=== PATIENT | female | born 1940 | race Caucasian/White ===

== ENCOUNTER 2020-11-30 07:29 | Inpatient (IN) | payer MEDICARE, SELFPAY ==
[2020-11-30] VITALS (28 sets, daily range): BP systolic 139–185; BP diastolic 64–135; PULSE 57–123; RESP 14–28; TEMP 36.3–36.9; O2SAT 85–98
--- NOTE | ~2020-11-30 | XR_ITS ---
EXAMINATION: XR chest 1V portable DATE: 11/30/2020 09:40 INDICATION: Shortness of breath TECHNIQUE: frontal view of the chest was obtained. COMPARISON: None FINDINGS: Calcified nodule at the right costophrenic angle consistent with old granulomatous disease. Patchy ai rspace opacities in the bilateral mid and lower lung zones. No pleural effusion or pneumothorax. The cardiomediastinal silhouette is normal. Old healed proximal right humeral fracture deformity. IMPRESSION: 1. Mild airspace opacities in the bilateral mid and lower lung zones which could represent atelectasi s or pneumonia, including COVID pneumonia. Reviewed, dictated and finalized at location B. IMPRESSION: 1. Mild airspace opacities in the bilateral mid and lower lung zones which coul d represent atelectasis or pneumonia, including COVID pneumonia.
--- NOTE | ~2020-11-30 | XR_ITS ---
EXAMINATION: XR lumbar spine 2-3V DATE: 11/30/2020 08:38 INDICATION: Low back pain. TECHNIQUE: 3 views of lumbar spine were obtained. COMPARISON: None. FINDINGS: There is 11 degrees levoscoliosis of lumbar spine. There is a compression fracture of L5 wi th 1/5 loss of height. There is mildly decreased disc height at L3-L4 and L4-L5 and moderately decrea sed disc height at L5-S1. There are endplate osteophytes at all levels. There is multilevel severe fa cet joint osteoarthritis. There is a total right hip arthroplasty. IMPRESSION: 1. Age-indeterminate compression fracture of L5. 2. Moderate lumbar spondylosis. 3. Lumbar levoscoliosis. Reviewed, dictated and finalized at location A.
--- NOTE | ~2020-11-30 | XR_ITS ---
EXAMINATION: XR chest 1V portable EXAM DATE: 12/04/2020 07:37 INDICATION: shortness of breath . TECHNIQUE: Portable AP frontal chest x-ray was obtained. Comparison is made to prior examination from 11/30/2020. FINDINGS: Persistent peripheral distribution small lung opacities, could be COVID pneumonia or other acute infectious process. There is right basilar granuloma. No pneumothorax or pleural effusion. Card iomediastinal silhouette is normal. There is aortic arteriosclerosis. There are bony degenerative tricia nges. IMPRESSION: Persistent patchy multifocal airspace disease. Reviewed, dictated and finalized at location A.
[2020-11-30] MEDS: SODIUM CHLORIDE 0.9% IV 1,000 ML 150 ML IV CONT (08:14)
[2020-11-30 08:18] LABS: Basophils Percent Auto 0.1 % (0.2-1.2); Hematocrit 39.8 % (37.0-47.0); Hemoglobin 13.8 g/dL (12.0-15.0); Immature Granulocyte Absolute 0.13 K/mm3 (0.00-0.031); Immature Granulocyte Percent A 1.3 % (0-0.5); Lymphocytes Absolute Auto 0.38 K/mm3 (0.9-3.2); Lymphocytes Percent Auto 3.9 % (18.3-44.2); Mean Corpuscular HGB Conc 34.7 g/dl (32-36); Mean Corpuscular Volume 92.3 fl (80-100); Mean Platelet Volume 8.9 fl (7.4-10.4); Monocytes Absolute Auto 0.4 K/mm3 (0.1-0.6); Monocytes Percent Auto 4.5 % (2.6-8.5); Neutrophils Absolute Auto 8.7 K/mm3 (1.3-6.7); Neutrophils Percent Auto 90.2 % (45.5-73.1); Platelet Count Result 217 k/mm3 (150-375); Red Blood Count 4.31 M/mm3 (4.2-5.4); White Blood Count 9.7 K/mm3 (4.5-10.0)
[2020-11-30 09:22] LABS: Alanine Aminotransferase 30 U/L (4-35); Albumin Level 3.7 g/dL (3.5-5.1); Alkaline Phosphatase 57 U/L (38-126); Anion Gap 9 mmol/L (8-16); Aspartate Amino Transferase 56 U/L (14-36); Bilirubin,Total 0.9 mg/dL (0.2-1.3); Blood Urea Nitrogen 25 mg/dL (7-17); Calcium 8.4 mg/dL (8.4-10.2); Carbon Dioxide 23 mmol/L (22-30); Chloride 97 mmol/L (98-107); Estimated CRCL calculation 60 ml/min; Estimated Glomerular Filt Rate > 60; Glucose 138 mg/dL (65-110); Sodium 129 mmol/L (137-145)
[2020-11-30 09:39] LABS: CRP 14.8 mg/dL (<1.0)
--- NOTE | 2020-11-30 10:52 | PC.NURSE ---
report to sherley valdovinos
--- NOTE | 2020-11-30 11:29 | ED.GENADULT ---
HPI - General Adult General Chief complaint: Fall Stated complaint: Fall, back Pain, COVID + Time Seen by Provider: 11/30/20 07:37 Source: patient Mode of arrival: EMS Limitations: no limitations History of Present Illness HPI narrative: 80-year-old with a history of hypertension, diabetes diagnosed with Covid on 813 here with complaints of fall. Patient states that she was helping her to get him up from the floor ,lost her balance fell backwards. She denies any head injury or loss of consciousness. Patient states that felt a pop in her lower back. She denies bladder or bowel incontinence. Denies any tingling numbness. EMS also reports that her O2 saturations at home was 88% patient is not on any home oxygen. Patient has occasional dry nonproductive cough. She denies any fever or chills. Onset (ago): hour(s) (1) Location: back Severity: moderate Quality: aching Pain Consistency: constant Relieving factors: none Exacerbating factors: none Associated symptoms: denies other symptoms Related Data Home Medications Medication Instructions Recorded Confirmed fluticasone propionate 50 1 spray NASAL DAILY 08/06/19 mcg/actuation nasal spray,suspension glyburide 2.5 mg tablet 2.5 mg PO DAILY 08/06/19 metformin 500 mg tablet 500 mg PO BID 08/06/19 omeprazole 20 mg-sodium 1 cap PO DAILY 08/06/19 bicarbonate 1.1 gram capsule simvastatin 5 mg tablet 5 mg PO DAILY 08/06/19 Allergies Allergy/AdvReac Type Severity Reaction Status Date / Time azithromycin Allergy Abdominal Verified 11/30/20 08:17 Pain Sulfa (Sulfonamide Allergy break out Verified 08/06/19 08:28 Antibiotics) Review of Systems Review of Systems: All systems reviewed & are unremarkable except as noted in HPI and below Constitutional: Constitutional: Reports no additional constitutional complaints Eyes: Eyes: Reports no additional eye complaints ENT: Reports system reviewed and no additional complaints, except as documented Cardiovascular: Cardiovascular: Reports no additional cardiovascular complaints Respiratory: Respiratory: Reports as per HPI Gastrointestinal: Gastrointestinal: Reports no additional gastrointestinal complaints Musculoskeletal: Musculoskeletal: Reports as per HPI Neurologic: Reports system reviewed and no additional complaints, except as documented Psychiatric: Psychiatric: Reports no additional psychiatric complaints Exam Narrative: GENERAL: Well-appearing, well-nourished, and in no acute distress ,very pleasant. HEAD: Normocephalic, atraumatic. EYES: PERRLA and EOMI. NECK: Supple. CHEST: Clear to auscultation. No respiratory distress. HEART: Regular rate and rhythm. No murmur heard. Normal peripheral pulses. ABDOMEN: Soft, nontender, nondistended, normal active bowel sounds. EXTREMITIES: Normal range of motion. No edema. SKIN: Warm, dry, no rash. NEURO: No focal deficits. Alert and oriented x3. PSYCH: Normal mood and affect. Course Course Emergency Course: Patient comfortably resting on the bed in no discomfort her SPO2 on 2 L is 94 to 96%. I have informed her about her lab work, x-ray findings. She is agreeable for admission. Discussed with the hospitalist agreed to admit the patient. Vital Signs Vital signs: Vital Signs Temperature 36.9 C 11/30/20 07:42 Pulse Rate 87 11/30/20 07:42 Respiratory Rate 23 H 11/30/20 07:42 Blood Pressure 185/135 H 11/30/20 07:42 Pulse Oximetry 87 L 11/30/20 07:42 Temperature 36.9 C 11/30/20 07:42 Pulse Rate 87 11/30/20 07:42 Respiratory Rate 23 H 11/30/20 07:42 Blood Pressure 185/135 H 11/30/20 07:42 Pulse Oximetry 87 L 11/30/20 07:42 Medical Decision Making Vital Signs Vital Signs: Vital Signs Temperature 36.9 C 11/30/20 07:42 Pulse Rate 87 11/30/20 07:42 Respiratory Rate 23 H 11/30/20 07:42 Blood Pressure 185/135 H 11/30/20 07:42 Pulse Oximetry 87 L 11/30/20 07:42 Temperature 36.9 C 11/30
--- NOTE | 2020-11-30 11:35 | ECG_ITS ---
Measurements Intervals [place] Rate: 117 P: NV: 0 QRS: 61 QRSD: 91 T: 47 QT: 295 QTc: 413 Interpretive Statements ATRIAL FIBRILLATION WITH RAPID VENTRICULAR RESPONSE DELAYED PRECORDIAL R/S TRANSITION BASELINE ARTIFACT- I, II, III, AVR, AVL, AVF, V1-V6 ABNORMAL ECG Electronically Signed On 11-30-2020 11:55:21 CDT by Jose Manuel Son D.O.
--- NOTE | 2020-11-30 13:00 | PM.IMHP ---
H&P: HPI History of Present Illness Date/Time: 11/30/20 13:00 Chief Complaint: Back pain after fall. Narrative: This is an 80-year-old female with diabetes, hypertension, and hyperlipidemia who presented to the emergency department earlier today via EMS from home for evaluation of back pain after a fall. The patient tested positive for COVID 19 on 11/20/2020 (she was not vaccinated) and she has been feeling okay aside from intermittent fever and nonproductive cough. Her is also sick and today she found him lying on the bathroom floor so she attempted to help him up but she lost her balance and fell backwards. She reports feeling a ?pop? in her lower back with the onset of immediate pain. EMS was summoned to help both of them up. On their arrival her SpO2 was 88% on room air and she was found to be in atrial fibrillation. She denies feeling any significant shortness of breath. She has no previous history of atrial fibrillation but does report ?a strange feeling in my chest? that has started relatively recently. She denies chest pain, pleuritic pain, orthopnea, PND, lower extremity edema, nausea, vomiting, and diarrhea. No numbness and tingling in the lower extremities, bowel and bladder incontinence, or saddle anesthesia. Review of Systems Review of Systems: Twelve systems were reviewed with pertinent positives and negatives as per HPI. She denies headache. No syncope or near syncope. No lightheadedness. No significant sinus congestion, rhinorrhea, otalgia, or odynophagia. Denies anosmia and dysgeusia. Appetite has been okay. Cough has been bothering her and she was prescribed Tessalon Perles which were of no help. No history of venous thromboembolism. She believes her diabetes is fairly well controlled. Except as documented, all other systems were reviewed and are negative. [facility] Past Medical History Medical History (Updated 11/30/20 @ 19:08 by Gabbie Corado PA-C) Arthritis Gastroesophageal reflux disease Glaucoma Hypertension Shingles (04/2020) Type 2 diabetes mellitus Surgical History Surgical History (Updated 11/30/20 @ 19:02 by Gabbie Corado PA-C) History of appendectomy History of cholecystectomy History of hysterectomy History of right hip replacement Family History Family History (Updated 11/30/20 @ 19:02 by Gabbie Corado PA-C) Other Diabetes mellitus Hypertension Social History Social History (Updated 11/30/20 @ 19:03 by Gabbie Corado PA-C) Social History: Surrogate decision maker: Julian Bond, . Code status: Full code. Smoking status: Never smoker Alcohol intake: never Substance use: never Substance use type: does not use Additional living arrangements comments: The patient lives in [place] with her . Additional occupation/education comments: Retired. Meds Home Medications and Allergies Home Medications Medication Instructions Recorded Confirmed Type fluticasone propionate 50 2 spray NASAL DAILY 08/06/19 11/30/20 History mcg/actuation nasal spray,suspension glyburide 2.5 mg tablet 2.5 mg PO DAILY 08/06/19 11/30/20 History metformin 500 mg tablet 500 mg PO BID 08/06/19 11/30/20 History omeprazole 20 mg-sodium 1 cap PO HS 08/06/19 11/30/20 History bicarbonate 1.1 gram capsule simvastatin 5 mg tablet 5 mg PO DAILY 08/06/19 11/30/20 History brimonidine [Alphagan P] 1 drp RIGHT EYE Q12H 11/30/20 11/30/20 History latanoprost 1 drp EACH EYE HS 11/30/20 11/30/20 History peg 400-propylene glycol [Systane 1 drp EACH EYE Q12H 11/30/20 11/30/20 History (propylene glycol)] pioglitazone 30 mg PO HS 11/30/20 11/30/20 History timolol maleate 1 drp EACH EYE DAILY 11/30/20 11/30/20 History Allergies Allergy/AdvReac Type Severity Reaction Status Date / Time azithromycin Allergy Abdominal Verified 11/30/20 18:37 Pain Sulfa (Sulfonamide Allergy break out Verified 11/30/20 18:37 Antibiotics) Vital Signs Vital
[2020-11-30] MEDS: SODIUM CHLORIDE 0.9% IV 1,000 ML 75 ML IV CONT (13:03)
[2020-11-30 14:23] LABS: Glucose Point of Care 128 mg/dl (65-105)
--- NOTE | 2020-11-30 15:45 | PC.NURSE ---
This patient, Bren Bond, was admitted to [address] [facility] Surg Room 305-02 on 11/30/20 @ 1540. Patient/family oriented to hospital policies and general routines including ID bracelet, bed and alarms, visiting hours, pain management, procedures, bathroom and other care routines, personal items, smoking policy, room service/diet, and visiting hours. Information on how to activate the Rapid Response Team has been discussed. Patient/Family are encouraged to report perceived risks to care and to ask questions if they do not understand what they are told or what they should do.
[2020-11-30 17:08] LABS: Glucose Point of Care 207 mg/dl (65-105)
[2020-11-30] MEDS: ACETAMINOPHEN 325 MG TABLET 650 MG PO (20:33)
[2020-11-30] MEDS: LATANOPROST 0.005% OP SOLN 2.5 ML BTL 1 DROP EACH EYE (21:52)
[2020-11-30] MEDS: BRIMONIDINE TARTRATE 0.1% 5 ML OPHTH DROPS 1 DROP RIGHT EYE (21:52)
[2020-11-30] MEDS: guaiFENesin 600 MG/DEXTROMETHORPHAN 30 MG SR TAB 12 HR 1 TAB PO (21:53)
[2020-11-30] MEDS: ENOXAPARIN 100 MG/ML SYRINGE 95 MG SUB-Q (21:54)
[2020-11-30] MEDS: PIOGLITAZONE HCL 30 MG TABLET PO (21:54)
[2020-11-30 22:16] LABS: Glucose Point of Care 208 mg/dl (65-105)
[2020-12-01] VITALS (11 sets, daily range): BP systolic 151–171; BP diastolic 58–83; PULSE 54–85; RESP 14–18; TEMP 36.3–36.6; O2SAT 92–96
[2020-12-01] MEDS: ACETAMINOPHEN 325 MG TABLET 650 MG PO ×3 (03:27→21:28)
[2020-12-01 06:42] LABS: Glucose Point of Care 185 mg/dl (65-105)
[2020-12-01 06:46] LABS: Basophils Percent Auto 0.3 % (0.2-1.2); Hematocrit 38.1 % (37.0-47.0); Hemoglobin 12.9 g/dL (12.0-15.0); Immature Granulocyte Absolute 0.12 K/mm3 (0.00-0.031); Immature Granulocyte Percent A 1.6 % (0-0.5); Lymphocytes Absolute Auto 0.49 K/mm3 (0.9-3.2); Lymphocytes Percent Auto 6.7 % (18.3-44.2); Mean Corpuscular HGB Conc 33.9 g/dl (32-36); Mean Corpuscular Hemoglobin 31.5 pg (26-34); Mean Corpuscular Volume 93.2 fl (80-100); Monocytes Absolute Auto 0.4 K/mm3 (0.1-0.6); Monocytes Percent Auto 5.8 % (2.6-8.5); Neutrophils Absolute Auto 6.3 K/mm3 (1.3-6.7); Neutrophils Percent Auto 85.6 % (45.5-73.1); Platelet Count Result 243 k/mm3 (150-375); Red Blood Count 4.09 M/mm3 (4.2-5.4); White Blood Count 7.3 K/mm3 (4.5-10.0)
[2020-12-01 07:12] LABS: Alanine Aminotransferase 30 U/L (4-35); Albumin Level 3.7 g/dL (3.5-5.1); Alkaline Phosphatase 52 U/L (38-126); Anion Gap 13 mmol/L (8-16); Aspartate Amino Transferase 50 U/L (14-36); Bilirubin,Total 0.8 mg/dL (0.2-1.3); Blood Urea Nitrogen 24 mg/dL (7-17); Calcium 8.5 mg/dL (8.4-10.2); Carbon Dioxide 20 mmol/L (22-30); Chloride 98 mmol/L (98-107); Estimated CRCL calculation 60 ml/min; Estimated Glomerular Filt Rate > 60; Glucose 209 mg/dL (65-110); Sodium 131 mmol/L (137-145)
[2020-12-01] MEDS: guaiFENesin 600 MG/DEXTROMETHORPHAN 30 MG SR TAB 12 HR 1 TAB PO ×2 (07:50→21:29)
[2020-12-01] MEDS: SIMVASTATIN 5 MG TABLET PO (07:50)
[2020-12-01] MEDS: glyBURIDE 2.5 MG TABLET PO (07:50)
[2020-12-01] MEDS: FLUTICASONE PROPIONATE 0.05% NA SPR 16 GM BTL (*BKC) 2 SPRAY NASAL (07:51)
[2020-12-01] MEDS: ENOXAPARIN 100 MG/ML SYRINGE 95 MG SUB-Q ×2 (07:51→21:29)
[2020-12-01 08:10] LABS: Thyroid Stimulating Hormone Reflex 0.424 uIU/mL (0.465-4.68)
[2020-12-01 11:19] LABS: Lactate Dehydrogenase 1117 U/L (313-618)
[2020-12-01 11:51] LABS: CRP 16.6 mg/dL (<1.0)
[2020-12-01 12:21] LABS: Glucose Point of Care 146 mg/dl (65-105)
[2020-12-01 12:31] LABS: Potassium 3.9 mmol/L (3.4-5.0)
[2020-12-01 12:54] LABS: Total Triiodothyronine (T3) 0.69 NG/ML (0.97-1.69)
--- NOTE | 2020-12-01 15:06 | P.PNIM_ITS ---
Progress Note: A&P Assessment and Plan (1) COVID-19: Code(s): U07.1 - COVID-19 Status: Acute Assessment and Plan: * The patient is out of the window for remdesivir. * Decadron on hold for now * Chest x-ray shows bilateral mid and lower lung opacities which could be atelectasis or pneumonia. * Mucinex * Cynthia and IS ordered * Rescue inhaler available as needed. (2) Hypoxia: Code(s): R09.02 - Hypoxemia Status: Acute Assessment and Plan: * SpO2 was reportedly 88% on room air * Currently on 2LNC 95% * Wean oxygen to maintain a saturation greater than 94% (3) Hyponatremia: Code(s): E87.1 - Hypo-osmolality and hyponatremia Status: Acute Assessment and Plan: * Na 131 * Given 1L of NS * Sodium increased * encourage fluids * Trend labs (4) New onset atrial fibrillation: Code(s): I48.91 - Unspecified atrial fibrillation Status: Acute Assessment and Plan: * New diagnosis for the patient. * Chads Vasc 2 score is 5 the she should be started on anticoagulation. * Start Lovenox 1 milligram/kilogram b.i.d. pending insurance authorization. * Monitor on telemetry overnight. * TSH 0.424 * echocardiogram EF 60-65% grade one diastolic dysfunction (5) Compression fracture of L5 vertebra: Code(s): S32.050A - Wedge compression fracture of fifth lumbar vertebra, initial encounter for closed fracture Status: Acute Assessment and Plan: * Probably from the fall. * Analgesics available as needed. * PT/OT when feeling better. (6) Type 2 diabetes mellitus: Code(s): E11.9 - Type 2 diabetes mellitus without complications Status: Acute Assessment and Plan: * Hold pioglitazone and glyburide. * Check hemoglobin A1c. * Initiate sliding scale insulin * Accu-Cheks * hypoglycemic protocol. (7) Hypertension: Code(s): I10 - Essential (primary) hypertension Status: Acute Assessment and Plan: * Blood pressure was 166/73 * Check BNP * Start patient on 5mg Lisinopril PO * trend BP * Adjust medications as needed Time Spent With Patient Time with patient: Greater than 35 minutes Subjective Date/time seen: 12/01/20 9:00 a.m. Interval history: Patient is an 80-year-old female who presented to the ED after a fall. Patient stated that her back popped whenever she is trying to help her up off the floor. She was tested COVID positive on then 20 of November. When she got here is noted that her oxygen saturation was low patient was placed on supplemental oxygen. Patient seems a little bit anxious today. She stated that her grandson came from [place] to visit them and did realize that he had COVID in of his restoration operation nurse came down with virus. Patient had to take care of her grandson who needed her help. The only complaint she has is that she has shortness of breath when she coughs and her back hurts worse when she coughs as well currently she is sinus rhythm Silver on the monitor. She did state that she was having chills last night when she woke up for breathing treatment her hair was completely saturated with sweats. She also complained of a dry cough. When she 1st got this illness she was taking 12 are Mucinex at home which was helping her get up some stuff. I did talk in length with about the patient getting vaccinated. Patient said she does not believe in the vaccination and does not believe it is real. Review of Systems R
--- NOTE | 2020-12-01 15:06 | PM.IMPN ---
Progress Note: A&P Assessment and Plan (1) COVID-19: Code(s): U07.1 - COVID-19 Status: Acute Assessment and Plan: The patient is out of the window for remdesivir. Decadron on hold for now Chest x-ray shows bilateral mid and lower lung opacities which could be atelectasis or pneumonia. Mucinex Cynthia and IS ordered Rescue inhaler available as needed. (2) Hypoxia: Code(s): R09.02 - Hypoxemia Status: Acute Assessment and Plan: SpO2 was reportedly 88% on room air Currently on 2LNC 95% Wean oxygen to maintain a saturation greater than 94% (3) Hyponatremia: Code(s): E87.1 - Hypo-osmolality and hyponatremia Status: Acute Assessment and Plan: Na 131 Given 1L of NS Sodium increased encourage fluids Trend labs (4) New onset atrial fibrillation: Code(s): I48.91 - Unspecified atrial fibrillation Status: Acute Assessment and Plan: New diagnosis for the patient. Chads Vasc 2 score is 5 the she should be started on anticoagulation. Start Lovenox 1 milligram/kilogram b.i.d. pending insurance authorization. Monitor on telemetry overnight. TSH 0.424 echocardiogram EF 60-65% grade one diastolic dysfunction (5) Compression fracture of L5 vertebra: Code(s): S32.050A - Wedge compression fracture of fifth lumbar vertebra, initial encounter for closed fracture Status: Acute Assessment and Plan: Probably from the fall. Analgesics available as needed. PT/OT when feeling better. (6) Type 2 diabetes mellitus: Code(s): E11.9 - Type 2 diabetes mellitus without complications Status: Acute Assessment and Plan: Hold pioglitazone and glyburide. Check hemoglobin A1c. Initiate sliding scale insulin Accu-Cheks hypoglycemic protocol. (7) Hypertension: Code(s): I10 - Essential (primary) hypertension Status: Acute Assessment and Plan: Blood pressure was 166/73 Check BNP Start patient on 5mg Lisinopril PO trend BP Adjust medications as needed Time Spent With Patient Time with patient: Greater than 35 minutes Subjective Date/time seen: 12/01/20 9:00 a.m. Interval history: Patient is an 80-year-old female who presented to the ED after a fall. Patient stated that her back popped whenever she is trying to help her up off the floor. She was tested COVID positive on then 20 of November. When she got here is noted that her oxygen saturation was low patient was placed on supplemental oxygen. Patient seems a little bit anxious today. She stated that her grandson came from [place] to visit them and did realize that he had COVID in of his [employer] operation nurse came down with virus. Patient had to take care of her grandson who needed her help. The only complaint she has is that she has shortness of breath when she coughs and her back hurts worse when she coughs as well currently she is sinus rhythm Silver on the monitor. She did state that she was having chills last night when she woke up for breathing treatment her hair was completely saturated with sweats. She also complained of a dry cough. When she 1st got this illness she was taking 12 are Mucinex at home which was helping her get up some stuff. I did talk in length with about the patient getting vaccinated. Patient said she does not believe in the vaccination and does not believe it is real. Review of Systems Review of Systems: All systems reviewed & are unremarkable except as noted in HPI and below Exam Const: General: cooperative, healthy appearing, no acute distress, well developed, alert, awake, Physically active and uncomfortable Nutritional Appearance: well nourished, obese and overweight Orientation/consciousness: oriented to person, oriented to place, oriented to time and patient oriented x3 Limitations: no limitations HENMT: Head: normal to inspection Ears: hearing
[2020-12-01 15:10] LABS: Glucose Point of Care 113 mg/dl (65-105)
--- NOTE | 2020-12-01 19:14 | ECHO_ITS ---
Patient Info Name: Bren Bond Age: 80 years : 1940 Gender: Female Ht: 63 in Wt: 204 lbs BSA: 2.07 m2 HR: 77 bpm BP: 159 / 58 mmHg Heart Rhythm: Sinus Rhythm Exam Date: 12/01/2020 11:23 AM Exam Location: [facility] Patient Status: Inpatient Admit Date: 11/30/2020 Staff Ordering Physician: Gabbie Corado PA-C Fiscal Services Manager: Carlo Fournier RDCS, RT Attending Provider: Zohreh Mendoza MD Referring Physician: Mak CHAVEZ; Exam Type: CA echo doppler color flow Study Info Indications I48.1 - Persistent atrial fibrillation I10 - Essential (primary) hypertension Complete two-dimensional, color flow and Doppler transthoracic echocardiogram is performed. Strain analysis performed. Summary 1. Complete two-dimensional, color flow and Doppler transthoracic echocardiogram is performed. 2. Strain analysis performed. 3. Left ventricular chamber dimension is normal. 4. Left ventricular systolic function is normal, estimated at 60-65%. 5. There is mildly increased left ventricular wall thickness. 6. The left ventricular diastolic function is grade I diastolic dysfunction. 7. Global longitudinal strain is abnormal at -14 %. 8. Left atrial chamber dimension is moderately enlarged. 9. There is mild to moderate aortic valve regurgitation. 10. There is mild mitral valve regurgitation. 11. There is mild tricuspid valve regurgitation. Left Ventricle Left ventricular chamber dimension is normal. Left ventricular systolic function is normal, estimated at 60-65%. There is mildly increased left ventricular wall thickness. The left ventricular diastolic function is grade I diastolic dysfunction. Global longitudinal strain is abnormal at -14 %. Right Ventricle Right ventricular chamber dimension is normal. Right ventricular systolic function is normal. Left Atria Left atrial chamber dimension is moderately enlarged. Right Atria Right atrial chamber dimension is normal. Atrial Septum Intact interatrial septum visualized by color flow imaging. Aortic Valve The aortic valve is trileaflet. There is mild aortic valve sclerosis. There is no aortic valve stenosis. There is mild to moderate aortic valve regurgitation. Pulmonic Valve The pulmonic valve is normal. There is no pulmonic valve stenosis. There is trace pulmonic regurgitation. Mitral Valve The mitral valve has normal leaflets. There is no mitral valve stenosis. There is mild mitral valve regurgitation. Tricuspid Valve The tricuspid valve leaflets are normal. There is no significant tricuspid valve stenosis. There is mild tricuspid valve regurgitation. Pericardium/Pleural The pericardium appears normal. There is no pericardial effusion. Inferior Vena Cava Normal inferior vena cava with >50% collapse upon inspiration consistent with normal right atrial pressure, 5 mmHg. Aorta The aortic root size at the sinus of Valsalva is normal. There is mild aortic atherosclerosis. Left Ventricular Outflow Tract Name Value Normal LVOT 2D LVOT Diameter 2.0 cm LVOT Doppler LVOT Peak Gradient 5 mmHg
[2020-12-01] MEDS: LATANOPROST 0.005% OP SOLN 2.5 ML BTL 1 DROP EACH EYE (21:29)
[2020-12-01] MEDS: BRIMONIDINE TARTRATE 0.1% 5 ML OPHTH DROPS 1 DROP RIGHT EYE (21:29)
[2020-12-01 23:04] LABS: Glucose Point of Care 186 mg/dl (65-105)
[2020-12-02] VITALS (14 sets, daily range): BP systolic 133–210; BP diastolic 55–100; PULSE 63–94; RESP 16–21; TEMP 36.3–36.7; O2SAT 91–99
--- NOTE | 2020-12-02 00:18 | PC.NURSE ---
Notified MD about pt. blood pressure and new orders are given.
[2020-12-02] MEDS: ACETAMINOPHEN 325 MG TABLET 650 MG PO ×3 (04:13→20:39)
[2020-12-02] MEDS: hydrALAZINE HCL 20 MG/ML VIAL 10 MG IV PUSH ×2 (04:14→16:44)
[2020-12-02 06:13] LABS: Basophils Percent Auto 0.2 % (0.2-1.2); Eosinophils Percent Auto 0.1 % (0-4.4); Hematocrit 35.1 % (37.0-47.0); Hemoglobin 12.1 g/dL (12.0-15.0); Immature Granulocyte Percent A 2.3 % (0-0.5); Lymphocytes Absolute Auto 0.56 K/mm3 (0.9-3.2); Lymphocytes Percent Auto 6.5 % (18.3-44.2); Mean Corpuscular HGB Conc 34.5 g/dl (32-36); Mean Corpuscular Hemoglobin 31.3 pg (26-34); Mean Corpuscular Volume 90.9 fl (80-100); Mean Platelet Volume 8.7 fl (7.4-10.4); Monocytes Absolute Auto 0.5 K/mm3 (0.1-0.6); Monocytes Percent Auto 6.1 % (2.6-8.5); Neutrophils Absolute Auto 7.3 K/mm3 (1.3-6.7); Neutrophils Percent Auto 84.8 % (45.5-73.1); Platelet Count Result 276 k/mm3 (150-375); Red Blood Count 3.86 M/mm3 (4.2-5.4); Red Cell Distribution Width 12.7 % (11.5-14.5); White Blood Count 8.6 K/mm3 (4.5-10.0)
[2020-12-02 06:25] LABS: Alanine Aminotransferase 31 U/L (4-35); Albumin Level 3.3 g/dL (3.5-5.1); Alkaline Phosphatase 52 U/L (38-126); Anion Gap 7 mmol/L (8-16); Aspartate Amino Transferase 49 U/L (14-36); Bilirubin,Total 0.7 mg/dL (0.2-1.3); Blood Urea Nitrogen 28 mg/dL (7-17); Calcium 8.5 mg/dL (8.4-10.2); Carbon Dioxide 23 mmol/L (22-30); Chloride 102 mmol/L (98-107); Estimated CRCL calculation 60 ml/min; Estimated Glomerular Filt Rate > 60; Glucose 108 mg/dL (65-110); Magnesium 1.7 mg/dL (1.6-2.3); Potassium 3.3 mmol/L (3.4-5.0); Sodium 132 mmol/L (137-145)
[2020-12-02 06:34] LABS: NT Pro B Type Natriuretic Pept 795 pg/mL (5-100)
[2020-12-02] MEDS: MAGNESIUM SULF 2 GM/WATER 50ML 2 GM/50 ML BAG IVPB (08:15)
[2020-12-02] MEDS: lisinopriL 10 MG TABLET PO (08:18)
[2020-12-02] MEDS: BUMETANIDE INJ 1 MG/4 ML VIAL 2 MG IV PUSH (08:18)
[2020-12-02] MEDS: SIMVASTATIN 5 MG TABLET PO (08:18)
[2020-12-02] MEDS: BRIMONIDINE TARTRATE 0.1% 5 ML OPHTH DROPS 1 DROP RIGHT EYE ×2 (08:18→20:42)
[2020-12-02] MEDS: POTASSIUM CHLORIDE 20 MEQ TABLET 40 MEQ PO (08:18)
[2020-12-02] MEDS: guaiFENesin 600 MG/DEXTROMETHORPHAN 30 MG SR TAB 12 HR 1 TAB PO ×2 (08:18→20:42)
[2020-12-02] MEDS: TIMOLOL MALEATE 0.5% OP SOLN 5 ML BOTTLE 1 DROP EACH EYE (08:19)
[2020-12-02] MEDS: ENOXAPARIN 100 MG/ML SYRINGE 95 MG SUB-Q ×2 (08:22→20:42)
[2020-12-02 09:11] LABS: Glucose Point of Care 105 mg/dl (65-105)
[2020-12-02] MEDS: guaiFENesin/DEXTROMETHORPHAN 10 ML UDC 5 ML PO ×3 (11:51→20:40)
[2020-12-02 11:58] LABS: Glucose Point of Care 112 mg/dl (65-105)
[2020-12-02 12:21] LABS: INR 1.1; Prothrombin Time 13.9 Seconds (11.1-14.7)
[2020-12-02 12:23] LABS: Alanine Aminotransferase 40 U/L (4-35); Estimated CRCL calculation 53 ml/min; Estimated Glomerular Filt Rate > 60
[2020-12-02] MEDS: DEXAMETHASONE SOD PHOS INJ 4 MG/ML VIAL 6 MG IV PUSH (14:06)
--- NOTE | 2020-12-02 16:32 | P.PNIM_ITS ---
Progress Note: A&P Assessment and Plan (1) COVID-19: Code(s): U07.1 - COVID-19 Status: Acute Assessment and Plan: * The patient is out of the window for remdesivir. * Decadron 6mg IV Daily * Chest x-ray shows bilateral mid and lower lung opacities which could be atelectasis or pneumonia. * Guaifenesin/DM * Cynthia and IS ordered * Rescue inhaler available as needed. (2) Hypoxia: Code(s): R09.02 - Hypoxemia Status: Acute Assessment and Plan: * SpO2 was reportedly 88% on room air upon arrival * Currently on room air sating 99% * Wean oxygen to maintain a saturation greater than 94% (3) Hyponatremia: Code(s): E87.1 - Hypo-osmolality and hyponatremia Status: Acute Assessment and Plan: * Na 132 * Given 1L of NS in ed * encourage fluids * Trend labs (4) New onset atrial fibrillation: Code(s): I48.91 - Unspecified atrial fibrillation Status: Acute Assessment and Plan: * New diagnosis for the patient. * Chads Vasc 2 score is 5 the she should be started on anticoagulation. * Start Lovenox 1 milligram/kilogram b.i.d. pending insurance authorization. * Monitor on telemetry overnight. * TSH 0.424 * echocardiogram EF 60-65% grade one diastolic dysfunction (5) Compression fracture of L5 vertebra: Code(s): S32.050A - Wedge compression fracture of fifth lumbar vertebra, initial encounter for closed fracture Status: Acute Assessment and Plan: * Probably from the fall. * Analgesics available as needed. * PT/OT when feeling better. (6) Type 2 diabetes mellitus: Code(s): E11.9 - Type 2 diabetes mellitus without complications Status: Acute Assessment and Plan: * Hold pioglitazone and glyburide. * Check hemoglobin A1c. * Initiate sliding scale insulin * Accu-Cheks * hypoglycemic protocol. (7) Hypertension: Code(s): I10 - Essential (primary) hypertension Status: Acute Assessment and Plan: * Blood pressure was 133/59 * BNP 759, 1mg Bumex IV once * Start patient on 5mg Lisinopril PO, increased to 10mg and hydralazine PRN with parameters. * trend BP * Adjust medications as needed Subjective Date/time seen: 12/02/20 12:15 Interval history: Patient is an 80-year-old female who is here for evaluation treatment of COVID-19. Today patient states she was feeling better and she is ready to go home. Patient did state that she still has a cough which is making her more short of breath. She is also tired she did not sleep well. Patient was very concerned about her chest x-ray stating that she was under the impression that that was in her lungs. I explained to her and that they did see some opacities in her lungs which could be a virus, infection, or fluid. P atjarvis did look a little puny today so I did add some Decadron to her case. She also concerned about her sinuses trending downward set of coming up as a cough. Patient's BNP this morning was 795 patient was given 1 mg of Bumex 1 time. Patient also complained of pain in her back where she fell. She has patient was given morphine at that time. Patient is very concerned about her who is an IM. Oxygen has been weaned down patient is currently on room air and satting 99%. PT and OT is working with patient and patient is usually in the chair and being assessed. Patient denies chest pain, nausea, vomiting, diarrhea, constipation, fevers, sweats, chills. Patient did say that she has decreased appetite and is
--- NOTE | 2020-12-02 16:32 | PM.IMPN ---
Progress Note: A&P Assessment and Plan (1) COVID-19: Code(s): U07.1 - COVID-19 Status: Acute Assessment and Plan: The patient is out of the window for remdesivir. Decadron 6mg IV Daily Chest x-ray shows bilateral mid and lower lung opacities which could be atelectasis or pneumonia. Guaifenesin/DM Cynthia and IS ordered Rescue inhaler available as needed. (2) Hypoxia: Code(s): R09.02 - Hypoxemia Status: Acute Assessment and Plan: SpO2 was reportedly 88% on room air upon arrival Currently on room air sating 99% Wean oxygen to maintain a saturation greater than 94% (3) Hyponatremia: Code(s): E87.1 - Hypo-osmolality and hyponatremia Status: Acute Assessment and Plan: Na 132 Given 1L of NS in ed encourage fluids Trend labs (4) New onset atrial fibrillation: Code(s): I48.91 - Unspecified atrial fibrillation Status: Acute Assessment and Plan: New diagnosis for the patient. Chads Vasc 2 score is 5 the she should be started on anticoagulation. Start Lovenox 1 milligram/kilogram b.i.d. pending insurance authorization. Monitor on telemetry overnight. TSH 0.424 echocardiogram EF 60-65% grade one diastolic dysfunction (5) Compression fracture of L5 vertebra: Code(s): S32.050A - Wedge compression fracture of fifth lumbar vertebra, initial encounter for closed fracture Status: Acute Assessment and Plan: Probably from the fall. Analgesics available as needed. PT/OT when feeling better. (6) Type 2 diabetes mellitus: Code(s): E11.9 - Type 2 diabetes mellitus without complications Status: Acute Assessment and Plan: Hold pioglitazone and glyburide. Check hemoglobin A1c. Initiate sliding scale insulin Accu-Cheks hypoglycemic protocol. (7) Hypertension: Code(s): I10 - Essential (primary) hypertension Status: Acute Assessment and Plan: Blood pressure was 133/59 BNP 759, 1mg Bumex IV once Start patient on 5mg Lisinopril PO, increased to 10mg and hydralazine PRN with parameters. trend BP Adjust medications as needed Subjective Date/time seen: 12/02/20 12:15 Interval history: Patient is an 80-year-old female who is here for evaluation treatment of COVID-19. Today patient states she was feeling better and she is ready to go home. Patient did state that she still has a cough which is making her more short of breath. She is also tired she did not sleep well. Patient was very concerned about her chest x-ray stating that she was under the impression that that was in her lungs. I explained to her and that they did see some opacities in her lungs which could be a virus, infection, or fluid. Patient did look a little puny today so I did add some Decadron to her case. She also concerned about her sinuses trending downward set of coming up as a cough. Patient's BNP this morning was 795 patient was given 1 mg of Bumex 1 time. Patient also complained of pain in her back where she fell. She has patient was given morphine at that time. Patient is very concerned about her who is an IM. Oxygen has been weaned down patient is currently on room air and satting 99%. PT and OT is working with patient and patient is usually in the chair and being assessed. Patient denies chest pain, nausea, vomiting, diarrhea, constipation, fevers, sweats, chills. Patient did say that she has decreased appetite and is not eating as much normally used to. Review of Systems Review of Systems: All systems reviewed & are unremarkable except as noted in HPI and below Exam Const: General: cooperative, healthy appearing, no acute distress, well developed, alert, awake, Physically active, anxious, ill appearing, tired appearing and uncomfortable Nutritional Appearance: well nourished, obese and overweight Orientation/consciousness: oriented to person, orien
[2020-12-02] MEDS: FLUTICASONE PROPIONATE 0.05% NA SPR 16 GM BTL (*BKC) 2 SPRAY NASAL (16:44)
[2020-12-02 16:57] LABS: Glucose Point of Care 162 mg/dl (65-105)
[2020-12-02] MEDS: LATANOPROST 0.005% OP SOLN 2.5 ML BTL 1 DROP EACH EYE (20:43)
[2020-12-03] VITALS (10 sets, daily range): BP systolic 157–183; BP diastolic 63–78; PULSE 59–91; RESP 18–20; TEMP 36.7–37; O2SAT 90–96
[2020-12-03 03:31] LABS: Glucose Point of Care 216 mg/dl (65-105)
[2020-12-03] MEDS: ACETAMINOPHEN 325 MG TABLET 650 MG PO ×2 (03:33→08:56)
[2020-12-03] MEDS: hydrALAZINE HCL 20 MG/ML VIAL 10 MG IV PUSH ×2 (03:39→17:39)
[2020-12-03 06:28] LABS: Basophils Percent Auto 0.5 % (0.2-1.2); Hematocrit 37.7 % (37.0-47.0); Hemoglobin 13.3 g/dL (12.0-15.0); Immature Granulocyte Absolute 0.47 K/mm3 (0.00-0.031); Immature Granulocyte Percent A 6.2 % (0-0.5); Lymphocytes Absolute Auto 0.46 K/mm3 (0.9-3.2); Lymphocytes Percent Auto 6.1 % (18.3-44.2); Mean Corpuscular HGB Conc 35.3 g/dl (32-36); Mean Corpuscular Volume 90.6 fl (80-100); Monocytes Absolute Auto 0.5 K/mm3 (0.1-0.6); Neutrophils Absolute Auto 6.1 K/mm3 (1.3-6.7); Neutrophils Percent Auto 81.2 % (45.5-73.1); Platelet Count Result 349 k/mm3 (150-375); Red Blood Count 4.16 M/mm3 (4.2-5.4); Red Cell Distribution Width 12.8 % (11.5-14.5); White Blood Count 7.5 K/mm3 (4.5-10.0)
[2020-12-03 07:53] LABS: Glucose Point of Care 133 mg/dl (65-105)
[2020-12-03] MEDS: BRIMONIDINE TARTRATE 0.1% 5 ML OPHTH DROPS 1 DROP RIGHT EYE (08:42)
[2020-12-03] MEDS: FLUTICASONE PROPIONATE 0.05% NA SPR 16 GM BTL (*BKC) 2 SPRAY NASAL (08:42)
[2020-12-03] MEDS: guaiFENesin 600 MG/DEXTROMETHORPHAN 30 MG SR TAB 12 HR 1 TAB PO ×2 (08:42→21:18)
[2020-12-03] MEDS: TIMOLOL MALEATE 0.5% OP SOLN 5 ML BOTTLE 1 DROP EACH EYE (08:42)
[2020-12-03] MEDS: DEXAMETHASONE SOD PHOS INJ 4 MG/ML VIAL 6 MG IV PUSH (08:43)
[2020-12-03] MEDS: ENOXAPARIN 100 MG/ML SYRINGE 95 MG SUB-Q ×2 (08:43→21:20)
[2020-12-03] MEDS: SIMVASTATIN 5 MG TABLET PO (08:44)
[2020-12-03] MEDS: lisinopriL 10 MG TABLET PO ×2 (08:44→17:41)
[2020-12-03] MEDS: guaiFENesin/DEXTROMETHORPHAN 10 ML UDC 5 ML PO ×4 (08:44→21:25)
[2020-12-03 10:18] LABS: Alanine Aminotransferase 34 U/L (4-35); Albumin Level 3.7 g/dL (3.5-5.1); Alkaline Phosphatase 60 U/L (38-126); Anion Gap 12 mmol/L (8-16); Aspartate Amino Transferase 43 U/L (14-36); Bilirubin,Total 0.7 mg/dL (0.2-1.3); Blood Urea Nitrogen 31 mg/dL (7-17); Carbon Dioxide 20 mmol/L (22-30); Chloride 96 mmol/L (98-107); Estimated CRCL calculation 60 ml/min; Estimated Glomerular Filt Rate > 60; Glucose 150 mg/dL (65-110); Magnesium 2.1 mg/dL (1.6-2.3); Potassium 3.8 mmol/L (3.4-5.0); Sodium 128 mmol/L (137-145)
[2020-12-03 11:15] LABS: NT Pro B Type Natriuretic Pept 804 pg/mL (5-100)
[2020-12-03 12:32] LABS: Glucose Point of Care 185 mg/dl (65-105)
[2020-12-03] MEDS: traMADol HCL (*CRX) 25 MG TABLET PO (13:16)
[2020-12-03] MEDS: ACETAMINOPHEN 500 MG TABLET 1000 MG PO ×2 (13:17→21:17)
--- NOTE | 2020-12-03 13:46 | P.PNIM_ITS ---
Progress Note: A&P Assessment and Plan (1) COVID-19: Code(s): U07.1 - COVID-19 Status: Acute Assessment and Plan: * The patient is out of the window for remdesivir. * Decadron 6mg IV Daily * Chest x-ray shows bilateral mid and lower lung opacities which could be atelectasis or pneumonia. * Guaifenesin/DM ludin and PRN for the cough * Cynthia and IS ordered * Rescue inhaler available as needed. (2) Hypoxia: Code(s): R09.02 - Hypoxemia Status: Acute Assessment and Plan: * SpO2 was reportedly 88% on room air upon arrival * Currently on room air sating 99% * Wean oxygen to maintain a saturation greater than 94% (3) Hyponatremia: Code(s): E87.1 - Hypo-osmolality and hyponatremia Status: Acute Assessment and Plan: * Na 128 * will add 250ml bolus for now * encourage fluids * Trend labs (4) New onset atrial fibrillation: Code(s): I48.91 - Unspecified atrial fibrillation Status: Acute Assessment and Plan: * New diagnosis for the patient. * Chads Vasc 2 score is 5 the she should be started on anticoagulation. * Start Lovenox 1 milligram/kilogram b.i.d. pending insurance authorization. * Monitor on telemetry overnight. * TSH 0.424 * echocardiogram EF 60-65% grade one diastolic dysfunction (5) Compression fracture of L5 vertebra: Code(s): S32.050A - Wedge compression fracture of fifth lumbar vertebra, initial encounter for closed fracture Status: Acute Assessment and Plan: * Probably from the fall. * Analgesics available as needed. * PT/OT when feeling better. (6) Type 2 diabetes mellitus: Code(s): E11.9 - Type 2 diabetes mellitus without complications Status: Acute Assessment and Plan: * Hold pioglitazone and glyburide. * Check hemoglobin A1c. * Initiate sliding scale insulin * Accu-Cheks * hypoglycemic protocol. (7) Hypertension: Code(s): I10 - Essential (primary) hypertension Status: Acute Assessment and Plan: * Blood pressure was 160/71 * BNP 759, 1mg Bumex IV once * Start patient on 5mg Lisinopril PO, increased to 20mg and hydralazine PRN with parameters. * gave a one time dose of lisinopril 10mg PO once * trend BP * Adjust medications as needed Time Spent With Patient Time with patient: Greater than 35 minutes Subjective Date/time seen: 12/03/20 10:35 Interval history: Patient is an 80 year old female that is here for Fernandez [facility]. Today she states that she is getting better. She stated that her cough makes her very irritable and that it causes her to get very short of breath. She also stated that it causes her back to hurt. She currently stated that she has no pain if she is just sitting in the chair. She did state that the Mucinex was helping her a little bit, however, she was unaware that she she could get some Robitussin PRN Q4hr. She was also inquiring about her back pain and her new heart rhythm. I think that she has been going in and out of this for a while. Since it is controlled at this point it would probably be best for her to see a massage coordinator outpatient. She did state that she is getting some sleep, but her appetite is lacking. She stated that she just is not very hungry. I did change her diet and added supplements to her diet. Patient denies chest pain, shortness of breath, nausea, diarrhea, constipation, abdominal pain, fever, chills, and sweats. Review of Systems Review of Systems: All s
--- NOTE | 2020-12-03 13:46 | PM.IMPN ---
Progress Note: A&P Assessment and Plan (1) COVID-19: Code(s): U07.1 - COVID-19 Status: Acute Assessment and Plan: The patient is out of the window for remdesivir. Decadron 6mg IV Daily Chest x-ray shows bilateral mid and lower lung opacities which could be atelectasis or pneumonia. Guaifenesin/DM ludin and PRN for the cough Cynthia and IS ordered Rescue inhaler available as needed. (2) Hypoxia: Code(s): R09.02 - Hypoxemia Status: Acute Assessment and Plan: SpO2 was reportedly 88% on room air upon arrival Currently on room air sating 99% Wean oxygen to maintain a saturation greater than 94% (3) Hyponatremia: Code(s): E87.1 - Hypo-osmolality and hyponatremia Status: Acute Assessment and Plan: Na 128 will add 250ml bolus for now encourage fluids Trend labs (4) New onset atrial fibrillation: Code(s): I48.91 - Unspecified atrial fibrillation Status: Acute Assessment and Plan: New diagnosis for the patient. Chads Vasc 2 score is 5 the she should be started on anticoagulation. Start Lovenox 1 milligram/kilogram b.i.d. pending insurance authorization. Monitor on telemetry overnight. TSH 0.424 echocardiogram EF 60-65% grade one diastolic dysfunction (5) Compression fracture of L5 vertebra: Code(s): S32.050A - Wedge compression fracture of fifth lumbar vertebra, initial encounter for closed fracture Status: Acute Assessment and Plan: Probably from the fall. Analgesics available as needed. PT/OT when feeling better. (6) Type 2 diabetes mellitus: Code(s): E11.9 - Type 2 diabetes mellitus without complications Status: Acute Assessment and Plan: Hold pioglitazone and glyburide. Check hemoglobin A1c. Initiate sliding scale insulin Accu-Cheks hypoglycemic protocol. (7) Hypertension: Code(s): I10 - Essential (primary) hypertension Status: Acute Assessment and Plan: Blood pressure was 160/71 BNP 759, 1mg Bumex IV once Start patient on 5mg Lisinopril PO, increased to 20mg and hydralazine PRN with parameters. gave a one time dose of lisinopril 10mg PO once trend BP Adjust medications as needed Time Spent With Patient Time with patient: Greater than 35 minutes Subjective Date/time seen: 12/03/20 10:35 Interval history: Patient is an 80 year old female that is here for Fernandez [facility]. Today she states that she is getting better. She stated that her cough makes her very irritable and that it causes her to get very short of breath. She also stated that it causes her back to hurt. She currently stated that she has no pain if she is just sitting in the chair. She did state that the Mucinex was helping her a little bit, however, she was unaware that she she could get some Robitussin PRN Q4hr. She was also inquiring about her back pain and her new heart rhythm. I think that she has been going in and out of this for a while. Since it is controlled at this point it would probably be best for her to see a dividend deposit entry clerk outpatient. She did state that she is getting some sleep, but her appetite is lacking. She stated that she just is not very hungry. I did change her diet and added supplements to her diet. Patient denies chest pain, shortness of breath, nausea, diarrhea, constipation, abdominal pain, fever, chills, and sweats. Review of Systems Review of Systems: All systems reviewed & are unremarkable except as noted in HPI and below Exam Const: General: cooperative, healthy appearing, no acute distress, well developed, alert, awake, Physically active, anxious, ill appearing, tired appearing and uncomfortable Nutritional Appearance: well nourished, obese and overweight Orientation/consciousness: oriented to person, oriented to place, oriented to time and patient oriented x3 Limitations: no limitations HENMT: Head: normal to inspec
[2020-12-03 17:06] LABS: Glucose Point of Care 246 mg/dl (65-105)
[2020-12-03] MEDS: SODIUM CHLORIDE 0.9% IV 1,000 ML 250 ML IV CONT (17:40)
[2020-12-03] MEDS: INSULIN ASPART (*BKC) 100 UNITS/ML SUB-Q (17:40)
[2020-12-03] MEDS: GABAPENTIN 100 MG CAPSULE PO (17:43)
[2020-12-03 23:02] LABS: Glucose Point of Care 202 mg/dl (65-105)
[2020-12-04] VITALS: PULSE 72
[2020-12-04 04:00] VITALS: PULSE 74
[2020-12-04 04:06] VITALS: BP 159/82; PULSE 76; RESP 18; TEMP 36.4; O2SAT 93
[2020-12-04] MEDS: ACETAMINOPHEN 500 MG TABLET 1000 MG PO ×2 (04:16→11:02)
[2020-12-04] MEDS: guaiFENesin/DEXTROMETHORPHAN 10 ML UDC 5 ML PO ×2 (04:16→14:10)
[2020-12-04 06:45] LABS: Hematocrit 35.1 % (37.0-47.0); Hemoglobin 12.1 g/dL (12.0-15.0); Mean Corpuscular HGB Conc 34.5 g/dl (32-36); Mean Corpuscular Hemoglobin 31.7 pg (26-34); Mean Corpuscular Volume 91.9 fl (80-100); Mean Platelet Volume 8.7 fl (7.4-10.4); Platelet Count Result 286 k/mm3 (150-375); Red Blood Count 3.82 M/mm3 (4.2-5.4); Red Cell Distribution Width 12.7 % (11.5-14.5); White Blood Count 9.1 K/mm3 (4.5-10.0)
[2020-12-04 07:08] LABS: Alanine Aminotransferase 40 U/L (4-35); Albumin Level 3.3 g/dL (3.5-5.1); Alkaline Phosphatase 53 U/L (38-126); Aspartate Amino Transferase 45 U/L (14-36); Bilirubin,Total 0.6 mg/dL (0.2-1.3); Blood Urea Nitrogen 39 mg/dL (7-17); Calcium 8.6 mg/dL (8.4-10.2); Carbon Dioxide 22 mmol/L (22-30); Chloride 97 mmol/L (98-107); Estimated CRCL calculation 53 ml/min; Estimated Glomerular Filt Rate > 60; Glucose 163 mg/dL (65-110); Potassium 3.4 mmol/L (3.4-5.0)
[2020-12-04 07:21] LABS: Anion Gap 11 mmol/L (8-16); Sodium 130 mmol/L (137-145)
[2020-12-04 08:00] VITALS: BP 189/76; PULSE 66; PULSE 69; RESP 18; TEMP 36.7; O2SAT 92; O2SAT 94
[2020-12-04] MEDS: SODIUM CHLORIDE 0.9% IV 1,000 ML 100 ML IV CONT (08:03)
[2020-12-04] MEDS: hydrALAZINE HCL 20 MG/ML VIAL 10 MG IV PUSH (08:03)
[2020-12-04] MEDS: ENOXAPARIN 100 MG/ML SYRINGE 95 MG SUB-Q (08:03)
[2020-12-04] MEDS: SIMVASTATIN 5 MG TABLET PO (08:04)
[2020-12-04] MEDS: lisinopriL 20 MG TABLET PO (08:04)
[2020-12-04] MEDS: GABAPENTIN 100 MG CAPSULE PO ×2 (08:04→14:10)
[2020-12-04] MEDS: guaiFENesin 600 MG/DEXTROMETHORPHAN 30 MG SR TAB 12 HR 1 TAB PO (08:04)
[2020-12-04] MEDS: DEXAMETHASONE SOD PHOS INJ 4 MG/ML VIAL 6 MG IV PUSH (08:05)
[2020-12-04] MEDS: FLUTICASONE PROPIONATE 0.05% NA SPR 16 GM BTL (*BKC) 2 SPRAY NASAL (08:07)
[2020-12-04] MEDS: BRIMONIDINE TARTRATE 0.1% 5 ML OPHTH DROPS 1 DROP RIGHT EYE (08:08)
[2020-12-04] MEDS: TIMOLOL MALEATE 0.5% OP SOLN 5 ML BOTTLE 1 DROP EACH EYE (08:08)
[2020-12-04 08:09] LABS: Glucose Point of Care 148 mg/dl (65-105)
[2020-12-04 08:51] VITALS: BP 123/60
[2020-12-04 11:54] LABS: Glucose Point of Care 186 mg/dl (65-105)
[2020-12-04 12:00] VITALS: BP 145/74; PULSE 72; PULSE 73; RESP 20; TEMP 36.6; O2SAT 96
--- NOTE | 2020-12-04 14:52 | P.DS_ITS ---
DS: Admitting Diagnosis Admitting Diagnosis COVID-19 DS: Discharge Diagnosis Discharge Diagnosis (1) COVID-19: Code(s): U07.1 - COVID-19 Status: Acute Assessment and Plan: * The patient is out of the window for remdesivir. * Decadron 6mg IV Daily * Chest x-ray shows bilateral mid and lower lung opacities which could be atelectasis or pneumonia. * Guaifenesin/DM ludin and PRN for the cough * Cynthia and IS ordered * Rescue inhaler available as needed. SHE WILL NEED TO COMPLETED FULL 10 DAYS OF DECADRON WILL SEND PATIENT HOME WITH ALBUTEROL INHALER (2) Hypoxia: Code(s): R09.02 - Hypoxemia Status: Acute Assessment and Plan: * SpO2 was reportedly 88% on room air upon arrival * Currently on room air sating 99% * Wean oxygen to maintain a saturation greater than 94% (3) Hyponatremia: Code(s): E87.1 - Hypo-osmolality and hyponatremia Status: Acute Assessment and Plan: * Na 128 * will add 250ml bolus for now * encourage fluids * Trend labs (4) New onset atrial fibrillation: Code(s): I48.91 - Unspecified atrial fibrillation Status: Acute Assessment and Plan: * New diagnosis for the patient. * Chads Vasc 2 score is 5 the she should be started on anticoagulation. * Start Lovenox 1 milligram/kilogram b.i.d. pending insurance authorization. * Monitor on telemetry overnight. * TSH 0.424 * echocardiogram EF 60-65% grade one diastolic dysfunction (5) Compression fracture of L5 vertebra: Code(s): S32.050A - Wedge compression fracture of fifth lumbar vertebra, initial encounter for closed fracture Status: Acute Assessment and Plan: * Probably from the fall. * Analgesics available as needed. * PT/OT when feeling better. WILL SEND PATIENT HOME WITH 5 TRAMADOL 25 MG (6) Type 2 diabetes mellitus: Code(s): E11.9 - Type 2 diabetes mellitus without complications Status: Acute Assessment and Plan: * Hold pioglitazone and glyburide. * Check hemoglobin A1c. * Initiate sliding scale insulin * Accu-Cheks * hypoglycemic protocol. (7) Hypertension: Code(s): I10 - Essential (primary) hypertension Status: Acute Assessment and Plan: * Blood pressure was 160/71 * BNP 759, 1mg Bumex IV once * Start patient on 5mg Lisinopril PO, increased to 20mg and hydralazine PRN with parameters. * gave a one time dose of lisinopril 10mg PO once * trend BP * Adjust medications as needed PATIENT'S LISINOPRIL HAS BEEN UP TO 20 MG DS: Summary Hospital Course Reason for hospitalization: DATE OF SERVICE 12/04/2020 AT 2:54 P.M. Hospital Course: Patient is an 80-year-old female who is here for COVID-19. Since admission patient has been treated with supplemental oxygen and Decadron for shortness of breath. Patient has also been treated with Tylenol for back pain. Patient has gotten normal saline for sodium. It was noted that patient's blood pressure did get elevated up to 210/100 which her blood pressure medication was adjusted to accommodate the increase. Patient has also been st arted on Eliquis for AFib with rapid ventricular rate. Patient did go and AFib for a brief moment and convert spontaneously on her own. Since that time patient has had moments of tachycardia however her heart rate has been consistently in the 60 to 70s. Today patient states that she does have some hip pain when she coughs. She also stated that she got some good sleep last night about
--- NOTE | 2020-12-04 14:52 | PM.DS ---
DS: Admitting Diagnosis Admitting Diagnosis COVID-19 DS: Discharge Diagnosis Discharge Diagnosis (1) COVID-19: Code(s): U07.1 - COVID-19 Status: Acute Assessment and Plan: The patient is out of the window for remdesivir. Decadron 6mg IV Daily Chest x-ray shows bilateral mid and lower lung opacities which could be atelectasis or pneumonia. Guaifenesin/DM ludin and PRN for the cough Cynthia and IS ordered Rescue inhaler available as needed. SHE WILL NEED TO COMPLETED FULL 10 DAYS OF DECADRON WILL SEND PATIENT HOME WITH ALBUTEROL INHALER (2) Hypoxia: Code(s): R09.02 - Hypoxemia Status: Acute Assessment and Plan: SpO2 was reportedly 88% on room air upon arrival Currently on room air sating 99% Wean oxygen to maintain a saturation greater than 94% (3) Hyponatremia: Code(s): E87.1 - Hypo-osmolality and hyponatremia Status: Acute Assessment and Plan: Na 128 will add 250ml bolus for now encourage fluids Trend labs (4) New onset atrial fibrillation: Code(s): I48.91 - Unspecified atrial fibrillation Status: Acute Assessment and Plan: New diagnosis for the patient. Chads Vasc 2 score is 5 the she should be started on anticoagulation. Start Lovenox 1 milligram/kilogram b.i.d. pending insurance authorization. Monitor on telemetry overnight. TSH 0.424 echocardiogram EF 60-65% grade one diastolic dysfunction (5) Compression fracture of L5 vertebra: Code(s): S32.050A - Wedge compression fracture of fifth lumbar vertebra, initial encounter for closed fracture Status: Acute Assessment and Plan: Probably from the fall. Analgesics available as needed. PT/OT when feeling better. WILL SEND PATIENT HOME WITH 5 TRAMADOL 25 MG (6) Type 2 diabetes mellitus: Code(s): E11.9 - Type 2 diabetes mellitus without complications Status: Acute Assessment and Plan: Hold pioglitazone and glyburide. Check hemoglobin A1c. Initiate sliding scale insulin Accu-Cheks hypoglycemic protocol. (7) Hypertension: Code(s): I10 - Essential (primary) hypertension Status: Acute Assessment and Plan: Blood pressure was 160/71 BNP 759, 1mg Bumex IV once Start patient on 5mg Lisinopril PO, increased to 20mg and hydralazine PRN with parameters. gave a one time dose of lisinopril 10mg PO once trend BP Adjust medications as needed PATIENT'S LISINOPRIL HAS BEEN UP TO 20 MG DS: Summary Hospital Course Reason for hospitalization: DATE OF SERVICE 12/04/2020 AT 2:54 P.M. Hospital Course: Patient is an 80-year-old female who is here for COVID-19. Since admission patient has been treated with supplemental oxygen and Decadron for shortness of breath. Patient has also been treated with Tylenol for back pain. Patient has gotten normal saline for sodium. It was noted that patient's blood pressure did get elevated up to 210/100 which her blood pressure medication was adjusted to accommodate the increase. Patient has also been started on Eliquis for AFib with rapid ventricular rate. Patient did go and AFib for a brief moment and convert spontaneously on her own. Since that time patient has had moments of tachycardia however her heart rate has been consistently in the 60 to 70s. Today patient states that she does have some hip pain when she coughs. She also stated that she got some good sleep last night about 5 hours and her cough was not bothering her. Patient did state that she felt like she could control her cough better. Patient denies chest pain, shortness of breath, nausea, vomiting, diarrhea, constipation. Patient did state that she was eating better and she was able to eat all of her meals yesterday and today. Patient did express that she was ready to go home she has a game plan worked out with her grandson ruth who is moved into the house to help take care of them her
== END 2020-12-04 16:30 | disposition home or self-care (01) | DRG 177 ==
LOC: ANHED 11:48 → ANH3MEDSUR 12-01 12:13
PROVIDERS: Physician Assistant; Admitting Provider Internal Medicine; Emergency Provider Family Medicine; PCP Internal Medicine; Visit Provider Nurse Practitioner
DX: U07.1 COVID-19 (principal); J12.82 Pneumonia due to coronavirus disease 2019; S32.050A Wedge compression fracture of fifth lumbar vertebra, initial encounter for closed fracture; E87.1 Hypo-osmolality and hyponatremia; W01.0XXA Fall on same level from slipping, tripping and stumbling without subsequent striking against object, initial encounter; R09.02 Hypoxemia; I48.91 Unspecified atrial fibrillation; E11.9 Type 2 diabetes mellitus without complications; I10 Essential (primary) hypertension; K21.9 Gastro-esophageal reflux disease without esophagitis; Z79.84 Long term (current) use of oral hypoglycemic drugs; Z79.899 Other long term (current) drug therapy
CPT/HCPCS: 36415; 71045; 72100; 80048; 80053; 80076; 82565; 82728; 82948; 83036; 83615; 83735; 83880; 84439; 84443; 84460; 84480; 85025; 85027; 85610; 86140; 93005; 93306; 97110; 97116; 97162; 97165; 99285; A9270; J0360; J1100; J1650; J1815; J3475; J7030

== ENCOUNTER 2024-04-11 07:08 | Emergency (ER) | payer MEDICARE, SELFPAY ==
[2024-04-11] VITALS (25 sets, daily range): BP systolic 90–147; BP diastolic 45–72; PULSE 67–88; RESP 12–21; TEMP 36.3–36.7; O2SAT 97–100
--- NOTE | ~2024-04-11 | CT_ITS ---
CLINICAL INDICATION: Intermittent left lower quadrant pain. GI hemorrhage. COMPARISON: None. TECHNIQUE: Multiple contiguous axial images of the abdomen and pelvis were performed following the ad ministration of with 100 mL Omnipaque-350 intravenous contrast The dose-length product (DLP) was 986.62 mGy-cm. Automated exposure control and iterative reconstruction technique were employed. FINDINGS/OBSERVATIONS: Visualized lower thorax: Trace bibasilar atelectasis. The remainder of the lungs are clear. The heart is of normal size, without pericardial effusion. Small hiatal hernia is present. Liver: The liver enhances homogeneously and measures 17 cm in longitudinal dimension. Gallbladder and biliary system: The gallbladder is surgically absent. Pancreas: The pancreas enhances homogeneously without ductal dilatation. Spleen: The spleen enhances homogeneously and is not enlarged measuring 9 cm in longitudinal dimension. Kidneys: The bilateral kidneys enhance symmetrically without hydronephrosis or renal calculi. Adrenal glands: Unremarkable. Gastrointestinal tract: Fecal stasis distends the rectum. Colonic diverticulosis without CT evidence of acute diverticulitis. Appendix: The appendix is not definitively visualized. However, no pericecal inflammatory change is identified suggest the presence of acute appendicitis. Vasculature: Unremarkable. No aneurysmal dilatation or significant stenosis. Lymph nodes: No pathologically enlarged or morphologically suspicious lymph nodes within the retroperitoneum or at the root of the mesentery. Pelvic structures: The bladder is minimally distended, and otherwise unremarkable. The uterus is either surgically absent or atrophic. Further evaluation of the deep pelvis is limited secondary to streak metallic artifact from the patie nt's right hip replacement. Body wall and musculoskeletal: Significant degenerative disease within the lumbosacral spine with near-complete compression of the L 5 vertebral body with adjacent vacuum phenomena, likely chronic. IMPRESSION: Fecal stasis distending the rectum suggesting fecal impaction. Extensive diverticulosis without surrounding inflammatory change. Reviewed, dictated and finalized at location A. [facility] CLAIMS
--- NOTE | 2024-04-11 09:19 | ED.GIBLEED ---
HPI - GI Bleed General Chief complaint: GI Bleed <Marifer Charles PA-C - Last Filed: 04/11/24 18:40> Stated complaint: RECTAL BLEEDING <Marifer Charles PA-C - Last Filed: 04/11/24 18:40> Time Seen by Provider: 04/11/24 09:05 <Marifer Charles PA-C - Last Filed: 04/11/24 18:40> History of Present Illness HPI Narrative: 84-year-old female with history of hypertension, type 2 diabetes, AFib on Eliquis presents to the emergency department for GI bleed. Patient states this morning she had 5 bowel movements with bright red blood that filled the toilet bowl. States she had similar symptoms previously twice. States the 1st time she was told she had inflammation in her colon and was given antibiotic with improvement in the 2nd time was told she had hemorrhoids. She states she has not had a colonoscopy in several years but does show some polyps. She states she held her Eliquis this morning. She denies chest pain or shortness of breath, syncope. States she did have some dizziness earlier when getting up but is attributing this to the position of her neck while sitting. She states she has had some intermittent left lower quadrant abdominal pain but does not have any pain currently. <Marifer Charles PA-C - Last Filed: 04/11/24 18:40> Related Data Home medications: Home Medications ?Medication ?Instructions ?Recorded ?Confirmed ?Last Taken ?Type fluticasone propionate 50 2 spray intranasal DAILY 08/06/19 11/30/20 Unknown History mcg/actuation nasal spray,suspension (Flonase Allergy Relief) glyburide 2.5 mg tablet 2.5 mg PO DAILY 08/06/19 11/30/20 Unknown History metformin 500 mg tablet 500 mg PO BID 08/06/19 11/30/20 Unknown History omeprazole 20 mg-sodium 1 cap PO HS 08/06/19 11/30/20 Unknown History bicarbonate 1.1 gram capsule simvastatin 5 mg tablet 5 mg PO DAILY 08/06/19 11/30/20 Unknown History brimonidine 0.1 % eye drops 1 drp RIGHT EYE Q12H 11/30/20 04/11/24 04/11/24 06:30 History (Alphagan P) latanoprost 0.005 % eye drops 1 drp EACH EYE HS 11/30/20 04/11/24 04/10/24 History peg 400-propylene glycol 0.4 %-0.3 1 drp EACH EYE Q12H 11/30/20 11/30/20 11/29/20 History % eye drops (Systane (propylene glycol)) pioglitazone 30 mg tablet 30 mg PO HS 11/30/20 11/30/20 Unknown History timolol maleate 0.5 % eye drops 1 drp EACH EYE DAILY 11/30/20 04/11/24 04/11/24 06:30 History gabapentin 100 mg capsule 100 mg PO TID 12/03/20 12/03/20 Unknown History <Marifer Charles PA-C - Last Filed: 04/11/24 18:40> Allergies/Adverse reactions: Allergies Allergy/AdvReac Type Severity Reaction Status Date / Time azithromycin Allergy Abdominal Verified 04/11/24 07:22 Pain Sulfa (Sulfonamide Allergy break out Verified 04/11/24 07:22 Antibiotics) <Marifer Charles PA-C - Last Filed: 04/11/24 18:40> Review of Systems Review of Systems: All systems reviewed & are unremarkable except as noted in HPI and below <Marifer Charles PA-C - Last Filed: 04/11/24 18:40> [facility] Past Medical History Medical History: Medical History Shingles (04/2020) Glaucoma Arthritis Gastroesophageal reflux disease Hypertension Type 2 diabetes mellitus <Marifer Charles PA-C - Last Filed: 04/11/24 18:40> Surgical History Surgical History: Surgical History History of hysterectomy History of right hip replacement History of cholecystectomy History of appendectomy <Marifer Charles PA-C - Last Filed: 04/11/24 18:40> Family History Family History: Family History Other Diabetes mellitus Hypertension <Marifer Charles PA-C - Last Filed: 04/11/24 18:40> Social History Social History: Social History Social History: Surrogate decision maker: Julian Bond, . Code status: Full code. Smoking status: Never smoker Alcohol intake: never Substance use: never Substance use type: does not use Additional living arrangements comments: The patient lives in [place] with her . Additional occupation/education comments: Retired. Spiritual care concerns: No <Marifer Charles PA-C - Last Filed: 04/11/24 18:40> Exam Narrative: GENERAL: Well-appearing, well-nourished, and in no acute distress. HEAD: Normocephalic, atraumatic. EYES: EOMI. ENT: Nares clear, no rhinorrhea or epistaxis. Mucous membranes moist. NECK: Supple. CHEST: Clear to auscultation. No respiratory distress. HEART: Regular rate and rhythm. No murmur heard. Normal peripheral pulses. ABDOMEN: Soft, nontender, nondistended, normal active bowel sounds. No rebound or rigidity. No CVA tenderness EXTREMITIES: Normal range of motion. No edema. SKIN: Warm, dry, no rash. NEURO: No focal deficits. Alert and oriented x3 <Marifer Charles PA-C - Last Filed: 04/11/24 18:40> Course Course Emergency Course: 1025: Patient had a large current jelly bowel movement in the ER hallway and in the ER bathroom. She is more ill-appearing. Will provide a unit of blood and closely monitor. She is now agreeable for transfer to a tertiary care facility with GI consultation. Will consult care coordination for respite care for her with dementia. 1210: Patient's neighbor at bedside is willing to care for patient's so she can be transferred. <Marifer Charles PA-C - Last Filed: 04/11/24 18:40> Vital Signs Vital signs: Vital Signs Temperature 98.0 F 04/11/24 07:15 Pulse Rate 88 04/11/24 07:15 Respiratory Rate 20 04/11/24 07:15 Blood Pressure 147/58 H 04/11/24 07:15 Pulse Oximetry 100 04/11/24 07:15 Oxygen Delivery Room Air 04/11/24 07:15 Temperature 97.6 F 04/11/24 13:50 Pulse Rate 80 04/11/24 19:36 Respiratory Rate 15 04/11/24 19:36 Blood Pressure 126/55 L 04/11/24 16:01 Pulse Oximetry 99 04/11/24 19:36 Oxygen Delivery Room Air 04/11/24 07:15 <Marifer Charles PA-C - Last Filed: 04/11/24 18:40> Vital Signs Temperature 98.0 F 04/11/24 07:15 Pulse Rate 88 04/11/24 07:15 Respiratory Rate 20 04/11/24 07:15 Blood Pressure 147/58 H 04/11/24 07:15 Pulse Oximetry 100 04/11/24 07:15 Oxygen Delivery Room Air 04/11/24 07:15 Temperature 97.6 F 04/11/24 13:50 Pulse Rate 80 04/11/24 19:36 Respiratory Rate 15 04/11/24 19:36 Blood Pressure 126/55 L 04/11/24 16:01 Pulse Oximetry 99 04/11/24 19:36 Oxygen Delivery Room Air 04/11/24 07:15 <Conchita Mayorga PA-C - Last Filed: 04/12/24 01:41> MDM - GI Bleed MDM Narrative Medical decision making narrative: 84-year-old female with history of AFib on Eliquis presents to the emergency department for 5 bouts of hematochezia since this morning. Her triage vitals are stable. She is afebrile nontoxic exam. She is resting comfortably in the exam bed. Abdomen is soft and nontender. Immediately discussed with the patient that we unfortunately do not have GI in house and she will need to be transferred to tertiary facility for GI consultation. Patient states she refuses to stay in the hospital because she cares for her demented there is no one else to care for him. I discussed she would be leaving against medical advice and the risks involved including hemorrhaging, cardiac arrest and . She verbalized understanding of these risks. She agrees to have a workup in the ED. EKG shows normal sinus rhythm with a rate of 74 ppm, normal AL interval, normal QRS duration, normal QTC, no ischemic changes. Her lab work shows no leukocytosis but does reveal hemoglobin of 10.4 hematocrit of 31.6, most recent comparison was 2020 with hemoglobin of 12.1. Chemistry show a BUN of 28 and creatinine 0.8. Lactic acid is within normal limits of 1.1. Low suspicion for mesenteric ischemia or ischemic colitis. CT abdomen pelvis shows fecal stasis distending the rectum suggesting fecal impaction and extensive diverticulosis without surrounding inflammatory change. Workup discussed with the patient. Suspect diverticulosis of source of bleed. Patient requesting transfer to [facility]. BP now soft at 105/46. Pt given another L of fluids. She is still receiving blood. Unfortunately [facility] us unable to accept the patient. Spoke with hospitalist Dr. Phillip at [facility] who accepts admission. Transfer center nurse did consult GI was on board consult. Pt also accepted to [facility]. Accepting physician Dr. Castro. Patient is responding well after the unit of blood fluids. Blood pressure 117/52. Will continue to monitor pending bed assignment. Sign-out to Conchita Mayorga PA-C pending bed assignment. <Marifer Charles PA-C - Last Filed: 04/11/24 18:40> 84-year-old female with history of AFib on Eliquis presents to the emergency department for 5 bouts of hematochezia since this morning. Her triage vitals are stable. She is afebrile nontoxic exam. She is resting comfortably in the exam bed. Abdomen is soft and nontender. Immediately discussed with the patient that we unfortunately do not have GI in house and she will need to be transferred to tertiary facility for GI consultation. Patient states she refuses to stay in the hospital because she cares for her demented there is no one else to care for him. I discussed she would be leaving against medical advice and the risks involved including hemorrhaging, cardiac arrest and . She verbalized understanding of these risks. She agrees to have a workup in the ED. EKG shows normal sinus rhythm with a rate of 74 ppm, normal AL interval, normal QRS duration, normal QTC, no ischemic changes. Her lab work shows no leukocytosis but does reveal hemoglobin of 10.4 hematocrit of 31.6, most recent comparison was 2020 with hemoglobin of 12.1. Chemistry show a BUN of 28 and creatinine 0.8. Lactic acid is within normal limits of 1.1. Low suspicion for mesenteric ischemia or ischemic colitis. CT abdomen pelvis shows fecal stasis distending the rectum suggesting fecal impaction and extensive diverticulosis without surrounding inflammatory change. Workup discussed with the patient. Suspect diverticulosis of source of bleed. Patient requesting transfer to [facility]. BP now soft at 105/46. Pt given another L of fluids. She is still receiving blood. Unfortunately [facility] us unable to accept the patient. Spoke with hospitalist Dr. Phillip at [facility] who accepts admission. Transfer center nurse did consult GI was on board consult. Pt also accepted to [facility]. Accepting physician Dr. Castro. Patient is responding well after the unit of blood fluids. Blood pressure 117/52. Will continue to monitor pending bed assignment. Sign-out to Conchita Mayorga PA-C pending bed assignment. Patient signed out to ia at shift change, patient received a bed shortly after and was transferred to [facility] <Conchita Mayorga PA-C - Last Filed: 04/12/24 01:41> Lab Data Result diagrams: 04/11/24 19:34 04/11/24 09:29 <Marifer Charles PA-C - Last Filed: 04/11/24 18:40> Labs: Lab Results 04/11/24 04/11/24 04/11/24 Range/Units 09:29 10:39 15:12 WBC 9.4 (4.5-10.0) K/mm3 RBC 3.16 L (4.2-5.4) M/mm3 Hgb 10.4 L 10.9 L (12.0-15.0) g/dL Hct 31.6 L 32.8 L (37.0-47.0) % MCV 100.0 (80-100) fl MCH 32.9 (26-34) pg MCHC 32.9 (32-36) g/dl RDW 13.2 (11.5-14.5) % Plt Count 181 (150-375) k/mm3 MPV 9.1 (7.4-10.4) fl Immature Gran % (Auto) 0.4 (0-0.5) % Neut % (Auto) 84.1 H (45.5-73.1) % Lymph % (Auto) 7.7 L (18.3-44.2) % [place] % (Auto) 6.3 (2.6-8.5) % Eos % (Auto) 1.2 (0-4.4) % Baso % (Auto) 0.3 (0.2-1.2) % Lymph # (Auto) 0.72 L (0.9-3.2) K/mm3 [place] # (Auto) 0.6 (0.1-0.6) K/mm3 Eos # (Auto) 0.1 (0-0.3) K/mm3 Baso # (Auto) 0.0 (0.0-0.1) K/mm3 Abs Immat Gran (auto) 0.04 H (0.00-0.031) K/mm3 Absolute Neuts (auto) 7.9 H (1.3-6.7) K/mm3 Absolute Nucleated RBC 0.000 (0.0-0.012) K/mm3 Nucleated RBC % 0.0 (0.0-0.2) % PT 16.7 H (11.1-14.7) Seconds INR 1.3 APTT 31.3 (22.3-36.8) Seconds Sodium 135 L (137-145) mmol/L Potassium 4.2 (3.4-5.0) mmol/L Chloride 106 (98-107) mmol/L Carbon Dioxide 27 (22-30) mmol/L Anion Gap 2 L (4-12) mmol/L BUN 28 H D (7-17) mg/dL Creatinine 0.80 (0.7-1.0) mg/dL Estim Creat Clear Calc Not Reportable Estimated GFR > 60 (59 - ) Glucose 132 H (65-110) mg/dL Lactic Acid 1.1 (0.7-2.0) mmol/L Calcium 9.3 (8.4-10.2) mg/dL Total Bilirubin 0.8 (0.2-1.3) mg/dL AST 24 (14-36) U/L ALT 13 (6-35) U/L Alkaline Phosphatase 53 (38-126) U/L Troponin I < 0.012 (0.000-0.034) ng/mL Total Protein 6.0 L (6.3-8.2) g/dL Albumin 3.5 (3.5-5.1) g/dL Lipase 81 (23-300) U/L Blood Type A Positive Antibody Screen Negative Crossmatch See Detail 04/11/24 Range/Units 19:34 WBC (4.5-10.0) K/mm3 RBC (4.2-5.4) M/mm3 Hgb 9.9 L (12.0-15.0) g/dL Hct 29.4 L (37.0-47.0) % MCV (80-100) fl MCH (26-34) pg MCHC (32-36) g/dl RDW (11.5-14.5) % Plt Count (150-375) k/mm3 MPV (7.4-10.4) fl Immature Gran % (Auto) (0-0.5) % Neut % (Auto) (45.5-73.1) % Lymph % (Auto) (18.3-44.2) % [place] % (Auto) (2.6-8.5) % Eos % (Auto) (0-4.4) % Baso % (Auto) (0.2-1.2) % Lymph # (Auto) (0.9-3.2) K/mm3 [place] # (Auto) (0.1-0.6) K/mm3 Eos # (Auto) (0-0.3) K/mm3 Baso # (Auto) (0.0-0.1) K/mm3 Abs Immat Gran (auto) (0.00-0.031) K/mm3 Absolute Neuts (auto) (1.3-6.7) K/mm3 Absolute Nucleated RBC (0.0-0.012) K/mm3 Nucleated RBC % (0.0-0.2) % PT (11.1-14.7) Seconds INR APTT (22.3-36.8) Seconds Sodium (137-145) mmol/L Potassium (3.4-5.0) mmol/L Chloride (98-107) mmol/L Carbon Dioxide (22-30) mmol/L Anion Gap (4-12) mmol/L BUN (7-17) mg/dL Creatinine (0.7-1.0) mg/dL Estim Creat Clear Calc Estimated GFR (59 - ) Glucose (65-110) mg/dL Lactic Acid (0.7-2.0) mmol/L Calcium (8.4-10.2) mg/dL Total Bilirubin (0.2-1.3) mg/dL AST (14-36) U/L ALT (6-35) U/L Alkaline Phosphatase (38-126) U/L Troponin I (0.000-0.034) ng/mL Total Protein (6.3-8.2) g/dL Albumin (3.5-5.1) g/dL Lipase (23-300) U/L Blood Type Antibody Screen Crossmatch <Marifer Charles PA-C - Last Filed: 04/11/24 18:40> Lab Results 04/11/24 04/11/24 04/11/24 Range/Units 09:29 10:39 15:12 WBC 9.4 (4.5-10.0) K/mm3 RBC 3.16 L (4.2-5.4) M/mm3 Hgb 10.4 L 10.9 L (12.0-15.0) g/dL Hct 31.6 L 32.8 L (37.0-47.0) % MCV 100.0 (80-100) fl MCH 32.9 (26-34) pg MCHC 32.9 (32-36) g/dl RDW 13.2 (11.5-14.5) % Plt Count 181 (150-375) k/mm3 MPV 9.1 (7.4-10.4) fl Immature Gran % (Auto) 0.4 (0-0.5) % Neut % (Auto) 84.1 H (45.5-73.1) % Lymph % (Auto) 7.7 L (18.3-44.2) % [place] % (Auto) 6.3 (2.6-8.5) % Eos % (Auto) 1.2 (0-4.4) % Baso % (Auto) 0.3 (0.2-1.2) % Lymph # (Auto) 0.72 L (0.9-3.2) K/mm3 [place] # (Auto) 0.6 (0.1-0.6) K/mm3 Eos # (Auto) 0.1 (0-0.3) K/mm3 Baso # (Auto) 0.0 (0.0-0.1) K/mm3 Abs Immat Gran (auto) 0.04 H (0.00-0.031) K/mm3 Absolute Neuts (auto) 7.9 H (1.3-6.7) K/mm3 Absolute Nucleated RBC 0.000 (0.0-0.012) K/mm3 Nucleated RBC % 0.0 (0.0-0.2) % PT 16.7 H (11.1-14.7) Seconds INR 1.3 APTT 31.3 (22.3-36.8) Seconds Sodium 135 L (137-145) mmol/L Potassium 4.2 (3.4-5.0) mmol/L Chloride 106 (98-107) mmol/L Carbon Dioxide 27 (22-30) mmol/L Anion Gap 2 L (4-12) mmol/L BUN 28 H D (7-17) mg/dL Creatinine 0.80 (0.7-1.0) mg/dL Estim Creat Clear Calc Not Reportable Estimated GFR > 60 (59 - ) Glucose 132 H (65-110) mg/dL Lactic Acid 1.1 (0.7-2.0) mmol/L Calcium 9.3 (8.4-10.2) mg/dL Total Bilirubin 0.8 (0.2-1.3) mg/dL AST 24 (14-36) U/L ALT 13 (6-35) U/L Alkaline Phosphatase 53 (38-126) U/L Troponin I < 0.012 (0.000-0.034) ng/mL Total Protein 6.0 L (6.3-8.2) g/dL Albumin 3.5 (3.5-5.1) g/dL Lipase 81 (23-300) U/L Blood Type A Positive Antibody Screen Negative Crossmatch See Detail 04/11/24 Range/Units 19:34 WBC (4.5-10.0) K/mm3 RBC (4.2-5.4) M/mm3 Hgb 9.9 L (12.0-15.0) g/dL Hct 29.4 L (37.0-47.0) % MCV (80-100) fl MCH (26-34) pg MCHC (32-36) g/dl RDW (11.5-14.5) % Plt Count (150-375) k/mm3 MPV (7.4-10.4) fl Immature Gran % (Auto) (0-0.5) % Neut % (Auto) (45.5-73.1) % Lymph % (Auto) (18.3-44.2) % [place] % (Auto) (2.6-8.5) % Eos % (Auto) (0-4.4) % Baso % (Auto) (0.2-1.2) % Lymph # (Auto) (0.9-3.2) K/mm3 [place] # (Auto) (0.1-0.6) K/mm3 Eos # (Auto) (0-0.3) K/mm3 Baso # (Auto) (0.0-0.1) K/mm3 Abs Immat Gran (auto) (0.00-0.031) K/mm3 Absolute Neuts (auto) (1.3-6.7) K/mm3 Absolute Nucleated RBC (0.0-0.012) K/mm3 Nucleated RBC % (0.0-0.2) % PT (11.1-14.7) Seconds INR APTT (22.3-36.8) Seconds Sodium (137-145) mmol/L Potassium (3.4-5.0) mmol/L Chloride (98-107) mmol/L Carbon Dioxide (22-30) mmol/L Anion Gap (4-12) mmol/L BUN (7-17) mg/dL Creatinine (0.7-1.0) mg/dL Estim Creat Clear Calc Estimated GFR (59 - ) Glucose (65-110) mg/dL Lactic Acid (0.7-2.0) mmol/L Calcium (8.4-10.2) mg/dL Total Bilirubin (0.2-1.3) mg/dL AST (14-36) U/L ALT (6-35) U/L Alkaline Phosphatase (38-126) U/L Troponin I (0.000-0.034) ng/mL Total Protein (6.3-8.2) g/dL Albumin (3.5-5.1) g/dL Lipase (23-300) U/L Blood Type Antibody Screen Crossmatch <NOEMY Palacios Last Filed: 04/12/24 01:41> Critical Care Time Critical Care Time Critical Care Time: No <NOEMY Palacios Last Filed: 04/12/24 01:41> Discharge Plan Discharge Clinical Impression: Acute lower GI bleeding, Diverticulosis <NOEMY Degroot Filed: 04/11/24 18:40> Patient Disposition: Acute Care Hospital <NOEMY Degroot Filed: 04/11/24 18:40> Condition: Stable <NOEMY Degroot Filed: 04/11/24 18:40> Patient Language: Faroese <NOEMY Degroot Filed: 04/11/24 18:40> Prescriptions: No Action metformin 500 mg tablet 500 mg PO BID glyburide 2.5 mg tablet 2.5 mg PO DAILY simvastatin 5 mg tablet 5 mg PO DAILY omeprazole-sodium bicarbonate 20-1.1 mg-gram capsule 1 cap PO HS fluticasone propionate [Flonase Allergy Relief] 50 mcg/actuation spray,suspension 2 spray NASAL DAILY Rx Instructions: administer into each nostril latanoprost 0.005 % drops 1 drp EACH EYE HS timolol maleate 0.5 % drops 1 drp EACH EYE DAILY pioglitazone 30 mg tablet 30 mg PO HS Systane (propylene glycol) 0.4-0.3 % Drops 1 drp EACH EYE Q12H brimonidine [Alphagan P] 0.1 % drops 1 drp RIGHT EYE Q12H Patient Comments: both eyes gabapentin 100 mg capsule 100 mg PO TID albuterol sulfate [Proventil HFA] 90 mcg/actuation Hfa Aerosol Inhaler 2 puff inhalation QIDRT PRN (Reason: Shortness Of Breath) Qty: 8.5 0RF lisinopril 20 mg Tablet 20 mg PO QAM Qty: 30 0RF Eliquis 5 mg tablet 5 mg PO BID Qty: 60 0RF tramadol [Ultram] 50 mg tablet 25 mg PO Q6-8H Qty: 5 0RF <NOEMY Degroot Last Filed: 04/11/24 18:40> Follow-up/Referrals: Naren,Robin Downs MD [Primary Care Provider] - <Marifer Charles PA-C - Last Filed: 04/11/24 18:40>
[2024-04-11 09:38] LABS: Basophils Percent Auto 0.3 % (0.2-1.2); Eosinophils Absolute Auto 0.1 K/mm3 (0-0.3); Eosinophils Percent Auto 1.2 % (0-4.4); Hematocrit 31.6 % (37.0-47.0); Hemoglobin 10.4 g/dL (12.0-15.0); Immature Granulocyte Absolute 0.04 K/mm3 (0.00-0.031); Immature Granulocyte Percent A 0.4 % (0-0.5); Lymphocytes Absolute Auto 0.72 K/mm3 (0.9-3.2); Lymphocytes Percent Auto 7.7 % (18.3-44.2); Mean Corpuscular HGB Conc 32.9 g/dl (32-36); Mean Corpuscular Hemoglobin 32.9 pg (26-34); Mean Platelet Volume 9.1 fl (7.4-10.4); Monocytes Absolute Auto 0.6 K/mm3 (0.1-0.6); Monocytes Percent Auto 6.3 % (2.6-8.5); Neutrophils Absolute Auto 7.9 K/mm3 (1.3-6.7); Neutrophils Percent Auto 84.1 % (45.5-73.1); Platelet Count Result 181 k/mm3 (150-375); Red Blood Count 3.16 M/mm3 (4.2-5.4); Red Cell Distribution Width 13.2 % (11.5-14.5); White Blood Count 9.4 K/mm3 (4.5-10.0)
[2024-04-11 09:50] LABS: INR 1.3; Prothrombin Time 16.7 Seconds (11.1-14.7)
[2024-04-11 09:51] LABS: Partial Thromboplastin Time 31.3 Seconds (22.3-36.8)
[2024-04-11] MEDS: SODIUM CHLORIDE 0.9% IV 1,000 ML 999 ML IV CONT ×2 (09:52→13:42)
[2024-04-11 10:12] LABS: Alanine Aminotransferase 13 U/L (6-35); Albumin Level 3.5 g/dL (3.5-5.1); Alkaline Phosphatase 53 U/L (38-126); Anion Gap 2 mmol/L (4-12); Aspartate Amino Transferase 24 U/L (14-36); Bilirubin,Total 0.8 mg/dL (0.2-1.3); Blood Urea Nitrogen 28 mg/dL (7-17); Calcium 9.3 mg/dL (8.4-10.2); Carbon Dioxide 27 mmol/L (22-30); Chloride 106 mmol/L (98-107); Estimated Glomerular Filt Rate > 60; Glucose 132 mg/dL (65-110); Lipase 81 U/L (23-300); Potassium 4.2 mmol/L (3.4-5.0); Sodium 135 mmol/L (137-145)
[2024-04-11 10:15] LABS: Lactic Acid Reflex 1.1 mmol/L (0.7-2.0)
--- NOTE | 2024-04-11 10:22 | ECG_ITS ---
Test Date: 2024-04-11 10:37:00 Measurements Intervals [place] Rate: 74 P: -56 CO: 158 QRS: 2 QRSD: 87 T: 30 QT: 378 QTc: 421 Interpretive Statements SINUS RHYTHM No previous ECG available for comparison Electronically Signed On 04-15-2024 14:22:31 PASTE UP COPY CAMERA OPERATOR by Luther Ward M.D.
--- NOTE | 2024-04-11 10:33 | PC.NURSE ---
Pt having multiple large BM with blood clots and large amount of blood
[2024-04-11 11:09] LABS: Troponin I < 0.012 ng/mL (0.000-0.034)
[2024-04-11] MEDS: SODIUM CHLORIDE 0.9% IV 250 ML 30 ML IV CONT (11:27)
[2024-04-11] MEDS: TUBING, BLOOD SET 1 EACH XX (11:58)
--- NOTE | 2024-04-11 14:12 | PC.NURSE ---
[facility] calls @[phone] for pt report. all questions answered. call back # is [phone]
[2024-04-11 15:17] LABS: Hematocrit 32.8 % (37.0-47.0); Hemoglobin 10.9 g/dL (12.0-15.0)
--- NOTE | 2024-04-11 15:25 | PC.NURSE ---
called [facility] transfer center back @[phone] per request on repeat Hemiglobin level. accepting physician Dr. Nelson according to transfer center at [phone]. no room assignment at this time
--- NOTE | 2024-04-11 17:46 | PC.NURSE ---
[facility] transfer center called at [phone] for pt update. no bed assignment at this time.
--- NOTE | 2024-04-11 19:29 | PC.NURSE ---
attempted to call report at [phone] and staff states RN is still getting report. left call back number
[2024-04-11 19:41] LABS: Hematocrit 29.4 % (37.0-47.0); Hemoglobin 9.9 g/dL (12.0-15.0)
--- NOTE | 2024-04-11 19:50 | PC.NURSE ---
gave report to GERONIMO Callahan at [facility] at 1945, all questions answered.
--- OUTSIDE RECORDS SUMMARY | 2024-04-18 01:30 | XMS_ITS | Continuity of Care Document ---
Author Organization [place] - [facility], [facility] [place] Address [address] [place] [address] Assessment Encounter Date Assessment Date Assessment LastModified by Organization Details LastModified Time 03/14/2024 03/14/2024 blood work has been ordered we will continue current therapy all questions has been answered with regards to her diagnosis in the assessment and plan refuses any immunizations at this time we will follow up 3-4 months [email or web address] Not available 03/16/2024 18:37:12 Plan of Treatment Reminders Order Date Submit Date Provider Last Modified By Organization Details Last Modified Time Details Appointments ANY 15 2024 10:15A Dav Palafox MD Not available Not available Not available Lab HbA1c (hemoglob in A1c), blood 2023 [facility], [address] [place] [address], [address], [place], [address], 03/20/2024 10:13:29 CBC w/ auto diff 2023 [facility], [address] [place] [address], [address], [place], [address], 03/20/2024 10:13:30 vitamin D, 25-hydrox y, total, serum 2023 [facility], [address] [place] [address], [address], [place], [address], 03/20/2024 10:13:33 PTH (parathyr oid hormone), intact, serum or plasma 2023 024 [facility], [address], [address], [place], [address], 03/20/2024 10:13:32 lipid panel, serum 2023 [facility], [address], [address], [place], [address], 03/20/2024 10:13:26 CMP, serum or plasma 2023 [facility], [address], [address], [place], [address], 03/20/2024 10:13:28 Referral None recorded. Procedures None recorded. Surgeries None recorded. Imaging None recorded. Medication Orders metformin 500 mg tablet 2023 [facility], [address] [place] [address], [id number], 03/14/2024 13:11:37 pioglitaz one 30 mg tablet 2023 [facility], [address] [place] [address], [id number], 03/14/2024 13:11:37 simvastat in 20 mg tablet 2023 [facility], [address] [place] [address], [id number], 03/14/2024 13:11:37 Flonase Allergy Relief 50 mcg/actua tion nasal spray,kris pension 2023 [facility], [address] [place] [address], [id number], 03/14/2024 13:11:37 Patient TargetsNo targets recorded. Patient InstructionsNo instructions recorded. Reason for Referral None Reported. Problems Name Problem SNOMED Code Status Onset Date Resolution Date Notes Provider Name and Address Organization Details Recorded Time Type 2 diabetes mellitus 44051973 Active 2023 Danya Dorman MA null, [place] - [facility] 4 12:11:54 Compression fracture of lumbar spine 068277373 Active 2023 Justino Palafox MD Attn: Dollyrodney ivan,[address], [place], [address], [place] - [facility] 4 22:33:25 Osteoporosis 38236511 Active 2023 Justino Palafox MD Attn: Dollyrodney g,[address], [place], [address], [place] - [facility] 4 22:33:28 Hyperlipidemia 27001006 Active 2023 Justino Palafox MD Attn: Dollyrodney ivan,[address], [place], [address], [facility] - [facility] 4 22:33:29 Gastroesophage al reflux disease without esophagitis 474767973 Active 2023 Justino Palafox MD Attn: Dollyrodney g,[address] [facility], [place], [address], [place] - [facility] 4 22:33:32 Essential hypertension 95038276 Active 2023 Danya Dorman MA null, [place] - [facility] 12:02:39 Problem Notes None recorded. Procedures Surgical History Date Name Laterality Status Provider Name and Address Organization Details Recorded Time Eye Surgery completed HEATHER Mckeon - [facility] 07/27/2023 11:35:41 Cholecystectomy completed Emily Hubbard MA [place] - [facility] 07/27/2023 11:35:47 hysterectomy completed HEATHER Mckeon - [facility] 07/27/2023 11:35:52 Tonsillectomy completed Emily Hubbard MA [facility] 07/27/2023 11:36:07 Imaging Results None recorded. Procedure Notes None recorded. Medical Equipment None Reported. Allergies Allergen ID Allergen Name Allergen Category Reaction Reaction Severity Criticality Documentation Date Start Date Code Code System Note Provider Name and Address Organization Details Recorded Time 356413 Substance with sulfonami de structure and antibacte rial mechanism of action (substanc e) medicatio n Not available Not available Not available 07/27/2023 75246 8003 SNOMED Emily Hubbard MA null, [place] - [facility] 4 11:37:57 Medications Name Sig Start Date Stop Date Status Note LastModified by Organization Details LastModified Time amoxicillin 500 mg capsule TAKE 4 CAPSULES BY MOUTH 1 HOUR BEFORE DENTAL APPOINTME NT 07/26 completed Not Available Not Available Not Available latanoprost 0.005 % eye drops active Not Available Not Available Not Available metformin 500 mg tablet Take 1 tablet twice a day by oral route. active Not Available Not Available No t Available benzonatate 200 mg capsule TAKE 1 CAPSULE BY MOUTH THREE TIMES A DAY NEEDED 07/26 completed Not Available Not Available Not Available lisinopril 20 mg tablet Take 1 tablet every day by oral route. active Not Available Not Available No t Available prednisone 20 mg tablet TAKE 2 TABLETS BY MOUTH EVERY DAY FOR 5 DAYS 07/26 completed Not Available Not Available Not Available amoxicillin 500 mg tablet TAKE 1 TABLET BY MOUTH THREE TIMES A DAY FOR 7 DAYS 07/26 completed Not Available Not Available Not Available famotidine 20 mg tablet Take 1 tablet every day by oral route. 02/21 completed Not Available Not Available Not Available OneTouch Ultra Test strips USE TO MONITOR BLOOD SUGAR LEVELS DAILY active Not Available Not Available No t Available benzonatate 100 mg capsule TAKE 1 CAPSULE BY MOUTH EVERY 8 HOURS NEEDED 07/26 completed Not Available Not Available Not Available simvastatin 20 mg tablet Take 1 tablet every day by oral route. active Not Available Not Available No t Available omeprazole 20 mg capsule,del ayed release active Not Available Not Available Not Available gabapentin 100 mg capsule active Not Available Not Available Not Available albuterol sulfate HFA 90 mcg/actuati on aerosol inhaler INHALE 2 PUFFS BY MOUTH EVERY 4 HOURS NEEDED 11/15 completed Not Available Not Available Not Available timolol maleate 0.5 % eye drops active Not Available Not Available Not Available pioglitazon e 30 mg tablet Take 1 tablet every day by oral route. active Not Available Not Available No t Available fluticasone propionate 50 mcg/actuati on nasal spray,suspe nsion [place] 1 spray every day by intranasa l route. active Not Available Not Available No t Available doxycycline hyclate 100 mg tablet TAKE 1 TABLET BY MOUTH TWICE A DAY FOR 10 DAYS 07/26 completed Not Available Not Available Not Available brimonidine 0.15 % eye drops active Not Available Not Available Not Available Alphagan P 0.1 % eye drops 11/15 completed Not Available Not Available Not Available ferrous sulfate 324 mg (65 mg iron) tablet,aishwarya yed release Take 1 tablet every day by oral route. active Not Available Not Available No t Available omeprazole 20 mg tablet,aishwarya yed release Take 1 tablet every day by oral route. 2023 active Not Available Not Available Not Avai lable Prolia 60 mg/mL subcutaneou s syringe inject 60mg every 6mths 2023 active Not Available Not Available Not Avai lable Eliquis 5 mg tablet Take 1 tablet twice a day by oral route. active Not Available Not Available No t Available Vitals Date Recorded Body height Body mass index (BMI) Body weight Heart rate Oxygen saturation Oxygen saturation in Arterial blood by Pulse oximetry Systolic blood pressure Diastolic blood pressure Provider Name and Address Organization Details Last Updated DateTime 4 154.94 cm 37.8 kg/m2 41490.1 1 g 71 /min 98 % 98 % 124 mm[Hg] 70 mm[Hg] Caryl Wade MA [facility] 11:16:27 Social History Question Answer Notes LastModified by Organizat ion Details LastModified Time Tobacco Smoking Status Never Smoker Emily Hubbard MA null, [facility] 07/27/2023 11:35:11 Do You Have An Advance Directive? Yes Information not available 11/16/2023 What Is Your Level Of Alcohol Consumption? None Information not available 07/27/2023 Are You Blind Or Do You Have Difficulty Seeing? Yes Information not available 07/27/2023 What Is Your Level Of Caffeine Consumption? Occasional Information not available 11/16/2023 Are You Currently Employed? No Information not available 11/16/2023 Are You Deaf Or Do You Have Serious Difficulty Hearing? No Information not available 07/27/2023 What Type Of Diet Are You Following? REGULAR Information not available 11/16/2023 What Was The Date Of Your Most Recent Tobacco Screening? 03/14/2024 [email or web address] Information not available 03/14/2024 What Is Your Relationship Status? Information not available 07/27/2023 Do You Use Your Seat Belt Or Car Seat Routinely? Yes Information not available 07/27/2023 Do You Have Smoke And Carbon Monoxide Detectors In Your Home? Yes Information not available 11/16/2023 Do You Feel Stressed (tense, Restless, Nervous, Or Anxious, Or Unable To Sleep At Night)? [id number] Information not available 07/27/2023 Do You Use Any Illicit Or Recreational Drugs? No Information not available 11/16/2023 Has Tobacco Cessation Counseling Been Provided? No Information not available 11/16/2023 Do You Or Have You Ever Used Any Other Forms Of Tobacco Or Nicotine? No Information not available 11/16/2023 Sex: Female Functional Status Question Answer Note LastModified by Organization D etails LastModified Time Are you able to care for yourself? Yes Information n ot available 07/27/2023 Mental Status None recorded. Family History Nothing Reported. Medical History Condition Response High Blood Pressure Y Muscle, Joint, or Bone Problems Y Acid Reflux (GERD) Y High Cholesterol Y Diabetes Y Osteoporosis Y Gynecological HistoryNo gynecological history recorded. Obstetrics History GPAL:G 0 P 0 0 0 0 Past Encounters Encounter ID Performer Location Encounter Start Date Encounter Closed Date Diagnosis/Indication Diagnosis SNOMED-CT Code Diagnosis ICD10 Code Diagnosis Note [id number] Justino Palafox MD [facility] [place] [address] [place] [address] 03/14/2024 10:37:08 03/14/2024 12:01:11 Body mass index 30+ - obesity 963263846 Z68.37 Hyperlipidemia 65302594 E78.5 Type 2 melyssa betes mellitus 62060972 E11.9 Chronic rhinitis 9263074 6 J31.0 Essential hypertension 09637479 I10 Osteopenia 251768242 M85 .80 Health Concerns Section Related Observation LastModified by Organization Detai ls LastModified Time None Recorded Concern Status LastModified by Organization Details LastModified Time None Recorded Payers Encounter Date Sequence Insurance Name Policy Number Policy Hughes Covered Member ID Hughes Member ID Guarantor Name 03/14/2024 1 [facility] (MEDICARE REPLACEMENT/A DVANTAGE - PPO) [id number] Bren Bond [id number] Bren Bond Notes Date Note Type Note Provider Name and Address Organization Details Recorded Time 03/14/2024 text/html 83-year-old with a history of GERD type 2 diabetes hypertension hyperlipidemia osteoporosis with vertebral compression fracture been maintained on Prolia injections comes in for routine care overall is been doing fine GERD no nausea or vomiting diabetes has not been polyphagia polydipsia or hypoglycemia does take her sugars regularly hypertension no headache or dizziness hyperlipidemia she does take her simvastatin tries to watch diet osteoporosis as stated Prolia compression fracture doing fine she has been maintained on some gabapentin postfracture and that is done okay. still struggles at times time taking care of her who has got pretty severe dementia Justino Palafox MD Attn: [employer] [facility], [place], [address], [facility] 03/16/2024 18:37:43 OBGyn Episode No OBEpisode recorded.
--- OUTSIDE RECORDS SUMMARY | 2024-04-18 01:30 | XMS_ITS | Data Portability ---
Author Organization [facility] [employer], Main Office Address [address] [place] [address] Care Team Providers Care Stage Technician Name Role Phone GRISELDA PALAFOX Primary Care Provider GRISELDA PALAFOX Referring Provider Assessment Encounter Date Assessment Date Assessment LastModified by Organization Details LastModified Time 05/02/2023 05/02/2023 Will continue current therapy DEXA reviewed will have her see Endocrinology given the history of the compression fracture and her T-score Last A1c 6.3 I do not need Endocrinology to evaluate that follow-up with me 4 months [id number] Not available 05/05/2023 22:32:50 08/14/2023 08/14/2023 This note is dictated and transcribed by [employer]. Psychologist Industrial Organizational variances may occur. Despite proofreading, typographical errors may occur. Occasional wrong-word or '[id number]' substitutions may have occurred due to the inherent limitations of voice recording. Read the chart carefully and recognize, using context, where substitutions have occurred. Not available 08/14/2023 14:29:40 11/16/2023 11/16/2023 This note is dictated and transcribed by [employer]. Psychologist Industrial Organizational variances may occur. Despite proofreading, typographical errors may occur. Occasional wrong-word or '[id number]-[id number]' substitutions may have occurred due to the inherent limitations of voice recording. Read the chart carefully and recognize, using context, where substitutions have occurred. Not available 11/16/2023 15:04:40 03/25/2024 03/25/2024 This note is dictated and transcribed by [employer]. Psychologist Industrial Organizational variances may occur. Despite proofreading, typographical errors may occur. Occasional wrong-word or '[id number]' substitutions may have occurred due to the inherent limitations of voice recording. Read the chart carefully and recognize, using context, where substitutions have occurred. Not available 03/25/2024 11:53:56 Plan of Treatment Reminders Order Date Submit Date Provider Last Modified By Organization Details Last Modified Time Details Appointments Establish ed Patient 15 2024 11:00A M Carlo Wells DPM Not available Not available Not available Lab None recorded. Referral None recorded. Procedures None recorded. Surgeries None recorded. Imaging None recorded. Medication Orders None recorded. Patient TargetsNo targets recorded. Patient Instructions Encounter Date Encounter Id Patient Instructions Last Modified By Organization Details Last Modified Time 05/15/2023 [id number] diabetic foot care education Not available 05/15/2023 14:03:40 08/14/2023 [id number] diabetes foot health: care instructions Not available 08/14/2023 14:30:28 Reason for Referral None Reported. Results Created Date Observation Date Name Description Value Unit Range Abnormal Flag Note LastModifiedBy Organization Detail LastModifiedTime 07/31/19 24 07/31/2023 CBC/C OMPLE TE BLD COUNT W/DIF F white blood cells 5.1 x10'3 /uL 4.2-10 .8 Not Available [facility] (Lab) [address] [place], [address], 07/31/2023 13:42:00 07/31/19 24 07/31/2023 CBC/C OMPLE TE BLD COUNT W/DIF F red blood cells 3.53 x10'6 /uL 3.80-5 .20 low Not Available [facility] (Lab) [address] [place], [address], 07/31/2023 13:42:00 07/31/19 24 07/31/2023 CBC/C OMPLE TE BLD COUNT W/DIF F hemoglobin 10.3 g/dL 12.0-1 5.6 low Not Available [facility] (Lab) [address] [place], [address], 07/31/2023 13:42:00 07/31/19 24 07/31/2023 CBC/C OMPLE TE BLD COUNT W/DIF F hematocrit 32.6 % 35.7-4 5.7 low Not Available [facility] (Lab) [address] [place], [address], 07/31/2023 13:42:00 07/31/19 24 07/31/2023 CBC/C OMPLE TE BLD COUNT W/DIF F mean red cell volume 92.4 fL 82.0-9 9.0 Not Available [facility] (Lab) [address] [place], [address], 07/31/2023 13:42:00 07/31/19 24 07/31/2023 CBC/C OMPLE TE BLD COUNT W/DIF F mean red cell hemoglobin 29.2 pg 27.0-3 3.0 Not Available [facility] (Lab) [address] [place], [address], 07/31/2023 13:42:00 07/31/19 24 07/31/2023 CBC/C OMPLE TE BLD COUNT W/DIF F mean RBC HGB concentratio n 31.6 g/dL 31.0-3 6.0 Not Available [facility] (Lab) [address] [place], [address], 07/31/2023 13:42:00 07/31/19 24 07/31/2023 CBC/C OMPLE TE BLD COUNT W/DIF F red cell distribution width 16.7 % 11.8-1 5.5 high Not Available [facility] (Lab) [address] [place], [address], 07/31/2023 13:42:00 07/31/19 24 07/31/2023 CBC/C OMPLE TE BLD COUNT W/DIF F platelets 209 x10'3 /uL 150-40 0 Not Available [facility] (Lab) [address] [place], [address], 07/31/2023 13:42:00 07/31/19 24 07/31/2023 CBC/C OMPLE TE BLD COUNT W/DIF F mean platelet volume 9.8 fL 9.0-12 .4 Not Available [facility] (Lab) [address] [place], [address], 07/31/2023 13:42:00 07/31/19 24 07/31/2023 CBC/C OMPLE TE BLD COUNT W/DIF F neutrophils 67.6 % 39.0-7 2.0 Not Available [facility] (Lab) [address] [place], [address], 07/31/2023 13:42:00 07/31/19 24 07/31/2023 CBC/C OMPLE TE BLD COUNT W/DIF F lymphocytes 19.1 % 16.0-4 7.0 Not Available [facility] (Lab) [address] [place], [address], 07/31/2023 13:42:00 07/31/19 24 07/31/2023 CBC/C OMPLE TE BLD COUNT W/DIF F monocytes 8.6 % 5.0-12 .0 Not Available [facility] (Lab) [address] [place], [address], 07/31/2023 13:42:00 07/31/19 24 07/31/2023 CBC/C OMPLE TE BLD COUNT W/DIF F eosinophils 3.5 % 1.0-7. 0 Not Available [facility] (Lab) [address] [place], [address], 07/31/2023 13:42:00 07/31/19 24 07/31/2023 CBC/C OMPLE TE BLD COUNT W/DIF F basophils 0.8 % 0.0-2. 0 Not Available [facility] (Lab) [address] [place], [address], 07/31/2023 13:42:00 07/31/19 24 07/31/2023 CBC/C OMPLE TE BLD COUNT W/DIF F immature granulocytes 0.4 % 0.00-0 .50 Not Available [facility] (Lab) [address] [place], [address], 07/31/2023 13:42:00 07/31/19 24 07/31/2023 CBC/C OMPLE TE BLD COUNT W/DIF F neutrophils, absolute count 3.48 x10'3 /uL 1.5-8. 0 Not Available [facility] (Lab) [address] [place], [address], 07/31/2023 13:42:00 07/31/19 24 07/31/2023 CBC/C OMPLE TE BLD COUNT W/DIF F lymphocytes, absolute count 0.98 x10'3 /uL 1.07-3 .43 low Not Available [facility] (Lab) [address] [place], [address], 07/31/2023 13:42:00 07/31/19 24 07/31/2023 CBC/C OMPLE TE BLD COUNT W/DIF F monocytes, absolute count 0.44 x10'3 /uL 0.29-0 .99 Not Available [facility] (Lab) [address] [place], [address], 07/31/2023 13:42:00 07/31/19 24 07/31/2023 CBC/C OMPLE TE BLD COUNT W/DIF F eosinophils, absolute count 0.18 x10'3 /uL 0.02-0 .53 Not Available [facility] (Lab) [address] [place], [address], 07/31/2023 13:42:00 07/31/19 24 07/31/2023 CBC/C OMPLE TE BLD COUNT W/DIF F basophils, absolute count 0.04 x10'3 /uL 0.01-0 .08 Not Available [facility] (Lab) [address] [place], [address], 07/31/2023 13:42:00 07/31/19 24 07/31/2023 CBC/C OMPLE TE BLD COUNT W/DIF F immature granulocytes ,absolute 0.02 x10'3 /uL 0.00-0 .05 Not Available [facility] (Lab) [address] [place], [address], 07/31/2023 13:42:00 07/31/19 24 07/31/2023 CBC/C OMPLE TE BLD COUNT W/DIF F nucleated red blood cells 0.0 % -0 Not Available [facility] (Lab) [address] [place], [address], 07/31/2023 13:42:00 07/31/19 24 07/31/2023 CBC/C OMPLE TE BLD COUNT W/DIF F NRBC# 0.00 x10'3 /uL Not Available [facility] (Lab) [address] [place], [address], 07/31/2023 13:42:00 07/31/19 24 07/31/2023 HEMOG LOBIN A1C HA1C 5.6 % 4.0-6. 0 Diabe kiesha Scree misa Crite checo: <5.7% Consi stent with absen ce of diabe kiesha 5.7-6 .4% Consi stent with incre ased risk for diabe kiesha (pred iabet es) >OR=6 .5% Consi stent with diabe kiesha REFER ENCE: Diabe kiesha Care 2016, 39(Stafford ppl.1 ):s13 -s22 Not Available [facility] (Lab) [address] [place], [address], 07/31/2023 14:35:40 07/31/19 24 07/31/2023 LIPID PANEL cholesterol 132 mg/dL 140-19 9 low NIH JAROD NSUS RECOM MENDA TION FOR PENNY STERO L: ADULT CHILD LOW RISK: <200 <170 BORDE RLINE : <200- 239 ----- HIGH RISK: >240 >200 Not Available [facility] (Lab) [address] [place], [address], 07/31/2023 19:00:18 07/31/19 24 07/31/2023 LIPID PANEL triglyceride s 165 mg/dL 0-150 high NIH JAROD NSUS REPOR T RECOM MENDA TION FOR TRIGL YCERI KVNG: ADULT CHILD LOW RISK: <150 ----- BODER LINE: 150-1 99 ----- HIGH RISK: >200 ----- Not Available [facility] (Lab) [address] [place], [address], 07/31/2023 19:00:18 07/31/1907/31/2023 LIPID PANEL HDL cholesterol 45 mg/dL 40- Not Available [facility] (Lab) [address] [place], [address], 07/31/2023 19:00:18 07/31/1907/31/2023 LIPID PANEL LDL cholesterol, calculated 54 mg/dL 0-130 NIH JAROD NSUS REPOR T RECOM MENDA TIONS FOR LDL: ADULT CHILD LOW RISK <130 <110 (OPTI MAL LDL) <100 ----- BORDE RLINE : 130-1 59 ----- HIGH RISK: >160 >130 A TRIGL YCERI DE RESUL T >400 INVAL IDATE S THE CALCU LATIO N FOR LDL FRACT IONAT ION - THE LDL RESUL T WILL NOT BE REPOR JOSEE. Not Available [facility] (Lab) [address] [place], [address], 07/31/2023 19:00:18 07/31/1907/31/2023 COMPR EHENS ALLISON METAB OLIC PANEL sodium 138 mmol/ L 137-14 5 Not Available [facility] (Lab) [address] [place], [address], 07/31/2023 19:00:28 07/31/192024 COMPR EHENS ALLISON METAB OLIC PANEL potassium 4.3 mmol/ L 3.5-5. 1 Not Available [facility] (Lab) [address] [place], [address], 07/31/2023 19:00:28 07/31/19 24 07/31/2023 COMPR EHENS ALLISON METAB OLIC PANEL chloride 104 mmol/ L 98-107 Not Available [facility] (Lab) [address] [place], [address], 07/31/2023 19:00:28 07/31/19 24 07/31/2023 COMPR EHENS ALLISON METAB OLIC PANEL carbon dioxide 29 mmol/ L 22-30 Not Available [facility] (Lab) [address] [place], [address], 07/31/2023 19:00:28 07/31/19 24 07/31/2023 COMPR EHENS ALLISON METAB OLIC PANEL anion gap 9.3 mmol/ L 14-22 low Not Available [facility] (Lab) [address] [place], [address], 07/31/2023 19:00:28 07/31/19 24 07/31/2023 COMPR EHENS ALLISON METAB OLIC PANEL glucose 96 mg/dL 70-99 Not Available [facility] (Lab) [address] [place], [address], 07/31/2023 19:00:28 07/31/19 24 07/31/2023 COMPR EHENS ALLISON METAB OLIC PANEL BUN 33 mg/dL 8-19 high Not Available [facility] (Lab) [address] [place], [address], 07/31/2023 19:00:28 07/31/19 24 07/31/2023 COMPR EHENS ALLISON METAB OLIC PANEL creatinine 0.91 mg/dL 0.66-1 .25 Not Available [facility] (Lab) [address] [facility] [place], [address], 07/31/2023 19:00:28 07/31/19 24 07/31/2023 COMPR EHENS ALLISON METAB OLIC PANEL GFR 59 Refer ence Range : [place] ge GFR Healt hy Adult : >60 mL/mi n/1.7 3 m2 Chron ic Kidne y Disea se: 15-60 mL/mi n/1.7 3 m2 Kidne y Failu re: <15/m L/min /1.73 m2 www.n iddk. nih.g ov The MDRD study equat ion has not been valid ated in child fabiola <18 years of age; pregn ant women ; the elder ly >85 years of age; or in some racia l or ethni c subgr oups, such as Hispa nics. Outsi de the valid ated catrina eters , estim ated GFR is less accur ate, requi ring clini malik judgm ent on a case- by-ca se basis . Clini malik inter preta tion for other races and ages must be made by the clini trevor. The MDRD study equat ion has not been valid ated for the evalu ation of serum creat inine relat ed to nutri shyam l statu s or medic ation usage . For perso ns <18 years of age, a pedia tric GFR calcu lator is avail able on the [facility] websi te: https :[email or web address] desouza.delano callahan.o rg/pr ofess ional s/kdo qi/gf r_cal culat or Not Available [facility] (Lab) [address] [place], [address], 07/31/2023 19:00:28 07/31/19 24 07/31/2023 COMPR EHENS ALLISON METAB OLIC PANEL alkaline phosphatase 43 U/L 38-126 Not Available [facility] (Lab) [address] [place], [address], 07/31/2023 19:00:28 07/31/19 24 07/31/2023 COMPR EHENS ALLISON METAB OLIC PANEL alanine aminotransfe rase 14 U/L 0-35 Not Available [facility] (Lab) [address] [place], [address], 07/31/2023 19:00:28 07/31/19 24 07/31/2023 COMPR EHENS ALLISON METAB OLIC PANEL aspartate aminotransfe rase 24 U/L 15-37 Not Available [facility] (Lab) [address] [place], [address], 07/31/2023 19:00:28 07/31/19 24 07/31/2023 COMPR EHENS ALLISON METAB OLIC PANEL bilirubin, total 0.40 mg/dL 0.20-1 .30 Not Available [facility] (Lab) [address] [place], [address], 07/31/2023 19:00:28 07/31/19 24 07/31/2023 COMPR EHENS ALLISON METAB OLIC PANEL calcium 9.4 mg/dL 8.4-10 .2 Not Available [facility] (Lab) [address] [place], [address], 07/31/2023 19:00:28 07/31/19 24 07/31/2023 COMPR EHENS ALLISON METAB OLIC PANEL total protein 5.9 g/dL 6.3-8. 2 low Not Available [facility] (Lab) [address] [place], [address], 07/31/2023 19:00:28 07/31/19 24 07/31/2023 COMPR EHENS ALLISON METAB OLIC PANEL albumin 4.0 g/dL 3.0-4. 4 Not Available [facility] (Lab) [address] [place], [address], 07/31/2023 19:00:28 07/31/19 24 07/31/2023 COMPR EHENS ALLISON METAB OLIC PANEL globulin 1.9 g/dL 2.6-4. 2 low Not Available [facility] (Lab) [address] [place], [address], 07/31/2023 19:00:28 07/31/19 24 07/31/2023 COMPR EHENS ALLISON METAB OLIC PANEL A/G ratio 2.1 ratio 1.0-2. 0 high Not Available [facility] (Lab) [address] [place], [address], 07/31/2023 19:00:28 11/29/19 24 11/29/2023 CBC/C OMPLE TE BLD COUNT W/DIF F white blood cells 4.2 x10'3 /uL 4.2-10 .8 Not Available [facility] (Lab) [address] [place], [address], 11/29/2023 14:01:20 11/29/19 24 11/29/2023 CBC/C OMPLE TE BLD COUNT W/DIF F red blood cells 3.69 x10'6 /uL 3.80-5 .20 low Not Available [facility] (Lab) [address] [place], [address], 11/29/2023 14:01:20 11/29/19 24 11/29/2023 CBC/C OMPLE TE BLD COUNT W/DIF F hemoglobin 12.3 g/dL 12.0-1 5.6 Not Available [facility] (Lab) [address] [place], [address], 11/29/2023 14:01:20 11/29/19 24 11/29/2023 CBC/C OMPLE TE BLD COUNT W/DIF F hematocrit 37.1 % 35.7-4 5.7 Not Available [facility] (Lab) [address] [place], [address], 11/29/2023 14:01:20 11/29/19 24 11/29/2023 CBC/C OMPLE TE BLD COUNT W/DIF F mean red cell volume 100.5 fL 82.0-9 9.0 high Not Available [facility] (Lab) [address] [place], [address], 11/29/2023 14:01:20 11/29/19 24 11/29/2023 CBC/C OMPLE TE BLD COUNT W/DIF F mean red cell hemoglobin 33.3 pg 27.0-3 3.0 high Not Available [facility] (Lab) [address] [facility] [place], [address], 11/29/2023 14:01:20 11/29/19 24 11/29/2023 CBC/C OMPLE TE BLD COUNT W/DIF F mean RBC HGB concentratio n 33.2 g/dL 31.0-3 6.0 Not Available [facility] (Lab) [address] [place], [address], 11/29/2023 14:01:20 11/29/19 24 11/29/2023 CBC/C OMPLE TE BLD COUNT W/DIF F red cell distribution width 14.4 % 11.8-1 5.5 Not Available [facility] (Lab) [address] [place], [address], 11/29/2023 14:01:20 11/29/19 24 11/29/2023 CBC/C OMPLE TE BLD COUNT W/DIF F platelets 183 x10'3 /uL 150-40 0 Not Available [facility] (Lab) [address] [place], [address], 11/29/2023 14:01:20 11/29/19 24 11/29/2023 CBC/C OMPLE TE BLD COUNT W/DIF F mean platelet volume 9.7 fL 9.0-12 .4 Not Available [facility] (Lab) [address] [place], [address], 11/29/2023 14:01:20 11/29/19 24 11/29/2023 CBC/C OMPLE TE BLD COUNT W/DIF F neutrophils 65.0 % 39.0-7 2.0 Not Available [facility] (Lab) [address] [place], [address], 11/29/2023 14:01:20 11/29/19 24 11/29/2023 CBC/C OMPLE TE BLD COUNT W/DIF F lymphocytes 21.1 % 16.0-4 7.0 Not Available [facility] (Lab) [address] [place], [address], 11/29/2023 14:01:11/29/1911/29/2023 CBC/C OMPLE TE BLD COUNT W/DIF F monocytes 9.2 % 5.0-12 .0 Not Available [facility] (Lab) [address] [place], [address], 11/29/2023 14:01:20 11/29/19 24 11/29/2023 CBC/C OMPLE TE BLD COUNT W/DIF F eosinophils 3.8 % 1.0-7. 0 Not Available [facility] (Lab) [address] [place], [address], 11/29/2023 14:01:11/29/19 24 11/29/2023 CBC/C OMPLE TE BLD COUNT W/DIF F basophils 0.7 % 0.0-2. 0 Not Available [facility] (Lab) [address] [place], [address], 11/29/2023 14:01:11/29/1911/29/2023 CBC/C OMPLE TE BLD COUNT W/DIF F immature granulocytes 0.2 % 0.00-0 .50 Not Available [facility] (Lab) [address] [place], [address], 11/29/2023 14:01:20 11/29/19 24 11/29/2023 CBC/C OMPLE TE BLD COUNT W/DIF F neutrophils, absolute count 2.74 x10'3 /uL 1.5-8. 0 Not Available [facility] (Lab) [address] [place], [address], 11/29/2023 14:01:20 11/29/19 24 11/29/2023 CBC/C OMPLE TE BLD COUNT W/DIF F lymphocytes, absolute count 0.89 x10'3 /uL 1.07-3 .43 low Not Available [facility] (Lab) [address] [place], [address], 11/29/2023 14:01:20 11/29/19 24 11/29/2023 CBC/C OMPLE TE BLD COUNT W/DIF F monocytes, absolute count 0.39 x10'3 /uL 0.29-0 .99 Not Available [facility] (Lab) [address] [place], [address], 11/29/2023 14:01:20 11/29/19 24 11/29/2023 CBC/C OMPLE TE BLD COUNT W/DIF F eosinophils, absolute count 0.16 x10'3 /uL 0.02-0 .53 Not Available [facility] (Lab) [address] [place], [address], 11/29/2023 14:01:20 11/29/19 24 11/29/2023 CBC/C OMPLE TE BLD COUNT W/DIF F basophils, absolute count 0.03 x10'3 /uL 0.01-0 .08 Not Available [facility] (Lab) [address] [place], [address], 11/29/2023 14:01:20 11/29/19 24 11/29/2023 CBC/C OMPLE TE BLD COUNT W/DIF F immature granulocytes ,absolute 0.01 x10'3 /uL 0.00-0 .05 Not Available [facility] (Lab) [address] [place], [address], 11/29/2023 14:01:20 11/29/19 24 11/29/2023 CBC/C OMPLE TE BLD COUNT W/DIF F nucleated red blood cells 0.0 % -0 Not Available [facility] (Lab) [address] [place], [address], 11/29/2023 14:01:20 11/29/19 24 11/29/2023 CBC/C OMPLE TE BLD COUNT W/DIF F NRBC# 0.00 x10'3 /uL Not Available [facility] (Lab) [address] [place], [address], 11/29/2023 14:01:20 11/29/19 24 11/29/2023 HEMOG LOBIN A1C HA1C 5.6 % 4.0-6. 0 Diabe kiesha Scree misa Crite checo: <5.7% Consi stent with absen ce of diabe kiesha 5.7-6 .4% Consi stent with incre ased risk for diabe kiesha (pred iabet es) >OR=6 .5% Consi stent with diabe kiesha REFER ENCE: Diabe kiesha Care 2016, 39(Stafford ppl.1 ):s13 -s22 Not Available [facility] (Lab) [address] [place], [address], 11/29/2023 14:36:55 11/29/19 24 11/29/2023 LIPID PANEL cholesterol 145 mg/dL 140-19 9 NIH JAROD NSUS RECOM MENDA TION FOR PENNY STERO L: ADULT CHILD LOW RISK: <200 <170 BORDE RLINE : <200- 239 ----- HIGH RISK: >240 >200 Not Available [facility] (Lab) [address] [place], [address], 11/29/2023 17:10:35 11/29/19 24 11/29/2023 LIPID PANEL triglyceride s 181 mg/dL 0-150 high NIH JAROD NSUS REPOR T RECOM MENDA TION FOR TRIGL YCERI KVNG: ADULT CHILD LOW RISK: <150 ----- BODER LINE: 150-1 99 ----- HIGH RISK: >200 ----- Not Available [facility] (Lab) [address] [place], [address], 11/29/2023 17:10:35 11/29/19 24 11/29/2023 LIPID PANEL HDL cholesterol 46 mg/dL 40- Not Available [facility] (Lab) [address] [place], [address], 11/29/2023 17:10:35 11/29/19 24 11/29/2023 LIPID PANEL LDL cholesterol, calculated 63 mg/dL 0-130 NIH JAROD NSUS REPOR T RECOM MENDA TIONS FOR LDL: ADULT CHILD LOW RISK <130 <110 (OPTI MAL LDL) <100 ----- BORDE RLINE : 130-1 59 ----- HIGH RISK: >160 >130 A TRIGL YCERI DE RESUL T >400 INVAL IDATE S THE CALCU LATIO N FOR LDL FRACT IONAT ION - THE LDL RESUL T WILL NOT BE REPOR JOSEE. Not Available [facility] (Lab) [address] [place], [address], 11/29/2023 17:10:35 11/29/19 24 11/29/2023 COMPR EHENS ALLISON METAB OLIC PANEL sodium 139 mmol/ L 137-14 5 Not Available [facility] (Lab) [address] [place], [address], 11/29/2023 17:10:39 11/29/19 24 11/29/2023 COMPR EHENS ALLISON METAB OLIC PANEL potassium 4.7 mmol/ L 3.5-5. 1 Not Available [facility] (Lab) [address] [place], [address], 11/29/2023 17:10:39 11/29/19 24 11/29/2023 COMPR EHENS ALLISON METAB OLIC PANEL chloride 106 mmol/ L 98-107 Not Available [facility] (Lab) [address] [place], [address], 11/29/2023 17:10:39 11/29/19 24 11/29/2023 COMPR EHENS ALLISON METAB OLIC PANEL carbon dioxide 32 mmol/ L 22-30 high Not Available [facility] (Lab) [address] [place], [address], 11/29/2023 17:10:39 11/29/19 24 11/29/2023 COMPR EHENS ALLISON METAB OLIC PANEL anion gap 5.7 mmol/ L 14-22 low Not Available [facility] (Lab) [address] [place], [address], 11/29/2023 17:10:39 11/29/19 24 11/29/2023 COMPR EHENS ALLISON METAB OLIC PANEL glucose 92 mg/dL 70-99 Not Available [facility] (Lab) [address] [place], [address], 11/29/2023 17:10:39 11/29/19 24 11/29/2023 COMPR EHENS ALLISON METAB OLIC PANEL BUN 27 mg/dL 8-19 high Not Available [facility] (Lab) [address] [place], [address], 11/29/2023 17:10:39 11/29/19 24 11/29/2023 COMPR EHENS ALLISON METAB OLIC PANEL creatinine 0.88 mg/dL 0.66-1 .25 Not Available [facility] (Lab) [address] [place], [address], 11/29/2023 17:10:39 11/29/19 24 11/29/2023 COMPR EHENS ALLISON METAB OLIC PANEL GFR >60 Refer ence Range : [place] GFR Healt hy Adult : >60 mL/mi n/1.7 3 m2 Chron ic Kidne y Disea se: 15-60 mL/mi n/1.7 3 m2 Kidne y Failu re: <15/m L/min /1.73 m2 www.n iddk. nih.g ov The MDRD study equat ion has not been valid ated in child fabiola <18 years of age; pregn ant women ; the elder ly >85 years of age; or in some racia l or ethni c subgr oups, such as Hispa nics. Outsi de the valid ated catrina eters , estim ated GFR is less accur ate, requi ring clini malik judgm ent on a case- by-ca se basis . Clini malik inter preta tion for other races and ages must be made by the clini trevor. The MDRD study equat ion has not been valid ated for the evalu ation of serum creat inine relat ed to nutri shyam l statu s or medic ation usage . For perso ns <18 years of age, a pedia tric GFR calcu lator is avail able on the [facility] websi te: https ://chadd callahan.real rg/pr ofess ional s/kdo qi/gf r_cal culat or Not Available [facility] (Lab) [address] [place], [address], 11/29/2023 17:10:39 11/29/19 24 11/29/2023 COMPR EHENS ALLISON METAB OLIC PANEL alkaline phosphatase 44 U/L 38-126 Not Available [facility] (Lab) [address] [place], [address], 11/29/2023 17:10:39 11/29/19 24 11/29/2023 COMPR EHENS ALLISON METAB OLIC PANEL alanine aminotransfe rase 17 U/L 0-35 Not Available [facility] (Lab) [address] [place], [address], 11/29/2023 17:10:39 11/29/19 24 11/29/2023 COMPR EHENS ALLISON METAB OLIC PANEL aspartate aminotransfe rase 26 U/L 15-37 Not Available [facility] (Lab) [address] [place], [address], 11/29/2023 17:10:39 11/29/19 24 11/29/2023 COMPR EHENS ALLISON METAB OLIC PANEL bilirubin, total 0.50 mg/dL 0.20-1 .30 Not Available [facility] (Lab) [address] [place], [address], 11/29/2023 17:10:39 11/29/19 24 11/29/2023 COMPR EHENS ALLISON METAB OLIC PANEL calcium 9.8 mg/dL 8.4-10 .2 Not Available [facility] (Lab) [address] [place], [address], 11/29/2023 17:10:39 11/29/19 24 11/29/2023 COMPR EHENS ALLISON METAB OLIC PANEL total protein 6.1 g/dL 6.3-8. 2 low Not Available [facility] (Lab) [address] [place], [address], 11/29/2023 17:10:39 11/29/19 24 11/29/2023 COMPR EHENS ALLISON METAB OLIC PANEL albumin 3.8 g/dL 3.0-4. 4 Not Available [facility] (Lab) [address] [place], [address], 11/29/2023 17:10:39 11/29/19 24 11/29/2023 COMPR EHENS ALLISON METAB OLIC PANEL globulin 2.3 g/dL 2.6-4. 2 low Not Available [facility] (Lab) [address] [place], [address], 11/29/2023 17:10:39 11/29/19 24 11/29/2023 COMPR EHENS ALLISON METAB OLIC PANEL A/G ratio 1.7 ratio 1.0-2. 0 Not Available [facility] (Lab) [address] [place], [address], 11/29/2023 17:10:39 04/06/20 23 DEXA, axial skele ton [facility] [address] [place] [address] Patien t Name: BREN BOND ion #: [id number] Sex: F : 1939 4 Dictat ed By: Renny De La O Attend ing Physic maritza: JUANITO PALAFOX Orderi Physic maritza: JUANITO PALAFOX Exam Date: 2022 09:29 AM Exam Name: XR DEXA AXIAL/ HIP/PE LVIS/S PINE Admitt ing Diagno sis(es ): INDICA TION: Postme candie al DEXA SCAN: BONE DENSIT Y REPORT : AP SPINE (L1-L4 ) : T Score: 0.4 LEFT FEMORA L NECK : T Score: -2.3 LEFT HIP TOTAL : T Score: -2 10 YEAR FRACTU RE RISK* Not report ed % IMPRES ZAIDA: Osteop enia left femur ------ ------ ------ ------ ------ ------ ------ ------ ----- *FRAX versio n 3.08. Fractu re probab ility calcul ated for an untrea josee patien t. Fractu re probab ility may be lower if the patien t has receiv ed treatm ent. T-scor e: compar lizbet by haydee atkins ion (SD) to a young adult popula tion, amanda d for sex and ethnic ity (used for postme candie al women and men >50 years) and classi fied by WHO criter ia. ?-1.0: normal <-1.0 to >-2.5: osteop enia ?-2.5: osteop orosis ?-2.5 plus fragil ity fractu re: severe osteop orosis Page 1 [facility] [address] [place] [address] Patien t Name: BREN BOND ion #: [id number] Sex: F : 1939 4 Dictat ed By: Renny De La O Attend ing Physic maritza: EDD JOHANSEN Orderi ng Physic maritza: JUANITO PALAFOX Exam Date: 2022 09:29 AM Exam Name: XR DEXA AXIAL/ HIP/PE LVIS/S PINE Admitt ing Diagno sis(es ): Z-scor e: compar ed by SD to an age, sex, and ethnic ity popula tion (used for premen opausa l women, men <50 years, and childr en instea d of T-scor e WHO criter ia 4) <-2.0: below expect ed range/ low bone densit y for age, and a cause should be sought Electr onical ly Signed by: Renny De La O at 2022 10:59: 33 AM Page 2 [email or web address] [facility] (Imaging) [address] [place], [address], 04/18/2023 12:26:25 Result Notes None recorded. 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 4 04:30:01 Gastroeso phageal reflux disease 197810560 Active Not Available [facility] 4 04:30:01 Dry skin dermatiti s 540372842 Active 2019 Not Available [facility] 4 04:30:01 Low back pain 580887314 Active 2021 Not Available [facility] 4 04:30:01 Numbness of hand 392732667 Active 2021 Not Available [facility] 4 04:30:01 Type 2 diabetes mellitus without complicat ion 954256282 Active Not Available [facility] 4 04:30:01 Elevated blood-pre ssure reading without diagnosis of hypertens ion 582592090 Completed Not Available [facility] 3 03:24:42 Compressi on fracture of lumbar spine 804175095 Active 2021 Not Available [facility] 4 04:30:01 Compressi on fracture 007867389 Active 2020 L5 Not Available [facility] 4 04:30:01 Well controlle d type 2 diabetes mellitus 794417101 Active 2021 Not Available [facility] 4 04:30:01 Atrial fibrillat ion 08335287 Active 2021 Not Available [facility] 4 04:30:01 Cough 32146058 Active 2021 Not Available [facility] 4 04:30:01 Hyperlipi demia 18438321 Active Not Available [facility] 4 04:30:01 Essential hypertens ion 72163659 Active Not Available [facility] 4 04:30:01 Osteoporo sis 42877524 Active 2021 Not Available [facility] 4 04:30:01 Abscess of vulva 17625313 Active Not Available [facility] 4 04:30:01 Rhinitis 72341760 Active 2019 Not Available [facility] 4 04:30:01 Diabetes mellitus 38003147 Active 2016 Not Available [facility] 4 04:30:01 Dystrophi a unguium 38249243 Active 2022 Not Available [facility] 4 04:30:01 Problem Notes None recorded. Procedures Surgical History Date Name Laterality Status Provider Name and Address Organization Details Recorded Time 03/25/20 24 Nail Debridement completed SIMONE Guzman, [address], [place], [address], [employer] 03/25/2024 11:53:34 11/16/19 24 Nail Debridement completed SIMONE Guzman, [address], [place], [address], [employer] [facility] [employer] 11/16/2023 15:06:19 11/16/19 24 Callus Debridement 2-4 completed SIMONE Guzman, [address], [place], [address], [employer] [facility] [employer] 11/16/2023 15:06:11 08/14/19 24 Nail Debridement completed SIMONE Guzman, [address], [place], [address], [employer] [facility] [email or web address] 08/14/2023 14:29:36 05/15/19 24 Nail Debridement completed Carlo Wells DPM [address], [place], [address], [employer] [facility] [employer] [facility] 05/15/2023 14:03:10 02/21/20 23 Nail Debridement completed Carlo Wells DPM [address], [address], [place], [address], [employer] [facility] [employer] [facility] 02/20/2023 12:02:00 02/21/20 23 Callus Debridement, One completed Carlo Wells DPM [address], [address], [place], [address], [employer] [facility] [employer] [facility] 02/20/2023 12:01:51 11/22/19 23 Nail Debridement completed Carlo Wells DPM [address], [address], [place], [address], [employer] [facility] [employer] [facility] 11/21/2022 10:40:17 11/22/19 23 Callus Debridement 2-4 completed Carlo Wells DPM [address], [address], [place], [address], [employer] [facility] [employer] [facility] 11/21/2022 10:40:10 08/23/19 23 Nail Debridement completed Carlo Wells DPM [address], [address], [place], [address], [employer] [facility] [employer] [facility] 08/22/2022 11:11:43 08/23/19 23 Callus Debridement, One completed Carlo Wells DPM [address], [address], [place], [address], [employer] [facility] [employer] [facility] 08/22/2022 11:11:48 11/19/19 17 Date of Last Colonoscopy completed Not Available [facility] 06/08/2022 03:17:41 11/19/19 17 Colonoscopy completed Not Available [facility] 06/08/2022 03:17:45 03/25/20 15 Colonoscopy completed Not Available [facility] 06/08/2022 03:17:45 03/10/20 10 Colonoscopy completed Not Available [facility] 06/08/2022 03:17:45 total replacement of hip completed Not Available [facility] 06/08/2022 03:17:45 Cholecystectomy completed Not Available [facility] 06/08/2022 03:17:45 Hysterectomy completed Not Available [facility] 06/08/2022 03:17:45 tonsilectomy/adeno ids completed Not Available [facility] 06/08/2022 03:17:45 Eye Surgery completed Not Available [facility] 06/08/2022 03:17:45 Imaging Results Imaging Date Name Status LastModified by Organiz ation Details LastModified Time 04/06/2023 DEXA, axial skeleton completed [email or web address] [facility] (Imaging) [address] [place], [address], 04/18/2023 12:26:25 Procedure Notes None recorded. Medical Equipment None Reported. Allergies Allergen ID Allergen Name Allergen Category Reaction Reaction Severity Criticality Documentation Date Start Date Code Code System Note Provider Name and Address Organization Details Recorded Time 6370 Substance with sulfonami de structure and antibacte rial mechanism of action (substanc e) medicatio n Not available Not available Not available 06/08/2022 55204 8003 SNOMED Not Available [facility] 03:36:18 6371 erythromy tee medicatio n Not available Not available Not available 06/08/2022 4053 RxNorm Other react ions and sever ities : 'Adve rse react ion to subst ance' . Not Available [facility] 03:36:18 Medications Name Sig Start Date Stop Date Status Note LastModified by Organization Details LastModified Time amoxicill in 500 mg capsule TAKE 4 CAPSULES BY MOUTH 1 HOUR BEFORE DENTAL APPOINTM ENT 08/13 completed Not Available Not Available Not Available latanopro st 0.005 % eye drops INSTILL 1 DROP INTO BOTH EYES AT BEDTIME active Not Available Not Available No t Available metformin 500 mg tablet TAKE 1 TABLET TWICE A DAY active Not Available Not Available No t Available cefuroxim e axetil 250 mg tablet TAKE 1 TABLET(S ) EVERY 12 HOURS BY ORAL ROUTE. active Not Available Not Available No t Available ammonium lactate 12 % lotion APPLY TO FOOT CALLUSES TWICE A DAY NEEDED 08/13 completed Not Available Not Available Not Available azithromy tee 250 mg tablet Take 2 TABLEts the first day then 1/day 05/27 completed Not Available Not Available Not Available fluconazo le 150 mg tablet Take 1 tablet every day by oral route as directed . 02/23 completed Not Available Not Available Not Available benzonata te 200 mg capsule TAKE 1 CAPSULE BY MOUTH THREE TIMES A DAY NEEDED 05/02 completed Not Available Not Available Not Available glyburide 2.5 mg tablet Take 1 tablet twice a day by oral route for 90 days. 11/25 completed Not Available Not Available Not Available valacyclo vir 1 gram tablet active Not Available Not Available Not Available hydrocodo ne 5 mg-acetam inophen 325 mg tablet TAKE 1 TABLET BY MOUTH EVERY 6 HOURS NEEDED FOR PAIN active Not Available Not Available No t Available lisinopri l 20 mg tablet TAKE 1 TABLET DAILY active Not Available Not Available No t Available bupivacai ne HCl 0.5 % (5 mg/mL) injection solution Take 3.5 mg by injectio n route. 04/07 completed Not Available Not Available Not Available prednison e 20 mg tablet TAKE 2 TABLETS BY MOUTH EVERY DAY FOR 5 DAYS 10/18 completed Not Available Not Available Not Available dexametha sone 6 mg tablet Take 1 tablet every day by oral route for 10 days. active Not Available Not Available No t Available clindamyc in HCl 150 mg capsule 03/09 completed Not Available Not Available Not Available metronida zole 500 mg tablet 02/23 completed Not Available Not Available Not Available acetamino phen 300 mg-codein e 30 mg tablet Take 1 tablet 3 times a day by oral route as needed. active Not Available Not Available No t Available ciproflox acin 500 mg tablet 02/23 completed Not Available Not Available Not Available tramadol 50 mg tablet 03/09 completed Not Available Not Available Not Available triamcino lone acetonide 0.1 % topical cream Apply small amount to dry skin areas on bottom of feet daily active Not Available Not Available No t Available amoxicill in 500 mg tablet TAKE 1 TABLET BY MOUTH THREE TIMES A DAY FOR 7 DAYS 05/02 completed Not Available Not Available Not Available Azopt 1 % eye drops,kris pension APPLY 1 DROP INTO RIGHT EYE EVERY 8 HOURS 10/22 completed Not Available Not Available Not Available ceftriaxo ne 1 gram solution for injection Take 1 g by injectio n route for 1 day. 06/04 completed Not Available Not Available Not Available ofloxacin 0.3 % ear drops active Not Available Not Available Not Available famotidin e 20 mg tablet active Not Available Not Available Not Available desonide 0.05 % topical ointment active Not Available Not Available Not Available Xylocaine 10 mg/mL (1 %) injection solution 20 mL by injectio n route. 02/06 completed Not Available Not Available Not Available OneTouch Ultra Test strips USE TO MONITOR BLOOD SUGAR LEVELS DAILY active Not Available Not Available No t Available Kenalog 10 mg/mL suspensio n for injection In office injectio n administ ered by the provider 04/07 completed [facility]: [phone] 4-20 Not Available Not Available Not Available benzonata te 100 mg capsule TAKE 1 CAPSULE BY MOUTH EVERY 8 HOURS NEEDED 10/18 completed Not Available Not Available Not Available gemfibroz il 600 mg tablet Take 1 tablet every day by oral route for 90 days. 09/16 completed Not Available Not Available Not Available cephalexi n 500 mg capsule TAKE ONE CAPSULE 3 TIMES A DAY UNTIL FINISHED 02/23 completed Not Available Not Available Not Available timolol 0.5 % eye drops INSTILL 1 DROP INTO AFFECTED EYE(S) BY OPHTHALM IC ROUTE 2 TIMES PER DAY 2021 active Not Available Not Available Not Avai lable simvastat in 20 mg tablet Take 1 tablet every day by oral route for 90 days. active Not Available Not Available No t Available lidocaine 5 % topical patch Apply by topical route for 30 days. active Not Available Not Available No t Available brimonidi ne 0.2 % eye drops active Not Available Not Available No t Available omeprazol e 20 mg capsule,d elayed release TAKE 1 CAPSULE DAILY active Not Available Not Available No t Available magnesium citrate oral solution USE DIRECTED 02/23 completed Not Available Not Available Not Available monteluka st 10 mg tablet TAKE 1 TABLET BY MOUTH EVERY DAY 01/16 completed Not Available Not Available Not Available lisinopri l 5 mg tablet TAKE 1 TABLET DAILY active Not Available Not Available No t Available Lancing 10 mg-325 mg tablet Take 1 tablet every 4 hours by oral route. 06/04 completed Not Available Not Available Not Available gabapenti n 100 mg capsule TAKE 2 CAPSULES THREE TIMES A DAY active Not Available Not Available No t Available cefuroxim e axetil 500 mg tablet Take 1 tablet every 12 hours by oral route. active Not Available Not Available No t Available polyethyl turner glycol 3350 17 gram/dose oral powder 02/23 completed Not Available Not Available Not Available levofloxa tee 500 mg tablet TAKE 1 TABLET BY MOUTH EVERY DAY 05/02 completed Not Available Not Available Not Available gentamici n 40 mg/mL injection solution Take 2 mL by injectio n route. 06/04 completed Not Available Not Available Not Available methylpre dnisolone 4 mg tablets in a dose pack use as instruct ed on packeage 03/09 completed Not Available Not Available Not Available albuterol sulfate HFA 90 mcg/actua tion aerosol inhaler INHALE 2 PUFFS BY MOUTH EVERY 4 HOURS NEEDED 08/13 completed Not Available Not Available Not Available timolol maleate 0.5 % eye drops active Not Available Not Available Not Available pioglitaz one 30 mg tablet TAKE 1 TABLET DAILY active Not Available Not Available No t Available timolol maleate 0.5 % eye gel forming solution active Not Available Not Available Not Available ketoconaz ole 2 % topical cream APPLY TO AFFECTED AREAS TO THE EARS DAILY X2 WEEKS THEN 2 3 TIMES A WEEK. active Not Available Not Available No t Available PreviDent 5000 Plus 1.1 % cream 02/23 completed Not Available Not Available Not Available cefdinir 300 mg capsule Take 1 capsule every 12 hours by oral route for 7 days. active Not Available Not Available No t Available fluticaso ne propionat e 50 mcg/actua tion nasal spray,kris pension USE 2 SPRAYS NASALLY DAILY active Not Available Not Available No t Available doxycycli ne hyclate 100 mg tablet TAKE 1 TABLET BY MOUTH TWICE A DAY FOR 10 DAYS 10/18 completed Not Available Not Available Not Available brimonidi ne 0.15 % eye drops active Not Available Not Available No t Available amoxicill in 875 mg-potass ium clavulana te 125 mg tablet TAKE 1 TABLET BY MOUTH TWICE A DAY FOR 10 DAYS 08/10 completed Not Available Not Available Not Available amoxicill in 500 mg-potass ium clavulana te 125 mg tablet active Not Available Not Available Not Available tobramyci n 0.3 %-dexamet hasone 0.1 % eye drops,kris pension 10/22 completed Not Available Not Available Not Available Botox 100 unit injection Take 1 unit by injectio n route. 06/26 completed Not Available Not Available Not Available Adult Low Dose Aspirin 81 mg tablet,de layed release Take 1 tablet every day by oral route. 06/12 completed Not Available Not Available Not Available Ciprodex 0.3 %-0.1 % ear drops,kris pension INSTILL 4 DROPS INTO THE LEFT EAR TWICE DAILY DIRECTED active Not Available Not Available No t Available nitrofura ntoin monohydra te/macroc rystals 100 mg capsule TAKE 1 CAPSULE BY MOUTH TWICE A DAY FOR 7 DAYS 10/22 completed Not Available Not Available Not Available Systane (PF) 0.4 %-0.3 % eye drops in a dropperet te 2021 active Not Available Not Available Not Avai lable Zylet 0.3 %-0.5 % eye drops,kris pension INSTILL 1 DROP INTO RIGHT EYE THREE TIMES DAILY 03/17 completed Not Available Not Available Not Available magnesium 2021 active 400 mg Not Available Not Available Not Avai lable Vitamin C 2021 active 1000 mg Not Available Not Available Not Avai lable vitamin B complex 2021 active Not Available Not Available Not Avai lable zinc 08/13 completed Not Available Not Available Not Available gelatin 02/10 completed 1300 mg Not Available Not Available Not Available Vitamin D3 2021 active Not Available Not Available Not Avai lable Centrum 2021 active silver Not Available Not Available Not Avai lable multivita min QD 06/12 completed Not Available Not Available Not Available Mucinex 02/10 completed Not Available Not Available Not Available Alphagan P 0.1 % eye drops INSTILL 1 DROP INTO AFFECTED EYE(S) BY OPHTHALM IC ROUTE EVERY 8 HOURS active Not Available Not Available No t Available lidocaine (PF) 10 mg/mL (1 %) injection solution In office injectio n administ ered by the provider 10/07 completed [facility]: 0409-427 6-17 Not Available Not Available Not Available peg 3350-elec trolytes 236 gram-22.7 4 gram-6.74 gram-5.86 gram solution 09/16 completed Not Available Not Available Not Available PreviDent 5000 Dry Mouth 1.1 % dental paste 02/23 completed Not Available Not Available Not Available Body, Hair, Skin and Nails 2021 active 5000 mcg biotin, collagen support Not Available Not Available Not Available Gavilyte- C 240 gram-22.7 2 gram-6.72 gram-5.84 gram oral solution 02/23 completed Not Available Not Available Not Available Prolia 60 mg/mL subcutane ous syringe PFS INJECT 1 ML UNDER THE SKIN EVERY 6 MONTHS active Not Available Not Available No t Available Mell Allergy 2021 active Not Available Not Available Not Avai lable A and D (lanolin- petrolatu m) 2021 active softgel 3000 mcg Not Available Not Available Not Available Myrbetriq 25 mg tablet,ex tended release Take 1 tablet every day by oral route. 01/29 completed Not Available Not Available Not Available Eliquis 5 mg tablet TAKE 1 TABLET TWICE A DAY active Not Available Not Available No t Available BinaxNOW COVID-19 Ag Self Test kit Use as Directed on the Package 11/25 completed Not Available Not Available Not Available Vitals Date Recorded Body height Body mass index (BMI) Body weight Body temperature Heart rate Systolic blood pressure Diastolic blood pressure Provider Name and Address Organization Details Last Updated DateTime 4 154.94 cm 37.8 kg/m2 48408.4 7 g 97.2 [degF] 68 /min 118 mm[Hg] 62 mm[Hg] DAVID Alvarez [place] [employer] [facility] [employer] [facility] 4 09:58:31 Date Recorded Body height Body mass index (BMI) Body weight Heart rate Respiratory rate Body temperature Oxygen saturation Oxygen saturation in Arterial blood by Pulse oximetry Systolic blood pressure Diastolic blood pressure Provider Name and Address Organization Details Last Updated DateTime 4 154.94 cm 37.8 kg/m2 10222.4 7 g 70 /min 16 /min 97.2 [degF] 98 % 98 % 118 mm[Hg] 62 mm[Hg] Brea Klein [employer] [facility] [employer] 4 12:12:12 Date Recorded Body height Body mass index (BMI) Body weight Heart rate Respiratory rate Oxygen saturation Oxygen saturation in Arterial blood by Pulse oximetry Systolic blood pressure Diastolic blood pressure Provider Name and Address Organization Details Last Updated DateTime 4 154.94 cm 37.8 kg/m2 34659.4 7 g 67 /min 14 /min 98 % 98 % 128 mm[Hg] 67 mm[Hg] Mellisa Torres [facility] [employer] [facility] 4 12:12:33 Date Recorded Body height Body mass index (BMI) Body weight Heart rate Body temperature Respiratory rate Systolic blood pressure Diastolic blood pressure Provider Name and Address Organization Details Last Updated DateTime 4 154.94 cm 37.8 kg/m2 00040.4 7 g 72 /min 98.6 [degF] 14 /min 126 mm[Hg] 70 mm[Hg] Vicki Monk MA [facility] [employer] [facility] 4 12:38:09 Date Recorded Body height Body mass index (BMI) Body weight Heart rate Respiratory rate Oxygen saturation Oxygen saturation in Arterial blood by Pulse oximetry Systolic blood pressure Diastolic blood pressure Provider Name and Address Organization Details Last Updated DateTime 4 154.94 cm 37.8 kg/m2 13404.4 7 g 72 /min 14 /min 98 % 98 % 146 mm[Hg] 71 mm[Hg] Mellisa Torres [facility] [employer] [facility] 4 11:05:45 Social History Question Answer Notes LastModified by Organization Details LastModified Time Tobacco Smoking Status Never Smoker Not Available [facility] 06/08/2022 03:01:32 Do You Have An Advance Directive? No [id number] Information not available 06/08/2022 What Is Your Level Of Alcohol Consumption? None [id number] Information not available 06/08/2022 Are You Blind Or Do You Have Difficulty Seeing? Yes [id number] Information not available 06/08/2022 What Is Your Level Of Caffeine Consumption? Moderate [id number] Information not available 06/08/2022 How Much Tobacco Do You Chew? None [id number] Information not available 06/08/2022 In The 14 Days Before Symptom Onset, Have You Had Close Contact With A Laboratory-clement ARZOLA-19 While That Case Was Ill? No [id number] Information not available 06/08/2022 In The 14 Days Before Symptom Onset, Have You Had Close Contact With A Person Who Is Under Investigation For COVID-19 While That Person Was Ill? No [id number] Information not available 06/08/2022 Are You Deaf Or Do You Have Serious Difficulty Hearing? No [id number] Information not available 06/08/2022 What Type Of Diet Are You Following? REGULAR [id number].030 [id number] Information not available 06/08/2022 Which Illicit Or Recreational Drugs Have You Used? None [id number] Information not available 06/08/2022 Do You Or Have You Ever Used E-cigarettes Or Vape? Never Used Electronic Cigarettes [id number] Information not available 06/08/2022 What Is The Highest Grade Or Level Of School You Have Completed Or The Highest Degree You Have Received? [id number] MIGRATION.030 [id number] Information not available 06/08/2022 What Is Your Occupation? Retired MIGRATION.030 [id number] Information not available 06/08/2022 Have There Been Any Changes To Your Family Or Social Situation? No MIGRATION.030 139114 Information not available 06/08/2022 What Is The Fluoride Status Of Your Home? Unknown MIGRATION.030 108308 Information not available 06/08/2022 Are There Any Guns Present In Your Home? No MIGRATION.0301 123217 Information not available 06/08/2022 Do You Use Insect Repellent Routinely? No MIGRATION.0301 [id number] Information not available 06/08/2022 Where Do You Live? [facility] MIGRATION.030 698142 Information not available 06/08/2022 Do You Have A Medical Power Of Rug Frame Mounter? No MIGRATION.0301 313758 Information not available 06/08/2022 What Was The Date Of Your Most Recent Tobacco Screening? 05/02/2023 [email or web address] Information not available 05/02/2023 Do You Have Any Pets? No MIGRATION.0301 130189 Information not available 06/08/2022 What Is Your Relationship Status? MIGRATION.0301 396443 Information not available 06/08/2022 Do You Use Your Seat Belt Or Car Seat Routinely? Yes MIGRATION.0301 295300 Information not available 06/08/2022 Do You Have Smoke And Carbon Monoxide Detectors In Your Home? Yes MIGRATION.0301 667190 Information not available 06/08/2022 Are You Passively Exposed To Smoke? No MIGRATION.0301 665361 Information not available 06/08/2022 Do You Or Have You Ever Used Smokeless Tobacco? Never Used Smokeless Tobacco MIGRATION.0301 337723 Information not available 06/08/2022 Are There Any Smokers In Your House? No MIGRATION.0301 111072 Information not available 06/08/2022 How Much Tobacco Do You Smoke? No MIGRATION.0301 674348 Information not available 06/08/2022 What Types Of Sporting Activities Do You Participate In? None MIGRATION.0301 844095 Information not available 06/08/2022 Do You Feel Stressed (tense, Restless, Nervous, Or Anxious, Or Unable To Sleep At Night)? [id number] MIGRATION.0301 742929 Information not available 06/08/2022 Do You Use Any Illicit Or Recreational Drugs? No MIGRATION.0301 295801 Information not available 06/08/2022 Do You Use Sunscreen Routinely? No MIGRATION.0301 863575 Information not available 06/08/2022 Has Tobacco Cessation Counseling Been Provided? No Not Needed-ne leela Smoked MIGRATION.0301 611497 Information not available 06/08/2022 How Many Years Have You Smoked Tobacco? 0 MIGRATION.0301 700835 Information not available 06/08/2022 Have You Recently Traveled Abroad? No MIGRATION.0301 036607 Information not available 06/08/2022 Do You Have Any Dietary Restrictions? No MIGRATION.0301 485657 Information not available 06/08/2022 Do You Or Have You Ever Used Any Other Forms Of Tobacco Or Nicotine? No MIGRATION.0301 757477 Information not available 06/08/2022 Sex: Female Functional Status Question Answer Note LastModified by Organizat ion Details LastModified Time Do you have difficulty walking or climbing stairs? Yes MIGRATION.611873 9560 Information not available 06/08/2022 Do you have transportation difficulties? No MIGRATION.016577 4992 Information not available 06/08/2022 Are you able to walk? YESASSIST uses cane MIGRATION.828103 4586 Information not available 06/08/2022 Do you have difficulty doing errands alone? No MIGRATION.063276 1951 Information not available 06/08/2022 Are you able to care for yourself? Yes MIGRATION.411796 4802 Information not available 06/08/2022 Do you have difficulty dressing or bathing? No MIGRATION.789362 4898 Information not available 06/08/2022 What is your exercise level? None MIGRATION.927603 3262 Information not available 06/08/2022 Mental Status Question Answer Note LastModified by Organizat ion Details LastModified Time Do you have difficulty concentrating, remembering or making decisions? No MIGRATION.[id number] 6 Information not available 06/08/2022 Family History Relationship Description Onset Age of this Age Resolved Age Notes LastModified by Organization Details LastModified Time Mother Pulmonary embolism MIGRATION.171 [id number] Not available 06/08/2022 03:17:46 Father Diabetes mellitus MIGRATION.696 [id number] Not available 06/08/2022 03:17:46 Unspecified Relation Heart disease MIGRATION.531 [id number] Not available 06/08/2022 03:17:46 Medical History Condition Response NERVE DISEASE N BLINDNESS N RHEUMATIC FEVER N KIDNEY STONES N BLADDER PROBLEMS N MRSA N OTHER # 1 N POLIO N LUNG DISEASE/DISORDER N RADIATION / CHEMOTHERAPY N COPD N Other # 2 N BLOOD DISEASES N EAR OR HEARING PROBLEMS N MUMPS N BOWEL PROBLEMS N DEPRESSION (INCLUDING POST ) N STROKE/TIA N ULCERS N BENIGN PROSTATIC HYPERPLASIA N MEASLES N MYOCARDIAL INFARCTION N OBESITY N GERD/NAUSEA Y ANEURYSM N URINARY/BLADDER/KIDNEY PROBLEMS N CORONARY ARTERY DISEASE (CAD) N ADDICTION CONCERNS N ENDOMETRIOSIS N Impotence N USE OF BLOOD THINNERS Y SKIN PROBLEMS N GASTROINTESTINAL DISORDER N PERIPHERAL VASCULAR DISEASE N MUSCLE,JOINT OR BONE PROBLEMS N GASTROINTESTINAL BLEEDING N BLOOD CLOTS N ASTHMA N CATARACTS N ERECTILE DYSFUNCTION N VARICOSITIES N GI PROBLEMS N Low Testosterone N INFERTILITY N AIDS/HIV N CHEMOTHERAPY / RADIATION N LIVER DISEASE N MALE HYPOGONADISM N HYPERTENSION Y Deficiency N TOURETTE'S N ANXIETY DISORDER N BLOOD TRANSFUSION N ANEMIA/BLOOD DISORDER N CHRONIC EAR INFECTIONS N BRONCHITIS N TUBERCULOSIS N GLAUCOMA N FOOT PROBLEM N DIVERTICULITIS Y SLEEP APNEA N CHICKENPOX N INFECTIOUS DISEASE N HEART ARRHYTHMIA N PROSTATE N INSOMNIA N HIGH CHOLESTEROL / HYPERLIPIDEMIA Y HYPERTHYROIDISM N EYE PROBLEMS N EDEMA N CHRONIC PAIN SYNDROME N HYPOTHYROIDISM N CAROTID BLOCKAGE N CONSTIPATION N BACK / NECK PROBLEMS N HAVE YOU BEEN HOSPITALIZED OR SEEN IN [facility] IN THE PAST YEAR ? Y ATHEROSCLEROSIS N BREAST PROBLEMS N DIALYSIS N ECZEMA N OSTEOPOROSIS N ARTHRITIS Y APPENDICITIS N DIABETES, TYPE Y BAD TEETH N ENT N HEARTBURN / REFLUX N AUTISM SPECTRUM DISORDER (ASD) N HEPATITIS / LIVER DISEASE N GOUT N SLEEP DISORDER N ALZHEIMER'S DISEASE N Brain Problems N HERPES Y DEMENTIA N HEADACHES/MIGRAINES N SEIZURES/EPILEPSY N VASCULAR DISEASE N PACEMAKER N Blood Disorder N DIZZINESS N HEART DISEASE/HEART PROBLEMS N KIDNEY DISEASE N MULTIPLE SCLEROSIS N CARDIAC ARRHYTHMIA N CANCER: SPECIFY N ATRIAL FIBRILLATION N Gall Stones N PULMONARY EMBOLISM N AUTOIMMUNE DISEASE N Gynecological History Statement/Question Response Date of Last Mammogram 09/13/2019 Date of Last Colonoscopy 11/18/2016 Obstetrics History GPAL:G 0 P 0 0 0 0 Immunizations Vaccine Type Date Status Note Provider Nam e and Address Organization Details Recorded Time Influenza, split virus, trivalent, PF 03/21/2013 completed Not Available [facility] 2023 04:30:03 Influenza, high-dose, quadrivalent, PF 01/10/2019 completed Not [facility] 4 04:30:03 Influenza, high-dose, trivalent, PF 01/10/2018 completed Not Available [facility] 2023 04:30:03 Influenza, high-dose, trivalent, PF 02/24/2017 completed Not Available [facility] 2023 04:30:03 Influenza, high-dose, trivalent, PF 01/24/2016 completed Not Available [facility] 2023 04:30:03 Influenza, split virus, trivalent, PF 02/19/2014 completed Not Available [facility] 2023 04:30:03 Influenza, high-dose, quadrivalent, PF 02/10/2022 completed Not Available [facility] 4 04:30:03 Past Encounters Encounter ID Performer Location Encounter Start Date Encounter Closed Date Diagnosis/Indication Diagnosis SNOMED-CT Code Diagnosis ICD10 Code Diagnosis Note [id number] [facility] [address] [place] [address] 07/16/2020 00:00:00 07/20/2020 08:49:57 [id number] [facility] [address] [place] [address] 09/30/2020 00:00:00 10/02/2020 17:13:50 [id number] [facility] [place] [address] [place] [address] 10/22/2020 00:00:00 10/22/2020 22:38:57 [id number] [facility] [place] [address] [facility] [address] [place] [address] 12/15/2020 00:00:00 12/15/2020 21:34:41 [id number] [facility] [place] [address] [place] [address] [place] [address] 01/07/2021 00:00:00 01/29/2021 22:18:10 [id number] [facility] [place] [address] [place] [address] [place] [address] 01/28/2021 00:00:00 02/08/2021 21:45:54 [id number] [facility] [address] [place] [address] 02/22/2021 00:00:00 02/22/2021 15:37:48 [id number] [facility] [address] [place] [address] [place] [address] 03/09/2021 00:00:00 03/10/2021 23:47:17 [id number] [facility] [place] [address] [place] [address] 03/17/2021 00:00:00 03/26/2021 14:01:46 [id number] [facility] [place] [address] [place] [address] 03/26/2021 00:00:00 03/26/2021 14:00:16 [id number] [facility] [address] [place] [address] 04/07/2021 00:00:00 04/07/2021 10:57:26 [id number] [facility] [place] [address] [facility] [address] , [place] [address] 04/27/2021 00:00:00 05/01/2021 15:53:23 [id number] [facility] [address] [place] [address] 05/06/2021 00:00:00 05/06/2021 13:26:01 [id number] [facility] [address] [place] [address] 05/19/2021 00:00:00 05/19/2021 14:56:10 [id number] [facility] [address] [facility] [address] , [place] [address] 05/27/2021 00:00:00 06/05/2021 14:13:59 [id number] [facility] [place] [address] [place] [address] 06/11/2021 00:00:00 06/11/2021 17:01:10 [id number] [facility] [address] [place] [address] 07/12/2021 00:00:00 07/13/2021 11:26:48 [id number] [facility] [place] [address] [place] [address] 08/13/2021 00:00:00 08/13/2021 12:06:32 [id number] [facility] [address] , [place] [address] 08/26/2021 00:00:00 09/18/2021 17:54:48 [id number] [facility] [address] [place] [address] 09/27/2021 00:00:00 09/28/2021 10:00:21 [id number] [facility] [address] [place] [address] 11/16/2021 00:00:00 11/16/2021 14:08:05 [id number] [facility] [place] [address] [facility] [address] , [place] [address] 11/25/2021 00:00:00 12/19/2021 22:28:33 [id number] [facility] [address] [place] [address] 12/06/2021 00:00:00 12/06/2021 16:25:58 [id number] [facility] [place] [address] [place], [place] [address] 02/10/2022 00:00:00 02/12/2022 14:39:50 [id number] [facility] [address] [place] [address] 02/21/2022 00:00:00 02/22/2022 10:47:52 [id number] [facility] [address] [place] [address] 04/20/2022 00:00:00 04/20/2022 11:27:35 [id number] [facility] [address] [place] [address] 05/23/2022 00:00:00 05/23/2022 10:57:45 [id number] Dian Negrete MD [facility] [address] [place] [address] 06/13/2022 10:36:17 06/13/2022 11:45:18 Well controlled type 2 diabetes mellitus 959645290 E11.9 a1c 6% from 2021- not completed this last time- fasting glucose 110 mg/dL- she is no longer on glyburide and has no further hypoglycem ia. Continue on metformin and actos for insulin sensisitiz ation. Postmenopa usal osteoporosis 096348091 M81.0 Continue on prolia as patient tolerating well- last injection from early May- repeat in November- her calcium/PT H and vitamin D in range. Repeat bone density in Mar 2023 for monitoring . Spent up to 25 minutes preparing to see the patient (eg, review of tests), obtaining and/or reviewing separately obtained history, performing a medically appropriat e examinatio n and evaluation , counseling and educating the patient, ordering medication s, tests, along with documentin g clinical informatio n in the electronic health record, independen tly interpreti ng results and communicat ing results to the patient. RTC in 6 months. Patient was provided a handwritte n lab order which contains our fax number. If she chooses to go outside of the [facility] system to obtain labwork she was advised to provide our fax number and my informatio n to the lab she will be obtaining labwork from in order to have her labs properly forwarded over for me to review so there is no loss of follow up due to use of outside network. She was also advised to contact our clinic informing us that she has completed her labwork so we are aware we will need to reach out to the appropriat e laboratory to request her results be forwarded to us so I might have the ability to review and make further medical decision making in her case. She voiced understand ing. [id number] Griselda Palafox MD [facility] [place] [address] [facility] [place] [address] 06/23/2022 10:38:02 06/23/2022 11:47:00 Renewal of prescription [id number] Z76.0 Type 2 melyssa betes mellitus without complication [id number] E11.9 Essential hypertension 94605506 I10 Atrial fibrillation 4943 6004 I48.91 Compressio n fracture of lumbar spine 129382058 M48.56XD Diabetes mellitus 988467 09 E11.40 L60.3 L60.0 Z74.1 [id number] Carlo Wells DPM [facility] [place] [address] [place] [address] 08/22/2022 10:45:40 08/22/2022 11:19:03 Type 2 diabetes mellitus without complication 192004993 E11.9 Patient educated on neuropathy , diabetes, diabetic diet, and daily foot exams. Patient is to check feet daily for new wounds, blisters, redness to prevent infection and ulceration s to the feet. Patient will return to clinic in 3 months for diabetic foot workup. Foot callus 372202649 L8 4 Sub 1st met head left footdebrid ed without incidentRe commend diabetic inserts Dystrophia unguium 18771 009 L60.3 Nails 1 through 10 were debrided with sharp mechanical debridemen t without incident. Nails were debrided and greater than 50% length and thickness where needed. Unable to cut own toenails 846438379 Z74.1 [id number] Griselda Palafox MD [facility] [address] [facility] , [place] [address] 10/18/2022 15:09:51 10/18/2022 15:58:25 Type 2 diabetes mellitus without complication 696840844 E11.9 Diabetes mellitus 724105 09 E11.40 L60.3 L60.0 Z74.1 Essential hypertension 16841842 I10 Gastroesop hageal reflux disease 285235021 K21.9 [id number] Dian Negrete MD [facility] [place] [address] [place] [address] 11/15/2022 10:32:08 11/15/2022 18:50:48 Postmenopausal osteoporosis 188606826 M81.0 Patient tolerated prolia injection without pain or site reaction. Patient brought in prolia injection for her injection today. [id number] Carlo Wells DPM [facility] [place] [address] [place] [address] 11/21/2022 10:10:07 11/21/2022 10:44:12 Well controlled type 2 diabetes mellitus 050379604 E11.9 Patient educated on neuropathy , diabetes, diabetic diet, and daily foot exams. Patient is to check feet daily for new wounds, blisters, redness to prevent infection and ulceration s to the feet. Patient will return to clinic in 3 months for diabetic foot workup. Foot callus 579520113 L8 4 Sub 1st met head left footdebrid ed without incidentRe commend diabetic inserts Dystrophia unguium 60223 009 L60.3 Nails 1 through 10 were debrided with sharp mechanical debridemen t without incident. Nails were debrided and greater than 50% length and thickness where needed. Porokeratosis 422418852 Q82.8 x2 left footdebrid ed without incidentus e pumice stone dailyrecom mend diabetic insertsfol low-up as needed [id number] Dian Negrete MD [facility]o [place] [address] [place] [address] 12/01/2022 15:44:52 12/01/2022 17:17:38 Well controlled type 2 diabetes mellitus 771990219 E11.9 a1c 6.3% stable- continue on actos and metformin as patient tolerating well and renal function in ideal range. She is no longer on glyburide and has no further hypoglycem ia. Recommende d she incorporat e natural insulin patent attorney s such as pears, apples, cinnamon, luara and sweet potatoes to help mobilize her endogenous insulin. Recommende d up to 150 minutes of walking /movement and small weights in chair for mobility weekly. Postmenopa usal osteoporosis 982076126 M81.0 Tolerated last prolia injection from 11/15 and serum calcium in ideal range- due for bone density scan this winter. Due for repeat prolia injection in May 2023. PCP can provide this if needed. Spent up to 25 minutes preparing to see the patient (eg, review of tests), obtaining and/or reviewing separately obtained history, performing a medically appropriat e examinatio n and evaluation , counseling and educating the patient, ordering medication s, tests, along with documentin g clinical informatio n in the electronic health record, independen tly interpreti ng results and communicat ing results to the patient. Patient can be followed by PCP - she/he is aware of my resignatio n and last day of January 20. If needed his/her PCP can refer patient to another endocrinol ogist in the area. All questions /concerns answered and refills necessary at visit today. [id number] Carlo Wells DPM [facility] [place] [address] [place] [address] 02/20/2023 11:19:12 02/20/2023 12:09:25 Well controlled type 2 diabetes mellitus 290321168 E11.9 Patient educated on neuropathy , diabetes, diabetic diet, and daily foot exams. Patient is to check feet daily for new wounds, blisters, redness to prevent infection and ulceration s to the feet. Patient will return to clinic in 3 months for diabetic foot workup.A1c 6.3 11/09/2022 Foot callus 375355441 L8 4 Sub 1st met head left footdebrid ed without incidentco ntinue offloading to prevent woundRecom mend diabetic inserts Dystrophia unguium 07951 009 L60.3 Nails 1 through 10 were debrided with sharp mechanical debridemen t without incident. Nails were debrided and greater than 50% length and thickness where needed. [id number] Griselda Palafox MD [facility] Internal Med [place] [address] [facility] [place] [address] 03/07/2023 15:08:50 03/07/2023 16:33:28 Type 2 diabetes mellitus without complication 304340385 E11.9 Essential hypertension 48626202 I10 Osteoporosis 41591640 M8 1.0 Atrial fibrillation 4943 6004 I48.91 Compressio n fracture of lumbar spine 857900530 M48.56XD [id number] Griselda Palafox MD [facility] Internal Med [place] [address] [place] [address] 05/02/2023 09:42:52 05/02/2023 12:16:03 Type 2 diabetes mellitus without complication 753825182 E11.9 Compression fracture 443 196373 T14.8XXD Diabetes mellitus 402571 09 E11.40 L60.3 L60.0 Z74.1 Essential hypertension 75020403 I10 [id number] Carlo Wells DPM [facility] [place] [address] [place] [address] 05/15/2023 12:02:29 05/23/2023 13:07:49 Dystrophia unguium 38441738 L60.3 Nails debrided Diabetes mellitus 652894 09 E11.40 L60.3 L60.0 Z74.1 check feet daily for wounds infectionC ontinue daily supportive shoe gear to prevent woundsAnd control diabetes per PCP recommenda tions [id number] Carlo Wells DPM [facility] [place] [address] [place] [address] 08/14/2023 11:57:03 08/14/2023 14:46:20 Type 2 diabetes mellitus without complication 113477109 E11.9 continue diabetic control per PCP recommenda tions Dystrophia unguium 73152 009 L60.3 Nails debrided Unable to cut own toenails 530603145 Z74.1 [id number] Carlo Wells DPM [facility] [place] [address] [place] [address] 11/16/2023 12:12:43 11/16/2023 16:27:34 Dystrophia unguium 91716302 L60.3 Nails debrided Foot callus 081972774 L8 4 Sub 1st met head left footdebrid ed without incidentco ntinue offloading to prevent woundRecom mend diabetic inserts Unable to cut own toenails 642855731 Z74.1 Porokeratosis 264519152 Q82.8 x2 left footdebrid ed without incidentus e pumice stone dailyrecom mend diabetic insertsfol low-up as needed Diabetes mellitus 376147 09 E11.40 L60.3 L60.0 Z74.1 check feet daily for wounds infectionC ontinue daily supportive shoe gear to prevent woundsAnd control diabetes per PCP recommenda tions [id number] Carlo Wells DPM [facility] [place] [address] [place] [address] 03/25/2024 10:54:09 2024 08:20:13 Type 2 diabetes mellitus without complication 866080689 E11.9 continue diabetic control per PCP recommenda tions Dystrophia unguium 57398 009 L60.3 Nails 1 through 10 were debrided with sharp mechanical debridemen t without incident. Nails were debrided and greater than 50% length and thickness where needed. Health Concerns Section Related Observation LastModified by Organization Detai ls LastModified Time None Recorded Concern Status LastModified by Organization Details LastModified Time None Recorded Advance Directives Directive N: Payers Encounter Date Sequence Insurance Name Policy Number Policy Hughes Covered Member ID Hughes Member ID Guarantor Name 05/02/2023 1 [employer] [facility] MEDICARE ADVANTAGE (MEDICARE REPLACEMENT PPO) [id number] Bren Bond [id number] rBen Bond 05/15/2023 1 [employer] [facility] MEDICARE ADVANTAGE (MEDICARE REPLACEMENT PPO) [id number] Bren Bond [id number] Bren Bond 08/14/2023 1 [employer] [facility] MEDICARE ADVANTAGE (MEDICARE REPLACEMENT PPO) [id number] Bren Bond [id number] Bren Bond 11/16/2023 1 [employer] [facility] MEDICARE ADVANTAGE (MEDICARE REPLACEMENT PPO) [id number] Bren Mayers [id number] Bren Bond 03/25/2024 1 [employer] [facility] MEDICARE ADVANTAGE (MEDICARE REPLACEMENT PPO) [id number] Bren Bond [id number] Bren Bond Notes Date Note Type Note Provider Name and Address Organization Details Recorded Time 4 text/html Back feeling betterGERD stableRhinitis doing fineAFib asymptomaticDiabetes no polyphagia no polydipsiaOsteoporosis Griselda Palafox MD [address], [place], [address], [place] 05/05/2023 22:33:07 4 text/html . Patient is an 83-year-old female diabetic who returns the office for diabetic foot care. Patient states overall she is doing well denies any open wounds or infection. Patient states that she would like her nails cut she is unable to cut them. Patient denies any other complaints. Carlo Wells DPM [address], [place], [address], [place] 05/15/2023 14:04:07 4 text/html . Patient is an 83-year-old female who returns to the office for diabetic foot care. Patient states overall she is doing well denies any open wounds or infection. Patient states she is unable to cut her nails would like to have them cut. Patient denies any intermittent claudication walking or rest pain. A1c on 07/31/2023 5.6. Carlo Wells DPM [address], [place], [address], [employer] 08/14/2023 14:30:51 4 text/html . Patient is an 83-year-old female who returns for follow-up on routine foot care. Patient states her diabetes is doing well she denies any new complaints with her feet. Patient continues have a chronic callus which it is becoming prominent but denies any open wounds or infection she denies any pain to the area. Patient states that as long as it is cut down and does not give her any problems. Patient states her nails are also long and would like to have them cut. Patient denies any other complaints. Carlo Wells DPM [address], [place], [address], [employer] 11/16/2023 15:07:06 4 text/html . Patient is a 83-year-old female diabetic who returns for diabetic foot care she states overall she is doing well she walks with use of a cane. Patient presents with her who has dementia. Patient states that she cares for him daily. Patient states overall she is doing well she denies any wounds or pain with walking. Patient states that she is unable to bend over to cut her toenails which are long and painful. Patient denies any other complaints. Carlo Wells DPM [address], [place], [address], [employer] 03/25/2024 11:54:13 OBGyn Episode No OBEpisode recorded.
--- OUTSIDE RECORDS SUMMARY | 2024-04-18 01:30 | XMS_ITS | Continuity of Care Document ---
Author Organization [facility], [facility] Podiatry Bro Varghese Address [address] [place] [address] Care Team Providers Care Camp Attendant Name Role Phone GRISELDA PUGA Primary Care Provider [phone] GRISELDA PUGA Referring Provider Assessment Encounter Date Assessment Date Assessment LastModified by Organization Details LastModified Time 03/25/2024 03/25/2024 This note is dictated and transcribed by [employer]. Risk Adjustment Specialist variances may occur. Despite proofreading, typographical errors may occur. Occasional wrong-word or '[id number]' substitutions may have occurred due to the [...] None recorded. Patient TargetsNo targets recorded. Patient InstructionsNo instructions recorded. Reason for Referral None Reported. 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 Active 2021 Not Available [facility] 4 04:30:00 Closed fracture of fifth lumbar vertebra [id number] 527376 Completed 202002/08/2021 Not Available [facility] 3 03:24:42 Chronic back pain 285446554 Active 2021 Not Available [facility] 4 04:30:01 Hyperchol esterolem ia 27569306 Active 2016 Not Available [facility] 4 04:30:01 Acute sinusitis 60485013 Active 2021 Not Available [facility] 4 04:30:01 Heartburn 72350172 Active 2016 Not Available [facility] 4 04:30:01 Dry skin 68991850 Active 2018 Not Available [facility] 4 04:30:01 Foot callus 252798334 Active 2018 Not Available [facility] 4 04:30:01 Gastroeso phageal reflux disease 395274001 Active Not Available [facility] 4 04:30:01 Dry skin dermatiti s 867920151 Active 2019 Not Available [facility] 4 04:30:01 Low back pain 202283048 Active 2021 Not Available [facility] 4 04:30:01 Numbness of hand 599576046 Active 2021 Not Available [facility] 4 04:30:01 Type 2 diabetes mellitus without complicat ion 111377608 Active Not Available [facility] 4 04:30:01 Elevated blood-pre ssure reading without diagnosis of hypertens ion 884325943 Completed Not Available [facility] 3 03:24:42 Compressi on fracture of lumbar spine 690704070 Active 2021 Not Available [facility] 4 04:30:01 Compressi on fracture 928941182 Active 2020 L5 Not Available [facility] 4 04:30:01 Well controlle d type 2 diabetes mellitus 366458748 Active 2021 Not Available [facility] 4 04:30:01 Atrial fibrillat ion 44892786 Active 2021 Not Available [facility] 4 04:30:01 Cough 00544445 Active 2021 Not Available [facility] 4 04:30:01 Hyperlipi demia 60771223 Active Not Available [facility] 4 04:30:01 Essential hypertens ion 15403249 Active Not Available [facility] 4 04:30:01 Osteoporo sis 39618168 Active 2021 Not Available [facility] 4 04:30:01 Abscess of vulva 06555953 Active Not Available [facility] 4 04:30:01 Rhinitis 56626011 Active 2019 Not Available [facility] 4 04:30:01 Diabetes mellitus 70108257 Active 2016 Not Available [facility] 4 04:30:01 Dystrophi a unguium 07715340 Active 2022 Not Available [facility] 4 04:30:01 Problem Notes None recorded. Procedures Surgical History Date Name Laterality Status Provider Name and Address Organization Details Recorded Time 03/25/20 24 Nail Debridement completed Carlo Wells DPM [address], [place], [address], [employer] 03/25/2024 11:53:34 11/16/19 24 Nail Debridement completed Carlo Wells DPM [address], [place], [address], [employer] 11/16/2023 15:06:19 11/16/19 24 Callus Debridement 2-4 completed Carlo Wells DPM [address], [place], [address], [employer] 11/16/2023 15:06:11 08/14/19 24 Nail Debridement completed Carlo Wells DPM [address], [place], [address], [employer] [facility] [employer] 08/14/2023 14:29:36 05/15/19 24 Nail Debridement completed Carlo Wells DPM [address], [place], [address], [facility] [employer] [facility] [employer] 05/15/2023 14:03:10 02/21/20 23 Nail Debridement completed Carlo Wells DPM [address], [place], [address], [facility] [employer] [facility] [employer] 02/20/2023 12:02:00 02/21/20 23 Callus Debridement, One completed Carlo Wells DPM [address], [place], [address], [facility] [employer] [facility] [employer] [facility] 02/20/2023 12:01:51 11/22/19 23 Nail Debridement completed Carlo Wells DPM [address], [place], [address], [employer] [facility] [employer] 11/21/2022 10:40:17 11/22/19 23 Callus Debridement 2-4 completed Carlo Wells DPM [address], [place], [address], [facility] [employer] [facility] [employer] 11/21/2022 10:40:10 08/23/19 23 Nail Debridement completed Carlo Wells DPM [address], [place], [address], [employer] [facility] [employer] 08/22/2022 11:11:43 08/23/19 23 Callus Debridement, One completed Carlo Wells DPM [address], [place], [address], [employer] [facility] [employer] 08/22/2022 11:11:48 11/19/19 17 Date of Last Colonoscopy completed Not Available [facility] 06/08/2022 03:17:41 11/19/19 17 Colonoscopy completed Not Available [facility] 06/08/2022 03:17:45 03/25/20 15 Colonoscopy completed Not Available [facility] 06/08/2022 03:17:45 03/10/20 10 Colonoscopy completed Not Available [facility] 06/08/2022 03:17:45 total replacement of hip completed Not Available [facility] 06/08/2022 03:17:45 Cholecystectomy completed Not Available [facility] 06/08/2022 03:17:45 Hysterectomy completed Not Available [facility] 06/08/2022 03:17:45 tonsilectomy/adeno ids completed Not Available [facility] 06/08/2022 03:17:45 Eye Surgery completed Not Available [facility] 06/08/2022 03:17:45 Imaging Results None recorded. Procedure Notes None recorded. Medical Equipment None Reported. Allergies Allergen ID Allergen Name Allergen Category Reaction Reaction Severity Criticality Documentation Date Start Date Code Code System Note Provider Name and Address Organization Details Recorded Time 6370 Substance with sulfonami de structure and antibacte rial mechanism of action (substanc e) medicatio n Not available Not available Not available 06/08/2022 07301 8003 SNOMED Not Available [facility] 03:36:18 6371 erythromy tee medicatio n Not available Not available Not available 06/08/2022 4053 RxNorm Other react ions and sever ities : 'Adve rse react ion to subst ance' . Not Available [facility] 03:36:18 Medications Name Sig Start Date Stop [...] administ ered by the provider 04/07 completed [facility]: 0003-049 4-20 Not Available Not [...] Not Available Not Available No t Available F[place] 10 mg-325 mg tablet Take 1 tablet [...] %-dexamet hasone 0.1 % eye drops,[facility] [employer] 07/15 /2021 completed Not Available Not Available Not Available [...] administ ered by the provider 10/07 completed [facility]: 0409-427 6-17 Not Available Not Available Not [...] Updated DateTime 4 154.94 cm 37.8 kg/m2 14525.4 7 g 72 /min 14 /min 98 % 98 % 146 mm[Hg] 71 mm[Hg] [facility] 4 11:05:45 Social History Question Answer Notes LastModified by Organization Details LastModified Time Tobacco Smoking Status Never Smoker Not Available [facility] 06/08/2022 03:01:32 Do You Have An Advance Directive? No MIGRATION.030 [id number] Information not available 06/08/2022 What Is Your Level Of Alcohol Consumption? None MIGRATION.030 108345 Information not available 06/08/2022 Are You Blind Or Do You Have Difficulty Seeing? Yes MIGRATION.030 911226 Information not available 06/08/2022 What Is Your Level Of Caffeine Consumption? Moderate MIGRATION.0301 [id number] Information not available 06/08/2022 How Much Tobacco Do You Chew? None MIGRATION.0301 478331 Information not available 06/08/2022 In The 14 Days Before Symptom Onset, Have You Had Close Contact With A Laboratory-confi rmed COVID-19 While That Case Was Ill? No MIGRATION.030 871007 Information not available 06/08/2022 In The 14 Days Before Symptom Onset, Have You Had Close Contact With A Person Who Is Under Investigation For COVID-19 While That Person Was Ill? No MIGRATION.0301 732159 Information not available 06/08/2022 Are You Deaf Or Do You Have Serious Difficulty Hearing? No MIGRATION.030 682550 Information not available 06/08/2022 What Type Of Diet Are You Following? REGULAR MIGRATION.030 032058 Information not available 06/08/2022 Which Illicit Or Recreational Drugs Have You Used? None MIGRATION.030 637427 Information not available 06/08/2022 Do You Or Have You Ever Used E-cigarettes Or Vape? Never Used Electronic Cigarettes MIGRATION.030 626905 Information not available 06/08/2022 What Is The Highest Grade Or Level Of School You Have Completed Or The Highest Degree You Have Received? EF91045-5 MIGRATION.030 065940 Information not available 06/08/2022 What Is Your Occupation? Retired MIGRATION.030 294354 Information not available 06/08/2022 Have There Been Any Changes To Your Family Or Social Situation? No MIGRATION.0301 810639 Information not available 06/08/2022 What Is The Fluoride Status Of Your Home? Unknown MIGRATION.0301 497769 Information not available 06/08/2022 Are There Any Guns Present In Your Home? No MIGRATION.0301 205034 Information not available 06/08/2022 Do You Use Insect Repellent Routinely? No MIGRATION.0301 820662 Information not available 06/08/2022 Where Do You Live? [facility] MIGRATION.0301 090638 Information not available 06/08/2022 Do You Have A Medical Power Of Conductor Freight? No MIGRATION.0301 595168 Information not available 06/08/2022 What Was The Date Of Your Most Recent Tobacco Screening? 05/02/2023 [email or web address] Information not available 05/02/2023 Do You Have Any Pets? No MIGRATION.0301 954943 Information not available 06/08/2022 What Is Your Relationship Status? MIGRATION.0301 345703 Information not available 06/08/2022 Do You Use Your Seat Belt Or Car Seat Routinely? Yes MIGRATION.0301 101023 Information not available 06/08/2022 Do You Have Smoke And Carbon Monoxide Detectors In Your Home? Yes MIGRATION.0301 667953 Information not available 06/08/2022 Are You Passively Exposed To Smoke? No MIGRATION.0301 090808 Information not available 06/08/2022 Do You Or Have You Ever Used Smokeless Tobacco? Never Used Smokeless Tobacco MIGRATION.0301 003284 Information not available 06/08/2022 Are There Any Smokers In Your House? No MIGRATION.0301 947337 Information not available 06/08/2022 How Much Tobacco Do You Smoke? No MIGRATION.0301 277912 Information not available 06/08/2022 What Types Of Sporting Activities Do You Participate In? None MIGRATION.0301 362138 Information not available 06/08/2022 Do You Feel Stressed (tense, Restless, Nervous, Or Anxious, Or Unable To Sleep At Night)? [id number] MIGRATION.0301 423574 Information not available 06/08/2022 Do You Use Any Illicit Or Recreational Drugs? No MIGRATION.0301 003251 Information not available 06/08/2022 Do You Use Sunscreen Routinely? No MIGRATION.0301 858184 Information not available 06/08/2022 Has Tobacco Cessation Counseling Been Provided? No Not Needed-ne leela Smoked MIGRATION.0301 658129 Information not available 06/08/2022 How Many Years Have You Smoked Tobacco? 0 MIGRATION.0301 991465 Information not available 06/08/2022 Have You Recently Traveled Abroad? No MIGRATION.0301 184072 Information not available 06/08/2022 Do You Have Any Dietary Restrictions? No MIGRATION.0301 805424 Information not available 06/08/2022 Do You Or Have You Ever Used Any Other Forms Of Tobacco Or Nicotine? No MIGRATION.0301 715711 Information not available 06/08/2022 Sex: Female Functional Status Question Answer Note LastModified by Organizat ion Details LastModified Time Do you have difficulty walking or climbing stairs? Yes MIGRATION.028698 4965 Information not available 06/08/2022 Do you have transportation difficulties? No MIGRATION.679650 1505 Information not available 06/08/2022 Are you able to walk? YESASSIST uses cane MIGRATION.155564 1956 Information not available 06/08/2022 Do you have difficulty doing errands alone? No MIGRATION.633895 1021 Information not available 06/08/2022 Are you able to care for yourself? Yes MIGRATION.240715 2659 Information not available 06/08/2022 Do you have difficulty dressing or bathing? No MIGRATION.928699 4299 Information not available 06/08/2022 What is your exercise level? None MIGRATION.146766 4701 Information not available 06/08/2022 Mental Status Question Answer Note LastModified by Organizat ion Details LastModified Time Do you have difficulty concentrating, remembering or making decisions? No MIGRATION.604836273 6 Information not available 06/08/2022 Family History Relationship Description Onset Age of this Age Resolved Age Notes LastModified by Organization Details LastModified Time Mother Pulmonary embolism MIGRATION.694 [id number] Not available 06/08/2022 03:17:46 Father Diabetes mellitus MIGRATION.321 [id number] Not available 06/08/2022 03:17:46 Unspecified Relation Heart disease MIGRATION.420 [id number] Not available 06/08/2022 03:17:46 Medical History Condition Response NERVE DISEASE N BLINDNESS N RHEUMATIC FEVER N KIDNEY STONES N BLADDER PROBLEMS N MRSA N OTHER # 1 N POLIO N LUNG DISEASE/DISORDER N COPD N RADIATION / CHEMOTHERAPY N Other # 2 N BLOOD DISEASES N EAR OR HEARING PROBLEMS N MUMPS N DEPRESSION (INCLUDING POST ) N BOWEL PROBLEMS N STROKE/TIA N ULCERS N BENIGN PROSTATIC HYPERPLASIA N MEASLES N MYOCARDIAL INFARCTION N OBESITY N GERD/NAUSEA Y ANEURYSM N URINARY/BLADDER/KIDNEY PROBLEMS N CORONARY ARTERY DISEASE (CAD) N ADDICTION CONCERNS N Impotence N ENDOMETRIOSIS N USE OF BLOOD THINNERS Y SKIN [...] APNEA N CHICKENPOX N INFECTIOUS DISEASE N PROSTATE N HEART ARRHYTHMIA N INSOMNIA N HIGH CHOLESTEROL / HYPERLIPIDEMIA Y EYE PROBLEMS N HYPERTHYROIDISM N EDEMA N CHRONIC PAIN SYNDROME N HYPOTHYROIDISM N CAROTID BLOCKAGE N CONSTIPATION N BACK / NECK PROBLEMS N HAVE YOU BEEN HOSPITALIZED OR SEEN IN [facility] IN THE PAST YEAR ? Y ATHEROSCLEROSIS N BREAST PROBLEMS N DIALYSIS N ECZEMA N OSTEOPOROSIS N ARTHRITIS Y APPENDICITIS N DIABETES, TYPE Y BAD TEETH N ENT N HEARTBURN / REFLUX N AUTISM SPECTRUM DISORDER (ASD) N HEPATITIS / LIVER DISEASE N GOUT N SLEEP DISORDER N ALZHEIMER'S DISEASE N Brain Problems N DEMENTIA N HERPES Y SEIZURES/EPILEPSY N HEADACHES/MIGRAINES N VASCULAR DISEASE N PACEMAKER N Blood Disorder N DIZZINESS N HEART DISEASE/HEART PROBLEMS N KIDNEY DISEASE N MULTIPLE SCLEROSIS N CANCER: SPECIFY N CARDIAC ARRHYTHMIA N ATRIAL FIBRILLATION N Gall Stones N PULMONARY EMBOLISM N AUTOIMMUNE DISEASE N Gynecological History Statement/Question Response Date of Last Mammogram 09/13/2019 Date of Last Colonoscopy 11/18/2016 Obstetrics History GPAL:G 0 P 0 0 0 0 Immunizations Vaccine Type Date Status Note Provider Nam e and Address Organization Details Recorded Time Influenza, split virus, trivalent, PF 03/21/2013 completed Not Available [facility] 2023 04:30:03 Influenza, high-dose, quadrivalent, PF 01/10/2019 completed Not Available [facility] 4 04:30:03 Influenza, high-dose, trivalent, PF 01/10/2018 completed Not Available [facility] 2023 04:30:03 Influenza, high-dose, trivalent, PF 02/24/2017 completed Not Available [facility] 2023 04:30:03 Influenza, high-dose, trivalent, PF 01/24/2016 completed Not Available [facility] 2023 04:30:03 Influenza, split virus, trivalent, PF 02/19/2014 completed Not Available [facility] 2023 04:30:03 Influenza, high-dose, quadrivalent, PF 02/10/2022 completed Not Available [facility] 4 04:30:03 Past Encounters Encounter ID Performer Location Encounter Start Date Encounter Closed Date Diagnosis/Indication Diagnosis SNOMED-CT Code Diagnosis ICD10 Code Diagnosis Note [id number] Carlo Wells DPM [facility] Bro Varghese [address] [place] [address] 03/25/2024 10:54:09 2024 08:20:13 Type 2 diabetes mellitus without complication 423874346 E11.9 continue diabetic control per PCP recommenda tions Dystrophia unguium 93510 009 L60.3 Nails 1 through 10 were [...] Member ID Hughes Member ID Guarantor Name 03/25/2024 1 [employer] - MED[employer]ARE [employer] - [facility] MEDICARE ADVANTAGE (MEDICARE REPLACEMENT PPO) [id number] Bren Bond [id number] Bren Bond Notes Date Note Type Note Provider Name and Address Organization Details Recorded Time 03/25/2024 text/html . Patient is a 83-year-old female [...] any other complaints. Carlo Wells DPM [address], [place], [address], [place] [facility] 03/25/2024 11:54:13 OBGyn Episode No OBEpisode recorded.
--- OUTSIDE RECORDS SUMMARY | 2024-04-18 01:30 | XMS_ITS | Data Portability ---
[facility] Organization [facility] [address] [facility] [place] [address] Assessment Encounter Date Assessment Date Assessment LastModified by Organization Details LastModified Time 07/27/2023 07/27/2023 Overall doing fine diabetes we will continue with metformin pioglitazone dyslipidemia simvastatin hypertension lisinopril GERD omeprazole osteoporosis Prolia hyperlipidemia simvastatin obtain old records follow-up with me in 4 months [email or web address] Not available 07/27/2023 22:35:53 11/16/2023 11/16/2023 her multiple medical problems have been discussed blood work has been ordered there was an issue of getting her Prolia covered by insurance we are working through that see me back in 3-4 months blood work has been ordered. We will deescalate PPI to H2 mary anne [email or web address] Not available 11/16/2023 23:04:27 03/14/2024 03/14/2024 blood work has been ordered we will continue current therapy all questions has been answered with regards to her diagnosis in the assessment and plan refuses any immunizations at this time we will follow up 3-4 months [email or web address] Not available 03/16/2024 18:37:12 Plan of Treatment Reminders Order Date Submit Date Provider Last Modified By Organization Details Last Modified Time Details Appointments ANY 15 2024 10:15A M Justino Palafox MD Not available Not available Not available Lab HbA1c (hemoglob in A1c), blood 2023 024 [facility], [address] [place] [address], [address], [place], [address], 08/01/2023 14:49:02 lipid panel, serum 2023 024 mebyma [facility], [address], [address], [place], [address], 10/25/2023 09:36:10 CBC w/ auto diff 2023 024 [email or web address] [facility], [address], [address], [place], [address], 10/25/2023 09:36:10 CMP, serum or plasma 2023 024 [facility], [address], [address], [place], [address], 10/25/2023 09:36:10 HbA1c (hemoglob in A1c), blood 2023 024 [facility], [address], [address], [place], [address], 12/05/2023 12:50:46 lipid panel, serum 2023 024 [facility], [address], [address], [place], [address], 12/05/2023 12:51:00 CMP, serum or plasma 2023 024 [facility], [address], [address], [place], [address], 12/05/2023 12:50:29 CBC w/ auto diff 2023 024 [email or web address], [address], [address], [place], [address], 12/05/2023 12:50:53 HbA1c (hemoglob in A1c), blood 2023 024 [facility], [address], [address], [place], [address], 03/20/2024 10:13:29 CBC w/ auto diff 2023 024 [facility], [address], [address], [place], [address], 03/20/2024 10:13:30 vitamin D, 25-hydrox y, total, serum 2023 024 [facility], [address] [place] [address] [address], [address], [place], [address], 03/20/2024 10:13:33 PTH (parathyr oid hormone), intact, serum or plasma 2023 024 [facility], [address] [place] [address], [address], [place], [address], 03/20/2024 10:13:32 lipid panel, serum 2023 024 [facility], [address] [place] [address], [address], [place], [address], 03/20/2024 10:13:26 CMP, serum or plasma 2023 024 [facility], [address] [place] [address], [address], [place], [address], 03/20/2024 10:13:28 Referral None recorded. Procedures None recorded. Surgeries None recorded. Imaging None recorded. Medication Orders Prolia 60 mg/mL subcutane ous syringe 2023 024 [email or web address] [facility], [facility], [place], [address], 06/06/2023 16:02:29 OneTouch Ultra Test strips 2023 024 [id number], [address] [address], [place], [place], [id number], 07/27/2023 12:59:10 pioglitaz one 30 mg tablet 2023 024 [email or web address] [facility], [address] [place] [address], [address], 07/27/2023 12:59:10 Eliquis 5 mg tablet 2023 024 [facility], [address] [place] [address], [address], 11/16/2023 17:55:15 Pepcid 20 mg tablet 2023 024 B[facility], [address] [place] [address], [address], 02/22/2024 15:16:57 lisinopri l 20 mg tablet 2023 024 [email or web address] [facility], [address] [place] [address], [address], 11/16/2023 17:55:15 Flonase Allergy Relief 50 mcg/actua tion nasal spray,kris pension 2023 024 [email or web address], [address] [place] [address], [address], 11/16/2023 17:55:15 Prolia 60 mg/mL subcutane ous syringe 2023 024 [email or web address] [facility], [address] [place] [address], [address], 01/09/2024 12:34:09 metformin 500 mg tablet 2023 024 [facility], [address] [place] [address], [address], 03/14/2024 13:11:37 pioglitaz one 30 mg tablet 2023 024 [email or web address] [facility], [address] [place] [address], [address], 03/14/2024 13:11:37 simvastat in 20 mg tablet 2023 024 [facility], [address] [place] [address], [address], 03/14/2024 13:11:37 Flonase Allergy Relief 50 mcg/actua tion nasal spray,kris pension 2023 024 [email or web address] [facility], [address] [place] [address], [address], 03/14/2024 13:11:37 Patient TargetsNo targets recorded. Patient InstructionsNo instructions recorded. Reason for Referral None Reported. Results Created Date Observation Date Name Description Value Unit Range Abnormal Flag Note LastModifiedBy Organization Detail LastModifiedTime 03/19/20 24 03/20/2024 LIPID PANEL cholesterol, total 184 mg/dL 100-19 9 Not Available [facility] ([facility]) [address] [place], [address], 03/20/2024 10:13:26 03/19/20 24 03/20/2024 LIPID PANEL triglyceride s 237 mg/dL 0-149 above high normal Not Available [facility] ([facility]) [address] [place], [address], 03/20/2024 10:13:26 03/19/20 24 03/20/2024 LIPID PANEL HDL cholesterol 47 mg/dL >39 Not Available [facility]) [address] [place], [address], 03/20/2024 10:13:26 03/19/20 24 03/20/2024 LIPID PANEL VLDL cholesterol malik 40 mg/dL 5-40 Not Available [facility] ([facility]) [address] [place], [address], 03/20/2024 10:13:26 03/19/20 24 03/20/2024 LIPID PANEL LDL chol calc ([facility]) 97 mg/dL 0-99 Not Available [facility] ([facility]) [address] [facility], [place], [address], 03/20/2024 10:13:26 03/19/20 24 03/20/2024 COMP. METAB OLIC PANEL (14) glucose 95 mg/dL 70-99 Not Available [facility] ([facility]) [address] [facility], [place], [address], 03/20/2024 10:13:28 03/19/20 24 03/20/2024 COMP. METAB OLIC PANEL (14) BUN 25 mg/dL 8-27 Not Available [facility] ([facility]) [address] [place], [address], 03/20/2024 10:13:28 03/19/20 24 03/20/2024 COMP. METAB OLIC PANEL (14) creatinine 0.76 mg/dL 0.57-1 .00 Not Available [facility] ([facility]) [address] [facility], [place], [address], 03/20/2024 10:13:28 03/19/20 24 03/20/2024 COMP. METAB OLIC PANEL (14) eGFR 78 mL/mi n/1.7 3 >59 Not Available [facility] ([facility]) [address] [facility], [place], [address], 03/20/2024 10:13:28 03/19/20 24 03/20/2024 COMP. METAB OLIC PANEL (14) BUN/creatini ne ratio 33 12-28 above high normal Not Available [facility] ([facility]) [address] [place], [address], 03/20/2024 10:13:28 03/19/20 24 03/20/2024 COMP. METAB OLIC PANEL (14) sodium 141 mmol/ L 134-14 4 Not Available [facility] ([facility]) [address] [place], [address], 03/20/2024 10:13:28 03/19/20 24 03/20/2024 COMP. METAB OLIC PANEL (14) potassium 4.9 mmol/ L 3.5-5. 2 Not Available [facility] ([facility]) [address] [place], [address], 03/20/2024 10:13:28 03/19/20 24 03/20/2024 COMP. METAB OLIC PANEL (14) chloride 104 mmol/ L 96-106 Not Available [facility] ([facility]) [address] [facility], [place], [address], 03/20/2024 10:13:28 03/19/20 24 03/20/2024 COMP. METAB OLIC PANEL (14) carbon dioxide, total 25 mmol/ L 20-29 Not Available [facility] ([facility]) [address] [place], [address], 03/20/2024 10:13:28 03/19/20 24 03/20/2024 COMP. METAB OLIC PANEL (14) calcium 10.0 mg/dL 8.7-10 .3 Not Available [facility] ([facility]) [address] [place], [address], 03/20/2024 10:13:28 03/19/20 24 03/20/2024 COMP. METAB OLIC PANEL (14) protein, total 6.3 g/dL 6.0-8. 5 Not Available [facility] ([facility]) [address] [place], [address], 03/20/2024 10:13:28 03/19/20 24 03/20/2024 COMP. METAB OLIC PANEL (14) albumin 4.3 g/dL 3.7-4. 7 Not Available [facility] ([facility]) [address] [place], [address], 03/20/2024 10:13:28 03/19/20 24 03/20/2024 COMP. METAB OLIC PANEL (14) globulin, total 2.0 g/dL 1.5-4. 5 Not Available [facility] ([facility]) [address] [place], [address], 03/20/2024 10:13:28 03/19/20 24 03/20/2024 COMP. METAB OLIC PANEL (14) bilirubin, total 0.4 mg/dL 0.0-1. 2 Not Available [facility] ([facility]) [address] [place], [address], 03/20/2024 10:13:28 03/19/20 24 03/20/2024 COMP. METAB OLIC PANEL (14) alkaline phosphatase 59 IU/L 44-121 Not Available [facility] ([facility]) [address] [place], [address], 03/20/2024 10:13:28 03/19/20 24 03/20/2024 COMP. METAB OLIC PANEL (14) AST (SGOT) 18 IU/L 0-40 Not Available [facility] ([facility]) [address] [place], [address], 03/20/2024 10:13:28 03/19/20 24 03/20/2024 COMP. METAB OLIC PANEL (14) ALT (SGPT) 13 IU/L 0-32 Not Available [facility] ([facility]) [address] [place], [address], 03/20/2024 10:13:28 03/19/20 24 03/20/2024 HEMOG LOBIN A1C hemoglobin A1C 6.1 % 4.8-5. 6 above high normal Predi abete s: 5.7 - 6.4 Diabe kiesha: >6.4 Glyce brandt contr ol for adult s with diabe kiesha: <7.0 Not Available [facility] ([facility]) [address] [facility], [place], [address], 03/20/2024 10:13:29 03/19/20 24 03/20/2024 CBC WITH DIFFE RENTI AL/PL ATELE T WBC 6.0 x10e3 /uL 3.4-10 .8 Not Available [facility] ([facility]) [address] [facility], [place], [address], 03/20/2024 10:13:30 03/19/20 24 03/20/2024 CBC WITH DIFFE RENTI AL/PL ATELE T RBC 3.69 x10e6 /uL 3.77-5 .28 below low normal Not Available [facility] ([facility]) [address] [facility], [place], [address], 03/20/2024 10:13:30 03/19/20 24 03/20/2024 CBC WITH DIFFE RENTI AL/PL ATELE T hemoglobin 12.0 g/dL 11.1-1 5.9 Not Available [facility] ([facility]) [address] [place], [address], 03/20/2024 10:13:30 03/19/20 24 03/20/2024 CBC WITH DIFFE RENTI AL/PL ATELE T hematocrit 36.8 % 34.0-4 6.6 Not Available [facility] ([facility]) [address] [place], [address], 03/20/2024 10:13:30 03/19/20 24 03/20/2024 CBC WITH DIFFE RENTI AL/PL ATELE T MCV 100 fL 79-97 above high normal Not Available [facility] ([facility]) [address] [place] [address], [address], 03/20/2024 10:13:30 03/19/20 24 03/20/2024 CBC WITH DIFFE RENTI AL/PL ATELE T MCH 32.5 pg 26.6-3 3.0 Not Available [facility] ([facility]) [address] [facility], [place], [address], 03/20/2024 10:13:30 03/19/20 24 03/20/2024 CBC WITH DIFFE RENTI AL/PL ATELE T MCHC 32.6 g/dL 31.5-3 5.7 Not Available [facility] ([facility]) [address] [facility], [place], [address], 03/20/2024 10:13:30 03/19/20 24 03/20/2024 CBC WITH DIFFE RENTI AL/PL ATELE T RDW 12.4 % 11.7-1 5.4 Not Available [facility] ([facility]) [address] [facility], [place], [address], 03/20/2024 10:13:30 03/19/20 24 03/20/2024 CBC WITH DIFFE RENTI AL/PL ATELE T platelets 251 x10e3 /uL 150-45 0 Not Available [facility] ([facility]) [address] [facility], [place], [address], 03/20/2024 10:13:30 03/19/20 24 03/20/2024 CBC WITH DIFFE RENTI AL/PL ATELE T neutrophils 68 % notest ab. Not Available [facility] ([facility]) [address] [place], [address], 03/20/2024 10:13:30 03/19/20 24 03/20/2024 CBC WITH DIFFE RENTI AL/PL ATELE T lymphs 18 % notest ab. Not Available [facility] ([facility]) [address] [place], [address], 03/20/2024 10:13:30 03/19/20 24 03/20/2024 CBC WITH DIFFE RENTI AL/PL ATELE T monocytes 9 % notest ab. Not Available [facility] ([facility]) [address] [facility], [place], [address], 03/20/2024 10:13:30 03/19/20 24 03/20/2024 CBC WITH DIFFE RENTI AL/PL ATELE T eos 4 % notest ab. Not Available [facility] ([facility]) [address] [facility], [place], [address], 03/20/2024 10:13:30 03/19/20 24 03/20/2024 CBC WITH DIFFE RENTI AL/PL ATELE T basos 1 % notest ab. Not Available [facility] ([facility]) [address] [facility], [place], [address], 03/20/2024 10:13:30 03/19/20 24 03/20/2024 CBC WITH DIFFE RENTI AL/PL ATELE T neutrophils (absolute) 4.1 x10e3 /uL 1.4-7. 0 Not Available [facility] ([facility]) [address] [facility], [place], [address], 03/20/2024 10:13:30 03/19/20 24 03/20/2024 CBC WITH DIFFE RENTI AL/PL ATELE T lymphs (absolute) 1.1 x10e3 /uL 0.7-3. 1 Not Available [facility] ([facility]) [address] [facility], [place], [address], 03/20/2024 10:13:30 03/19/20 24 03/20/2024 CBC WITH DIFFE RENTI AL/PL ATELE T monocytes(ab solute) 0.5 x10e3 /uL 0.1-0. 9 Not Available [facility] ([facility]) [address] [facility], [place], [address], 03/20/2024 10:13:30 03/19/20 24 03/20/2024 CBC WITH DIFFE RENTI AL/PL ATELE T eos (absolute) 0.2 x10e3 /uL 0.0-0. 4 Not Available [facility] ([facility]) [address] [place], [address], 03/20/2024 10:13:30 03/19/20 24 03/20/2024 CBC WITH DIFFE RENTI AL/PL ATELE T baso (absolute) 0.0 x10e3 /uL 0.0-0. 2 Not Available [facility] ([facility]) [address] [place], [address], 03/20/2024 10:13:30 03/19/20 24 03/20/2024 CBC WITH DIFFE RENTI AL/PL ATELE T immature granulocytes 0 % notest ab. Not Available [facility] ([facility]) [address] [place], [address], 03/20/2024 10:13:30 03/19/20 24 03/20/2024 CBC WITH DIFFE RENTI AL/PL ATELE T immature grans (abs) 0.0 x10e3 /uL 0.0-0. 1 Not Available [facility] ([facility]) [address] [place], [address], 03/20/2024 10:13:30 03/19/20 24 03/20/2024 PTH, INTAC T PTH, intact 24 pg/mL 15-65 Not Available [facility] ([facility]) [address] [place], [address], 03/20/2024 10:13:31 03/19/20 24 03/20/2024 VITAM IN D, 25-HY DROXY vitamin D, 25-hydroxy 57.7 NG/mL 30.0-1 00.0 Vitam in D defic iency has been defin ed by the Insti micah of Medic ine and an Endoc rine Socie ty pract ice guide line as a level of serum 25-OH vitam in D less than 20 ng/mL (1,2) . The Endoc rine Socie ty went on to furth er defin e vitam in D insuf ficie ncy as a level betwe en 21 and 29 ng/mL (2). 1. IOM (Inst itute of Medic ine). 2010. Dieta ry refer ence intak es for calci um and D. Keerthi johnson [place]: The [facility] . 2. Maria Ines martinez [place], [place]e [place], Bisch off-F errar i [place], et al. Evalu ation , treat ment, and preve ntion of vitam in D defic iency : an Endoc rine Socie ty clini malik pract ice guide line. JCEM. 2010; 96(7) :1911 -30. Not Available [facility] ([facility]) [address] [facility], [place], [address], 03/20/2024 10:13:33 Result Notes None recorded. Problems Name Problem SNOMED Code Status Onset Date Resolution Date Notes Provider Name and Address Organization Details Recorded Time Type 2 diabetes mellitus 24037627 Active 2023 Danya Dorman MA [facility], [place] - [facility] 4 12:11:54 Compression fracture of lumbar spine 205757385 Active 2023 Justino Palafox MD Attn: Lorena ivan,[address] [place], [address], [place] - [facility] 4 22:33:25 Osteoporosis 28897031 Active 2023 Justino Palafox MD Attn: Lorena ivan,[address] [place], [address], [place] [facility] 4 22:33:28 Hyperlipidemia 23248127 Active 2023 Justino Palafox MD Attn: Lorena ivan,[address] [place], [address], [place] [facility] 4 22:33:29 Gastroesophage al reflux disease without esophagitis 540005502 Active 2023 Justino Palafox MD Attn: Lorena ivan,[address] [place], [address], [facility] 4 22:33:32 Essential hypertension 23901566 Active 2023 Danya Dorman MA [place], [facility] 12:02:39 Problem Notes None recorded. Procedures Surgical History Date Name Laterality Status Provider Name and Address Organization Details Recorded Time Eye Surgery completed Emily HaydeeHEATHER samson [facility] 07/27/2023 11:35:41 Cholecystectomy completed Emily Hubbard MA [facility] 07/27/2023 11:35:47 hysterectomy completed Emily Hubbard MA [facility] 07/27/2023 11:35:52 Tonsillectomy completed Emily Hubbard MA [facility] 07/27/2023 11:36:07 Imaging Results None recorded. Procedure Notes None recorded. Medical Equipment None Reported. Allergies Allergen ID Allergen Name Allergen Category Reaction Reaction Severity Criticality Documentation Date Start Date Code Code System Note Provider Name and Address Organization Details Recorded Time 258632 Substance with sulfonami de structure and antibacte rial mechanism of action (substanc e) medicatio n Not available Not available Not available 07/27/2023 06289 8003 SNOMED Emily HaydeeHEATHER samson [place], [facility] 11:37:57 Medications Name Sig Start Date Stop [...] propionate 50 mcg/actuati on nasal spray,suspe nsion [place] 1 spray every day by intranasa l [...] No t Available Vitals Date Recorded Body weight Heart rate Body temperature Oxygen saturation Oxygen saturation in Arterial blood by Pulse oximetry Systolic blood pressure Diastolic blood pressure Provider Name and Address Organization Details Last Updated DateTime 4 98604.9 9 g 69 /min 98 [degF] 99 % 99 % 128 mm[Hg] 84 mm[Hg] Emily Hubbard MA [facility] 4 11:40:23 Date Recorded Body height Body mass index (BMI) Body weight Heart rate Oxygen saturation Oxygen saturation in Arterial blood by Pulse oximetry Systolic blood pressure Diastolic blood pressure Provider Name and Address Organization Details Last Updated DateTime 4 154.94 cm 36.9 kg/m2 48047.9 4 g 65 /min 99 % 99 % 130 mm[Hg] 72 mm[Hg] Donald Olmos MA [facility] 4 15:14:34 Date Recorded Body height Body mass index (BMI) Body weight Heart rate Oxygen saturation Oxygen saturation in Arterial blood by Pulse oximetry Systolic blood pressure Diastolic blood pressure Provider Name and Address Organization Details Last Updated DateTime 4 154.94 cm 37.8 kg/m2 60351.1 1 g 71 /min 98 % 98 % 124 mm[Hg] 70 mm[Hg] Caryl Wade MA [facility] 4 11:16:27 Social History Question Answer Notes LastModified by Organizat ion Details LastModified Time Tobacco Smoking Status Never Smoker Emily Hubbard MA [facility] 07/27/2023 11:35:11 Do You Have An Advance [...] Anxious, Or Unable To Sleep At Night)? [id number] Information not available 07/27/2023 Do You Use [...] History Nothing Reported. Medical History Condition Response Diabetes Y Muscle, Joint, or Bone Problems Y Acid Reflux (GERD) Y High Blood Pressure Y Osteoporosis Y High Cholesterol Y Gynecological HistoryNo gynecological history recorded. Obstetrics History GPAL:G 0 P 0 0 0 0 Past Encounters Encounter ID Performer Location Encounter Start Date Encounter Closed Date Diagnosis/Indication Diagnosis SNOMED-CT Code Diagnosis ICD10 Code Diagnosis Note [id number] Danya Dorman MA [facility] (Adult Med) [address] [place] [address] 06/06/2023 15:37:22 06/06/2023 15:58:30 Osteoporosis 80531984 M81.0 [id number] Justino Palafox MD [facility] [employer] [address] [address] 07/27/2023 10:59:03 07/27/2023 12:16:19 Type 2 diabetes mellitus 35823531 E11.9 Essential hypertension 14512643 I10 Renewal of prescription 872021654 Z76.0 Gastroesop hageal reflux disease without esophagitis 133899700 K21.9 Hyperlipidemia 82287218 E78.5 Osteoporosis 39254750 M8 1.0 Compressio n fracture of lumbar spine 536577714 M48.56XD [id number] Justino Palafox MD [facility] [employer] [facility] [place] [address] [address] 11/16/2023 14:42:36 11/16/2023 16:16:48 Hyperlipidemia 89633886 E78.5 Type 2 melyssa betes mellitus 75758665 E11.9 Renewal of prescription 280507287 Z76.0 Gastroesop hageal reflux disease without esophagitis 531602841 K21.9 Essential hypertension 31354682 I10 Chronic rhinitis 1615723 6 J31.0 [id number] Caryl Wade MA [facility] (Adult Med) [address] [place] [address] 01/09/2024 11:22:43 01/09/2024 12:31:12 Osteoporosis 44656064 M81.0 [id number] Justino Palafox MD [facility] [place] [address] [place] [address] 03/14/2024 10:37:08 03/14/2024 12:01:11 Body mass index 30+ - obesity 351747423 Z68.37 Hyperlipidemia 48141197 E78.5 Type 2 melyssa betes mellitus 25322740 E11.9 Chronic rhinitis 2757211 6 J31.0 Essential hypertension 93008338 I10 Osteopenia 677972530 M85 .80 Health Concerns Section Related Observation LastModified by Organization Detai ls LastModified Time None Recorded Concern Status LastModified by Organization Details LastModified Time None Recorded Advance Directives Directive Y: Payers Encounter Date Sequence Insurance Name Policy Number Policy Hughes Covered Member ID Hughes Member ID Guarantor Name 06/06/2023 1 [facility] (MEDICARE REPLACEMENT/A DVANTAGE - PPO) [id number] Bren Bond [id number] Bren Bond 07/27/2023 1 [facility] (MEDICARE REPLACEMENT/A DVANTAGE - PPO) [id number] Bren Bond [id number] Bren Bond 11/16/2023 1 [facility] (MEDICARE REPLACEMENT/A DVANTAGE - PPO) [id number] Bren Bond [id number] Bren Bond 01/09/2024 1 [facility] (MEDICARE REPLACEMENT/A DVANTAGE - PPO) [id number] Bren Bond [id number] Bren Bond 03/14/2024 1 [facility] (MEDICARE REPLACEMENT/A DVANTAGE - PPO) [id number] Bren Bond [id number] Bren Bond Notes Date Note Type Note Provider Name and Address Organization Details Recorded Time 07/27/2023 text/html 83-year-old with a history of GERD [...] gabapentin postfracture and that is done okay. Justino Palafox MD Attn: Accounting, [address] [facility], [place], [address], [facility] 07/27/2023 22:36:43 11/16/2023 text/html 83-year-old with a history of GERD [...] gabapentin postfracture and that is done okay. Justino Palafox MD Attn: Accounting, [address] [facility], [place], [address], [facility] 11/16/2023 23:04:52 03/14/2024 text/html 83-year-old with a history of [...] pretty severe dementia Justino Palafox MD Attn: Accounting, [address] [facility], [place], [address], [place] [facility] 03/16/2024 18:37:43 OBGyn Episode No OBEpisode recorded.
--- OUTSIDE RECORDS SUMMARY | 2024-04-18 01:31 | XMS_ITS | Encounter Summary ---
Author Organization [facility] Care Team Providers Care Computer Technologist Name Role Phone Unavailable Primary Care Provider Unavailabl e Encounter Details Date Type Department Care Team (Late st Contact Info) Description 09/10/2009 - 09/10/2009 11:59 PM CDT [facility]; Closed fracture of surgical neck of humerus Social History Tobacco Use Types Packs/Day Years Used Date Smoking Tobacco: Never Assessed Comments Unknown Sex and Gender Information Value Date Recorded Sex Assigned at Not on file 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
--- OUTSIDE RECORDS SUMMARY | 2024-04-18 01:31 | XMS_ITS | Encounter Summary ---
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
--- OUTSIDE RECORDS SUMMARY | 2024-04-18 01:31 | XMS_ITS | Encounter Summary ---
Author Organization [facility] Healthcare Address [address] [place] [address] Care Team Providers Care Horse Stud Manager Name Role Phone Justino Palafox MD Primary Care Provider [phone] Reason for Visit * Reason Comments Osteoporosis Encounter Details Date Type Department Care Team (Late st Contact Info) Description 03/04/2024 9:30 AM DIGITAL RESEARCH ANALYST Office Visit [facility] Diabetes and Endocrinology [address] [place] [phone] [place] [id number] [id number] Age-related osteoporosis without current pathological fracture (Primary Dx) Social History Tobacco Use Types Packs/Day Years Used Date Smoking Tobacco: Never Smokeless Tobacco: Never Tobacco Cessation:Counseling Given: Not Answered Comments Unknown Sex and Gender Information Value Date Recorded Sex Assigned at Not on file Legal Sex Female 2:59 AM DIGITAL RESEARCH ANALYST Gender Identity Not on file Sexual Orientation Not on file documented as of this encounter Last Filed Vital Signs Vital Sign Reading Time Taken Comments Blood Pressure 124/84 03/04/2024 9:20 AM DIGITAL RESEARCH ANALYST Pulse 71 03/04/2024 9:20 AM DIGITAL RESEARCH ANALYST Temperature - - Respiratory Rate 17 03/04/2024 9:20 AM DIGITAL RESEARCH ANALYST Oxygen Saturation - - Inhaled Oxygen Concentration - - Weight 89.8 kg (198 lb) 03/04/2024 9:20 AM DIGITAL RESEARCH ANALYST Height 154.9 cm (5' 1 ) 03/04/2024 9:20 AM DIGITAL RESEARCH ANALYST Body Mass Index 37.41 03/04/2024 9:20 AM DIGITAL RESEARCH ANALYST documented in this encounter Patient Instructions * Patient Instructions* Riley Salvador MD - 03/04/2024 9:30 AM DIGITAL RESEARCH ANALYST Prolia injection due in July 2024 Do labs 2 days after Prolia Fall precautions Follow up in Jan 2025 in office TAL RESEARCH ANALYST documented in this encounter Progress Notes * Riley Salvador MD - 03/04/2024 9:30 AM CST Images from the original note were not included. [facility] [place] [facility] Consult Note Subjective/Objective Patient ID: Bren Bond is a 83 y.o. female Chief Complaint Osteoporosis HPI Pt. Seen today in consultation for Osteoporosis , requested by PCP Dr. Javy MENDOZA Fall in 2020, resulting in L5 compression fracture Pt diagnosed with Osteoporosis 2020 Pt was started on Prolia since 2020 Last Prolia injection 01/2023 multiple near falls Pt on multiple over the counter supplements that include calcium and Vitamin D Pt has h/o type 2 DM, managed by PCP , on oral metformin and Pioglitazone for 60+ years, no kids Taking care of a Demented at home Physical Exam Constitutional: Appearance: Normal appearance. HENT: Head: Normocephalic and atraumatic. Eyes: Conjunctiva/sclera: Conjunctivae normal. Cardiovascular: Rate and Rhythm: Normal rate and regular rhythm. Heart sounds: Normal heart sounds. Pulmonary: Effort: Pulmonary effort is normal. Breath sounds: Normal breath sounds. Musculoskeletal: General: No tenderness. Cervical back: Neck supple. Right lower leg: No edema. Left lower leg: No edema. Comments: Kyphosis + Skin: General: Skin is warm and dry. Neurological: Mental Status: She is alert. Mental status is at baseline. Deep Tendon Reflexes: Reflexes are normal and symmetric. Psychiatric: Behavior: Behavior normal. Labs/Imaging: Assessment/Plan Diagnoses and all orders for this visit: Age-related osteoporosis without current pathological fracture (Primary) Assessment & Plan: Chronic , slow improving H/o L5 compression fracture Pt on Prolia since 2020 Noted improvement in BMD in left hip L1-L4 - is falsely looking good on DEXA ( cannot use this for define Rx benefit ) Last injection 01/2024, due again in July 2024 Advised to do labs 2 days after her next Prolia injection Denies any tingling or numbness Continue current vitamin-D and calcium supplements Falls precautions Advised to work on strength training exercise to improve gait and balance Due for another BMD 03/2025 Orders: - Comprehensive metabolic panel; Future Riley Hughes MD TAL RESEARCH ANALYST documented in this encounter Miscellaneous Notes * Assessment & Plan Note - Riley Salvador MD - 03/04/2024 12:56 PM CSTAssociated Problem(s): Age-related osteoporosis without current pathological fracture Chronic , slow improving H/o L5 compression fracture Pt on Prolia since 2020 Noted improvement in BMD in left hip L1-L4 - is falsely looking good on DEXA ( cannot use this for define Rx benefit ) Last injection 01/2024, due again in July 2024 Advised to do labs 2 days after her next Prolia injection Denies any tingling or numbness Continue current vitamin-D and calcium supplements Falls precautions Advised to work on strength training exercise to improve gait and balance Due for another BMD 03/2025 TAL RESEARCH ANALYST TAL RESEARCH ANALYST TAL RESEARCH ANALYST documented in this encounter Plan of Treatment Scheduled Orders Name Type Priority Associated Diagnoses Orde r Schedule Comprehensive metabolic panel Lab Routine Age-related osteoporosis without current pathological fracture Expected: 07/29/2024, Expires: 03/04/2025 documented as of this encounter Visit Diagnoses Diagnosis Age-related osteoporosis without current pathological fracture- Primary documented in this encounter Historical Medications * This list may reflect changes made after this encounter. acetaminophen (TYLENOL) 500 mg tablet Take 1 tablet (500 mg total) by mouth every 6 (six) hours as needed for pain multivitamin-iro n-folic acid 18-400 mg-mcg tabletIndication s:Vitamin Deficiency Prevention 1 tablet vitamin D3-vitamin K2 25 mcg (1,000 unit)-90 mcg tablet,disintegr ating Take by mouth zinc gluconate 50 mg tablet Take 1 tablet (50 mg total) by mouth daily cyanocobalamin (Vitamin B-12) 1,000 mcg sublingual tablet Take 1 tablet (1,000 mcg total) by mouth daily fexofenadine (AIDA) 60 mg tablet Take 1 tablet (60 mg total) by mouth daily ferrous sulfate ER 324 mg (65 mg iron) EC tabletIndication s:Iron Deficiency Anemia Take 65 mg by mouth gabapentin (NEURONTIN) 100 mg capsule Take by mouth 3 (three) times a day omeprazole (PriLOSEC) 20 mg capsule 02/22/2024 Prolia 60 mg/mL syringe 01/01/2024 pioglitazone (ACTOS) 30 mg tablet 12/19/2023 lisinopriL (PRINIVIL,ZESTRI L) 20 mg tablet 02/22/2024 simvastatin (ZOCOR) 20 mg tablet 12/13/2023 metFORMIN (GLUCOPHAGE) 500 mg tablet 01/16/2024 multivitamin with minerals tablet Take 1 tablet by mouth daily 04/11/2024 magnesium gluconate 200 mg tabletIndication s:hypomagnesemia 1 tablet (200 mg total) 04/11/2024 lidocaine (LIDODERM) 5 % Place 1 patch on the skin daily Remove & discard patch within 12 hours or as directed by . 04/11/2024 Eliquis 5 mg tablet 02/12/2024 04/13/2024 added in this encounter Care Teams Horse Stud Manager Relationship Specialty Start Date End Date Justino Palafox MD [address] [place] [id number] PCP - General Internal Medicine 03/04/24 documented as of this encounter
--- OUTSIDE RECORDS SUMMARY | 2024-04-18 01:31 | XMS_ITS | Encounter Summary ---
Author Organization [facility] Healthcare Address [address] [place] [address] Care Team Providers Care Installer Inspector Final Name Role Phone Robin Sneed MD Primary Care Provider [phone] Encounter Details Date Type Department Care Team (Late st Contact Info) Description 09/13/2022 - 09/13/2022 9:03 AM CDT Emergency [facility] Emergency Department [address] [place] [phone] Discharge Disposition: Incorrect Patient Social History Tobacco Use Types Packs/Day Years Used Date Smoking Tobacco: Never Assessed Comments Unknown Sex and Gender Information Value Date Recorded Sex Assigned at Not on file Legal Sex Female 2:59 AM HOME DEMONSTRATION AGENT Gender Identity Not on file Sexual Orientation Not on file documented as of this encounter Discharge Disposition Disposition Code Departure Means Destination Incorrect Patient documented in this encounter Plan of Treatment Not on file documented as of this encounter Visit Diagnoses Not on filedocumented in this encounter Care Teams Installer Inspector Final Relationship Specialty Start Date End Date Robin Sneed MD [address] [facility] [address] [place] [address] PCP - General Internal Medicine 11/30/20 03/03/24 documented as of this encounter
--- OUTSIDE RECORDS SUMMARY | 2024-04-18 01:31 | XMS_ITS | Clinical Summary ---
Author Organization [facility] [address] Address [address] [place] [address] Care Team Providers Care Warehouse Person Name Role Phone Justino Palafox MD Primary Care Provider [phone] Dmitriy Fung MD Unavailable [phone] Allergies Active Allergy Reactions Criticality Noted Date Comments Azithromycin Stomach upset Low 04/11/2024 Sulfa (Sulfonamide Antibiotics) Rash Medium 08/08 Rash Medications metFORMIN (GLUCOPHAGE) 500 mg tablet 01/16/20 24 Active simvastatin (ZOCOR) 20 mg tablet 12/13/19 24 Active lisinopriL (PRINIVIL,ZESTR IL) 20 mg tablet 02/22/20 24 Active pioglitazone (ACTOS) 30 mg tablet 12/19/19 24 Active Prolia 60 mg/mL syringe 01/01/20 24 Active omeprazole (PriLOSEC) 20 mg capsule 02/22/20 24 Active gabapentin (NEURONTIN) 100 mg capsule Take by mouth 3 (three) times a day Active ferrous sulfate ER 324 mg (65 mg iron) EC tabletIndicatio ns:Iron Deficiency Anemia Take 65 mg by mouth Active fexofenadine (AIDA) 60 mg tablet Take 1 tablet (60 mg total) by mouth daily Active cyanocobalamin (Vitamin B-12) 1,000 mcg sublingual tablet Take 1 tablet (1,000 mcg total) by mouth daily Active zinc gluconate 50 mg tablet Take 1 tablet (50 mg total) by mouth daily Active vitamin D3-vitamin K2 25 mcg (1,000 unit)-90 mcg tablet,disinteg rating Take by mouth Active multivitamin-ir on-folic acid 18-400 mg-mcg tabletIndicatio ns:Vitamin Deficiency Prevention 1 tablet Active acetaminophen (TYLENOL) 500 mg tablet Take 1 tablet (500 mg total) by mouth every 6 (six) hours as needed for pain Active brimonidine (ALPHAGAN P) 0.1 % drops Administer 1 drop into the right eye every 12 (twelve) hours Active latanoprost (XALATAN) 0.005 % ophthalmic solution Administer 1 drop into both eyes nightly Active timolol (TIMOPTIC OCUDOSE) 0.5 % dropperette Administer 1 drop into both eyes daily Active Eliquis 5 mg tablet Take 1 tablet (5 mg total) by mouth 2 (two) times a day 04/15/19 25 Active polyethylene glycol (MIRALAX) 17 gram/dose bulk powder Take 17 g by mouth daily 04/13/19 25 Active Eliquis 5 mg tablet 02/12/20 24 025 Discontinued lidocaine (LIDODERM) 5 % Place 1 patch on the skin daily Remove & discard patch within 12 hours or as directed by MD. 025 Discontinued magnesium gluconate 200 mg tabletIndicatio ns:hypomagnesem ia 1 tablet (200 mg total) 025 Discontinued multivitamin with minerals tablet Take 1 tablet by mouth daily 025 Discontinued Active Problems Problem Noted Date Diagnosed Date Acute hemorrhoid 04/13/2024 GI bleed 04/12/2024 Paroxysmal atrial fibrillation (CMS/HCC) 025 Acute blood loss anemia 04/12/2024 Age-related osteoporosis wit hout current pathological fracture 03/04/2024 Assessment & Plan (03/04/2024 12:59 PM LAW FIRM ADMINISTRATOR): Chronic , slow improving H/o L5 compression [...] and balance Due for another BMD 03/2025 Type 2 diabetes mellitus wit h hyperglycemia, without long-term current use of insulin 03/04/2024 Encounters Date Type Department Care Team Description 04/13/2024 7:33 AM LAW FIRM ADMINISTRATOR Anesthesia Event [facility] [address] [place] [phone] Renny Lutz MD Tummins, Clay B., EUSEBIA 04/13/2024 7:30 AM LAW FIRM ADMINISTRATOR - 04/13/2024 8:00 AM LAW FIRM ADMINISTRATOR Surgery [facility] [address] [place] [phone] Wilbur Chin MD COLON BIOPSY 04/11/2024 9:14 PM LAW FIRM ADMINISTRATOR - 04/13/2024 11:26 AM LAW FIRM ADMINISTRATOR Hospital Encounter [address] [phone] Mauri Phillip MD Reuter, Matthew Daniel, MD Avagyan, Juletta, MD Gastrointestinal hemorrhage associated with anorectal source (Primary Dx); Paroxysmal atrial fibrillation (CMS/HCC) (HCC) [I48.0]; Type 2 diabetes mellitus with hyperglycemia, without long-term current use of insulin (HCC) [E11.65]; Acute hemorrhoid [K64.9] Discharge Disposition: Discharge to home or self care 04/11/2024 Orders Only [facility] [address] [facility] [place] [phone] Robin Sneed MD 04/11/2024 Orders Only [facility] [address] [place] [phone] Mauri Phillip MD 03/05/2024 Telephone [facility]ocr[facility] [address] [place] [phone] Riley Salvador MD 03/04/2024 9:30 AM LAW FIRM ADMINISTRATOR Office Visit [facility] [address] [place] [phone] Riley Salvador MD Age-related osteoporosis without current pathological fracture (Primary Dx) from Last 3 Months Surgical History Surgery Date Site/Laterality Comments HYSTERECTOMY GALLBLADDER SURGERY HIP SURGERY Right Medical History Medical History Date Comments Diabetes (HCC) Hypertension High cholesterol Urinary incontinence Family History Medical History Relation Name Comments Heart attack Brother Arthritis Father Relation Name Status Comments Brother Father Social History Tobacco Use Types Packs/Day Years Used Date Smoking Tobacco: Never Smokeless Tobacco: Never Tobacco Cessation:Counseling Given: Not Answered [facility] Utilities Answer Date Recorded In the past 12 months has th e [employer], gas, oil, or water [employer] threatened to shut off services in your home? No 04/12/2024 Social Connection and Isolat ion Panel [NHANES] Answer Date Recorded In a typical week, how many times do you talk on the phone with family, friends, or neighbors? More than three times a week 04/12/2024 How often do you get togethe r with friends or relatives? Twice a week 04/12/2024 How often do you attend chur ch or alevism services? More than 4 times per year 04/12/2024 Do you belong to any clubs o r organizations such as islam groups, unions, fraternal or athletic groups, or school groups? No 04/12/2024 How often do you attend meet ings of the clubs or organizations you belong to? Never 04/12/2024 Are you , , di vorced, , never , or living with a partner? 04/12/2024 Overall Financial Resource Strain (CARDIA) Answe r Date Recorded How hard is it for you to pa y for the very basics like food, housing, medical care, and heating? Somewhat hard 04/12/2024 Hunger Vital Sign Answer Date Recorded Within the past 12 months, y ou worried that your food would run out before you got the money to buy more. Never true 04/12/19 25 Within the past 12 months, t he food you bought just didn't last and you didn't have money to get more. Never true 04/12/2024 PRAPARE - Transportation Answer Date Re corded In the past 12 months, has l ack of transportation kept you from medical appointments or from getting medications? No 06/2024 In the past 12 months, has l ack of transportation kept you from meetings, work, or from getting things needed for daily living? No 04/12/2024 Housing Stability Vital Sign Answer García e Recorded In the last 12 months, was t here a time when you were not able to pay the mortgage or rent on time? No 04/12/2024 In the past 12 months, how m any times have you moved where you were living? 0 04/12/2024 At any time in the past 12 m [facility], were you homeless or living in a correction (including now)? No 04/12/2024 Personal Safety Answer Date Recorded Have you ever been in or are you currently in a harmful physical or emotional relationship or is someone making you feel afraid or unsafe? Denies 04/11/2024 Comments Unknown Sex and Gender Information Value Date Recorded Sex Assigned at Not on file Legal Sex Female 2:59 AM LAW FIRM ADMINISTRATOR Gender Identity Not on file Sexual Orientation Not on file Obstetrics History Last Filed Vital Signs Vital Sign Reading Time Taken Comments Blood Pressure 139/61 04/13/2024 10:06 AM LAW FIRM ADMINISTRATOR Pulse 79 04/13/2024 10:06 AM LAW FIRM ADMINISTRATOR Temperature 36.4 ??C (97.6 ??F) 04/13/2024 10:[address] Respiratory Rate 18 04/13/2024 10:06 AM LAW FIRM ADMINISTRATOR Oxygen Saturation 99% 04/13/2024 10:06 AM LAW FIRM ADMINISTRATOR Inhaled Oxygen Concentration - - Weight 89.6 kg (197 lb 8.5 oz) 04/11/2024 9:19 P M LAW FIRM ADMINISTRATOR Height 154.9 cm (5' 1 ) 03/04/2024 9:20 AM LAW FIRM ADMINISTRATOR Body Mass Index 37.32 03/04/2024 9:20 AM LAW FIRM ADMINISTRATOR Plan of Treatment Health Maintenance Due Date Last Done Comments Albumin Creatinine Ratio, Urine 1940 Depression Screening 1940 Hemoglobin A1C 1940 Dilated Eye Exam 1940 Foot Exam 1940 Lipid Panel 1940 Pneumococcal vaccine 65+ (1 of 2 - PCV) 1946 DTaP/Tdap/Td Vaccine (1 - Tdap) 1951 Hepatitis B Screening 1958 Zoster Vaccine (1 of 2) 1990 Well Visit 65+ 2005 Influenza Vaccine (#1) 2023 2, 01/10/2019, 01/10/2018, Additional history exists Osteoporosis Screening-Bone Density Scan 04/06/2025 04/06/2023 eGFR 04/12/2025 04/12/2024 Fall Risk Assessment 04/13/2025 04/13/2024 Procedures Procedure Name Priority Date/Time Associated Diagnosis Comments POCT GLUCOSE DEVICE Routine 04/13/2024 9 :09 AM LAW FIRM ADMINISTRATOR SURGICAL PATHOLOGY Routine 04/13/2024 7: 53 AM LAW FIRM ADMINISTRATOR Gastrointestinal hemorrhage associated with anorectal source COLON BIOPSY 04/13/2024 7:33 AM LAW FIRM ADMINISTRATOR Gastrointestinal hemorrhage associated with anorectal source COLONOSCOPY 04/13/2024 7:08 AM LAW FIRM ADMINISTRATOR POCT GLUCOSE DEVICE Routine 04/13/2024 4 :44 AM LAW FIRM ADMINISTRATOR DIFFERENTIAL AUTO Routine 04/13/2024 1:3 3 AM LAW FIRM ADMINISTRATOR CBC WITH AUTO DIFFERENTIAL Routine 04/13/2024 1:33 AM LAW FIRM ADMINISTRATOR POCT GLUCOSE DEVICE Routine 04/13/2024 1 2:07 AM LAW FIRM ADMINISTRATOR POCT GLUCOSE DEVICE Routine 04/12/2024 7 :58 PM LAW FIRM ADMINISTRATOR EGFR STAT 04/12/2024 4:56 PM LAW FIRM ADMINISTRATOR BASIC METABOLIC PANEL STAT 04/12/2024 4:56 PM LAW FIRM ADMINISTRATOR POCT GLUCOSE DEVICE Routine 04/12/2024 1 1:30 AM LAW FIRM ADMINISTRATOR POCT GLUCOSE DEVICE Routine 04/12/2024 7 :22 AM LAW FIRM ADMINISTRATOR CBC WITHOUT DIFFERENTIAL STAT 04/12/2024 6:50 AM LAW FIRM ADMINISTRATOR HEMOGLOBIN AND HEMATOCRIT Timed 04/12/2024 5:19 AM LAW FIRM ADMINISTRATOR POCT GLUCOSE DEVICE Routine 04/12/2024 3 :55 AM LAW FIRM ADMINISTRATOR DIFFERENTIAL AUTO Routine 04/12/2024 1:0 2 AM LAW FIRM ADMINISTRATOR PROTIME-INR Routine 04/12/2024 1:02 AM LAW FIRM ADMINISTRATOR CBC WITH AUTO DIFFERENTIAL Routine 04/12/2024 1:02 AM LAW FIRM ADMINISTRATOR POCT GLUCOSE DEVICE Routine 04/12/2024 1 2:11 AM LAW FIRM ADMINISTRATOR SCAN - LABS 04/11/2024 10:12 PM LAW FIRM ADMINISTRATOR SCAN - LABS 04/11/2024 5:14 PM LAW FIRM ADMINISTRATOR SCAN - LABS 04/11/2024 5:07 PM LAW FIRM ADMINISTRATOR SCAN - LABS 04/11/2024 4:31 PM LAW FIRM ADMINISTRATOR SCAN - LABS 04/11/2024 4:31 PM LAW FIRM ADMINISTRATOR SCAN - RADIOLOGY/IMAGING 04/11/2024 12:43 PM LAW FIRM ADMINISTRATOR SCAN - LABS 04/11/2024 12:11 PM LAW FIRM ADMINISTRATOR from Last 3 Months Results * POCT glucose (04/13/2024 9:09 AM LAW FIRM ADMINISTRATOR) [facility] Signature Glucose, POC 113 70 - 199 mg/dL Comment: For Glucose values <35 mg/dl when Hematocrit is >60 mg/dl,the test may not accurately detect significant hypoglycemia,and testing in the Laboratory should be considered if clinically indicated. Blood 04/13/2024 9:09 AM LAW FIRM ADMINISTRATOR 04/13/2024 9:09 AM LAW FIRM ADMINISTRATOR us Frederic Yates MD LAB POCT ORDERABLES - D LUIS Final Result [facility] [address] [place] [address] * Surgical pathology (04/13/2024 7:53 AM LAW FIRM ADMINISTRATOR) Tissue (Colon, Biopsy) 04/13/2024 7:52 AM LAW FIRM ADMINISTRATOR Narrative PATHOLOGY [facility] - 04/16/2024 10:03 AM LAW FIRM ADMINISTRATOR [address], [place] ??[address] Tele: ?? Flakita Keller MD - Broaching Machine Repairer Note to Patients: This report may contain a detailed description of human tissue sent by a health care provider to the laboratory for pathologic evaluation. The content of this report is essential for diagnosis and may provide important critical findings. This information may be unfamiliar to patients to review without a medical professional present. It is advised that the patient review this report in the presence of a health care provider who can answer questions and explain the details. SURGICAL PATHOLOGY REPORT Patient Name: ??BREN BOND Address: ??[address], [place], [place] [address] Gender: ??F : ??1940 (Age: 84) Service: ??Surgery Location: ??[place] [address], ?? Hospital #: ??[id number] Patient Type: ??[facility] [place] [place] [facility] Accession #: ? [id number] Taken: ? 04/13/2024 Received ? 04/13/2024 Reported: ? 04/16/2024 Physician(s): ? Wilbur Chin M.D. Justino Palafox M.D. DIAGNOSIS: Colon, sigmoid, biopsy: ? - [facility]opath[facility]/16/2024 10:03 Examining Pathologist: Jaison Moore M.D. Report Reviewed and Electronically Signed By ??Jaison Moore M.D. SPECIMEN TYPE: A: SIGMOID COLON BX CLINICAL IMPRESSION AND HISTORY: Hematochezia. ??Colonoscopy shows multiple small and large mouth diverticula in the sigmoid colon with ginette-diverticular erythema. GROSS DESCRIPTION: Received in formalin in a single container with the patient's name, BREN BOND ??labeled sigmoid biopsy and contains two tissue fragments measuring 0.4 x 0.1 x 0.1 cm in aggregate. Due to the color and size of the specimen, eosin is used. The specimen is filtered and submitted entirely in cassette A1. ?? JAP,CUH MICROSCOPIC DESCRIPTION: Microscopic examination of the sigmoid colon shows normal colonic mucosa with no significant inflammation. ??There is no surface epithelial damage, intraepithelial lymphocytosis, or thickening of the subepithelial collagen layer. ??There is no dysplasia or malignancy. Clerical Data Follows A; [id number] REPORT IMAGES AND/OR SCANNED DOCUMENTS ONLY VIEWABLE IN PDF FORMAT The immunohistochemical test(s) cited in this report, if any, was developed and its performance characteristics determined by [facility] Pathology Department. ??It has not been cleared or approved by the U.S. Food and Drug Administration. ??The FDA has determined that such clearance or approval is not necessary. ??This test is used for clinical purposes. ??It should not be regarded as investigational or for research. ??[facility] is certified under the Clinical Laboratory Improvement Amendments of 1988 (CLIA) as qualified to perform high complexity testing. ??Immunostains were performed on formalin-fixed paraffin embedded tissue using a polymer diaminobenzidine chromogen detection system. Antibodies used may include clone SP1 (rabbit monoclonal, estrogen receptor), clone 1E2 (rabbit monoclonal progesterone receptor), Ki-67 (rabbit monoclonal, 30-9), CD117 (rabbit polyclonal, c-kit), and anti-Her-2/singh (4B5) (rabbit monoclonal primary antibody). ??In the event that immunohistochemistry or special stains have been performed, attending physician has confirmed appropriateness of controls. ??Frozen section, operating room consultation, gross examination and dissection, and case sign out may have been performed in part or completely in the following laboratories: [facility], [address] [place] [address], [address] [place] [id number]. 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 Referring MD: Justino Palafox M.D. Medicines: Monitored Anesthesia Care Complications: No immediate complications. Estimated Blood Loss: Estimated blood loss: none. Procedure: Pre-Anesthesia Assessment: - Immediately prior to administration ofmedications, the patient was re-assessed for adequacy to receive sedatives. - The risks and benefits of the procedure and the sedation options and risks were discussed with the patient. All questions were answered and informed consent was obtained. The benefits, risks and alternatives of theprocedure and sedation were discussed and informed consentwas obtained. All questions were answered. Please referto the signed informed consent document in the medical record. The scope was passed under direct vision.The Colonoscope was introduced through the anus and advanced to the the terminal ileum. The colonoscopy was performed without difficulty. The patient tolerated the procedure well. The quality of thebowel preparation was evaluated using the BBPS (BostonBowel Preparation Scale) with scores of: Right Colon = 3, Transverse Colon = 3 and Left Colon = 3 (entiremucosa seen well with no residual staining, smallfragments of stool or opaque liquid). The total BBPS score equals 9. The bowel preparation used was GoLYTELYvia split dose instruction. Findings: The perianal and digital rectal examinations were normal. Internal hemorrhoids were found during retroflexion. The hemorrhoids were Grade II (internal hemorrhoids that prolapse but reduce spontaneously). Multiple small and large-mouthed diverticula were found in thesigmoid colon. Ginette-diverticular erythema was seen. Biopsies were taken witha cold forceps for histology. The exam was otherwise without abnormality on direct and retroflexion views. The terminal ileum appeared normal. Impression: - Internal hemorrhoids, likely cause of bleeding. - Moderate diverticulosis in the sigmoid colon. Ginette-diverticular erythema was seen. Biopsied. - The examination was otherwise normal on directand retroflexion views. Recommendation: - Call my nurses in the GI office at [phone] ([phone]) for your final pathology results in7 days. - [facility] - Keep stool soft with fiber and Miralax. - Ok to re-start anticoagulation. - Consider outpatient colorectal surgeryconsultation given recurrent significant bleeding fromhemorrhoids. - Repeat colonoscopy is not recommended. Attending Participation: I personally performed the entire procedure. Electronically signed by Wilbur Chin MD Wilbur Chin M.D. 04/13/2024 8:00:09 AM This document was signed electronically. Number of Addenda: 0 Note Initiated On: 04/13/2024 7:08 AM Scope Withdrawal Time: 0 hours 5 minutes 34 seconds Scope In: 7:39:24 AM Scope Out: 7:53:01 AM us Wilbur Chin MD ENDOSCOPY PROCEDUR ES Edited Result - Final * POCT glucose (04/13/2024 4:44 AM LAW FIRM ADMINISTRATOR) [facility] Glucose, POC 115 70 - 199 mg/dL Comment: For Glucose values <35 mg/dl when Hematocrit is >60 mg/dl,the test may not accurately detect significant hypoglycemia,and testing in the Laboratory should be considered if clinically indicated. Blood 04/13/2024 4:44 AM LAW FIRM ADMINISTRATOR 04/13/2024 4:44 AM LAW FIRM ADMINISTRATOR us Frederic Yates MD LAB POCT ORDERABLES - D LUIS Final Result [facility] [address] [place] [address] * Differential, auto (04/13/2024 1:33 AM LAW FIRM ADMINISTRATOR) [facility] Neutrophil abs 3.7 1.5 - 6.5 K/cumm Imm gran abs 0.0 0.0 - 0.1 K/cumm [facility] Lymphocyte abs 1.0 0.8 - 3.3 K/cumm [facility] Monocyte abs 0.6 0.2 - 0.8 K/cumm [facility] Eosinophil abs 0.2 0.0 - 0.5 K/cumm [facility] Basophil abs 0.0 0.0 - 0.1 K/cumm [facility] Neutrophil pct 67.0 % [facility] Comment: Interpretive Data Percent cell count reference ranges are not reported, since discordance with absolute values may lead to misinterpretation of CBC data. Current Interpretive Data was last revised on 2017. Imm gran pct 0.7 % [facility] Comment: Interpretive Data Percent cell count reference ranges are not reported, since discordance with absolute values may lead to misinterpretation of CBC data. Current Interpretive Data was last revised on 2017. Lymphocyte pct 18.3 % [facility] Comment: Interpretive Data Percent cell count reference ranges are not reported, since discordance with absolute values may lead to misinterpretation of CBC data. Current Interpretive Data was last revised on 2017. Monocyte pct 10.6 % [facility] Comment: Interpretive Data Percent cell count reference ranges are not reported, since discordance with absolute values may lead to misinterpretation of CBC data. Current Interpretive Data was last revised on 2017. Eosinophil pct 2.9 % [facility] Comment: Interpretive Data Percent cell count reference ranges are not reported, since discordance with absolute values may lead to misinterpretation of CBC data. Current Interpretive Data was last revised on 2017. Basophil pct 0.5 % [facility] Comment: Interpretive Data Percent cell count reference ranges are not reported, since discordance with absolute values may lead to misinterpretation of CBC data. Current Interpretive Data was last revised on 2017. Blood 04/13/2024 1:33 AM LAW FIRM ADMINISTRATOR 04/13/2024 1:40 AM LAW FIRM ADMINISTRATOR us Юлия Luna MD LAB BLOOD ORDERABLES Final Re sult [facility] [address] [place] [address] * (ABNORMAL) CBC with auto differential (04/13/2024 1:33 AM LAW FIRM ADMINISTRATOR) WBC 5.6 3.8 - 9.9 K/cumm Hgb 9.2(L) 11.9 - 15.5 g/dL [facility] Hct 27.9(L) 35.6 - 45.5 % [facility] Plt 158 150 - 400 K/cumm [facility] MPV 8.6(L) 9.1 - 12.3 fL [facility] RBC 2.86(L) 3.90 - 5.20 M/cumm [facility] MCV 97.6(H) 81.3 - 96.4 fL [facility] MCH 32.2 27.1 - 33.3 pg [facility] MCHC 33.0 32.3 - 35.7 g/dL [facility] RDW CV 14.5 11.1 - 14.9 % [facility] RDW SD 51.8(H) 35.7 - 48.1 fL [facility] NRBC abs 0.00 0.00 - 0.01 K/cumm [facility] Blood 04/13/2024 1:33 AM LAW FIRM ADMINISTRATOR 04/13/2024 1:40 AM LAW FIRM ADMINISTRATOR Wilbur Chin MD LAB BLOOD ORDERABL ES Final Result Performing Organization Address [facility] Co de Phone Number [facility] [address] [place] [address] * POCT glucose (04/13/2024 12:07 AM LAW FIRM ADMINISTRATOR) Glucose, POC 119 70 - 199 mg/dL Comment: For Glucose values <35 mg/dl when Hematocrit is >60 mg/dl,the test may not accurately detect significant hypoglycemia,and testing in the Laboratory should be considered if clinically indicated. Blood 04/13/2024 12:0 7 AM LAW FIRM ADMINISTRATOR 04/13/2024 12:07 AM LAW FIRM ADMINISTRATOR Result [facility] Frederic Yates MD LAB POCT ORDERABLES - D EVICE Final Result Performing Organization Address [facility] de Phone Number [facility] [address] [place] [address] * POCT glucose (04/12/2024 7:58 PM LAW FIRM ADMINISTRATOR) Glucose, POC 85 70 - 199 mg/dL Comment: For Glucose values <35 mg/dl when Hematocrit is >60 mg/dl,the test may not accurately detect significant hypoglycemia,and testing in the Laboratory should be considered if clinically indicated. Blood 04/12/2024 7:58 PM LAW FIRM ADMINISTRATOR 04/12/2024 7:58 PM LAW FIRM ADMINISTRATOR Result [facility] Frederic Yates MD LAB POCT ORDERABLES - D EVICE Final Result Performing Organization Address [facility] Co de Phone Number [facility] [address] [place] [address] * eGFR (04/12/2024 4:56 PM LAW FIRM ADMINISTRATOR) eGFR 85 >=60 mL/min/1. 73 m2 Comment: Interpretive Data Reference Interval Normal ?>/= 90 mL/min/1.73m2 Mildly decreased* ? 60 - 89 mL/min/1.73m2 Mildly to moderately decreased ?45 - 59 mL/min/1.73m2 Moderately to severely decreased ??30 - 44 mL/min/1.73m2 Severely decreased ?15 - 29 mL/min/1.73m2 Kidney Failure ?< 15 ??mL/min/1.73m2 *Relative to young adult level Estimated glomerular filtration rate is determined by the 2020 CKD-EPI equation recommended by the National Kidney Foundation (A Unifying Approach to GFR Estimation: Recommendations of the NKF-ASK Task Force on Reassessing the Inclusion of Race in Diagnosing Kidney Disease, JASN 2020). The CKD-EPI equation should not be used for patients with unstable renal function and has not been validated in children and those over 70. Current interpretive data was last reviewed 2021. Blood 04/12/2024 4:56 PM LAW FIRM ADMINISTRATOR 04/12/2024 4:56 PM LAW FIRM ADMINISTRATOR us Юлия Luna MD LAB BLOOD ORDERABLES Final Re sult [facility] [address] [place] [address] * (ABNORMAL) Basic metabolic panel (04/12/2024 4:56 PM LAW FIRM ADMINISTRATOR) [facility] Sodium 141 135 - 145 mmol/L Potassium, pl 3.7 3.3 - 4.9 mmol/L [facility] Chloride 110 97 - 110 mmol/L [facility] CO2 21(L) 22 - 32 mmol/L [facility] Anion gap 10 2 - 15 mmol/L [facility] BUN 17 6 - 25 mg/dL [facility] Creatinine 0.70 0.60 - 1.10 mg/dL [facility] Glucose 85 70 - 199 mg/dL [facility] Comment: Interpretive Data Fasting glucose >/= 126 mg/dl is diagnostic for diabetes. ?? Fasting is defined as no caloric intake for at least 8 hours. Fasting glucose between 100 mg/dl to 125 mg/dl is diagnostic of prediabetes. In a patient with classic symptoms of hyperglycemia or hyperglycemic crisis, a random glucose >/= 200 mg/dl is diagnostic for diabetes. In the absence of unequivocal hyperglycemia, results should be confirmed by repeat testing. The classification and Diagnosis of Diabetes Diabetes Care 202; 46: S19-S40. Current interpretive data was last revised 2022. Calcium 7.9(L) 8.5 - 10.3 mg/dL [facility] Blood 04/12/2024 4:56 PM LAW FIRM ADMINISTRATOR 04/12/2024 4:56 PM LAW FIRM ADMINISTRATOR us Юлия Luna MD LAB BLOOD ORDERABLES Final Re sult Performing Organization Address City/[facility]/ZIP Co de Phone Number [facility] [address] [email or web address] [address] * POCT glucose (04/12/2024 11:30 AM LAW FIRM ADMINISTRATOR) [facility] Signature Glucose, POC 110 70 - 199 mg/dL Comment: For Glucose values <35 mg/dl when Hematocrit is >60 mg/dl,the test may not accurately detect significant hypoglycemia,and testing in the Laboratory should be considered if clinically indicated. Blood 04/12/2024 11:3 0 AM LAW FIRM ADMINISTRATOR 04/12/2024 11:30 AM LAW FIRM ADMINISTRATOR Frederic Yates MD LAB POCT ORDERABLES - Tere SMITH Final Result Performing Organization Address [facility]/ZIP Co de Phone Number [facility] [address] [place] [address] * POCT glucose (04/12/2024 7:22 AM LAW FIRM ADMINISTRATOR) [facility] Glucose, POC 125 70 - 199 mg/dL Comment: For Glucose values <35 mg/dl when Hematocrit is >60 mg/dl,the test may not accurately detect significant hypoglycemia,and testing in the Laboratory should be considered if clinically indicated. Blood 04/12/2024 7:22 AM LAW FIRM ADMINISTRATOR 04/12/2024 7:22 AM LAW FIRM ADMINISTRATOR us Frederic Yates MD LAB POCT ORDERABLES - D EVICE Final Result Performing Organization Address [facility]/ZIP Co de Phone Number [facility] [address] [place] [address] * (ABNORMAL) CBC without differential (04/12/2024 6:50 AM LAW FIRM ADMINISTRATOR) [facility] WBC 5.3 3.8 - 9.9 K/cumm Hgb 8.8(L) 11.9 - 15.5 g/dL [facility] Hct 27.1(L) 35.6 - 45.5 % [facility] Plt 144(L) 150 - 400 K/cumm [facility] MPV 9.5 9.1 - 12.3 fL [facility] RBC 2.72(L) 3.90 - 5.20 M/cumm [facility] MCV 99.6(H) 81.3 - 96.4 fL [facility] MCH 32.4 27.1 - 33.3 pg [facility] MCHC 32.5 32.3 - 35.7 g/dL [facility] RDW CV 14.7 11.1 - 14.9 % [facility] RDW SD 53.0(H) 35.7 - 48.1 fL [facility] NRBC abs 0.00 0.00 - 0.01 K/cumm [facility] Blood 04/12/2024 6:50 AM LAW FIRM ADMINISTRATOR 04/12/2024 6:07 PM LAW FIRM ADMINISTRATOR us Юлия Luna MD LAB BLOOD ORDERABLES Final Re sult Performing Organization Address City/[facility]/ZIP Co de Phone Number [facility] [address] [place] [address] * (ABNORMAL) Hemoglobin and hematocrit (04/12/2024 5:19 AM LAW FIRM ADMINISTRATOR) [facility] Hgb 9.2(L) 11.9 - 15.5 g/dL Hct 27.9(L) 35.6 - 45.5 % [facility] Blood 04/12/2024 5:19 AM LAW FIRM ADMINISTRATOR 04/12/2024 5:48 AM LAW FIRM ADMINISTRATOR Юлия Luna MD LAB BLOOD ORDERABLES Final Re sult Performing Organization Address City/[facility]/ZIP Co de Phone Number [facility] [address] Department [place] [address] * POCT glucose (04/12/2024 3:55 AM LAW FIRM ADMINISTRATOR) [facility] Glucose, POC 113 70 - 199 mg/dL Comment: For Glucose values <35 mg/dl when Hematocrit is >60 mg/dl,the test may not accurately detect significant hypoglycemia,and testing in the Laboratory should be considered if clinically indicated. Blood 04/12/2024 3:55 AM LAW FIRM ADMINISTRATOR 04/12/2024 3:55 AM LAW FIRM ADMINISTRATOR Mauri Phillip MD LAB POCT ORDERABLES - DEVICE F inal Result Performing Organization Address City/[facility]/ZIP Co de Phone Number [facility] [address] Department [place] [address] * Differential, auto (04/12/2024 1:02 AM LAW FIRM ADMINISTRATOR) [facility] Neutrophil abs 4.4 1.5 - 6.5 K/cumm Imm gran abs 0.0 0.0 - 0.1 K/cumm [facility] Lymphocyte abs 1.0 0.8 - 3.3 K/cumm [facility] Monocyte abs 0.7 0.2 - 0.8 K/cumm [facility] Eosinophil abs 0.1 0.0 - 0.5 K/cumm [facility] Basophil abs 0.0 0.0 - 0.1 K/cumm [facility] Neutrophil pct 71.7 % [facility] Comment: Interpretive Data Percent cell count reference ranges are not reported, since discordance with absolute values may lead to misinterpretation of CBC data. Current Interpretive Data was last revised on 2017. Imm gran pct 0.3 % [facility] Comment: Interpretive Data Percent cell count reference ranges are not reported, since discordance with absolute values may lead to misinterpretation of CBC data. Current Interpretive Data was last revised on 2017. Lymphocyte pct 15.8 % [facility] Comment: Interpretive Data Percent cell count reference ranges are not reported, since discordance with absolute values may lead to misinterpretation of CBC data. Current Interpretive Data was last revised on 2017. Monocyte pct 10.6 % [facility] Comment: Interpretive Data Percent cell count reference ranges are not reported, since discordance with absolute values may lead to misinterpretation of CBC data. Current Interpretive Data was last revised on 2017. Eosinophil pct 1.3 % [facility] Comment: Interpretive Data Percent cell count reference ranges are not reported, since discordance with absolute values may lead to misinterpretation of CBC data. Current Interpretive Data was last revised on 2017. Basophil pct 0.3 % [facility] Comment: Interpretive Data Percent cell count reference ranges are not reported, since discordance with absolute values may lead to misinterpretation of CBC data. Current Interpretive Data was last revised on 2017. Blood 04/12/2024 1:02 AM LAW FIRM ADMINISTRATOR 04/12/2024 1:31 AM LAW FIRM ADMINISTRATOR us Юлия Luna MD LAB BLOOD ORDERABLES Final Re sult [facility] [address] [place] [address] * (ABNORMAL) CBC with auto differential (04/12/2024 1:02 AM LAW FIRM ADMINISTRATOR) WBC 6.2 3.8 - 9.9 K/cumm Hgb 9.2(L) 11.9 - 15.5 g/dL [facility] Hct 28.0(L) 35.6 - 45.5 % [facility] Plt 159 150 - 400 K/cumm [facility] MPV 9.1 9.1 - 12.3 fL [facility] RBC 2.87(L) 3.90 - 5.20 M/cumm [facility] MCV 97.6(H) 81.3 - 96.4 fL [facility] MCH 32.1 27.1 - 33.3 pg [facility] MCHC 32.9 32.3 - 35.7 g/dL [facility] RDW CV 14.6 11.1 - 14.9 % [facility] RDW SD 53.1(H) 35.7 - 48.1 fL [facility] NRBC abs 0.00 0.00 - 0.01 K/cumm [facility] Blood 04/12/2024 1:02 AM LAW FIRM ADMINISTRATOR 04/12/2024 1:31 AM LAW FIRM ADMINISTRATOR us Wilbur Chin MD LAB BLOOD ORDERABL ES Final Result [facility] [address] [place] [address] * (ABNORMAL) Protime-INR (04/12/2024 1:02 AM LAW FIRM ADMINISTRATOR) PT 14.7(H) 9.7 - 13.0 sec INR 1.35(H) 0.90 - 1.20 [facility] Comment: Interpretive data Oral anticoagulant therapeutic ranges: Venous thromboembolism prophylaxis or treatment: 2.0-3.0 CARDIOLOGY Standard range: 2.0-3.0 High-intensity range: 2.5-3.5 Refer to indication-specific guidelines for appropriate target ranges for prosthetic heart valve replacement. Current interpretive data was last revised on 2019. Blood 04/12/2024 1:02 AM LAW FIRM ADMINISTRATOR 04/12/2024 1:30 AM LAW FIRM ADMINISTRATOR us Юлия Luna MD LAB BLOOD ORDERABLES Final Re sult Performing Organization Address City/[facility]/ZIP Co de Phone Number [facility] [address] [facility] [place] [address] * POCT glucose (04/12/2024 12:11 AM LAW FIRM ADMINISTRATOR) Glucose, POC 95 70 - 199 mg/dL Comment: For Glucose values <35 mg/dl when Hematocrit is >60 mg/dl,the test may not accurately detect significant hypoglycemia,and testing in the Laboratory should be considered if clinically indicated. Blood 04/12/2024 12:1 1 AM LAW FIRM ADMINISTRATOR 04/12/2024 12:11 AM LAW FIRM ADMINISTRATOR Result [facility] Mauri Phillip MD LAB POCT ORDERABLES - DEVICE F inal Result Performing Organization Address [facility]/ZIP Co de Phone Number [facility] [address] [place] [address] * SCAN - LABS (04/11/2024 10:12 PM LAW FIRM ADMINISTRATOR) us Robin Sneed MD Final Result * SCAN - LABS (04/11/2024 5:14 PM LAW FIRM ADMINISTRATOR) us Robin Sneed MD Final Result * SCAN - LABS (04/11/2024 5:07 PM LAW FIRM ADMINISTRATOR) us Robin Sneed MD Final Result * SCAN - LABS (04/11/2024 4:31 PM LAW FIRM ADMINISTRATOR) us Robin Sneed MD Final Result * SCAN - LABS (04/11/2024 4:31 PM LAW FIRM ADMINISTRATOR) us Robin Sneed MD Final Result * SCAN - RADIOLOGY/IMAGING (04/11/2024 12:43 PM LAW FIRM ADMINISTRATOR) Anatomical Region Laterality Modality Other Robin Sneed MD Final Result * SCAN - LABS (04/11/2024 12:11 PM LAW FIRM ADMINISTRATOR) us Robin Sneed MD Final Result from Last 3 Months Insurance [employer] Advance Directives For more information, please contact: [phone] * Full Code (Latest Code Status on File) Date Activated Date Inactivated Comments 04/11/2024 9:30 PM 04/13/2024 3:31 PM Care Teams Warehouse Person Relationship Specialty Start Date End Date Justino Palafox MD [address] [place] [address] PCP - General Internal Medicine 03/04/24 Dmitriy Fung MD [address] [address] Consulting Physician Colon and Rectal Surgery 04/13/24
--- OUTSIDE RECORDS SUMMARY | 2024-04-18 01:31 | XMS_ITS | Encounter Summary ---
Author Organization [facility] Facility Care Team Providers Care Marking Devices Assembler Name Role Phone Unavailable Primary Care Provider Unavailabl e Encounter Details Date Type Department Care Team (Late st Contact Info) Description 08/13/2009 - 08/13/2009 11:59 PM CDT [facility] Other orthopedic aftercare; Closed fracture of surgical neck of humerus Social History Tobacco Use Types Packs/Day Years Used Date Smoking Tobacco: Never Assessed Comments Unknown Sex and Gender Information Value Date Recorded Sex Assigned at Not on file Legal Sex Female 2:59 AM DIRECTOR OF ACQUISITION MARKETING Gender Identity Not on file Sexual Orientation Not on file documented as of this encounter Plan of Treatment Not on file documented as of this encounter Visit Diagnoses Diagnosis Other orthopedic aftercare Closed fracture of surgical neck of humerus documented in this encounter
--- OUTSIDE RECORDS SUMMARY | 2024-04-18 01:31 | XMS_ITS | Encounter Summary ---
Author Organization [facility] Address [address] [place] [address] Care Team Providers Care Paraprofessional Education Assistant Name Role Phone Robin Sneed MD Primary Care Provider Encounter Details Date Type Department Care Team (Late st Contact Info) Description 12/04/2020 Orders Only [facility] [address] [facility] [address] [place] [id number] Scanning, Provider Social History Tobacco Use Types Packs/Day Years Used Date Smoking Tobacco: Never Assessed Comments Unknown Sex and Gender Information Value Date Recorded Sex Assigned at Not on file Legal Sex Female 2:59 AM DEDENTER Gender Identity Not on file Sexual Orientation Not on file documented as of this encounter Plan of Treatment Not on file documented as of this encounter Procedures Procedure Name Priority Date/Time Associated Diagnosis Comments SCAN - RADIOLOGY/IMAGING 12/04/2020 7:52 AM CDT documented in this encounter Results * SCAN - RADIOLOGY/IMAGING (12/04/2020 7:52 AM CDT) Anatomical Region Laterality Modality Other us Provider Scanning Final Result documented in this encounter Visit Diagnoses Not on filedocumented in this encounter Care Teams Paraprofessional Education Assistant Relationship Specialty Start Date End Date Robin Sneed MD [address] [facility] [address] [place] [address] PCP - General Internal Medicine 11/30/20 03/03/24 documented as of this encounter
--- OUTSIDE RECORDS SUMMARY | 2024-04-18 01:31 | XMS_ITS | Encounter Summary ---
Author Organization [facility] Address [address] [place] [address] Care Team Providers Care Labor Delivery Specialist Name Role Phone Justino Palafox MD Primary Care Provider [phone] Encounter Details Date Type Department Care Team (Late st Contact Info) Description 03/05/2024 Telephone [facility] [address] [place] [phone] [place] [address] [facility] [address] [place] [address] Social History Tobacco Use Types Packs/Day Years Used Date Smoking Tobacco: Never Smokeless Tobacco: Never Comments Unknown Sex and Gender Information Value Date Recorded Sex Assigned at Not on file Legal Sex Female 2:59 AM GENERAL COUNSELOR Gender Identity Not on file Sexual Orientation Not on file documented as of this encounter Miscellaneous Notes * Telephone Encounter - Cyndie Man MA - 03/05/2024 1:40 PM CST Rx . Spoke with Rays[facility] rx verbal given. RAL COUNSELOR * Telephone Encounter - Riley Salvador MD - 03/05/2024 8:06 AM GENERAL COUNSELOR Pt is new to me I saw her yesterday Pt usually gets her Prolia shipped from her pharmacy Pt stays she gets her prolia from [facility] Ph: I could not able to find this in epic Pls call pt pharmacy and check if pt has active script for Prolia Pt is due for prolia July 2024 and Jan 2025 ( check for a active script for these 2 doses ) Thank you RAL COUNSELOR documented in this encounter Plan of Treatment Not on file documented as of this encounter Visit Diagnoses Not on filedocumented in this encounter Care Teams Labor Delivery Specialist Relationship Specialty Start Date End Date Justino Palafox MD [address] [place] [address] PCP - General Internal Medicine 03/04/24 documented as of this encounter
--- OUTSIDE RECORDS SUMMARY | 2024-04-18 01:31 | XMS_ITS | Referral Summary ---
Author Organization [facility] [address] Address [address] [place] [address] Care Team Providers Care Mannequin Sander And Finisher Name Role Phone Justino Palafox MD Primary Care Provider [phone] Dmitriy Fung MD Unavailable [phone] Encounters Date Type Department Care Team Description 04/13/2024 7:33 AM DESKTOP MANAGER Anesthesia Event [facility] [address] [place] [phone] Renny Lutz MD Tummins, Clay B., SASH ASSEMBLER 04/13/2024 7:30 AM DESKTOP MANAGER - 04/13/2024 8:00 AM DESKTOP MANAGER Surgery [facility] [address] [place] [phone] Wilbur Chin MD COLON BIOPSY 04/11/2024 9:14 PM DESKTOP MANAGER - 04/13/2024 11:26 AM DESKTOP MANAGER Hospital Encounter [address] [phone] Mauri Phillip MD Reuter, Matthew Daniel, MD Avagyan, Juletta, MD Gastrointestinal hemorrhage associated with anorectal source (Primary Dx); Paroxysmal atrial fibrillation (CMS/HCC) (HCC) [I48.0]; Type 2 diabetes mellitus with hyperglycemia, without long-term current use of insulin (HCC) [E11.65]; Acute hemorrhoid [K64.9] Discharge Disposition: Discharge to home or self care 04/11/2024 [facility] [address] [place] [facility] [address] [facility] [place] [address] Robin Sneed MD 04/11/2024 Orders Only [facility] [address] [place] [address] Mauri Phillip MD 03/05/2024 Telephone [facility] Diabetes [facility] Endocrinology [address] [place] [phone] Riley Salvador MD 03/04/2024 9:30 AM DESKTOP MANAGER Office Visit [facility] Diabetes [facility] Endocrinology [address] [place] [phone] Riley Salvador MD Age-related osteoporosis without current pathological fracture (Primary Dx) from Last 3 Months Allergies Active Allergy Reactions Criticality Noted Date [...] 03/04/2024 Assessment & Plan (03/04/2024 12:59 PM DESKTOP MANAGER): Chronic , slow improving H/o L5 compression [...] without long-term current use of insulin 03/04/2024 Social History Tobacco Use Types Packs/Day Years Used Date Smoking Tobacco: Never Smokeless Tobacco: Never Tobacco Cessation:Counseling Given: Not Answered [facility] Utilities Answer Date Recorded In the past 12 months has th e electric, gas, oil, or water company threatened to shut off services in your [...] often do you attend chur ch or sabianism services? More than 4 times per year 04/12/2024 Do you belong to any clubs o r organizations such as adventist groups, unions, fraternal or athletic groups, or [...] money to buy more. Never true 04/12/19 Within the past 12 months, t he [...] any time in the past 12 m [facility], were you homeless or living in a penitentiary (including now)? No 04/12/2024 Personal Safety Answer Date Recorded Have you ever been in or are you currently in a harmful physical or emotional relationship or is someone making you feel afraid or unsafe? Denies 04/11/2024 Comments Unknown Sex and Gender Information Value Date Recorded Sex Assigned at Not on file Legal Sex Female 2:59 AM DESKTOP MANAGER Gender Identity Not on file Sexual Orientation Not on file Last Filed Vital Signs Vital Sign Reading Time Taken Comments Blood Pressure 139/61 04/13/2024 10:06 AM DESKTOP MANAGER Pulse 79 04/13/2024 10:06 AM DESKTOP MANAGER Temperature 36.4 ??C (97.6 ??F) 04/13/2024 10:[address] Respiratory Rate 18 04/13/2024 10:06 AM DESKTOP MANAGER Oxygen Saturation 99% 04/13/2024 10:06 AM DESKTOP MANAGER Inhaled Oxygen Concentration - - Weight 89.6 kg (197 lb 8.5 oz) 04/11/2024 9:19 P M DESKTOP MANAGER Height 154.9 cm (5' 1 ) 03/04/2024 9:20 AM DESKTOP MANAGER Body Mass Index 37.32 03/04/2024 9:20 AM DESKTOP MANAGER Plan of Treatment Not on file Procedures Procedure Name Priority Date/Time Associated Diagnosis Comments POCT GLUCOSE DEVICE Routine 04/13/2024 9 :09 AM DESKTOP MANAGER SURGICAL PATHOLOGY Routine 04/13/2024 7: 53 AM DESKTOP MANAGER Gastrointestinal hemorrhage associated with anorectal source COLON BIOPSY 04/13/2024 7:33 AM DESKTOP MANAGER Gastrointestinal hemorrhage associated with anorectal source COLONOSCOPY 04/13/2024 7:08 AM DESKTOP MANAGER POCT GLUCOSE DEVICE Routine 04/13/2024 4 :44 AM DESKTOP MANAGER DIFFERENTIAL AUTO Routine 04/13/2024 1:3 3 AM DESKTOP MANAGER CBC WITH AUTO DIFFERENTIAL Routine 04/13/2024 1:33 AM DESKTOP MANAGER POCT GLUCOSE DEVICE Routine 04/13/2024 1 2:07 AM DESKTOP MANAGER POCT GLUCOSE DEVICE Routine 04/12/2024 7 :58 PM DESKTOP MANAGER EGFR STAT 04/12/2024 4:56 PM DESKTOP MANAGER BASIC METABOLIC PANEL STAT 04/12/2024 4:56 PM DESKTOP MANAGER POCT GLUCOSE DEVICE Routine 04/12/2024 1 1:30 AM DESKTOP MANAGER POCT GLUCOSE DEVICE Routine 04/12/2024 7 :22 AM DESKTOP MANAGER CBC WITHOUT DIFFERENTIAL STAT 04/12/2024 6:50 AM DESKTOP MANAGER HEMOGLOBIN AND HEMATOCRIT Timed 04/12/2024 5:19 AM DESKTOP MANAGER POCT GLUCOSE DEVICE Routine 04/12/2024 3 :55 AM DESKTOP MANAGER DIFFERENTIAL AUTO Routine 04/12/2024 1:0 2 AM DESKTOP MANAGER PROTIME-INR Routine 04/12/2024 1:02 AM DESKTOP MANAGER CBC WITH AUTO DIFFERENTIAL Routine 04/12/2024 1:02 AM DESKTOP MANAGER POCT GLUCOSE DEVICE Routine 04/12/2024 1 2:11 AM DESKTOP MANAGER SCAN - LABS 04/11/2024 10:12 PM DESKTOP MANAGER SCAN - LABS 04/11/2024 5:14 PM DESKTOP MANAGER SCAN - LABS 04/11/2024 5:07 PM DESKTOP MANAGER SCAN - LABS 04/11/2024 4:31 PM DESKTOP MANAGER SCAN - LABS 04/11/2024 4:31 PM DESKTOP MANAGER SCAN - RADIOLOGY/IMAGING 04/11/2024 12:43 PM DESKTOP MANAGER SCAN - LABS 04/11/2024 12:11 PM DESKTOP MANAGER from Last 3 Months Results * POCT glucose (04/13/2024 9:09 AM DESKTOP MANAGER) Glucose, POC 113 70 - 199 mg/dL Comment: For Glucose values <35 mg/dl when Hematocrit is >60 mg/dl,the test may not accurately detect significant hypoglycemia,and testing in the Laboratory should be considered if clinically indicated. Blood 04/13/2024 9:09 AM DESKTOP MANAGER 04/13/2024 9:09 AM DESKTOP MANAGER us Frederic Yates MD LAB POCT ORDERABLES - D EVICE Final Result LORY [facility] [address] Department of Laboratories [place], [place] [id number] * Surgical pathology (04/13/2024 7:53 AM DESKTOP MANAGER) Tissue (Colon, Biopsy) 04/13/2024 7:52 AM DESKTOP MANAGER Narrative PATHOLOGY [facility] - 04/16/2024 10:03 AM DESKTOP MANAGER [address] ??[address] Tele: ?? Flakita Keller MD - Road Gang Supervisor Note to Patients: This report may contain [...] ??BREN BOND Address: ??[address], [place], [place] [address] Gender: ??F : ??1940 (Age: 84) Service: ??Surgery Location: ??[id number], ?? Hospital #: ??[id number] Patient Type: ??[facility] Accession #: ? [id number] Taken: ? 04/13/2024 Received ? 04/13/2024 Reported: ? 04/16/2024 Physician(s): ? Wilbur Chin M.D. Justino Palafox M.D. DIAGNOSIS: Colon, sigmoid, biopsy: ? - No histopathologic abnormality 04/16/2024 10:03 Examining Pathologist: Jaison Moore M.D. Report [...] dysplasia or malignancy. Clerical Data Follows A; [id number] REPORT IMAGES AND/OR SCANNED DOCUMENTS ONLY VIEWABLE IN PDF FORMAT The immunohistochemical test(s) cited in this report, if any, was developed and its performance characteristics determined by [facility] Pathology Department. ??It has not been cleared or approved by the U.S. Food and Drug Administration. ??The FDA has determined that such clearance or approval is not necessary. ??This test is used for clinical purposes. ??It should not be regarded as investigational or for research. ??[facility] Laboratory is certified under the Clinical Laboratory [...] part or completely in the following laboratories: [facility], [address] [facility], [place], [place] [address] [place] [address], [address], [place] [address]. us Wilbur Cihn MD LAB PATHOLOGY ORDE DAVID Final Result PATHOLOGY [facility] Laboratory Receiving [address] [place] [address] * Colonoscopy (04/13/2024 7:08 AM DESKTOP MANAGER) Anatomical Region Laterality Modality Other Narrative Procedure Note Wilbur Chin MD - 04/13/2024 7:08 AM CST ENDOSCOPY LAB Patient Name: Bren Bond Procedure Date: 04/13/2024 7:08 AM Admit Type: Inpatient Room: [facility] Date of : 1940 Instrument Name: [id number] Gender: Female Note Status: Elevated Guard Override Procedure: Colonoscopy Indications: Hematochezia Providers: Wilbur [...] my nurses in the GI office at [phone] ([phone]) for your final pathology results in7 days. [...] In: 7:39:24 AM Scope Out: 7:53:01 AM Wilbur Chin MD ENDOSCOPY PROCEDUR ES Edited Result - Final * POCT glucose (04/13/2024 4:44 AM DESKTOP MANAGER) Glucose, POC 115 70 - 199 mg/dL Comment: For Glucose values <35 mg/dl when Hematocrit is >60 mg/dl,the test may not accurately detect significant hypoglycemia,and testing in the Laboratory should be considered if clinically indicated. Blood 04/13/2024 4:44 AM DESKTOP MANAGER 04/13/2024 4:44 AM DESKTOP MANAGER Frederic Yates MD LAB POCT ORDERABLES - D EVICE Final Result L[facility] [address] [place] [address] * Differential, auto (04/13/2024 1:33 AM DESKTOP MANAGER) Neutrophil abs 3.7 1.5 - 6.5 K/cumm Imm gran abs 0.0 0.0 - 0.1 K/cumm [facility] Lymphocyte abs 1.0 0.8 - 3.3 K/cumm [facility] Monocyte abs 0.6 0.2 - 0.8 K/cumm [facility] Eosinophil abs 0.2 0.0 - 0.5 K/cumm [facility] Basophil abs 0.0 0.0 - 0.1 K/cumm [facility] Neutrophil pct 67.0 % [facility] Comment: Interpretive Data Percent cell count reference ranges are not reported, since discordance with absolute values may lead to misinterpretation of CBC data. Current Interpretive Data was last revised on 2017. Imm gran pct 0.7 % [facility] Comment: Interpretive Data Percent cell count reference ranges are not reported, since discordance with absolute values may lead to misinterpretation of CBC data. Current Interpretive Data was last revised on 2017. Lymphocyte pct 18.3 % [facility] Comment: Interpretive Data Percent cell count reference ranges are not reported, since discordance with absolute values may lead to misinterpretation of CBC data. Current Interpretive Data was last revised on 2017. Monocyte pct 10.6 % [facility] Comment: Interpretive Data Percent cell count reference ranges are not reported, since discordance with absolute values may lead to misinterpretation of CBC data. Current Interpretive Data was last revised on 2017. Eosinophil pct 2.9 % [facility] Comment: Interpretive Data Percent cell count reference ranges are not reported, since discordance with absolute values may lead to misinterpretation of CBC data. Current Interpretive Data was last revised on 2017. Basophil pct 0.5 % [facility] Comment: Interpretive Data Percent cell count reference ranges are not reported, since discordance with absolute values may lead to misinterpretation of CBC data. Current Interpretive Data was last revised on 2017. Blood 04/13/2024 1:33 AM DESKTOP MANAGER 04/13/2024 1:40 AM DESKTOP MANAGER us Юлия Luna MD LAB BLOOD ORDERABLES Final Re sult [facility] [address] Department [place] [address] * (ABNORMAL) CBC with auto differential (04/13/2024 1:33 AM DESKTOP MANAGER) [facility] WBC 5.6 3.8 - 9.9 K/cumm Hgb 9.2(L) 11.9 - 15.5 g/dL [facility] Hct 27.9(L) 35.6 - 45.5 % [facility] Plt 158 150 - 400 K/cumm [facility] MPV 8.6(L) 9.1 - 12.3 fL [facility] RBC 2.86(L) 3.90 - 5.20 M/cumm [facility] MCV 97.6(H) 81.3 - 96.4 fL [facility] MCH 32.2 27.1 - 33.3 pg [facility] MCHC 33.0 32.3 - 35.7 g/dL [facility] RDW CV 14.5 11.1 - 14.9 % [facility] RDW SD 51.8(H) 35.7 - 48.1 fL [facility] NRBC abs 0.00 0.00 - 0.01 K/cumm [facility] Blood 04/13/2024 1:33 AM DESKTOP MANAGER 04/13/2024 1:40 AM DESKTOP MANAGER us Wilbur Chin MD LAB BLOOD ORDERABL ES Final Result [facility] [address] Department [place] [address] * POCT glucose (04/13/2024 12:07 AM DESKTOP MANAGER) [facility] Glucose, POC 119 70 - 199 mg/dL Comment: For Glucose values <35 mg/dl when Hematocrit is >60 mg/dl,the test may not accurately detect significant hypoglycemia,and testing in the Laboratory should be considered if clinically indicated. Blood 04/13/2024 12:0 7 AM DESKTOP MANAGER 04/13/2024 12:07 AM DESKTOP MANAGER us Frederic Yates MD LAB POCT ORDERABLES - D EVICE Final Result Performing Organization Address City/[facility] de Phone Number L[facility] [address] Department [place] [address] * POCT glucose (04/12/2024 7:58 PM DESKTOP MANAGER) [facility] Glucose, POC 85 70 - 199 mg/dL Comment: For Glucose values <35 mg/dl when Hematocrit is >60 mg/dl,the test may not accurately detect significant hypoglycemia,and testing in the Laboratory should be considered if clinically indicated. Blood 04/12/2024 7:58 PM DESKTOP MANAGER 04/12/2024 7:58 PM DESKTOP MANAGER Frederic Yates MD LAB POCT ORDERABLES - D EVICE Final Result Performing Organization Address [facility] de Phone Number [facility] [address] Department [place] [address] * eGFR (04/12/2024 4:56 PM DESKTOP MANAGER) [facility] eGFR 85 >=60 mL/min/1. 73 m2 Comment: [...] last reviewed 2021. Blood 04/12/2024 4:56 PM DESKTOP MANAGER 04/12/2024 4:56 PM DESKTOP MANAGER Юлия Luna MD LAB BLOOD ORDERABLES Final Re sult [facility] [address] Department [place] [address] * (ABNORMAL) Basic metabolic panel (04/12/2024 4:56 PM DESKTOP MANAGER) Sodium 141 135 - 145 mmol/L Potassium, pl 3.7 3.3 - 4.9 mmol/L [facility] Chloride 110 97 - 110 mmol/L [facility] CO2 21(L) 22 - 32 mmol/L [facility] Anion gap 10 2 - 15 mmol/L [facility] BUN 17 6 - 25 mg/dL [facility] Creatinine 0.70 0.60 - 1.10 mg/dL [facility] Glucose 85 70 - 199 mg/dL [facility] Comment: Interpretive Data Fasting glucose >/= 126 [...] classification and Diagnosis of Diabetes Diabetes Care 2021; 46: S19-S40. Current interpretive data was last revised 2022. Calcium 7.9(L) 8.5 - 10.3 mg/dL [facility] Blood 04/12/2024 4:56 PM DESKTOP MANAGER 04/12/2024 4:56 PM DESKTOP MANAGER Юлия Luna MD LAB BLOOD ORDERABLES Final Re sult Performing Organization Address [facility] Co de Phone Number [facility] [address] Department [place] [address] * POCT glucose (04/12/2024 11:30 AM DESKTOP MANAGER) Glucose, POC 110 70 - 199 mg/dL Comment: For Glucose values <35 mg/dl when Hematocrit is >60 mg/dl,the test may not accurately detect significant hypoglycemia,and testing in the Laboratory should be considered if clinically indicated. Blood 04/12/2024 11:3 0 AM DESKTOP MANAGER 04/12/2024 11:30 AM DESKTOP MANAGER Frederic Yates MD LAB POCT ORDERABLES - D EVICE Final Result Performing Organization Address [facility] de Phone Number [facility] [address] Department [place] [address] * POCT glucose (04/12/2024 7:22 AM DESKTOP MANAGER) Glucose, POC 125 70 - 199 mg/dL Comment: For Glucose values <35 mg/dl when Hematocrit is >60 mg/dl,the test may not accurately detect significant hypoglycemia,and testing in the Laboratory should be considered if clinically indicated. Blood 04/12/2024 7:22 AM DESKTOP MANAGER 04/12/2024 7:22 AM DESKTOP MANAGER Frederic Yates MD LAB POCT ORDERABLES - D EVICE Final Result Performing Organization Address [facility] Co de Phone Number [facility] [address] Department [place] [address] * (ABNORMAL) CBC without differential (04/12/2024 6:50 AM DESKTOP MANAGER) Pathologist [facility] WBC 5.3 3.8 - 9.9 K/cumm Hgb 8.8(L) 11.9 - 15.5 g/dL [facility] Hct 27.1(L) 35.6 - 45.5 % [facility] Plt 144(L) 150 - 400 K/cumm [facility] MPV 9.5 9.1 - 12.3 fL [facility] RBC 2.72(L) 3.90 - 5.20 M/cumm [facility] MCV 99.6(H) 81.3 - 96.4 fL [facility] MCH 32.4 27.1 - 33.3 pg [facility] MCHC 32.5 32.3 - 35.7 g/dL [facility] RDW CV 14.7 11.1 - 14.9 % [facility] RDW SD 53.0(H) 35.7 - 48.1 fL [facility] NRBC abs 0.00 0.00 - 0.01 K/cumm [facility] Blood 04/12/2024 6:50 AM DESKTOP MANAGER 04/12/2024 6:07 PM DESKTOP MANAGER Юлия Luna MD LAB BLOOD ORDERABLES Final Re sult Performing Organization Address [facility]/ZIP Co de Phone Number [facility] [address] [employer] [place], [place] [id number] * (ABNORMAL) Hemoglobin and hematocrit (04/12/2024 5:19 AM DESKTOP MANAGER) [facility] Hgb 9.2(L) 11.9 - 15.5 g/dL Hct 27.9(L) 35.6 - 45.5 % [facility] Blood 04/12/2024 5:19 AM DESKTOP MANAGER 04/12/2024 5:48 AM DESKTOP MANAGER Юлия Luna MD LAB BLOOD ORDERABLES Final Re sult Performing Organization Address City/[facility]/ZIP Co de Phone Number [facility] [address] [place] [address] * POCT glucose (04/12/2024 3:55 AM DESKTOP MANAGER) [facility] Glucose, POC 113 70 - 199 mg/dL Comment: For Glucose values <35 mg/dl when Hematocrit is >60 mg/dl,the test may not accurately detect significant hypoglycemia,and testing in the Laboratory should be considered if clinically indicated. Blood 04/12/2024 3:55 AM DESKTOP MANAGER 04/12/2024 3:55 AM DESKTOP MANAGER us Mauri Phillip MD LAB POCT ORDERABLES - DEVICE F inal Result [facility] [address] Department [place] [address] * Differential, auto (04/12/2024 1:02 AM DESKTOP MANAGER) Neutrophil abs 4.4 1.5 - 6.5 K/cumm Imm gran abs 0.0 0.0 - 0.1 K/cumm [facility] Lymphocyte abs 1.0 0.8 - 3.3 K/cumm [facility] Monocyte abs 0.7 0.2 - 0.8 K/cumm [facility] Eosinophil abs 0.1 0.0 - 0.5 K/cumm [facility] Basophil abs 0.0 0.0 - 0.1 K/cumm [facility] Neutrophil pct 71.7 % [facility] Comment: Interpretive Data Percent cell count reference ranges are not reported, since discordance with absolute values may lead to misinterpretation of CBC data. Current Interpretive Data was last revised on 2017. Imm gran pct 0.3 % [facility] Comment: Interpretive Data Percent cell count reference ranges are not reported, since discordance with absolute values may lead to misinterpretation of CBC data. Current Interpretive Data was last revised on 2017. Lymphocyte pct 15.8 % [facility] Comment: Interpretive Data Percent cell count reference ranges are not reported, since discordance with absolute values may lead to misinterpretation of CBC data. Current Interpretive Data was last revised on 2017. Monocyte pct 10.6 % [facility] Comment: Interpretive Data Percent cell count reference ranges are not reported, since discordance with absolute values may lead to misinterpretation of CBC data. Current Interpretive Data was last revised on 2017. Eosinophil pct 1.3 % [facility] Comment: Interpretive Data Percent cell count reference ranges are not reported, since discordance with absolute values may lead to misinterpretation of CBC data. Current Interpretive Data was last revised on 2017. Basophil pct 0.3 % [facility] Comment: Interpretive Data Percent cell count reference ranges are not reported, since discordance with absolute values may lead to misinterpretation of CBC data. Current Interpretive Data was last revised on 2017. Blood 04/12/2024 1:02 AM DESKTOP MANAGER 04/12/2024 1:31 AM DESKTOP MANAGER us Юлия Luna MD LAB BLOOD ORDERABLES Final Re sult [facility] [address] Department [place] [address] * (ABNORMAL) CBC with auto differential (04/12/2024 1:02 AM DESKTOP MANAGER) WBC 6.2 3.8 - 9.9 K/cumm Hgb 9.2(L) 11.9 - 15.5 g/dL [facility] Hct 28.0(L) 35.6 - 45.5 % [facility] Plt 159 150 - 400 K/cumm [facility] MPV 9.1 9.1 - 12.3 fL [facility] RBC 2.87(L) 3.90 - 5.20 M/cumm [facility] MCV 97.6(H) 81.3 - 96.4 fL [facility] MCH 32.1 27.1 - 33.3 pg [facility] MCHC 32.9 32.3 - 35.7 g/dL [facility] RDW CV 14.6 11.1 - 14.9 % [facility] RDW SD 53.1(H) 35.7 - 48.1 fL [facility] NRBC abs 0.00 0.00 - 0.01 K/cumm [facility] Blood 04/12/2024 1:02 AM DESKTOP MANAGER 04/12/2024 1:31 AM DESKTOP MANAGER us Wilbur Chin MD LAB BLOOD ORDERABL ES Final Result Performing Organization Address City/[facility]/ZIP Co de Phone Number [facility] [address] [place] [address] * (ABNORMAL) Protime-INR (04/12/2024 1:02 AM DESKTOP MANAGER) PT 14.7(H) 9.7 - 13.0 sec INR 1.35(H) 0.90 - 1.20 [facility] Comment: Interpretive data Oral anticoagulant therapeutic ranges: Venous thromboembolism prophylaxis or treatment: 2.0-3.0 CARDIOLOGY Standard range: 2.0-3.0 High-intensity range: 2.5-3.5 Refer to indication-specific guidelines for appropriate target ranges for prosthetic heart valve replacement. Current interpretive data was last revised on 2019. Blood 04/12/2024 1:02 AM DESKTOP MANAGER 04/12/2024 1:30 AM DESKTOP MANAGER Юлия Luna MD LAB BLOOD ORDERABLES Final Re sult Performing Organization Address [facility]/ZIP Co de Phone Number [facility] [address] [place] [address] * POCT glucose (04/12/2024 12:11 AM DESKTOP MANAGER) Glucose, POC 95 70 - 199 mg/dL Comment: For Glucose values <35 mg/dl when Hematocrit is >60 mg/dl,the test may not accurately detect significant hypoglycemia,and testing in the Laboratory should be considered if clinically indicated. Blood 04/12/2024 12:1 1 AM DESKTOP MANAGER 04/12/2024 12:11 AM DESKTOP MANAGER Mauri Phillip MD LAB POCT ORDERABLES - DEVICE F inal Result Performing Organization Address City/[facility]/ZIP Co de Phone Number [facility] [address] Department [address] [employer] [place], [place] [id number] * SCAN - LABS (04/11/2024 10:12 PM DESKTOP MANAGER) Result Nicki Sneed MD Final Result * SCAN - LABS (04/11/2024 5:14 PM DESKTOP MANAGER) Result Nicki Sneed MD Final Result * SCAN - LABS (04/11/2024 5:07 PM DESKTOP MANAGER) Result Nicki Sneed MD Final Result * SCAN - LABS (04/11/2024 4:31 PM DESKTOP MANAGER) Result Nicki Sneed MD Final Result * SCAN - LABS (04/11/2024 4:31 PM DESKTOP MANAGER) Result Nicki Sneed MD Final Result * SCAN - RADIOLOGY/IMAGING (04/11/2024 12:43 PM DESKTOP MANAGER) Anatomical Region Laterality Modality Other Result Nicki Sneed MD Final Result * SCAN - LABS (04/11/2024 12:11 PM DESKTOP MANAGER) Result Nicki Sneed MD Final Result from Last 3 Months Insurance MEDICARE SOLUTIONS MEDICARE SOLUTIONS Advance Directives For more information, please contact: [phone] * Full Code (Latest Code Status on File) Date Activated Date Inactivated Comments 04/11/2024 9:30 PM 04/13/2024 3:31 PM Care Teams Mannequin Sander And Finisher Relationship Specialty Start Date End Date Justino Palafox MD [address] [place] [address] PCP - General Internal Medicine 03/04/24 Dmitriy Fung MD [address] [address] Consulting Physician Colon and Rectal Surgery 04/13/24
--- OUTSIDE RECORDS SUMMARY | 2024-04-18 01:31 | XMS_ITS | Encounter Summary ---
Author Organization [facility] Address [address] [place] [address] Care Team Providers Care Nanofabrication Specialist Name Role Phone Robin Sneed MD Primary Care Provider [phone] Encounter Details Date Type Department Care Team (Late st Contact Info) Description 11/30/2020 Orders Only [facility] [address] [facility] [address] [facility] [place] [id number] Robin Sneed MD [address] [facility] [address] [place], [place] [id number] Social History Tobacco Use Types Packs/Day Years Used Date Smoking Tobacco: Never Assessed Comments Unknown Sex and Gender Information Value Date Recorded Sex Assigned at Not on file Legal Sex Female 2:59 AM PLANISHING PRESS OPERATOR Gender Identity Not on file Sexual Orientation Not on file documented as of this encounter Plan of Treatment Not on file documented as of this encounter Procedures Procedure Name Priority Date/Time Associated Diagnosis Comments SCAN - RADIOLOGY/IMAGING 11/30/2020 10:23 AM CDT SCAN - RADIOLOGY/IMAGING 11/30/2020 8:52 AM CDT documented in this encounter Results * SCAN - RADIOLOGY/IMAGING (11/30/2020 10:23 AM CDT) Anatomical Region Laterality Modality Other us Provider Scanning Final Result * SCAN - RADIOLOGY/IMAGING (11/30/2020 8:52 AM CDT) Anatomical Region Laterality Modality Other us Robin Sneed MD Final Result documented in this encounter Visit Diagnoses Not on filedocumented in this encounter Care Teams Nanofabrication Specialist Relationship Specialty Start Date End Date Robin Sneed MD [address] [address] PCP - General Internal Medicine 11/30/20 03/03/24 documented as of this encounter
--- OUTSIDE RECORDS SUMMARY | 2024-04-18 01:31 | XMS_ITS | Encounter Summary ---
Author Organization [facility] Address [address] [facility] [address] [place] [address] Care Team Providers Care Maple Syrup Maker Name Role Phone Robin Sneed MD Primary Care Provider [phone] Encounter Details Date Type Department Care Team (Late st Contact Info) Description 12/01/2020 Orders Only [facility] Cardiology [address] [place] [address] Frederic Hall MD [address] [facility] [address] [place], [place] [id number] Social History Tobacco Use Types Packs/Day Years Used Date Smoking Tobacco: Never Assessed Comments Unknown Sex and Gender Information Value Date Recorded Sex Assigned at Not on file Legal Sex 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 Gender Identity Not on file Sexual Orientation Not on file documented as of this encounter Plan of Treatment Not on file documented as of this encounter Procedures Procedure Name Priority Date/Time Associated Diagnosis Comments CARDIOLOGY DOCUMENT SCAN Routine 12/01/2020 documented in this encounter Results * SCAN - CARDIOLOGY (12/01/2020) Anatomical Region Laterality Modality Other us Frederic Hall MD [facility] CARDIAC [facility] MIGUEL VINCENT Final Result documented in this encounter Visit Diagnoses Not on filedocumented in this encounter Care Teams Maple Syrup Maker Relationship Specialty Start Date End Date Robin Sneed MD [address] [facility] [address] [place], [place] [id number] PCP - General Internal Medicine 11/30/20 03/03/24 documented as of this encounter
== END 2024-04-11 20:14 | disposition short-term general hospital (02) ==
PROVIDERS: Physician Assistant; Emergency Provider Physician Assistant; PCP Internal Medicine
DX: K92.2 Gastrointestinal hemorrhage, unspecified (principal); K57.90 Diverticulosis of intestine, part unspecified, without perforation or abscess without bleeding; I48.91 Unspecified atrial fibrillation; I10 Essential (primary) hypertension; E11.39 Type 2 diabetes mellitus with other diabetic ophthalmic complication; H42 Glaucoma in diseases classified elsewhere; K21.9 Gastro-esophageal reflux disease without esophagitis; M19.90 Unspecified osteoarthritis, unspecified site; Z96.641 Presence of right artificial hip joint; Z90.49 Acquired absence of other specified parts of digestive tract; Z90.710 Acquired absence of both cervix and uterus; Z79.01 Long term (current) use of anticoagulants; Z79.84 Long term (current) use of oral hypoglycemic drugs; Z79.899 Other long term (current) drug therapy
CPT/HCPCS: 36415; 36430; 74177; 80053; 83605; 83690; 84484; 85014; 85018; 85025; 85610; 85730; 86850; 86900; 86901; 86923; 93005; 96360; 96361; 99285; J7030; J7050; P9016; Q9967

== ENCOUNTER 2024-04-23 11:55 | Emergency (ER) | payer OTHER, MEDICARE, SELFPAY ==
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
[2024-04-23 12:00] VITALS: BP 155/64; PULSE 77; RESP 20; TEMP 36.3; O2SAT 99
[2024-04-23 14:06] VITALS: BP 196/93; PULSE 77; RESP 14; O2SAT 100
--- NOTE | 2024-04-23 14:21 | ECG_ITS ---
Test Date: 2024-04-23 15:45:58 Measurements Intervals [place] Rate: 65 P: 38 WA: 186 QRS: 5 QRSD: 94 T: 26 QT: 398 QTc: 415 Interpretive Statements SINUS RHYTHM Compared to ECG 04/11/2024 10:37:00 NO SIGNIFICANT CHANGES Electronically Signed On 04-24-2024 14:14:52 SOFTWARE SUPPORT SPECIALIST by Selena Tinsley M.D.
[2024-04-23 14:22] LABS: Basophils Percent Auto 0.3 % (0.2-1.2); Eosinophils Absolute Auto 0.2 K/mm3 (0-0.3); Hematocrit 31.1 % (37.0-47.0); Immature Granulocyte Absolute 0.03 K/mm3 (0.00-0.031); Immature Granulocyte Percent A 0.4 % (0-0.5); Lymphocytes Absolute Auto 0.72 K/mm3 (0.9-3.2); Lymphocytes Percent Auto 9.5 % (18.3-44.2); Mean Corpuscular HGB Conc 32.2 g/dl (32-36); Mean Corpuscular Hemoglobin 31.8 pg (26-34); Mean Platelet Volume 8.5 fl (7.4-10.4); Monocytes Absolute Auto 0.5 K/mm3 (0.1-0.6); Monocytes Percent Auto 7.2 % (2.6-8.5); Neutrophils Absolute Auto 6.1 K/mm3 (1.3-6.7); Neutrophils Percent Auto 80.6 % (45.5-73.1); Platelet Count Result 223 k/mm3 (150-375); Red Blood Count 3.14 M/mm3 (4.2-5.4); Red Cell Distribution Width 14.3 % (11.5-14.5); White Blood Count 7.6 K/mm3 (4.5-10.0)
[2024-04-23 14:32] LABS: Alanine Aminotransferase 16 U/L (6-35); Alkaline Phosphatase 77 U/L (38-126); Anion Gap 6 mmol/L (4-12); Aspartate Amino Transferase 26 U/L (14-36); Bilirubin,Total 0.6 mg/dL (0.2-1.3); Blood Urea Nitrogen 25 mg/dL (7-17); Calcium 9.3 mg/dL (8.4-10.2); Carbon Dioxide 27 mmol/L (22-30); Chloride 102 mmol/L (98-107); Estimated CRCL calculation 50 ml/min; Estimated Glomerular Filt Rate > 60; Glucose 110 mg/dL (65-110); Potassium 4.2 mmol/L (3.4-5.0); Sodium 135 mmol/L (137-145)
[2024-04-23 14:36] LABS: INR 1.4; Prothrombin Time 17.2 Seconds (11.1-14.7)
[2024-04-23 14:37] LABS: Partial Thromboplastin Time 32.7 Seconds (22.3-36.8)
[2024-04-23 14:45] VITALS: BP 180/75; PULSE 63; RESP 16; O2SAT 100
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
[2024-04-23 15:16] LABS: Troponin I < 0.012 ng/mL (0.000-0.034)
[2024-04-23 15:42] VITALS: BP 161/60; PULSE 67; RESP 16; O2SAT 100
[2024-04-23] MEDS: TETANUS,DIPHTHERIA,AC PERTUSSIS ADULT (0.5 ML) BOOSTRIX IM (18:12)
[2024-04-23 18:30] VITALS: BP 155/98; PULSE 75; RESP 16; O2SAT 96
== END 2024-04-23 18:48 | disposition home or self-care (01) ==
PROVIDERS: Emergency Provider Physician Assistant; PCP Internal Medicine
DX: S60.221A Contusion of right hand, initial encounter (principal); S61.411A Laceration without foreign body of right hand, initial encounter; M19.90 Unspecified osteoarthritis, unspecified site; K21.9 Gastro-esophageal reflux disease without esophagitis; I10 Essential (primary) hypertension; E11.9 Type 2 diabetes mellitus without complications; Z79.84 Long term (current) use of oral hypoglycemic drugs; V43.52XA Car driver injured in collision with other type car in traffic accident, initial encounter; Z23 Encounter for immunization; Z79.01 Long term (current) use of anticoagulants
CPT/HCPCS: 36415; 70450; 71260; 72125; 72129; 72132; 73110; 73130; 74177; 80053; 84484; 85025; 85610; 85730; 90471; 90715; 93005; 99284; Q9967

== ENCOUNTER 2024-07-25 13:05 | Outpatient (CLI) | payer MEDICARE, SELFPAY ==
--- NOTE | ~2024-07-25 | MR_ITS ---
MRI of the lumbar spine Clinical History: Compression fracture Technique: Axial T2-weighted images, and sagittal T1-weighted, T2-weighted, and T2 fat-sat images wer e acquired. Findings: There is acute moderate compression fracture of L4, loss of height, T1 hypointense fracture line, and extensive marrow edema. There is chronic moderate to severe L5 compression fracture with m arked loss of height but no significant marrow edema. No other fracture or sublocation seen. At L1-L2, there is no disc bulge or herniation. There is moderate facet arthropathy. No central canal stenosis or neural foraminal narrowing. At L2-L3, there is mild disc bulge and severe facet arthropathy. No antonio central canal stenosis or n eural foraminal narrowing. At L3-L4, there is severe facet arthropathy. There is disc bulge with superimposed central extrusion extending superiorly behind the L3 vertebral body. There is moderate to severe spinal canal stenosis/ thecal sac compression. Neural foramina are preserved overall. At L4-L5, there is mild diffuse disc bulge with severe facet arthropathy. There is moderate central c anal stenosis/thecal sac compression. There is mild left neural foraminal narrowing. Right neural for amen preserved. At L5-S1, there is no disc bulge or herniation. There is advanced facet arthropathy. No spinal canal stenosis or neural foraminal narrowing. Paravertebral soft tissues are unremarkable. Impression: Acute, moderate L4 compression fracture. Moderate to severe chronic L5 compression fracture. Severe degenerative spondylosis at L3-L4, as detailed above, with central disc extrusion extending comer periorly behind the L3 vertebral body. Moderate to severe L4-L5 degenerative spondylitic change. Reviewed, dictated and finalized at location . Impression: Acute, moderate L4 compression fracture. Moderate to severe chronic L5 compression fracture. Severe degenerative spondylosis at L3-L4, as detailed above, with central disc extrusion extending superiorly behind the L3 vertebral body. Moderate to severe L4-L5 degenerative spondylitic change.
--- OUTSIDE RECORDS SUMMARY | 2024-07-25 13:27 | XMS_ITS | Referral Summary ---
Author Organization [facility] [place] [address] [facility] [address] [place] [address] Care Team Providers Care Special Service Officer Name Role Phone Justino Palafox MD Primary Care Provider [phone] Dmitriy Fung MD Unavailable [phone] Encounters Date Type Department Care Team Description 07/11/2024 11:00 AM CDT Clinical Support [facility] Medical [facility] Diabetes and Endocrinology [address] [place] [address] Age-related osteoporosis without current pathological fracture (Primary Dx) 06/24/2024 Telephone [facility] [place] [facility] [id number] [place] [id number] Riley Salvador MD Med Management (Prolia) from Last 3 Months Allergies Active Allergy Reactions Criticality Noted Date Comments Azithromycin Stomach upset Low 04/11/2024 Sulfa (Sulfonamide Antibiotics) Rash Medium 08/08 Rash Medications metFORMIN (GLUCOPHAGE) 500 mg tablet 4 Active simvastatin (ZOCOR) 20 mg tablet 4 Active lisinopriL (PRINIVIL,ZESTRIL ) 20 mg tablet 4 Active pioglitazone (ACTOS) 30 mg tablet 4 Active omeprazole (PriLOSEC) 20 mg capsule 4 Active gabapentin (NEURONTIN) 100 mg capsule Take by mouth 3 (three) times a day Active ferrous sulfate ER 324 mg (65 mg iron) EC tabletIndications :Iron Deficiency Anemia Take 65 mg by mouth Active fexofenadine (AIDA) 60 mg tablet Take 1 tablet (60 mg total) by mouth daily Active cyanocobalamin (Vitamin B-12) 1,000 mcg sublingual tablet Take 1 tablet (1,000 mcg total) by mouth daily Active zinc gluconate 50 mg tablet Take 1 tablet (50 mg total) by mouth daily Active vitamin D3-vitamin K2 25 mcg (1,000 unit)-90 mcg tablet,disintegra ting Take by mouth Active multivitamin-iron -folic acid 18-400 mg-mcg tabletIndications :Vitamin Deficiency Prevention 1 tablet Active acetaminophen (TYLENOL) [...] by mouth 2 (two) times a day 5 Active polyethylene glycol (MIRALAX) 17 gram/dose bulk powder Take 17 g by mouth daily 5 Active Prolia 60 mg/mL syringeIndication s:Age-related osteoporosis without current pathological fracture Inject 1 ml under skin once every 6 months 1 mL 1 5 Active Hospital, Clinic, or Other Facility Administered Medication Ordered Dose Route Frequency Start Date End Date Status denosumab (PROLIA) subcutaneous syringe 60 mgIndications:Age-related osteoporosis without current pathological fracture 60 mg subQ Once 07/11/2024 07/11/2024 Ended Active Problems Problem Noted Date Diagnosed Date Acute hemorrhoid 04/13/2024 GI bleed 04/12/2024 Paroxysmal atrial fibrillation 04/12/2024 Acute blood loss anemia 04/12/2024 Age-related osteoporosis wit hout current pathological fracture 03/04/2024 Assessment & Plan (03/04/2024 12:59 PM LITIGATION MANAGER): Chronic , slow improving H/o L5 [...] Tobacco: Never Tobacco Cessation:Counseling Given: Not Answered [facility] Utilities Answer Date Recorded In the past 12 months has [employer], gas, oil, or water [employer] threatened to shut off services in your [...] often do you attend chur ch or yazidi services? More than 4 times per year 04/12/2024 Do you belong to any clubs o r organizations such as spiritism groups, unions, fraternal or athletic groups, or [...] any time in the past [address] [facility], were you homeless or living in a fpc (including now)? No 04/12/2024 Personal Safety Answer Date Recorded Have you ever been in or are you currently in a harmful physical or emotional relationship or is someone making you feel afraid or unsafe? Denies 04/11/2024 Comments Unknown Sex and Gender Information Value Date Recorded Sex Assigned at Not on file Legal Sex Female 2:59 AM LITIGATION MANAGER Gender Identity Not on file Sexual Orientation Not on file Last Filed Vital Signs Vital Sign Reading Time Taken Comments Blood Pressure 139/61 04/13/2024 10:06 AM LITIGATION MANAGER Pulse 79 04/13/2024 10:06 AM LITIGATION MANAGER Temperature 36.4 C (97.6 F) 04/13/2024 10:06 AM LITIGATION MANAGER Respiratory Rate 18 04/13/2024 10:06 AM LITIGATION MANAGER Oxygen Saturation 99% 04/13/2024 10:06 AM LITIGATION MANAGER Inhaled Oxygen Concentration - - Weight 89.6 kg (197 lb 8.5 oz) 04/11/2024 9:19 P M LITIGATION MANAGER Height 154.9 cm (5' 1 ) 03/04/2024 9:20 AM LITIGATION MANAGER Body Mass Index 37.32 03/04/2024 9:20 AM LITIGATION MANAGER Plan of Treatment Not on file Procedures Procedure Name Priority Date/Time Associated Diagnosis Comments EGFR STAT 04/12/2024 4:56 PM LITIGATION MANAGER from Last 3 Months or Most Recently Relevant to Health Maintenance Results * eGFR (04/12/2024 4:56 PM LITIGATION MANAGER) eGFR 85 >=60 mL/min/1. 73 m2 Comment: Interpretive Data Reference Interval Normal >/= 90 mL/min/1.73m2 Mildly decreased* 60 - 89 mL/min/1.73m2 Mildly to moderately decreased 45 - 59 mL/min/1.73m2 Moderately to severely decreased 30 - 44 mL/min/1.73m2 Severely decreased 15 - 29 mL/min/1.73m2 Kidney Failure < 15 mL/min/1.73m2 *Relative to young adult level Estimated glomerular [...] last reviewed 2021. Blood 04/12/2024 4:56 PM LITIGATION MANAGER 04/12/2024 4:56 PM LITIGATION MANAGER us Юлия Luna MD LAB BLOOD ORDERABLES Final Re sult [facility] [address] Department [place] [address] from Last 3 Months or Most Recently Relevant to Health Maintenance Insurance [facility] MEDICARE ADVANTAGE [facility] MEDICARE Address: [facility] [address] [place] [address] [facility] MEDICARE ADVANTAGE [facility] MEDICARE Address: [address] [address] [place] [address] [facility] MEDICARE ADVANTAGE [facility] MEDICARE Address: [facility] [address] [place] [address] Advance Directives For more information, please contact: [phone] * Full Code (Latest Code Status on File) Date Activated Date Inactivated Comments 04/11/2024 9:30 PM 04/13/2024 3:31 PM Care Teams Special Service Officer Relationship Specialty Start Date End Date Justino Palafox MD [address] [place] [id number] PCP - General Internal Medicine 03/04/24 Dmitriy Fung MD [address] [place] [id number] Consulting Physician Colon and Rectal Surgery 04/13/24
--- OUTSIDE RECORDS SUMMARY | 2024-07-25 13:27 | XMS_ITS | Clinical Summary ---
Author Organization [facility] [address] [place] [address] Care Team Providers Care Orchid Transplanter Name Role Phone Justino Palafox MD Primary Care Provider [phone] Dmitriy Fung MD Unavailable [phone] Allergies Active Allergy Reactions Criticality Noted Date [...] powder Take 17 g by mouth daily Active Prolia 60 mg/mL syringeIndication s:Age-related osteoporosis without current pathological fracture Inject 1 ml under skin once every 6 months 1 mL 1 Active Hospital, Clinic, or Other Facility Administered [...] 03/04/2024 Assessment & Plan (03/04/2024 12:59 PM RUBBER TIRE AND TUBES SUPERVISOR): Chronic , slow improving H/o L5 compression [...] Description 07/11/2024 11:00 AM CDT Clinical Support [facility] Medical [facility] Diabetes and Endocrinology [address] [place] [address] [place] [address] Age-related osteoporosis without current pathological fracture (Primary Dx) 06/24/2024 Telephone [facility] of [facility] [address] [facility] [address] [address] Riley Salvador MD Med Management (Prolia) from Last 3 Months Surgical History Surgery [...] Tobacco: Never Tobacco Cessation:Counseling Given: Not Answered [facility] Utilities Answer Date Recorded In [...] often do you attend chur ch or moravian services? More than 4 times per year 04/12/2024 Do you belong to any clubs o r organizations such as jain groups, unions, fraternal or athletic groups, or [...] any time in the past 12 m [facility], were you homeless or living in a assisted (including now)? No 04/12/2024 Personal Safety Answer Date Recorded Have you ever been in or are you currently in a harmful physical or emotional relationship or is someone making you feel afraid or unsafe? Denies 04/11/2024 Comments Unknown Sex and Gender Information Value Date Recorded Sex Assigned at Not on file Legal Sex Female 2:59 AM RUBBER TIRE AND TUBES SUPERVISOR Gender Identity Not on file Sexual Orientation Not on file Obstetrics History Last Filed Vital Signs Vital Sign Reading Time Taken Comments Blood Pressure 139/61 04/13/2024 10:06 AM RUBBER TIRE AND TUBES SUPERVISOR Pulse 79 04/13/2024 10:06 AM RUBBER TIRE AND TUBES SUPERVISOR Temperature 36.4 C (97.6 F) 04/13/2024 10:06 AM RUBBER TIRE AND TUBES SUPERVISOR Respiratory Rate 18 04/13/2024 10:06 AM RUBBER TIRE AND TUBES SUPERVISOR Oxygen Saturation 99% 04/13/2024 10:06 AM RUBBER TIRE AND TUBES SUPERVISOR Inhaled Oxygen Concentration - - Weight 89.6 kg (197 lb 8.5 oz) 04/11/2024 9:19 P M RUBBER TIRE AND TUBES SUPERVISOR Height 154.9 cm (5' 1 ) 03/04/2024 9:20 AM RUBBER TIRE AND TUBES SUPERVISOR Body Mass Index 37.32 03/04/2024 9:20 AM RUBBER TIRE AND TUBES SUPERVISOR Plan of Treatment Health Maintenance Due Date Last Done Comments Albumin Creatinine Ratio, Urine 1940 Depression Screening 1940 Hemoglobin A1C 1940 Dilated Eye Exam 1940 Foot Exam 1940 Lipid Panel 1940 DTaP/Tdap/Td Vaccine (1 - Tdap) 1951 Hepatitis B Screening 1958 Pneumococcal vaccine 65+ (1 of 2 - PCV) 1959 Zoster Vaccine (1 of 2) 1990 Well Visit 65+ 2005 Influenza Vaccine (Season Ended) 2024 02/10/2022, 01/10/2019, 01/10/2018, Additional history exists Osteoporosis Screening-Bone Density Scan 04/06/2025 04/06/2023 eGFR 04/12/2025 04/12/2024 Fall Risk Assessment 04/13/2025 04/13/2024 Procedures Procedure Name Priority Date/Time Associated Diagnosis Comments EGFR STAT 04/12/2024 4:56 PM RUBBER TIRE AND TUBES SUPERVISOR from Last 3 Months or Most Recently Relevant to Health Maintenance Results * eGFR (04/12/2024 4:56 PM RUBBER TIRE AND TUBES SUPERVISOR) eGFR 85 >=60 mL/min/1. 73 m2 Comment: [...] last reviewed 2021. Blood 04/12/2024 4:56 PM RUBBER TIRE AND TUBES SUPERVISOR 04/12/2024 4:56 PM RUBBER TIRE AND TUBES SUPERVISOR us Юлия Luna MD LAB BLOOD ORDERABLES Final Re sult [facility] [address] Department [place] [address] from Last 3 Months or Most Recently Relevant to Health Maintenance Insurance [facility] MEDICARE ADVANTAGE [facility] MEDICARE ADVANTAGE [facility] MEDICARE ADVANTAGE Advance Directives For more information, please contact: [phone] * Full Code (Latest Code Status on File) Date Activated Date Inactivated Comments 04/11/2024 9:30 PM 04/13/2024 3:31 PM Care Teams Orchid Transplanter Relationship Specialty Start Date End Date Justino Palafox MD [address] [place] [address] PCP - General Internal Medicine 03/04/24 Dmitriy Fung MD [address] [place] [id number] Consulting Physician Colon and Rectal Surgery 04/13/24
--- OUTSIDE RECORDS SUMMARY | 2024-07-25 13:28 | XMS_ITS | Data Portability ---
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 We will deescalate PPI to H2 mary anne [email or web address] Not available 11/16/2023 23:04:27 03/14/2024 03/14/2024 blood work has been ordered we will continue current therapy all questions has been answered with regards to her diagnosis in the assessment and plan refuses any immunizations at this time we will follow up 3-4 months [email or web address] Not available 03/16/2024 18:37:12 07/04/2024 07/04/2024 I will add Flexeril to be used sparingly she can not continue with home health care physician at this time blood work will be ordered as she was eating up to 16 Tylenol a day for a week or 2 I told her she needs to stop that immediately see me in 1 month imaging just showed chronic L5 compression fracture [email or web address] Not available 07/06/2024 18:41:36 07/18/2024 07/18/2024 MRI of the lumba r spine further recommendations after I get the results [email or web address] Not available 07/20/2024 21:18:07 Plan of Treatment Reminders Order Date Submit Date Provider Last Modified By Organization Details Last Modified Time Details Appointments ANY 15 2024 11:00A Dav Palafox MD Not available Not available Not available Lab HbA1c (hemoglob in A1c), blood 2023 024 [facility], [address], [address], [place], [address], 03/20/2024 10:13:29 CBC w/ auto diff 2023 024 [facility], [address], [address], [place], [address], 03/20/2024 10:13:30 vitamin D, 25-hydrox y, total, serum 2023 024 [facility], [address], [address], [place], [address], 03/20/2024 10:13:33 PTH (parathyr oid hormone), intact, serum or plasma 2023 024 [facility], [address], [address], [place], [address], 03/20/2024 10:13:32 lipid panel, serum 2023 024 [facility], [address], [address], [place], [address], 03/20/2024 10:13:26 CMP, serum or plasma 2023 024 [facility], [address], [address], [place], [address], 03/20/2024 10:13:28 HbA1c (hemoglob in A1c), blood 2023 024 [facility], [address], [address], [place], [address], 12/05/2023 12:50:46 lipid panel, serum 2023 024 [facility], [address] [place] [address], [address], [place], [address], 12/05/2023 12:51:00 CMP, serum or plasma 2023 024 [facility], [address] [place] [address], [address], [place], [address], 12/05/2023 12:50:29 CBC w/ auto diff 2023 024 [facility], [address] [place] [address], [address], [place], [address], 12/05/2023 12:50:53 Referral None recorded. Procedures None recorded. Surgeries None recorded. Imaging MRI, lumbar spine, w/o contrast [address] (Imaging), [address] [facility] [address], [place], [address], 07/18/2024 13:40:06 Medication Orders cyclobenz aprine 10 mg tablet [address] [id number], [address], [place], [id number], 07/04/2024 21:21:09 metformin 500 mg tablet 2023 024 [email or web address], [facility], [place], [address], 03/14/2024 13:11:37 pioglitaz one 30 mg tablet 2023 024 [email or web address], [facility] [place], [address], 03/14/2024 13:11:37 simvastat in 20 mg tablet 2023 024 [email or web address] [facility], [address] [place] [address], [address], 03/14/2024 13:11:37 Flonase Allergy Relief 50 mcg/actua tion nasal spray,kris pension 2023 024 [email or web address] [facility], [address] [place] [address], [address], 03/14/2024 13:11:37 Prolia 60 mg/mL subcutane ous syringe 2023 024 [email or web address] [facility], [address] [place] [address], [address], 01/09/2024 12:34:09 Eliquis 5 mg tablet 2023 024 [email or web address] [facility], [address] [place] [address], [address], 11/16/2023 17:55:15 Pepcid 20 mg tablet 2023 024 [facility], [address] [place] [address], [address], 02/22/2024 15:16:57 lisinopri l 20 mg tablet 2023 024 [email or web address] [facility], [address] [place] [address], [address], 11/16/2023 17:55:15 Flonase Allergy Relief 50 mcg/actua tion nasal spray,kris pension 2023 024 [email or web address] [facility], [address] [place] [address], [address], 11/16/2023 17:55:15 Patient TargetsNo targets recorded. Patient Instructions Encounter Date Encounter Id Patient Instructions Last Modified By Organization Details Last Modified Time 07/18/2024 [id number] A healthy lifestyle: care instructions Not available 07/18/2024 13:40:06 Reason for Referral None Reported. Results Created Date Observation Date Name Description Value Unit Range Abnormal Flag Note LastModifiedBy Organization Detail LastModifiedTime 11/29/19 24 11/29/2023 Compr ehens hardik metab olic 2000 panel - Serum or Plasm a sodium sodiu m Not Available Not Available 06/27/2024 10:20:48 11/29/19 24 11/29/2023 Compr ehens hardik metab olic 2000 panel - Serum or Plasm a potassium potas sium Not Available Not Available 06/27/2024 10:20:48 11/29/19 24 11/29/2023 Compr ehens hardik metab olic 2000 panel - Serum or Plasm a chloride chlor verónica Not Available Not Available 06/27/2024 10:20:48 11/29/19 24 11/29/2023 Compr ehens hardik metab olic 2000 panel - Serum or Plasm a carbon dioxide high carbo n dioxi de Not Available Not Available 06/27/2024 10:20:48 11/29/19 24 11/29/2023 Compr ehens hardik metab olic 2000 panel - Serum or Plasm a anion gap low anion gap Not Available Not Available 06/27/2024 10:20:48 11/29/19 24 11/29/2023 Compr ehens hardik metab olic 2000 panel - Serum or Plasm a glucose gluco se Not Available Not Available 06/27/2024 10:20:48 11/29/19 24 11/29/2023 Compr ehens hardik metab olic 2000 panel - Serum or Plasm a BUN high BUN Not Available Not Availa ble 06/27/2024 10:20:48 11/29/19 24 11/29/2023 Compr ehens hardik metab olic 2000 panel - Serum or Plasm a creatinine creat inine Not Available Not Available 06/27/2024 10:20:48 11/29/19 24 11/29/2023 Compr ehens hardik metab olic 2000 panel - Serum or Plasm a GFR >60 GFR Not Available Not Availa ble 06/27/2024 10:20:48 11/29/19 24 11/29/2023 Compr ehens hardik metab olic 2000 panel - Serum or Plasm a alkaline phosphatase alkal ine phosp hatas e Not Available Not Available 06/27/2024 10:20:48 11/29/19 24 11/29/2023 Compr ehens hardik metab olic 2000 panel - Serum or Plasm a alanine aminotransfe rase rad ne amino trans feras e Not Available Not Available 06/27/2024 10:20:48 11/29/19 24 11/29/2023 Compr ehens hardik metab olic 2000 panel - Serum or Plasm a aspartate aminotransfe rase aspar hope amino trans feras e Not Available Not Available 06/27/2024 10:20:48 11/29/19 24 11/29/2023 Compr ehens hardik metab olic 2000 panel - Serum or Plasm a bilirubin, total bilir ubin, total Not Available Not Available 06/27/2024 10:20:48 11/29/19 24 11/29/2023 Compr ehens hardik metab olic 2000 panel - Serum or Plasm a calcium calci um Not Available Not Available 06/27/2024 10:20:48 11/29/19 24 11/29/2023 Compr ehens hardik metab olic 2000 panel - Serum or Plasm a total protein low total prote in Not Available Not Available 06/27/2024 10:20:48 11/29/19 24 11/29/2023 Compr ens hardik metab olic 2000 panel - Serum or Plasm a albumin album in Not Available Not Available 06/27/2024 10:20:48 11/29/19 24 11/29/2023 Compr ens hardik metab olic 2000 panel - Serum or Plasm a globulin low globu radha Not Available Not Available 06/27/2024 10:20:48 11/29/19 24 11/29/2023 Compr ehens hardik metab olic 2000 panel - Serum or Plasm a A/G ratio A/G ratio Not Available Not Available 06/27/2024 10:20:48 11/29/19 24 11/29/2023 Lipid 1996 panel - Serum or Plasm a cholesterol maria l stero l Not Available Not Available 06/27/2024 10:20:48 11/29/19 24 11/29/2023 Lipid 1996 panel - Serum or Plasm a triglyceride s high trigl yceri sirisha Not Available Not Available 06/27/2024 10:20:48 11/29/19 24 11/29/2023 Lipid 1995 panel - Serum or Plasm a HDL cholesterol HDL maria l stero l Not Available Not Available 06/27/2024 10:20:48 11/29/19 24 11/29/2023 Lipid 1995 panel - Serum or Plasm a LDL cholesterol, calculated LDL maria l stero l, calcu lated Not Available Not Available 06/27/2024 10:20:48 11/29/19 24 11/29/2023 Hemog lobin A1c/H emogl obin. total in Blood by HPLC hemoglobin A1C/hemoglob in.total in blood HA1C Not Available Not Available 06/09 10:20:48 11/29/19 24 11/29/2023 CBC W Auto Diffe renti al panel - Blood white blood cells white blood cells Not Available Not Available 06/27/2024 10:20:48 11/29/19 24 11/29/2023 CBC W Auto Diffe renti al panel - Blood red blood cells low red blood cells Not Available Not Available 06/27/2024 10:20:48 11/29/19 24 11/29/2023 CBC W Auto Diffe renti al panel - Blood hemoglobin hemog lobin Not Available Not Available 06/27/2024 10:20:48 11/29/19 24 11/29/2023 CBC W Auto Diffe renti al panel - Blood hematocrit hemat ocrit Not Available Not Available 06/27/2024 10:20:48 11/29/19 24 11/29/2023 CBC W Auto Diffe renti al panel - Blood mean red cell volume high mean red cell volum e Not Available Not Available 06/27/2024 10:20:48 11/29/19 24 11/29/2023 CBC W Auto Diffe renti al panel - Blood mean red cell hemoglobin high mean red cell hemog lobin Not Available Not Available 06/27/2024 10:20:48 11/29/19 24 11/29/2023 CBC W Auto Diffe renti al panel - Blood mean RBC HGB concentratio n mean RBC HGB miguel ntrat ion Not Available Not Available 06/27/2024 10:20:48 11/29/19 24 11/29/2023 CBC W Auto Diffe renti al panel - Blood red cell distribution width red cell distr ibuti on width Not Available Not Available 06/27/2024 10:20:48 11/29/19 24 11/29/2023 CBC W Auto Diffe renti al panel - Blood platelets plate lets Not Available Not Available 06/27/2024 10:20:48 11/29/19 24 11/29/2023 CBC W Auto Diffe renti al panel - Blood mean platelet volume mean plate let volum e Not Available Not Available 06/27/2024 10:20:48 11/29/19 24 11/29/2023 CBC W Auto Diffe renti al panel - Blood neutrophils neutr ophil s Not Available Not Available 06/27/2024 10:20:48 11/29/19 24 11/29/2023 CBC W Auto Diffe renti al panel - Blood lymphocytes lymph ocyte s Not Available Not Available 06/27/2024 10:20:48 11/29/19 24 11/29/2023 CBC W Auto Diffe renti al panel - Blood monocytes monoc ytes Not Available Not Available 06/27/2024 10:20:48 11/29/19 24 11/29/2023 CBC W Auto Diffe renti al panel - Blood eosinophils eosin ophil s Not Available Not Available 06/27/2024 10:20:48 11/29/19 24 11/29/2023 CBC W Auto Diffe renti al panel - Blood basophils basop hils Not Available Not Available 06/27/2024 10:20:48 11/29/19 24 11/29/2023 CBC W Auto Diffe renti al panel - Blood immature granulocytes immat ure granu locyt es Not Available Not Available 06/27/2024 10:20:48 11/29/19 24 11/29/2023 CBC W Auto Diffe renti al panel - Blood neutrophils, absolute count neutr ophil s, absol [place] count Not Available Not Available 06/27/2024 10:20:48 11/29/19 24 11/29/2023 CBC W Auto Diffe renti al panel - Blood lymphocytes, absolute count low lymph ocyte s, absol [place] count Not Available Not Available 06/27/2024 10:20:48 11/29/19 24 11/29/2023 CBC W Auto Diffe renti al panel - Blood monocytes, absolute count monoc ytes, absol [place] count Not Available Not Available 06/27/2024 10:20:48 11/29/19 24 11/29/2023 CBC W Auto Diffe renti al panel - Blood eosinophils, absolute count eosin ophil s, absol [place] count Not Available Not Available 06/27/2024 10:20:48 11/29/19 24 11/29/2023 CBC W Auto Diffe renti al panel - Blood basophils, absolute count basop hils, absol [place] count Not Available Not Available 06/27/2024 10:20:48 11/29/19 24 11/29/2023 CBC W Auto Diffe renti al panel - Blood immature granulocytes ,absolute immat ure granu locyt es,ab solut e Not Available Not Available 06/27/2024 10:20:48 11/29/19 24 11/29/2023 CBC W Auto Diffe renti al panel - Blood nucleated red blood cells nucle ated red blood cells Not Available Not Available 06/27/2024 10:20:48 11/29/19 24 11/29/2023 CBC W Auto Diffe renti al panel - Blood NRBC# NRBC# Not Available Not Availa ble 06/27/2024 10:20:48 03/19/20 24 03/20/2024 LIPID PANEL cholesterol, total 184 mg/dL 100-19 9 Not Available [facility] ([facility]) [address] [facility], [place], [address], 03/20/2024 10:13:26 03/19/20 24 03/20/2024 LIPID PANEL triglyceride s 237 mg/dL 0-149 above high normal Not Available [facility] ([facility]) [address] [facility], [place], [address], 03/20/2024 10:13:26 03/19/20 24 03/20/2024 LIPID PANEL HDL cholesterol 47 mg/dL >39 Not Available [facility] ([facility]) [address] [facility], [place], [address], 03/20/2024 10:13:26 03/19/20 24 03/20/2024 LIPID PANEL VLDL cholesterol malik 40 mg/dL 5-40 Not Available [facility] ([facility]) [address] [facility], [place], [address], 03/20/2024 10:13:26 03/19/20 24 03/20/2024 LIPID PANEL LDL chol calc ([facility]) 97 mg/dL 0-99 Not Available [facility] ([facility]) [address] [facility], [place], [address], 03/20/2024 10:13:26 03/19/20 24 03/20/2024 COMP. METAB OLIC PANEL (14) glucose 95 mg/dL 70-99 Not Available [facility] ([facility]) [address] [facility], [place], [address], 03/20/2024 10:13:28 03/19/20 24 03/20/2024 COMP. METAB OLIC PANEL (14) BUN 25 mg/dL 8-27 Not Available [facility] ([facility]) [address] [place], [address], 03/20/2024 10:13:28 03/19/20 24 03/20/2024 COMP. METAB OLIC PANEL (14) creatinine 0.76 mg/dL 0.57-1 .00 Not Available [facility] ([facility]) [address] [facility], [place], [address], 03/20/2024 10:13:28 03/19/20 24 03/20/2024 COMP. METAB OLIC PANEL (14) eGFR 78 mL/mi n/1.7 3 >59 Not Available [facility] ([facility]) [address] [place], [address], 03/20/2024 10:13:28 03/19/20 24 03/20/2024 COMP. METAB OLIC PANEL (14) BUN/creatini ne ratio 33 12-28 above high normal Not Available [facility] ([facility]) [address], [place], [address], 03/20/2024 10:13:28 03/19/20 24 03/20/2024 COMP. METAB OLIC PANEL (14) sodium 141 mmol/ L 134-14 4 Not Available [facility] ([facility]) [address] [place], [address], 03/20/2024 10:13:28 03/19/20 24 03/20/2024 COMP. METAB OLIC PANEL (14) potassium 4.9 mmol/ L 3.5-5. 2 Not Available [facility] ([facility]) [address] [place], [address], 03/20/2024 10:13:28 03/19/20 24 03/20/2024 COMP. METAB OLIC PANEL (14) chloride 104 mmol/ L 96-106 Not Available [facility] ([facility]) [address], [place], [address], 03/20/2024 10:13:28 03/19/20 24 03/20/2024 COMP. METAB OLIC PANEL (14) carbon dioxide, total 25 mmol/ L 20-29 Not Available [facility] ([facility]) [address] [place], [address], 03/20/2024 10:13:28 03/19/20 24 03/20/2024 COMP. METAB OLIC PANEL (14) calcium 10.0 mg/dL 8.7-10 .3 Not Available [facility] ([facility]) [address] [place], [address], 03/20/2024 10:13:28 03/19/20 24 03/20/2024 COMP. METAB OLIC PANEL (14) protein, total 6.3 g/dL 6.0-8. 5 Not Available [facility] ([facility]) [address] [place], [address], 03/20/2024 10:13:28 03/19/20 24 03/20/2024 COMP. METAB OLIC PANEL (14) albumin 4.3 g/dL 3.7-4. 7 Not Available [facility] ([facility]) [address] [facility], [place], [address], 03/20/2024 10:13:28 03/19/20 24 03/20/2024 COMP. METAB OLIC PANEL (14) globulin, total 2.0 g/dL 1.5-4. 5 Not Available [facility] ([facility]) [address] [facility], [place], [address], 03/20/2024 10:13:28 03/19/20 24 03/20/2024 COMP. METAB OLIC PANEL (14) bilirubin, total 0.4 mg/dL 0.0-1. 2 Not Available [facility] ([facility]) [address] [facility], [place], [address], 03/20/2024 10:13:28 03/19/20 24 03/20/2024 COMP. METAB OLIC PANEL (14) alkaline phosphatase 59 IU/L 44-121 Not Available [facility] ([facility]) [address] [facility], [place], [address], 03/20/2024 10:13:28 03/19/20 24 03/20/2024 COMP. METAB OLIC PANEL (14) AST (SGOT) 18 IU/L 0-40 Not Available [facility] ([facility]) [address] [facility], [place], [address], 03/20/2024 10:13:28 03/19/20 24 03/20/2024 COMP. METAB OLIC PANEL (14) ALT (SGPT) 13 IU/L 0-32 Not Available [facility] ([facility]) [address] [facility], [place], [address], 03/20/2024 10:13:28 03/19/20 24 03/20/2024 HEMOG LOBIN A1C hemoglobin A1C 6.1 % 4.8-5. 6 above high normal Predi abete s: 5.7 - 6.4 Diabe kiesha: >6.4 Glyce brandt contr ol for adult s with diabe kiesha: <7.0 Not Available [facility] ([facility]) [address] [facility], [place], [address], 03/20/2024 10:13:29 03/19/20 24 03/20/2024 CBC WITH DIFFE RENTI AL/PL ATELE T WBC 6.0 x10e3 /uL 3.4-10 .8 Not Available [facility] ([facility]) [address] [facility], [place], [address], 03/20/2024 10:13:30 03/19/20 24 03/20/2024 CBC WITH DIFFE RENTI AL/PL ATELE T RBC 3.69 x10e6 /uL 3.77-5 .28 below low normal Not Available [facility] ([facility]) [address] [facility], [place], [address], 03/20/2024 10:13:30 03/19/20 24 03/20/2024 CBC WITH DIFFE RENTI AL/PL ATELE T hemoglobin 12.0 g/dL 11.1-1 5.9 Not Available [facility] ([facility]) [address] [place], [address], 03/20/2024 10:13:30 03/19/20 24 03/20/2024 CBC WITH DIFFE RENTI AL/PL ATELE T hematocrit 36.8 % 34.0-4 6.6 Not Available [facility] ([facility]) [address] [place], [address], 03/20/2024 10:13:30 03/19/20 24 03/20/2024 CBC WITH DIFFE RENTI AL/PL ATELE T MCV 100 fL 79-97 above high normal Not Available [facility] ([facility]) [address] [facility], [place], [address], 03/20/2024 10:13:30 03/19/20 24 03/20/2024 CBC WITH DIFFE RENTI AL/PL ATELE T MCH 32.5 pg 26.6-3 3.0 Not Available [facility] ([facility]) [address] [facility], [place], [address], 03/20/2024 10:13:30 03/19/20 24 03/20/2024 CBC WITH DIFFE RENTI AL/PL ATELE T MCHC 32.6 g/dL 31.5-3 5.7 Not Available [facility] ([facility]) [address] [facility], [place], [address], 03/20/2024 10:13:30 03/19/20 24 03/20/2024 CBC WITH DIFFE RENTI AL/PL ATELE T RDW 12.4 % 11.7-1 5.4 Not Available [facility] ([facility]) [address] [facility], [place], [address], 03/20/2024 10:13:30 03/19/20 24 03/20/2024 CBC WITH DIFFE RENTI AL/PL ATELE T platelets 251 x10e3 /uL 150-45 0 Not Available [facility] ([facility]) [address] [place], [address], 03/20/2024 10:13:30 03/19/20 24 03/20/2024 CBC WITH DIFFE RENTI AL/PL ATELE T neutrophils 68 % notest ab. Not Available [facility] ([facility]) [address] [place], [address], 03/20/2024 10:13:30 03/19/20 24 03/20/2024 CBC WITH DIFFE RENTI AL/PL ATELE T lymphs 18 % notest ab. Not Available [facility] ([facility]) [address] [place], [address], 03/20/2024 10:13:30 03/19/20 24 03/20/2024 CBC WITH DIFFE RENTI AL/PL ATELE T monocytes 9 % notest ab. Not Available [facility] ([facility]) [address] [facility], [place], [address], 03/20/2024 10:13:30 03/19/20 24 03/20/2024 CBC WITH DIFFE RENTI AL/PL ATELE T eos 4 % notest ab. Not Available [facility] ([facility]) [address] [place], [address], 03/20/2024 10:13:30 03/19/20 24 03/20/2024 CBC WITH DIFFE RENTI AL/PL ATELE T basos 1 % notest ab. Not Available [facility] ([facility]) [address] [place], [address], 03/20/2024 10:13:30 03/19/20 24 03/20/2024 CBC WITH DIFFE RENTI AL/PL ATELE T neutrophils (absolute) 4.1 x10e3 /uL 1.4-7. 0 Not Available [facility] ([facility]) [address] [place], [address], 03/20/2024 10:13:30 03/19/20 24 03/20/2024 CBC WITH DIFFE RENTI AL/PL ATELE T lymphs (absolute) 1.1 x10e3 /uL 0.7-3. 1 Not Available [facility] ([facility]) [address] [place], [address], 03/20/2024 10:13:30 03/19/20 24 03/20/2024 CBC WITH DIFFE RENTI AL/PL ATELE T monocytes(ab solute) 0.5 x10e3 /uL 0.1-0. 9 Not Available [facility] ([facility]) [address] [place] [place], [address], 03/20/2024 10:13:30 03/19/20 24 03/20/2024 CBC WITH DIFFE RENTI AL/PL ATELE T eos (absolute) 0.2 x10e3 /uL 0.0-0. 4 Not Available [facility] ([facility]) [address] [facility], [place], [address], 03/20/2024 10:13:30 03/19/20 24 03/20/2024 CBC WITH DIFFE RENTI AL/PL ATELE T baso (absolute) 0.0 x10e3 /uL 0.0-0. 2 Not Available [facility] ([facility]) [address] [facility], [place], [address], 03/20/2024 10:13:30 03/19/20 24 03/20/2024 CBC WITH DIFFE RENTI AL/PL ATELE T immature granulocytes 0 % notest ab. Not Available [facility] ([facility]) [address] [facility], [place], [address], 03/20/2024 10:13:30 03/19/20 24 03/20/2024 CBC WITH DIFFE RENTI AL/PL ATELE T immature grans (abs) 0.0 x10e3 /uL 0.0-0. 1 Not Available [facility] ([facility]) [address] [place], [address], 03/20/2024 10:13:30 03/19/20 24 03/20/2024 PTH, INTAC T PTH, intact 24 pg/mL 15-65 Not Available [facility] ([facility]) [address] [place], [address], 03/20/2024 10:13:31 03/19/20 24 03/20/2024 VITAM IN D, 25-HY DROXY vitamin D, 25-hydroxy 57.7 NG/mL 30.0-1 00.0 Vitam in D defic iency has been defin ed by the Insti tute of Medic ine and an Endoc rine Socie ty pract ice guide line as a level of serum 25-OH vitam in D less than 20 ng/mL (1,2) . The Endoc rine Socie ty went on to furth er defin e vitam in D insuf ficie ncy as a level betwe en 21 and 29 ng/mL (2). 1. IOM (Inst itute of Medic ine). 2009. Dieta ry refer ence intsami es for calci um and D. Keerthi johnson [place]: The [facility] . 2. Maria Ines martinez [place], Gerry bishop [place], [place] off-F errar i [place], et al. Evalu ation , treat ment, and preve ntion of vitam in D defic iency : an Endoc rine Socie ty clini malik pract ice guide line. JCEM. 2010; 96(7) :1911 -30. Not Available [facility] ([facility]) [address] [place], [address], 03/20/2024 10:13:33 07/18/19 25 07/18/2024 COMP. METAB OLIC PANEL (14) glucose 108 mg/dL 70-99 above high normal Not Available [facility] ([facility]) [address] [place], [address], 07/18/2024 09:47:39 07/18/19 25 07/18/2024 COMP. METAB OLIC PANEL (14) BUN 21 mg/dL 8-27 Not Available [facility] ([facility]) [address] [place], [address], 07/18/2024 09:47:39 07/18/19 25 07/18/2024 COMP. METAB OLIC PANEL (14) creatinine 0.70 mg/dL 0.57-1 .00 Not Available [facility] ([facility]) [address] [place], [address], 07/18/2024 09:47:39 07/18/19 25 07/18/2024 COMP. METAB OLIC PANEL (14) eGFR 85 mL/mi n/1.7 3 >59 Not Available [facility] ([facility]) [address] [place], [address], 07/18/2024 09:47:39 07/18/19 25 07/18/2024 COMP. METAB OLIC PANEL (14) BUN/creatini ne ratio 30 12-28 above high normal Not Available [facility] ([facility]) [address] [facility], [place], [address], 07/18/2024 09:47:39 07/18/19 25 07/18/2024 COMP. METAB OLIC PANEL (14) sodium 141 mmol/ L 134-14 4 Not Available [facility] ([facility]) [address] [facility], [place], [address], 07/18/2024 09:47:39 07/18/19 25 07/18/2024 COMP. METAB OLIC PANEL (14) potassium 4.2 mmol/ L 3.5-5. 2 Not Available [facility] ([facility]) [address] [facility], [place], [address], 07/18/2024 09:47:39 07/18/19 25 07/18/2024 COMP. METAB OLIC PANEL (14) chloride 103 mmol/ L 96-106 Not Available [facility] ([facility]) [address] [place], [address], 07/18/2024 09:47:39 07/18/19 25 07/18/2024 COMP. METAB OLIC PANEL (14) carbon dioxide, total 22 mmol/ L 20-29 Not Available [facility] ([facility]) [address] [place], [address], 07/18/2024 09:47:39 07/18/19 25 07/18/2024 COMP. METAB OLIC PANEL (14) calcium 9.5 mg/dL 8.7-10 .3 Not Available [facility] ([facility]) [address] [facility], [place], [address], 07/18/2024 09:47:39 07/18/19 25 07/18/2024 COMP. METAB OLIC PANEL (14) protein, total 6.4 g/dL 6.0-8. 5 Not Available [facility] ([facility]) [address] [facility] [place], [address], 07/18/2024 09:47:39 07/18/19 25 07/18/2024 COMP. METAB OLIC PANEL (14) albumin 4.1 g/dL 3.7-4. 7 Not Available [facility] ([facility]) [address] [facility], [place], [address], 07/18/2024 09:47:39 07/18/19 25 07/18/2024 COMP. METAB OLIC PANEL (14) globulin, total 2.3 g/dL 1.5-4. 5 Not Available [facility] ([facility]) [address] [facility] [place], [address], 07/18/2024 09:47:39 07/18/19 25 07/18/2024 COMP. METAB OLIC PANEL (14) bilirubin, total 0.3 mg/dL 0.0-1. 2 Not Available [facility] ([facility]) [address] [facility] [place], [address], 07/18/2024 09:47:39 07/18/19 25 07/18/2024 COMP. METAB OLIC PANEL (14) alkaline phosphatase 70 IU/L 44-121 Not Available [facility] ([facility]) [address] [facility] [place], [address], 07/18/2024 09:47:39 07/18/19 25 07/18/2024 COMP. METAB OLIC PANEL (14) AST (SGOT) 14 IU/L 0-40 Not Available [facility] ([facility]) [address] [facility], [place], [address], 07/18/2024 09:47:39 07/18/1907/18/2024 COMP. METAB OLIC PANEL (14) ALT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
--- OUTSIDE RECORDS SUMMARY | 2024-07-25 13:28 | XMS_ITS | Data Portability ---
Author Organization [facility] Niko Niko [facility], Main Office Address [address] [place] [address] Care Team Providers Care Racker Octave Board Name Role Phone GRISELDA PALAFOX Primary Care Provider [phone] GRISELDA PALAFOX Referring Provider Assessment Encounter Date Assessment Date Assessment LastModified by Organization Details LastModified Time 08/14/2023 08/14/2023 This note is dictated and transcribed by [employer]. [employer] variances may occur. Despite proofreading, typographical errors may occur. Occasional wrong-word or 'wkfmz-m-wcxs' substitutions may have occurred due to the inherent limitations of voice recording. Read the chart carefully and recognize, using context, where substitutions have occurred. Not available 08/14/2023 14:29:40 11/16/2023 11/16/2023 This note is dictated and transcribed by [employer]. [employer] Farmer variances may occur. Despite proofreading, typographical errors may occur. Occasional wrong-word or 'loynx-d-fgoj' substitutions may have occurred due to the inherent limitations of voice recording. Read the chart carefully and recognize, using context, where substitutions have occurred. Not available 11/16/2023 15:04:40 03/25/2024 03/25/2024 This note is dictated and transcribed by [employer]. Energy C[employer] Farmer variances may occur. Despite proofreading, typographical errors may occur. Occasional wrong-word or 'fpznu-j-ebwo' substitutions may have occurred due to the inherent limitations of voice recording. Read the chart carefully and recognize, using context, where substitutions have occurred. Not available 03/25/2024 11:53:56 06/20/2024 06/20/2024 This note is dictated and transcribed by [employer]. [employer] C[employer] Farmer variances may occur. Despite proofreading, typographical errors may occur. Occasional wrong-word or 'bevub-k-qrby' substitutions may have occurred due to the inherent limitations of voice recording. Read the chart carefully and recognize, using context, where substitutions have occurred. Not available 06/20/2024 12:06:37 Plan of Treatment Reminders Order Date Submit Date Provider Last Modified By Organization Details Last Modified Time Details Appointments None record ed. Lab None record ed. Referral None record ed. Procedures None record ed. Surgeries None record ed. Imaging None record ed. Medication Orders None record ed. Patient TargetsNo targets recorded. Patient Instructions Encounter Date Encounter Id Patient Instructions Last Modified By Organization Details Last Modified Time 08/14/2023 [id number] diabetes foot health: care instructions Not available 08/14/2023 14:30:28 Reason for Referral None Reported. Results Created Date Observation Date Name Description Value Unit Range Abnormal Flag Note LastModifiedBy Organization Detail LastModifiedTime 07/31/19 24 07/31/2023 CBC/C OMPLE TE BLD COUNT W/DIF F white blood cells 5.1 x10'3 /uL 4.2-10 .8 Not Available [facility] (Lab) [address] [place], [address], 07/31/2023 13:42:00 07/31/19 24 07/31/2023 CBC/C OMPLE TE BLD COUNT W/DIF F red blood cells 3.53 x10'6 /uL 3.80-5 .20 low Not Available [facility] (Lab) [address] [place], [address], 07/31/2023 13:42:00 07/31/19 24 07/31/2023 CBC/C OMPLE TE BLD COUNT W/DIF F hemoglobin 10.3 g/dL 12.0-1 5.6 low Not Available [facility] (Lab) [address] [place], [address], 07/31/2023 13:42:00 07/31/19 24 07/31/2023 CBC/C OMPLE TE BLD COUNT W/DIF F hematocrit 32.6 % 35.7-4 5.7 low Not Available [facility] (Lab) [address] [place], [address], 07/31/2023 13:42:00 07/31/19 24 07/31/2023 CBC/C OMPLE TE BLD COUNT W/DIF F mean red cell volume 92.4 fL 82.0-9 9.0 Not Available [facility] (Lab) [address] [place], [address], 07/31/2023 13:42:00 07/31/19 24 07/31/2023 CBC/C OMPLE TE BLD COUNT W/DIF F mean red cell hemoglobin 29.2 pg 27.0-3 3.0 Not Available [facility] (Lab) [address] [place], [address], 07/31/2023 13:42:00 07/31/19 24 07/31/2023 CBC/C OMPLE TE BLD COUNT W/DIF F mean RBC HGB concentratio n 31.6 g/dL 31.0-3 6.0 Not Available [facility] (Lab) [address] [place], [address], 07/31/2023 13:42:00 07/31/19 24 07/31/2023 CBC/C OMPLE TE BLD COUNT W/DIF F red cell distribution width 16.7 % 11.8-1 5.5 high Not Available [facility] (Lab) [address] [place], [address], 07/31/2023 13:42:00 07/31/19 24 07/31/2023 CBC/C OMPLE TE BLD COUNT W/DIF F platelets 209 x10'3 /uL 150-40 0 Not Available [facility] (Lab) [address] [place], [address], 07/31/2023 13:42:00 07/31/19 24 07/31/2023 CBC/C OMPLE TE BLD COUNT W/DIF F mean platelet volume 9.8 fL 9.0-12 .4 Not Available [facility] (Lab) [address] [place], [address], 07/31/2023 13:42:00 07/31/19 24 07/31/2023 CBC/C OMPLE TE BLD COUNT W/DIF F neutrophils 67.6 % 39.0-7 2.0 Not Available [facility] (Lab) [address] [place], [address], 07/31/2023 13:42:00 07/31/19 24 07/31/2023 CBC/C OMPLE TE BLD COUNT W/DIF F lymphocytes 19.1 % 16.0-4 7.0 Not Available [facility] (Lab) [address] [place], [address], 07/31/2023 13:42:00 07/31/19 24 07/31/2023 CBC/C OMPLE TE BLD COUNT W/DIF F monocytes 8.6 % 5.0-12 .0 Not Available [facility] (Lab) [address] [place], [address], 07/31/2023 13:42:00 07/31/19 24 07/31/2023 CBC/C OMPLE TE BLD COUNT W/DIF F eosinophils 3.5 % 1.0-7. 0 Not Available [facility] (Lab) [address] [place], [address], 07/31/2023 13:42:00 07/31/19 24 07/31/2023 CBC/C OMPLE TE BLD COUNT W/DIF F basophils 0.8 % 0.0-2. 0 Not Available [facility] (Lab) [address] [place], [address], 07/31/2023 13:42:00 07/31/19 24 07/31/2023 CBC/C OMPLE TE BLD COUNT W/DIF F immature granulocytes 0.4 % 0.00-0 .50 Not Available [facility] (Lab) [address] [place], [address], 07/31/2023 13:42:00 07/31/19 24 07/31/2023 CBC/C OMPLE TE BLD COUNT W/DIF F neutrophils, absolute count 3.48 x10'3 /uL 1.5-8. 0 Not Available [facility] (Lab) [address] [place], [address], 07/31/2023 13:42:00 07/31/19 24 07/31/2023 CBC/C OMPLE TE BLD COUNT W/DIF F lymphocytes, absolute count 0.98 x10'3 /uL 1.07-3 .43 low Not Available [facility] (Lab) [address] [place], [address], 07/31/2023 13:42:00 07/31/19 24 07/31/2023 CBC/C OMPLE TE BLD COUNT W/DIF F monocytes, absolute count 0.44 x10'3 /uL 0.29-0 .99 Not Available [facility] (Lab) [address] [place], [address], 07/31/2023 13:42:00 07/31/19 24 07/31/2023 CBC/C OMPLE TE BLD COUNT W/DIF F eosinophils, absolute count 0.18 x10'3 /uL 0.02-0 .53 Not Available [facility] (Lab) [address] [place], [address], 07/31/2023 13:42:00 07/31/19 24 07/31/2023 CBC/C OMPLE TE BLD COUNT W/DIF F basophils, absolute count 0.04 x10'3 /uL 0.01-0 .08 Not Available [facility] (Lab) [address] [place], [address], 07/31/2023 13:42:00 07/31/19 24 07/31/2023 CBC/C OMPLE TE BLD COUNT W/DIF F immature granulocytes ,absolute 0.02 x10'3 /uL 0.00-0 .05 Not Available [facility] (Lab) [address] [place], [address], 07/31/2023 13:42:00 07/31/19 24 07/31/2023 CBC/C OMPLE TE BLD COUNT W/DIF F nucleated red blood cells 0.0 % -0 Not Available [facility] (Lab) [address] [place], [address], 07/31/2023 13:42:00 07/31/19 24 07/31/2023 CBC/C OMPLE TE BLD COUNT W/DIF F NRBC# 0.00 x10'3 /uL Not Available [facility] (Lab) [address] [place], [address], 07/31/2023 13:42:00 07/31/19 24 07/31/2023 HEMOG LOBIN A1C HA1C 5.6 % 4.0-6. 0 Diabe kiesha Scree misa Crite checo: <5.7% Consi stent with absen ce of diabe kiesha 5.7-6 .4% Consi stent with incre ased risk for diabe kiesha (pred iabet es) >OR=6 .5% Consi stent with diabe kiesha REFER ENCE: Diabe kiesha Care 2015, 39(Stafford ppl.1 ):s13 -s22 Not Available [facility] (Lab) [address] [place], [address], 07/31/2023 14:35:40 07/31/19 24 07/31/2023 LIPID PANEL cholesterol 132 mg/dL 140-19 9 low NIH JAROD NSUS RECOM MENDA TION FOR PENNY STERO L: ADULT CHILD LOW RISK: <200 <170 BORDE RLINE : <200- 239 ----- HIGH RISK: >240 >200 Not Available [facility] (Lab) [address] [place], [address], 07/31/2023 19:00:18 07/31/19 24 07/31/2023 LIPID PANEL triglyceride s 165 mg/dL 0-150 high NIH JAROD NSUS REPOR T RECOM MENDA TION FOR TRIGL YCERI KVNG: ADULT CHILD LOW RISK: <150 ----- BODER LINE: 150-1 99 ----- HIGH RISK: >200 ----- Not Available [facility] (Lab) [address] [place], [address], 07/31/2023 19:00:18 07/31/19 24 07/31/2023 LIPID PANEL HDL cholesterol 45 mg/dL 40- Not Available [facility] (Lab) [address] [place], [address], 07/31/2023 19:00:18 07/31/19 24 07/31/2023 LIPID PANEL LDL cholesterol, calculated 54 mg/dL [...] WILL NOT BE REPOR JOSEE. Not Available [facility] (Lab) [address] [place], [address], 07/31/2023 19:00:18 07/31/19 24 07/31/2023 COMPR EHENS ALLISON METAB OLIC PANEL sodium 138 mmol/ L 137-14 5 Not Available [facility] (Lab) [address] [place], [address], 07/31/2023 19:00:28 07/31/19 24 07/31/2023 COMPR EHENS ALLISON METAB OLIC PANEL potassium 4.3 mmol/ L 3.5-5. 1 Not Available [facility] (Lab) [address] [place], [address], 07/31/2023 19:00:28 07/31/19 24 07/31/2023 COMPR EHENS ALLISON METAB OLIC PANEL chloride 104 mmol/ L 98-107 Not Available [facility] (Lab) [address] [place], [address], 07/31/2023 19:00:28 07/31/19 24 07/31/2023 COMPR EHENS ALLISON METAB OLIC PANEL carbon dioxide 29 mmol/ L 22-30 Not Available [facility] (Lab) [address] [place], [address], 07/31/2023 19:00:28 07/31/19 24 07/31/2023 COMPR EHENS ALLISON METAB OLIC PANEL anion gap 9.3 mmol/ L 14-22 low Not Available [facility] (Lab) [address] [place], [address], 07/31/2023 19:00:28 07/31/19 24 07/31/2023 COMPR EHENS ALLISON METAB OLIC PANEL glucose 96 mg/dL 70-99 Not Available [facility] (Lab) [address] [place], [address], 07/31/2023 19:00:28 07/31/19 24 07/31/2023 COMPR EHENS ALLISON METAB OLIC PANEL BUN 33 mg/dL 8-19 high Not Available [facility] (Lab) [address] [place], [address], 07/31/2023 19:00:28 07/31/19 24 07/31/2023 COMPR EHENS ALLISON METAB OLIC PANEL creatinine 0.91 mg/dL 0.66-1 .25 Not Available [facility] (Lab) [address] [place], [address], 07/31/2023 19:00:28 07/31/19 24 07/31/2023 COMPR EHENS ALLISON METAB OLIC PANEL GFR 59 Refer ence Range : [place] ge GFR Healt hy Adult : >60 mL/mi n/1.7 3 m2 Chron ic Kidne y Disea se: 15-60 mL/mi n/1.7 3 m2 Kidne y Failu re: <15/m L/min /1.73 m2 www.n iddk. [facility].g ov The MDRD study equat ion has [...] calcu lator is avail able on the [facility] websi te: https ://chadd desouza.delano callahan.o feng/pr rigobertoess ional s/kdo qi/gf r_cal culat or Not Available [facility] (Lab) [address] [place], [address], 07/31/2023 19:00:28 07/31/19 24 07/31/2023 COMPR EHENS ALLISON METAB OLIC PANEL alkaline phosphatase 43 U/L 38-126 Not Available [facility] (Lab) [address] [place], [address], 07/31/2023 19:00:28 07/31/19 24 07/31/2023 COMPR EHENS ALLISON METAB OLIC PANEL alanine aminotransfe rase 14 U/L 0-35 Not Available [facility] (Lab) [address] [place], [address], 07/31/2023 19:00:28 07/31/19 24 07/31/2023 COMPR EHENS ALLISON METAB OLIC PANEL aspartate aminotransfe rase 24 U/L 15-37 Not Available [facility] (Lab) [address] [place], [address], 07/31/2023 19:00:28 07/31/19 24 07/31/2023 COMPR EHENS ALLISON METAB OLIC PANEL bilirubin, total 0.40 mg/dL 0.20-1 .30 Not Available [facility] (Lab) [address] [place], [address], 07/31/2023 19:00:28 07/31/19 24 07/31/2023 COMPR EHENS ALLISON METAB OLIC PANEL calcium 9.4 mg/dL 8.4-10 .2 Not Available [facility] (Lab) [address] [place], [address], 07/31/2023 19:00:28 07/31/19 24 07/31/2023 COMPR EHENS ALLISON METAB OLIC PANEL total protein 5.9 g/dL 6.3-8. 2 low Not Available [facility] (Lab) [address] [place], [address], 07/31/2023 19:00:28 07/31/19 24 07/31/2023 COMPR EHENS ALLISON METAB OLIC PANEL albumin 4.0 g/dL 3.0-4. 4 Not Available [facility] (Lab) [address] [place], [address], 07/31/2023 19:00:28 07/31/19 24 07/31/2023 COMPR EHENS ALLISON METAB OLIC PANEL globulin 1.9 g/dL 2.6-4. 2 low Not Available [facility] (Lab) [address] [place], [address], 07/31/2023 19:00:28 07/31/19 24 07/31/2023 COMPR EHENS ALLISON METAB OLIC PANEL A/G ratio 2.1 ratio 1.0-2. 0 high Not Available [facility] (Lab) [address] [place], [address], 07/31/2023 19:00:28 11/29/19 24 11/29/2023 CBC/C OMPLE TE BLD COUNT W/DIF F white blood cells 4.2 x10'3 /uL 4.2-10 .8 Not Available [facility] (Lab) [address] [place], [address], 11/29/2023 14:01:20 11/29/19 24 11/29/2023 CBC/C OMPLE TE BLD COUNT W/DIF F red blood cells 3.69 x10'6 /uL 3.80-5 .20 low Not Available [facility] (Lab) [address] [place], [address], 11/29/2023 14:01:20 11/29/19 24 11/29/2023 CBC/C OMPLE TE BLD COUNT W/DIF F hemoglobin 12.3 g/dL 12.0-1 5.6 Not Available [facility] (Lab) [address] [place], [address], 11/29/2023 14:01:20 11/29/19 24 11/29/2023 CBC/C OMPLE TE BLD COUNT W/DIF F hematocrit 37.1 % 35.7-4 5.7 Not Available [facility] (Lab) [address] [place], [address], 11/29/2023 14:01:20 11/29/19 24 11/29/2023 CBC/C OMPLE TE BLD COUNT W/DIF F mean red cell volume 100.5 fL 82.0-9 9.0 high Not Available [facility] (Lab) [address] [place], [address], 11/29/2023 14:01:20 11/29/19 24 11/29/2023 CBC/C OMPLE TE BLD COUNT W/DIF F mean red cell hemoglobin 33.3 pg 27.0-3 3.0 high Not Available [facility] (Lab) [address] [place], [address], 11/29/2023 14:01:20 11/29/19 24 11/29/2023 CBC/C OMPLE TE BLD COUNT W/DIF F mean RBC HGB concentratio n 33.2 g/dL 31.0-3 6.0 Not Available [facility] (Lab) [address] [place], [address], 11/29/2023 14:01:20 11/29/19 24 11/29/2023 CBC/C OMPLE TE BLD COUNT W/DIF F red cell distribution width 14.4 % 11.8-1 5.5 Not Available [facility] (Lab) [address] [place], [address], 11/29/2023 14:01:20 11/29/19 24 11/29/2023 CBC/C OMPLE TE BLD COUNT W/DIF F platelets 183 x10'3 /uL 150-40 0 Not Available [facility] (Lab) [address] [place], [address], 11/29/2023 14:01:20 11/29/19 24 11/29/2023 CBC/C OMPLE TE BLD COUNT W/DIF F mean platelet volume 9.7 fL 9.0-12 .4 Not Available [facility] (Lab) [address] [place], [address], 11/29/2023 14:01:20 11/29/19 24 11/29/2023 CBC/C OMPLE TE BLD COUNT W/DIF F neutrophils 65.0 % 39.0-7 2.0 Not Available [facility] (Lab) [address] [place], [address], 11/29/2023 14:01:20 11/29/19 24 11/29/2023 CBC/C OMPLE TE BLD COUNT W/DIF F lymphocytes 21.1 % 16.0-4 7.0 Not Available [facility] (Lab) [address] [place], [address], 11/29/2023 14:01:20 11/29/19 24 11/29/2023 CBC/C OMPLE TE BLD COUNT W/DIF F monocytes 9.2 % 5.0-12 .0 Not Available [facility] (Lab) [address] [place], [address], 11/29/2023 14:01:20 11/29/19 24 11/29/2023 CBC/C OMPLE TE BLD COUNT W/DIF F eosinophils 3.8 % 1.0-7. 0 Not Available [facility] (Lab) [address] [place], [address], 11/29/2023 14:01:20 11/29/19 24 11/29/2023 CBC/C OMPLE TE BLD COUNT W/DIF F basophils 0.7 % 0.0-2. 0 Not Available [facility] (Lab) [address] [place], [address], 11/29/2023 14:01:20 11/29/19 24 11/29/2023 CBC/C OMPLE TE BLD COUNT W/DIF F immature granulocytes 0.2 % 0.00-0 .50 Not Available [facility] (Lab) [address] [place], [address], 11/29/2023 14:01:20 11/29/19 24 11/29/2023 CBC/C OMPLE TE BLD COUNT W/DIF F neutrophils, absolute count 2.74 x10'3 /uL 1.5-8. 0 Not Available [facility] (Lab) [address] [place], [address], 11/29/2023 14:01:20 11/29/19 24 11/29/2023 CBC/C OMPLE TE BLD COUNT W/DIF F lymphocytes, absolute count 0.89 x10'3 /uL 1.07-3 .43 low Not Available [facility] (Lab) [address] [place], [address], 11/29/2023 14:01:20 11/29/19 24 11/29/2023 CBC/C OMPLE TE BLD COUNT W/DIF F monocytes, absolute count 0.39 x10'3 /uL 0.29-0 .99 Not Available [facility] (Lab) [address] [place], [address], 11/29/2023 14:01:20 11/29/19 24 11/29/2023 CBC/C OMPLE TE BLD COUNT W/DIF F eosinophils, absolute count 0.16 x10'3 /uL 0.02-0 .53 Not Available [facility] (Lab) [address] [place], [address], 11/29/2023 14:01:20 11/29/19 24 11/29/2023 CBC/C OMPLE TE BLD COUNT W/DIF F basophils, absolute count 0.03 x10'3 /uL 0.01-0 .08 Not Available [facility] (Lab) [address] [place], [address], 11/29/2023 14:01:20 11/29/19 24 11/29/2023 CBC/C OMPLE TE BLD COUNT W/DIF F immature granulocytes ,absolute 0.01 x10'3 /uL 0.00-0 .05 Not Available [facility] (Lab) [address] [place], [address], 11/29/2023 14:01:20 11/29/19 24 11/29/2023 CBC/C OMPLE TE BLD COUNT W/DIF F nucleated red blood cells 0.0 % -0 Not Available [facility] (Lab) [address] [place], [address], 11/29/2023 14:01:20 11/29/19 24 11/29/2023 CBC/C OMPLE TE BLD COUNT W/DIF F NRBC# 0.00 x10'3 /uL Not Available [facility] (Lab) [address] [place], [address], 11/29/2023 14:01:20 11/29/19 24 11/29/2023 HEMOG LOBIN A1C HA1C 5.6 % 4.0-6. 0 Diabe kiesha Scree misa Crite checo: <5.7% Consi stent with absen ce of diabe kiesha 5.7-6 .4% Consi stent with incre ased risk for diabe kiesha (pred iabet es) >OR=6 .5% Consi stent with diabe kiesha REFER ENCE: Diabe kiesha Care 2016, 39(Stafford ppl.1 ):s13 -s22 Not Available [facility] (Lab) [address] [place], [address], 11/29/2023 14:36:55 11/29/19 24 11/29/2023 LIPID PANEL cholesterol 145 mg/dL 140-19 9 NIH JAROD NSUS RECOM MENDA TION FOR PENNY STERO L: ADULT CHILD LOW RISK: <200 <170 BORDE RLINE : <200- 239 ----- HIGH RISK: >240 >200 Not Available [facility] (Lab) [address] [place], [address], 11/29/2023 17:10:35 11/29/19 24 11/29/2023 LIPID PANEL triglyceride s 181 mg/dL 0-150 high NIH JAROD NSUS REPOR T RECOM MENDA TION FOR TRIGL YCERI KVNG: ADULT CHILD LOW RISK: <150 ----- BODER LINE: 150-1 99 ----- HIGH RISK: >200 ----- Not Available [facility] (Lab) [address] [place], [address], 11/29/2023 17:10:35 11/29/19 24 11/29/2023 LIPID PANEL HDL cholesterol 46 mg/dL 40- Not Available [facility] (Lab) [address] [place], [address], 11/29/2023 17:10:35 11/29/19 24 11/29/2023 LIPID PANEL [...] WILL NOT BE REPOR JOSEE. Not Available [facility] (Lab) [address] [place], [address], 11/29/2023 17:10:35 11/29/19 24 11/29/2023 COMPR EHENS ALLISON METAB OLIC PANEL sodium 139 mmol/ L 137-14 5 Not Available [facility] (Lab) [address] [place], [address], 11/29/2023 17:10:39 11/29/19 24 11/29/2023 COMPR EHENS ALLISON METAB OLIC PANEL potassium 4.7 mmol/ L 3.5-5. 1 Not Available [facility] (Lab) [address] [place], [address], 11/29/2023 17:10:39 11/29/19 24 11/29/2023 COMPR EHENS ALLISON METAB OLIC PANEL chloride 106 mmol/ L 98-107 Not Available [facility] (Lab) [address] [place], [address], 11/29/2023 17:10:39 11/29/19 24 11/29/2023 COMPR EHENS ALLISON METAB OLIC PANEL carbon dioxide 32 mmol/ L 22-30 high Not Available [facility] (Lab) [address] [place], [address], 11/29/2023 17:10:39 11/29/19 24 11/29/2023 COMPR EHENS ALLISON METAB OLIC PANEL anion gap 5.7 mmol/ L 14-22 low Not Available [facility] (Lab) [address] [place], [address], 11/29/2023 17:10:39 11/29/19 24 11/29/2023 COMPR EHENS ALLISON METAB OLIC PANEL glucose 92 mg/dL 70-99 Not Available [facility] (Lab) [address] [place], [address], 11/29/2023 17:10:39 11/29/19 24 11/29/2023 COMPR EHENS ALLISON METAB OLIC PANEL BUN 27 mg/dL 8-19 high Not Available [facility] (Lab) [address] [place], [address], 11/29/2023 17:10:39 11/29/19 24 11/29/2023 COMPR EHENS ALLISON METAB OLIC PANEL creatinine 0.88 mg/dL 0.66-1 .25 Not Available [facility] (Lab) [address] [place], [address], 11/29/2023 17:10:39 11/29/19 24 11/29/2023 COMPR EHENS ALLISON METAB OLIC PANEL GFR >60 Refer ence Range : [place] GFR Healt hy Adult : >60 [...] calcu lator is avail able on the [facility] websi te: https ://chadd w.delano callahan.o rg/pr ofess ional s/kdo qi/gf r_cal culat or Not Available [facility] (Lab) [address] [place], [address], 11/29/2023 17:10:39 11/29/19 24 11/29/2023 COMPR EHENS ALLISON METAB OLIC PANEL alkaline phosphatase 44 U/L 38-126 Not Available [facility] (Lab) [address] [place], [address], 11/29/2023 17:10:39 11/29/19 24 11/29/2023 COMPR EHENS ALLISON METAB OLIC PANEL alanine aminotransfe rase 17 U/L 0-35 Not Available [facility] (Lab) [address] [place], [address], 11/29/2023 17:10:39 11/29/19 24 11/29/2023 COMPR EHENS ALLISON METAB OLIC PANEL aspartate aminotransfe rase 26 U/L 15-37 Not Available [facility] (Lab) [address] [place], [address], 11/29/2023 17:10:39 11/29/19 24 11/29/2023 COMPR EHENS ALLISON METAB OLIC PANEL bilirubin, total 0.50 mg/dL 0.20-1 .30 Not Available [facility] (Lab) [address] [place], [address], 11/29/2023 17:10:39 11/29/19 24 11/29/2023 COMPR EHENS ALLISON METAB OLIC PANEL calcium 9.8 mg/dL 8.4-10 .2 Not Available [facility] (Lab) [address] [place], [address], 11/29/2023 17:10:39 11/29/19 24 11/29/2023 COMPR EHENS ALLISON METAB OLIC PANEL total protein 6.1 g/dL 6.3-8. 2 low Not Available [facility] (Lab) [address] [place], [address], 11/29/2023 17:10:39 11/29/19 24 11/29/2023 COMPR EHENS ALLISON METAB OLIC PANEL albumin 3.8 g/dL 3.0-4. 4 Not Available [facility] (Lab) [address] [place], [address], 11/29/2023 17:10:39 11/29/19 24 11/29/2023 COMPR EHENS ALLISON METAB OLIC PANEL globulin 2.3 g/dL 2.6-4. 2 low Not Available [facility] (Lab) [address] [place], [address], 11/29/2023 17:10:39 11/29/19 24 11/29/2023 COMPR EHENS ALLISON METAB OLIC PANEL A/G ratio 1.7 ratio 1.0-2. 0 Not Available [facility] (Lab) [address] [place], [address], 11/29/2023 17:10:39 Result Notes None recorded. 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 Not Available [facility] 4 04:30:00 Closed fracture of fifth lumbar vertebra 78227436888 684462 Completed 202002/08/2021 Not Available [facility] 3 03:24:42 Chronic back pain 656385352 Active 2021 Not Available [facility] 4 04:30:01 Hyperchol esterolem ia 94433148 Active 2016 Not Available [facility] 4 04:30:01 Acute sinusitis 11913039 Active 2021 Not Available [facility] 4 04:30:01 Heartburn 41659947 Active 2016 Not Available [facility] 4 04:30:01 Dry skin 27757967 Active 2018 Not Available [facility] 4 04:30:01 Foot callus 729028489 Active 2018 Not Available [facility] 4 04:30:01 Gastroeso phageal reflux disease 189300604 Active Not Available [facility] 4 04:30:01 Dry skin dermatiti s 698670382 Active 2019 Not Available [facility] 4 04:30:01 Low back pain 396907376 Active 2021 Not Available [facility] 4 04:30:01 Numbness of hand 347251858 Active 2021 Not Available [facility] 4 04:30:01 Type 2 diabetes mellitus without complicat ion 801861607 Active Not Available [facility] 4 04:30:01 Elevated blood-pre ssure reading without diagnosis of hypertens ion 662068694 Completed Not Available [facility] 3 03:24:42 Compressi on fracture of lumbar spine 823839597 Active 2021 Not Available [facility] 4 04:30:01 Compressi on fracture 981881983 Active 2020 L5 Not Available [facility] 4 04:30:01 Well controlle d type 2 diabetes mellitus 432844485 Active 2021 Not Available [facility] 4 04:30:01 Atrial fibrillat ion 28955354 Active 2021 Not Available [facility] 4 04:30:01 Cough 42380626 Active 2021 Not Available [facility] 4 04:30:01 Hyperlipi demia 46146790 Active Not Available [facility] 4 04:30:01 Essential hypertens ion 85714009 Active Not Available [facility] 4 04:30:01 Osteoporo sis 07686589 Active 2021 Not Available [facility] 4 04:30:01 Abscess of vulva 72525928 Active Not Available [facility] 4 04:30:01 Rhinitis 96564297 Active 2019 Not Available [facility] 4 04:30:01 Diabetes mellitus 18264271 Active 2016 Not Available [facility] 4 04:30:01 Dystrophi a unguium 80006825 Active 2022 Not Available [facility] 4 04:30:01 Diabetic on oral treatment 301477494 Active 2024 Carlo Wells, SIMONE [address] [facility], [place], [address] , [facility] 5 12:07:13 Pressure injury of toe of right foot stage I 75242889441 4106 Active 2024 Carlo Wells DPM [address], [place], [address] , [facility] 5 12:22:28 Pressure injury of toe of left foot stage I 48314099424 4109 Active 2024 Carlo Wells DPM [address], [place], [address] , [facility] 12:22:59 Foot pain 42425145 Active 2024 Carlo Wells DPM [address], [place], [address] , [facility] 12:23:16 Pain in right foot 03277737451 9107 Active 2024 Carlo Wells DPM [address], [place], [address] , [facility] 15:14:17 Problem Notes None recorded. Procedures Surgical History Date Name Laterality Status Provider Name and Address Organization Details Recorded Time 07/19/19 25 Callus Debridement, One active Carlo Wells DPM [address], [place], [address], [facility] 07/18/2024 15:13:31 06/21/19 25 Nail Debridement completed Carlo Wells DPM [address], [place], [address], [facility] 06/20/2024 13:03:19 06/21/19 25 Callus Debridement, One completed Carlo Wells DPM [address], [place], [address], [facility] 06/20/2024 13:02:08 03/25/20 24 Nail Debridement completed SIMONE [address], [place], [address], [facility] 03/25/2024 11:53:34 11/16/19 24 Nail Debridement completed Carlo Wells DPM [address], [place], [address], [facility] 11/16/2023 15:06:19 11/16/19 24 Callus Debridement 2-[address], [place], [address], [facility] 11/16/2023 15:06:11 08/14/19 24 Nail Debridement completed SIMONE [address], [place], [address], [employer] [facility] 08/14/2023 14:29:36 05/15/19 24 Nail Debridement completed SIMONE [address], [place], [address], [facility] 05/15/2023 14:03:10 02/21/20 23 Nail Debridement completed Carlo Wells DPM [address], [place], [address], [employer] [facility] 02/20/2023 12:02:00 02/21/20 23 Callus Debridement, One completed Carlo Wells DPM [address], [place], [address], [facility] [employer] [facility] 02/20/2023 12:01:51 11/22/19 23 Nail Debridement completed SIMONE [address], [place], [address], [facility] [employer] [facility] 11/21/2022 10:40:17 11/22/19 23 Callus Debridement 2-[address], [place], [address], [facility] 11/21/2022 10:40:10 08/23/19 23 Nail Debridement completed SIMONE [address], [place], [address], [facility] 08/22/2022 11:11:43 08/23/19 23 Callus Debridement, One completed Carlo Wells, SIMONE [address] [facility], [facility] [address], [place], [address], [facility] [employer] [facility] 08/22/2022 11:11:48 11/19/19 17 Date of [...] Not available Not available Not available 06/08/2022 70176 8003 SNOMED Not Available [facility] 3 03:36:18 6371 erythromy tee medicatio n Not available Not available Not available 06/08/2022 4053 RxNorm Other react ions and sever ities : 'Adve rse react ion to subst ance' . Not Available [facility] 3 03:36:18 Medications Name Sig Start Date Stop [...] completed Not Available Not Available Not Available [employer] Ultra Test strips USE TO MONITOR BLOOD SUGAR LEVELS DAILY active Not Available Not Available No t Available Kenalog 10 mg/mL suspensio n for injection In office injectio n administ ered by the provider 04/07 completed [facility]: 0003-049 4-20 Not Available Not Available Not [...] Not Available Not Available No t Available Glasgow 10 mg-325 mg tablet Take 1 tablet [...] administ ered by the provider 10/07 completed [facility]: 0409-427 6-17 Not Available Not Available Not [...] Updated DateTime 4 154.94 cm 37.8 kg/m2 80177.4 7 g 67 /min 14 /min 98 % 98 % 128 mm[Hg] 67 mm[Hg] Mellisa Brian [employer] 4 12:12:33 Date Recorded Body height Body mass index (BMI) Body weight Heart rate Body temperature Respiratory rate Systolic blood pressure Diastolic blood pressure Provider Name and Address Organization Details Last Updated DateTime 4 154.94 cm 37.8 kg/m2 34224.4 7 g 72 /min 98.6 [degF] 14 /min 126 mm[Hg] 70 mm[Hg] Vicki Monk MA [employer] [facility] 4 12:38:09 Date Recorded Body height Body mass index (BMI) Body weight Heart rate Respiratory rate Oxygen saturation Oxygen saturation in Arterial blood by Pulse oximetry Systolic blood pressure Diastolic blood pressure Provider Name and Address Organization Details Last Updated DateTime 4 154.94 cm 37.8 kg/m2 84698.4 7 g 72 /min 14 /min 98 % 98 % 146 mm[Hg] 71 mm[Hg] Mellisa Torres ME [employer] 4 11:05:45 Date Recorded Body height Body mass index (BMI) Body weight Heart rate Respiratory rate Oxygen saturation Oxygen saturation in Arterial blood by Pulse oximetry Systolic blood pressure Diastolic blood pressure Provider Name and Address Organization Details Last Updated DateTime 5 154.94 cm 37.8 kg/m2 68844.4 7 g 65 /min 14 /min 98 % 98 % 117 mm[Hg] 54 mm[Hg] Mellisa Torres [employer] 5 12:12:52 Date Recorded Body height Body mass index (BMI) Body weight Heart rate Respiratory rate Oxygen saturation Oxygen saturation in Arterial blood by Pulse oximetry Systolic blood pressure Diastolic blood pressure Provider Name and Address Organization Details Last Updated DateTime 5 154.94 cm 37.8 kg/m2 37174.4 7 g 75 /min 14 /min 97 % 97 % 110 mm[Hg] 57 mm[Hg] Mellisa Torres [employer] 5 14:20:38 Social History Question Answer Notes LastModified by Organization Details LastModified Time Tobacco Smoking Status Never Smoker Not Available [employer] 06/08/2022 03:01:32 Do You Have An Advance Directive? No MIGRATION.0301 289189 Information not available 06/08/2022 What Is Your Level Of Alcohol Consumption? None MIGRATION.0301 662187 Information not available 06/08/2022 Are You Blind Or Do You Have Difficulty Seeing? Yes MIGRATION.030 805587 Information not available 06/08/2022 What Is Your Level Of Caffeine Consumption? Moderate MIGRATION.0301 715661 Information not available 06/08/2022 How Much Tobacco Do You Chew? None MIGRATION.0301 566220 Information not available 06/08/2022 In The 14 Days Before Symptom Onset, Have You Had Close Contact With A Laboratory-confi rmed COVID-19 While That Case Was Ill? No MIGRATION.030 384351 Information not available 06/08/2022 In The 14 Days Before Symptom Onset, Have You Had Close Contact With A Person Who Is Under Investigation For COVID-19 While That Person Was Ill? No MIGRATION.030 685143 Information not available 06/08/2022 Are You Deaf Or Do You Have Serious Difficulty Hearing? No MIGRATION.0301 693822 Information not available 06/08/2022 What Type Of Diet Are You Following? REGULAR MIGRATION.030 275430 Information not available 06/08/2022 Which Illicit Or Recreational Drugs Have You Used? None MIGRATION.030 367648 Information not available 06/08/2022 Do You Or Have You Ever Used E-cigarettes Or Vape? Never Used Electronic Cigarettes MIGRATION.030 949617 Information not available 06/08/2022 What Is The Highest Grade Or Level Of School You Have Completed Or The Highest Degree You Have Received? TI73575-1 MIGRATION.0301 398827 Information not available 06/08/2022 What Is Your Occupation? Retired MIGRATION.030 722047 Information not available 06/08/2022 Have There Been Any Changes To Your Family Or Social Situation? No MIGRATION.030 178322 Information not available 06/08/2022 What Is The Fluoride Status Of Your Home? Unknown MIGRATION.0301 554731 Information not available 06/08/2022 Are There Any Guns Present In Your Home? No MIGRATION.0301 936880 Information not available 06/08/2022 Do You Use Insect Repellent Routinely? No MIGRATION.0301 246062 Information not available 06/08/2022 Where Do You Live? [facility] MIGRATION.0301 561018 Information not available 06/08/2022 Do You Have A Medical Power Of Site Superintendent? No MIGRATION.0301 886109 Information not available 06/08/2022 What Was The Date Of Your Most Recent Tobacco Screening? 05/02/2023 [email or web address] Information not available 05/02/2023 Do You Have Any Pets? No MIGRATION.0301 626183 Information not available 06/08/2022 What Is Your Relationship Status? MIGRATION.0301 404850 Information not available 06/08/2022 Do You Use Your Seat Belt Or Car Seat Routinely? Yes MIGRATION.0301 200999 Information not available 06/08/2022 Do You Have Smoke And Carbon Monoxide Detectors In Your Home? Yes MIGRATION.0301 299404 Information not available 06/08/2022 Are You Passively Exposed To Smoke? No MIGRATION.0301 244665 Information not available 06/08/2022 Do You Or Have You Ever Used Smokeless Tobacco? Never Used Smokeless Tobacco MIGRATION.0301 436467 Information not available 06/08/2022 Are There Any Smokers In Your House? No MIGRATION.0301 402133 Information not available 06/08/2022 How Much Tobacco Do You Smoke? No MIGRATION.0301 710477 Information not available 06/08/2022 What Types Of Sporting Activities Do You Participate In? None MIGRATION.0301 852173 Information not available 06/08/2022 Do You Feel Stressed (tense, Restless, Nervous, Or Anxious, Or Unable To Sleep At Night)? TG59926-4 MIGRATION.0301 664055 Information not available 06/08/2022 Do You Use Any Illicit Or Recreational Drugs? No MIGRATION.0301 553866 Information not available 06/08/2022 Do You Use Sunscreen Routinely? No MIGRATION.0301 034909 Information not available 06/08/2022 Has Tobacco Cessation Counseling Been Provided? No Not Needed-ne leela Smoked MIGRATION.0301 611550 Information not available 06/08/2022 How Many Years Have You Smoked Tobacco? 0 MIGRATION.0301 874842 Information not available 06/08/2022 Have You Recently Traveled Abroad? No MIGRATION.0301 401811 Information not available 06/08/2022 Do You Have Any Dietary Restrictions? No MIGRATION.0301 395527 Information not available 06/08/2022 Do You Or Have You Ever Used Any Other Forms Of Tobacco Or Nicotine? No MIGRATION.0301 996145 Information not available 06/08/2022 Sex: Female Functional Status Question Answer Note LastModified by Organizat ion Details LastModified Time Do you have difficulty walking or climbing stairs? Yes MIGRATION.897502 2185 Information not available 06/08/2022 Do you have transportation difficulties? No MIGRATION.839938 0852 Information not available 06/08/2022 Are you able to walk? YESASSIST uses cane MIGRATION.569990 0053 Information not available 06/08/2022 Do you have difficulty doing errands alone? No MIGRATION.087115 6512 Information not available 06/08/2022 Are you able to care for yourself? Yes MIGRATION.908949 3751 Information not available 06/08/2022 Do you have difficulty dressing or bathing? No MIGRATION.934513 6613 Information not available 06/08/2022 What is your exercise level? None MIGRATION.511940 8526 Information not available 06/08/2022 Mental Status Question Answer Note LastModified by Organizat ion Details LastModified Time Do you have difficulty concentrating, remembering or making decisions? No MIGRATION.468094172 6 Information not available 06/08/2022 Family History Relationship Description Onset Age of this Age Resolved Age Notes LastModified by Organization Details LastModified Time Mother Pulmonary embolism MIGRATION.440 [id number] Not available 06/08/2022 03:17:46 Father Diabetes mellitus MIGRATION.869 0931823 Not available 06/08/2022 03:17:46 Unspecified Relation Heart disease MIGRATION.049 3004183 Not available 06/08/2022 03:17:46 Medical History Condition Response BLINDNESS N NERVE DISEASE N RHEUMATIC FEVER N BLADDER PROBLEMS N KIDNEY STONES N MRSA N OTHER # 1 N [...] HAVE YOU BEEN HOSPITALIZED OR SEEN IN [facility] IN THE PAST YEAR ? Y ATHEROSCLEROSIS [...] virus, trivalent, PF 03/21/2013 completed Not Available [facility] 2023 04:30:03 Influenza, high-dose, quadrivalent, PF 01/10/2019 completed Not Available [facility] 04:30:03 Influenza, high-dose, trivalent, PF 01/10/2018 completed Not Available [facility] 2023 04:30:03 Influenza, high-dose, trivalent, PF 02/24/2017 completed Not Available [facility] 2023 04:30:03 Influenza, high-dose, trivalent, PF 01/24/2016 completed Not Available [facility] 2023 04:30:03 Influenza, split virus, trivalent, PF 02/19/2014 completed Not Available [facility] 2023 04:30:03 Influenza, high-dose, quadrivalent, PF 02/10/2022 completed Not Available [facility] 04:30:03 Past Encounters Encounter ID Performer Location Encounter Start Date Encounter Closed Date Diagnosis/Indication Diagnosis SNOMED-CT Code Diagnosis ICD10 Code Diagnosis Note [id number] [facility] [place] [address] [facility] [address] [place] [address] 07/16/2020 00:00:00 07/20/2020 08:49:57 [id number] [facility] [place] [address] [facility] [address] [place] [address] 09/30/2020 00:00:00 10/02/2020 17:13:50 [id number] [facility] [place] [address] [facility] [address] , [place] [address] 10/22/2020 00:00:00 10/22/2020 22:38:57 [id number] [facility] [address], [address] [address] 12/15/2020 00:00:00 12/15/2020 21:34:41 [id number] [facility] [place] [address] [place] [address] 01/07/2021 00:00:00 01/29/2021 22:18:10 [id number] [facility] [place] [address] [facility] [place] [address] 01/28/2021 00:00:00 02/08/2021 21:45:54 [id number] [facility] [place] [address] [facility] [address] [place] [address] 02/22/2021 00:00:00 02/22/2021 15:37:48 [id number] [facility] [place] [address] [place] [address] 03/09/2021 00:00:00 03/10/2021 23:47:17 [id number] [facility] [place] [address] [place] [address] 03/17/2021 00:00:00 03/26/2021 14:01:46 [id number] [facility] [place] [address] [place] [address] 03/26/2021 00:00:00 03/26/2021 14:00:16 [id number] [facility] [place] [address] [place] [address] 04/07/2021 00:00:00 04/07/2021 10:57:26 [id number] [facility] [address] [facility] [address] , [place] [address] 04/27/2021 00:00:00 05/01/2021 15:53:23 [id number] [facility] [place] [address] [place] [address] 05/06/2021 00:00:00 05/06/2021 13:26:01 [id number] [facility] [place] [address] [place] [address] 05/19/2021 00:00:00 05/19/2021 14:56:10 [id number] [facility] [address] [place] [address] y , [place] [address] 05/27/2021 00:00:00 06/05/2021 14:13:59 [id number] [facility] [place] [address] [place] [address] 06/11/2021 00:00:00 06/11/2021 17:01:10 [id number] [facility] [place] [address] [place] [address] 07/12/2021 00:00:00 07/13/2021 11:26:48 [id number] [facility] [place] [address] [place] [address] 08/13/2021 00:00:00 08/13/2021 12:06:32 [id number] [facility] [place] [address] , [place] [address] 08/26/2021 00:00:00 09/18/2021 17:54:48 [id number] [facility] [place] [address] [place] [address] 09/27/2021 00:00:00 09/28/2021 10:00:21 [id number] [facility] [place] [address] [place] [address] 11/16/2021 00:00:00 11/16/2021 14:08:05 [id number] [facility] [place] [address] [facility] [address] , [place] [address] 11/25/2021 00:00:00 12/19/2021 22:28:33 [id number] [facility] [place] [address] [place] [address] 12/06/2021 00:00:00 12/06/2021 16:25:58 [id number] [facility] [place] [address] , [place] [address] 02/10/2022 00:00:00 02/12/2022 14:39:50 [id number] [facility] [place] [address] [place] [address] 02/21/2022 00:00:00 02/22/2022 10:47:52 [id number] [facility] [place] [address] [place] [address] 04/20/2022 00:00:00 04/20/2022 11:27:35 [id number] [facility] [place] [address] [place] [address] 05/23/2022 00:00:00 05/23/2022 10:57:45 [id number] Dian Negrete MD [facility] Endo [place] [address] [place] [address] 06/13/2022 10:36:17 06/13/2022 11:45:18 Well controlled type 2 diabetes mellitus 033130353 E11.9 a1c 6% from 2021- not completed this last time- fasting glucose 110 mg/dL- she is no longer on glyburide and has no further hypoglycem ia. Continue on metformin and actos for insulin sensisitiz ation. Postmenopa usal osteoporosis 588204040 M81.0 Continue on prolia as patient tolerating [...] she chooses to go outside of the [facility] to obtain labwork she was [...] in her case. She voiced understand ing. [id number] Griselda Palafox MD [facility] Internal Med [place] [address] [place] [place] [address] 06/23/2022 10:38:02 06/23/2022 11:47:00 Renewal of prescription [id number] Z76.0 Type 2 melyssa betes mellitus without complication 417169251 E11.9 Essential hypertension 12201486 I10 Atrial fibrillation 4943 6004 I48.91 Compressio n fracture of lumbar spine 746744372 M48.56XD Diabetes mellitus 791632 09 E11.40 L60.3 L60.0 Z74.1 [id number] Carlo Wells DPM [facility] Pod[facility] [place] [address] [place] [address] 08/22/2022 10:45:40 08/22/2022 11:19:03 Type 2 diabetes mellitus without complication 064166824 E11.9 Patient educated on neuropathy , diabetes, diabetic diet, and daily foot exams. Patient is to check feet daily for new wounds, blisters, redness to prevent infection and ulceration s to the feet. Patient will return to clinic in 3 months for diabetic foot workup. Foot callus 617018449 L8 4 Sub 1st met head left footdebrid ed without incidentRe commend diabetic inserts Dystrophia unguium 68502 009 L60.3 Nails 1 through 10 were debrided with sharp mechanical debridemen t without incident. Nails were debrided and greater than 50% length and thickness where needed. Unable to cut own toenails [id number] Z74.1 [id number] Griselda Palafox MD [facility] [place] Internal Med [place] [address] [facility] [place] [address] 10/18/2022 15:09:51 10/18/2022 15:58:25 Type 2 diabetes mellitus without complication 460416261 E11.9 Diabetes mellitus 320209 09 E11.40 L60.3 L60.0 Z74.1 Essential hypertension 79680519 I10 Gastroesop hageal reflux disease 733824893 K21.9 [id number] Dian Negrete MD [facility] [place] [place] [address] [place] [address] 11/15/2022 10:32:08 11/15/2022 18:50:48 Postmenopausal osteoporosis 929618310 M81.0 Patient tolerated prolia injection without pain or site reaction. Patient brought in prolia injection for her injection today. [id number] Carlo Wells DPM [facility] [place] Pod[place] [address] [place] [address] 11/21/2022 10:10:07 11/21/2022 10:44:12 Well controlled type 2 diabetes mellitus 380798294 E11.9 Patient educated on neuropathy , diabetes, diabetic diet, and daily foot exams. Patient is to check feet daily for new wounds, blisters, redness to prevent infection and ulceration s to the feet. Patient will return to clinic in 3 months for diabetic foot workup. Foot callus [id number] L8 4 Sub 1st met [facility] without incidentRe commend diabetic inserts Dystrophia unguium 65993 009 L60.3 Nails 1 through 10 were debrided with sharp mechanical debridemen t without incident. Nails were debrided and greater than 50% length and thickness where needed. Porokeratosis 459917165 Q82.8 x2 [facility] ed without incidentus e pumice stone dailyrecom mend diabetic insertsfol low-up as needed [id number] Dian Negrete MD [facility] [place] [place] [address] [place] [address] 12/01/2022 15:44:52 12/01/2022 17:17:38 Well controlled type 2 diabetes mellitus 673195112 E11.9 a1c 6.3% stable- continue on actos and metformin as patient tolerating well and renal function in ideal range. She is no longer on glyburide and has no further hypoglycem ia. Recommende d she incorporat e natural insulin pharmacist helper s such as pears, apples, cinnamon, laura and sweet potatoes to help mobilize her endogenous insulin. Recommende d up to 150 minutes of walking /movement and small weights in chair for mobility weekly. Postmenopa usal osteoporosis [id number] M81.0 Tolerated last prolia injection from 11/15 [...] answered and refills necessary at visit today. [id number] Carlo Wells DPM [facility] Podiatry [place] [address] [facility] [address] [place] [address] 02/20/2023 11:19:12 02/20/2023 12:09:25 Well controlled type 2 diabetes mellitus 161199905 E11.9 Patient educated on neuropathy , diabetes, diabetic diet, and daily foot exams. Patient is to check feet daily for new wounds, blisters, redness to prevent infection and ulceration s to the feet. Patient will return to clinic in 3 months for diabetic foot workup.A1c 6.3 11/09/2022 Foot callus 614442932 L8 4 Sub 1st met head left footdebrid ed without incidentco ntinue offloading to prevent woundRecom mend diabetic inserts Dystrophia unguium 22670 009 L60.3 Nails 1 through 10 were debrided with sharp mechanical debridemen t without incident. Nails were debrided and greater than 50% length and thickness where needed. [id number] Griselda Palafox MD [facility] Internal [place] [address] [facility] [place] [address] 03/07/2023 15:08:50 03/07/2023 16:33:28 Type 2 diabetes mellitus without complication 391683642 E11.9 Essential hypertension 34662961 I10 Osteoporosis 45471917 M8 1.0 Atrial fibrillation 4943 6004 I48.91 Compressio n fracture of lumbar spine 714612616 M48.56XD [id number] Griselda Palafox MD [facility] Internal [facility] [place] [address] [place] [address] 05/02/2023 09:42:52 05/02/2023 12:16:03 Type 2 diabetes mellitus without complication 398851639 E11.9 Compression fracture 443 102691 T14.8XXD Diabetes mellitus 549644 09 E11.40 L60.3 L60.0 Z74.1 Essential hypertension 17148460 I10 [id number] Carlo Wells DPM [facility] Podiat[facility] [place] [address] [place] [address] 05/15/2023 12:02:29 05/23/2023 13:07:49 Dystrophia unguium 65061673 L60.3 Nails debrided Diabetes mellitus 452414 E11.40 L60.3 L60.0 Z74.1 check feet daily for wounds infectionC ontinue daily supportive shoe gear to prevent woundsAnd control diabetes per PCP recommenda tions [id number] Carlo Wells DPM [facility] Podiat[facility] [place] [address] [facility] [address] [place] [address] 08/14/2023 11:57:03 08/14/2023 14:46:20 Type 2 diabetes mellitus without complication 138550352 E11.9 continue diabetic control per PCP recommenda tions Dystrophia unguium 02516 009 L60.3 Nails debrided Unable to cut own toenails 208209303 Z74.1 [id number] Carlo Wells DPM [facility] Podiat[facility] [place] [address] [facility] [facility] [address] [place] [address] 11/16/2023 12:12:43 11/16/2023 16:27:34 Dystrophia unguium 45842095 L60.3 Nails debrided Foot callus 831305000 L8 4 Sub 1st met head left footdebrid ed without incidentco ntinue offloading to prevent woundRecom mend diabetic inserts Unable to cut own toenails 489093551 Z74.1 Porokeratosis 688062845 Q82.8 x2 left footdebrid ed without incidentus e pumice stone dailyrecom mend diabetic insertsfol low-up as needed Diabetes mellitus 899841 09 E11.40 L60.3 L60.0 Z74.1 check feet daily for wounds infectionC ontinue daily supportive shoe gear to prevent woundsAnd control diabetes per PCP recommenda tions [id number] Carlo Wells DPM [facility] Podiatry [place] [address] [place] [address] 03/25/2024 10:54:09 2024 08:20:13 Type 2 diabetes mellitus without complication 873043667 E11.9 continue diabetic control per PCP recommenda tions Dystrophia unguium 44018 009 L60.3 Nails 1 through 10 were debrided with sharp mechanical debridemen t without incident. Nails were debrided and greater than 50% length and thickness where needed. [id number] Carlo Wells DPM [facility] Podiat[facility] [place] [address] [place] [address] 06/20/2024 11:52:40 06/25/2024 11:17:17 Diabetes mellitus 83751629 E11.40 L60.3 L60.0 Z74.1 check feet daily for wounds infectionC ontinue daily supportive shoe gear to prevent woundsAnd control diabetes per PCP recommenda tions Dystrophia unguium 73279 009 L60.3 Nails 1 through 10 were debrided with sharp mechanical debridemen t without incident. Nails were debrided and greater than 50% length and thickness where needed. Diabetic o n oral treatment 045445370 Z79.84 Foot pain 30041873 M79.6 72 secondary to above Pressure i njury of toe of left foot stage I [id number] 16290 L89.891 Callus debrided without injuryreco mmend offloading discussed offloading options in supportive shoe gearfollow -up 2 weeks Health Concerns Section Related Observation LastModified by Organization Detai ls LastModified Time None Recorded Concern Status LastModified by Organization Details LastModified Time None Recorded Advance Directives Directive N: Payers Encounter Date Sequence Insurance Name Policy Number Policy Hughes Covered Member ID Hughes Member ID Guarantor Name 08/14/2023 1 [employer] - [facility] MEDICARE ADVANTAGE (MEDICARE REPLACEMENT PPO) [id number] Bren Bond [id number] Bren Bond 11/16/2023 1 [employer] - [employer] MEDICARE ADVANTAGE (MEDICARE REPLACEMENT PPO) [id number] Bren Bond [id number] Bren Bond 03/25/2024 1 [employer] - [employer] MEDICARE ADVANTAGE (MEDICARE REPLACEMENT PPO) [id number] Bren Bond [id number] Bren Bond 06/20/2024 1 [employer] - [employer] MEDICARE ADVANTAGE (MEDICARE REPLACEMENT PPO) [id number] Bren Bond [id number] Bren Bond Notes Date Note Type Note Provider Name and Address Organization Details Recorded Time 08/14/2023 text/html . Patient is an 83-year-old female who returns to the office for diabetic foot care. Patient states overall she is doing well denies any open wounds or infection. Patient states she is unable to cut her nails would like to have them cut. Patient denies any intermittent claudication walking or rest pain. A1c on 07/31/2023 5.6. Carlo Wells DPM [address], [place], [address], [employer] 08/14/2023 14:30:51 11/16/2023 text/html . Patient is an 83-year-old female [...] any other complaints. Carlo Wells DPM [address] [facility], [place], [address], [place] 11/16/2023 15:07:06 03/25/2024 text/html . Patient is a 83-year-old [...] other complaints. Carlo Wells DPM [address], [facility] [address], [place], [address], [employer] 03/25/2024 11:54:13 06/20/2024 text/html . Patient is an 84-year-old female diabetic who returns the office for diabetic foot care she states that she has been having increasing pain to the sub 1st metatarsal head of her left foot. Patient has had mild callus formation to the area but has not had any significant problems until recently. Patient has a high pressure area secondary to hemorrhagic callusing. Patient denies any drainage or redness of the foot. Patient states with increasing walking and pressure she has pain she states when she is at rest is better. Patient states her nails are also long like to have them cut. Patient denies any other complaints. Carlo Wells DPM [address], [facility] [address], [place], [address], [employer] 06/20/2024 13:03:49 OBGyn Episode No OBEpisode recorded.
== END 2024-07-25 13:06 | disposition home or self-care (01) ==
PROVIDERS: PCP Internal Medicine; Visit Provider Internal Medicine
DX: S32.040A Wedge compression fracture of fourth lumbar vertebra, initial encounter for closed fracture (principal); S32.050K Wedge compression fracture of fifth lumbar vertebra, subsequent encounter for fracture with nonunion; X58.XXXA Exposure to other specified factors, initial encounter; M47.816 Spondylosis without myelopathy or radiculopathy, lumbar region; M51.26 Other intervertebral disc displacement, lumbar region; M46.96 Unspecified inflammatory spondylopathy, lumbar region
CPT/HCPCS: 72148

== ENCOUNTER 2024-08-28 14:15 | Outpatient (CLI) | payer MEDICARE, SELFPAY ==
--- NOTE | ~2024-08-28 | XR_ITS ---
Lumbosacral Spine: AP and lateral views Clinical History: Pain COMPARISON: 04/23/2024 Findings: Chronic compression fracture of L5 present. Moderate to severe compression fracture of L4 i s present, new since 04/23/2024. There are moderate degenerative disc changes from L3 through S1. Ther e is severe facet arthropathy throughout the lumbar spine. No instability evident on flexion or exten quirino. The intervertebral disc spaces are preserved. The sacroiliac joints are normally outlined. Impression: L4 compression fracture, as detailed above, somewhat age indeterminate radiographically, but new sinc e 04/23/2024. Consider MR to evaluate for acuity, as indicated. Chronic L5 compression fracture is similar to prior exam. Extensive facet arthropathy. Additional degenerative changes, as above. Reviewed, dictated and finalized at location . Impression: L4 compression fracture, as detailed above, somewhat age indeterminate radiogra phically, but new since 04/23/2024. Consider MR to evaluate for acuity, as indic ated. Chronic L5 compression fracture is similar to prior exam. Extensive facet arthropathy. Additional degenerative changes, as above.
== END 2024-08-28 14:16 | disposition home or self-care (01) ==
LOC: MICIMG 14:16
PROVIDERS: PCP Internal Medicine; Visit Provider Nurse Practitioner Family
DX: M80.08XA Age-related osteoporosis with current pathological fracture, vertebra(e), initial encounter for fracture (principal); M47.816 Spondylosis without myelopathy or radiculopathy, lumbar region
CPT/HCPCS: 72110

== ENCOUNTER 2024-09-11 10:28 | Emergency (ER) | payer MEDICARE, SELFPAY ==
--- NOTE | ~2024-09-11 | CT_ITS ---
EXAMINATION: CT abdomen pelvis w con DATE: 09/11/2024 13:39 INDICATION: Constipation TECHNIQUE: Computed tomography (CT) of the abdomen and pelvis was performed with 100 mL Omnipaque-350 intravenous contrast. Automated exposure control and iterative reconstruction technique were employe d. The dose-length product was 980.82 mGy-cm. COMPARISON: 04/23/2024 FINDINGS: Calcified right lower lobe nodule along with a few scattered hepatic and splenic calcifications consi stent with old granulomatous disease. Mild bibasilar atelectasis/scarring. Heart size is normal. Aort ic valve and mitral annular calcific lesion. No pericardial effusion. Small sliding-type hiatal herni a. Persistent dilation of the common bile duct which measures up to 1.7 cm without evident distal obs tructing stone or mass and which is likely related to prior cholecystectomy with no evident gallbladd er. Visually minimal central intrahepatic biliary ductal dilation. Subcentimeter low-attenuation hepa tic cyst and mild focal hepatic steatosis at the ligamentum teres. Pancreas and bilateral adrenal gla nds are normal. Likely age-related mild bilateral renal atrophy with small regions of cortical scarri ng at both kidneys. Moderate diverticulosis with descending and sigmoid colon prominence without joel cent from trace stranding to suggest diverticulitis. Moderate amount of colonic stool but with 7.5 x 8.8 cm ball of stool at the rectum suggestive of constipation with fecal impaction. No dilated small bowel to suggest obstruction. Bladder is normal. The uterus is not identified and has likely been marcos gically resected. Stable appearance of a chronic L5 compression fracture 60% anterior to central vert ebral body height loss. There is subacute appearing L4 compression fracture with One third anterior to central vertebral body height loss which is new since the prior CT study but wi thout significant change since MRI dated 07/25/2024. There are some metallic streak artifact in the pe lvis resulting from a right total hip arthroplasty with intertrochanteric cerclage wire. IMPRESSION: 1. Large ball of stool at rectum suggestive of constipation with fecal impaction. 2. Chronic dilation the common bile duct and minimal central intrahepatic biliary ductal dilation lik nazia related to prior cholecystectomy with no evident obstructing stone or mass. Correlate with liver function tests surgically concern for biliary obstruction and if indicated this could be further eval uated with MRCP. 3. Diverticulosis. 4. Small sliding-type hiatal hernia. 5. Subacute L4 and chronic L5 compression fractures unchanged since lumbar spine MR from a month and a half prior. Reviewed, dictated and finalized at location A. IMPRESSION: 1. Large ball of stool at rectum suggestive of constipation with fecal impactio n. 2. Chronic dilation the common bile duct and minimal central intrahepatic bilia ry ductal dilation likely related to prior cholecystectomy with no evident obst ructing stone or mass. Correlate with liver function tests surgically concern f or biliary obstruction and if indicated this could be further evaluated with MR GARCIA. 3. Diverticulosis. 4. Small sliding-type hiatal hernia. 5. Subacute L4 and chronic L5 compression fractures unchanged since lumbar spin e MR from a month and a half prior.
--- OUTSIDE RECORDS SUMMARY | 2024-09-11 10:32 | XMS_ITS | Data Portability ---
Author Organization [facility] Address [address] [place] [address] Care Team Providers Care Custom Bow Maker Name Role Phone GRISELDA PALAFOX Primary Care Provider SAVAGE LYONS Applications Scientist Assessment Encounter Date Assessment Date Assessment LastModified by Organization Details LastModified Time 11/16/2023 11/16/2023 her multiple medical problems have been discussed blood work has been ordered there was an issue of getting her Prolia covered by insurance we are working through that see me back in 3-4 months blood work has been ordered. We will deescalate PPI to H2 mary anne [email or web address] Not available 11/16/2023 23:04:27 03/14/2024 03/14/2024 blood work has been ordered we will continue current therapy all questions has been answered with regards to her diagnosis in the assessment and plan refuses any immunizations at this time we will follow up 3-4 months [email or web address] Not available 03/16/2024 18:37:12 07/04/2024 07/04/2024 I will add Flexeril to be used sparingly she can not continue with healthcare management at this time blood work will be ordered as she was eating up to 16 Tylenol a day for a week or 2 I told her she needs to stop that immediately see me in 1 month imaging just showed chronic L5 compression fracture [email or web address] Not available 07/06/2024 18:41:36 07/18/2024 07/18/2024 MRI of the lumba r spine further recommendations after I get the results [email or web address] Not available 07/20/2024 21:18:07 Plan of Treatment Reminders Order Date Submit Date Provider Last Modified By Organization Details Last Modified Time Details Appointments ANY 15 2024 11:00A Dav Palafox MD Not available Not available Not available Lab HbA1c (hemoglob in A1c), blood 2023 024 [facility], [address], [address], [place], [address], 03/20/2024 10:13:29 CBC w/ auto diff 2023 024 [facility], [address], [address], [place], [address], 03/20/2024 10:13:30 vitamin D, 25-hydrox y, total, serum 2023 024 [facility], [address], [address], [place], [address], 03/20/2024 10:13:33 PTH (parathyr oid hormone), intact, serum or plasma 2023 024 [facility], [address]ari [address], [address], [place], [address], 03/20/2024 10:13:32 lipid panel, serum 2023 024 [facility], [address], [address], [place], [address], 03/20/2024 10:13:26 CMP, serum or plasma 2023 024 [facility], [address], [address], [place], [address], 03/20/2024 10:13:28 HbA1c (hemoglob in A1c), blood 2023 024 [facility], [address], [address], [place], [address], 12/05/2023 12:50:46 lipid panel, serum 2023 024 [facility], [address] [place] [address], [address], [place], [address], 12/05/2023 12:51:00 CMP, serum or plasma 2023 024 [facility], [address] [place] [address], [address], [place], [address], 12/05/2023 12:50:29 CBC w/ auto diff 2023 024 [facility], [address] [place] [address], [address], [place], [address], 12/05/2023 12:50:53 Referral None recorded. Procedures None recorded. Surgeries None recorded. Imaging MRI, lumbar spine, w/o contrast 2024 025 [facility] [address], [place], [address], 07/25/2024 18:39:14 Medication Orders cyclobenz aprine 10 mg tablet 2024 025 [id number], [address], [place], [id number], 07/04/2024 21:21:09 metformin 500 mg tablet 2023 024 [email or web address], [facility] [facility], [place], [address], 03/14/2024 13:11:37 pioglitaz one 30 mg tablet 2023 024 [email or web address], [facility] [place], [address], 03/14/2024 13:11:37 simvastat in 20 mg tablet 2023 024 [facility], [address] [place] [address], [address], 03/14/2024 13:11:37 Flonase Allergy Relief 50 mcg/actua tion nasal spray,kris pension 2023 024 [facility], [address] [place] [address], [id number], 03/14/2024 13:11:37 Prolia 60 mg/mL subcutane ous syringe 2023 024 [email or web address] [facility], [address] [place] [address], [id number], 01/09/2024 12:34:09 Eliquis 5 mg tablet 2023 024 [email or web address] [facility], [address] [place] [address], [address], 11/16/2023 17:55:15 Pepcid 20 mg tablet 2023 024 [facility], [address] [place] [address], [address], 02/22/2024 15:16:57 lisinopri l 20 mg tablet 2023 024 [email or web address] [facility], [address] [place] [address], [address], 11/16/2023 17:55:15 Flonase Allergy Relief 50 mcg/actua tion nasal spray,kris pension 2023 024 [email or web address] [facility], [address] [place] [address], [address], 11/16/2023 17:55:15 Patient TargetsNo targets recorded. Patient Instructions Encounter Date Encounter Id Patient Instructions Last Modified By Organization Details Last Modified Time 07/18/2024 [id number] A healthy lifestyle: care instructions [email or web address] Not available 07/18/2024 13:40:06 Reason for Referral [...] 1996 panel - Serum or Plasm a LDL [...] neutrophils, absolute count neutr ophil s, absol kotlik count Not Available Not Available 06/27/2024 10:20:48 11/29/19 24 11/29/2023 CBC W Auto Diffe renti al panel - Blood lymphocytes, absolute count low lymph ocyte s, absol kotlik count Not Available Not Available 06/27/2024 10:20:48 11/29/19 24 11/29/2023 CBC W Auto Diffe renti al panel - Blood monocytes, absolute count monoc ytes, absol kotlik count Not Available Not Available 06/27/2024 10:20:48 11/29/19 24 11/29/2023 CBC W Auto Diffe renti al panel - Blood eosinophils, absolute count eosin ophil s, absol kotlik count Not Available Not Available 06/27/2024 10:20:48 11/29/19 24 11/29/2023 CBC W Auto Diffe renti al panel - Blood basophils, absolute count basop hils, absol kotlik count Not Available Not Available 06/27/2024 10:20:48 [...] 184 mg/dL 100-19 9 Not Available [facility] ([facility]) [address] [facility], [place], [address], 03/20/2024 10:13:26 03/19/20 24 03/20/2024 LIPID PANEL triglyceride s 237 mg/dL 0-149 above high normal Not Available [facility] ([facility]) [address] [facility], [place], [address], 03/20/2024 10:13:26 03/19/20 24 03/20/2024 LIPID PANEL HDL cholesterol 47 mg/dL >39 Not Available [facility]) [address] [facility], [place], [address], 03/20/2024 10:13:26 03/19/20 24 03/20/2024 LIPID PANEL VLDL cholesterol malik 40 mg/dL 5-40 Not Available [facility] ([facility]) [address] [facility], [place], [address], 03/20/2024 10:13:26 03/19/20 24 03/20/2024 LIPID PANEL LDL chol calc ([facility]) 97 mg/dL 0-99 Not Available [facility]) [address] [facility], [place], [address], 03/20/2024 10:13:26 03/19/20 24 03/20/2024 COMP. METAB OLIC PANEL (14) glucose 95 mg/dL 70-99 Not Available [facility] ([facility]) [address] [facility], [place], [address], 03/20/2024 10:13:28 03/19/20 24 03/20/2024 COMP. METAB OLIC PANEL (14) BUN 25 mg/dL 8-27 Not Available [facility] ([facility]) [address] [place], [address], 03/20/2024 10:13:28 03/19/20 24 03/20/2024 COMP. METAB OLIC PANEL (14) creatinine 0.76 mg/dL 0.57-1 .00 Not Available [facility] ([facility]) [address] [facility], [place], [address], 03/20/2024 10:13:28 03/19/20 24 03/20/2024 COMP. METAB OLIC PANEL (14) eGFR 78 mL/mi n/1.7 3 >59 Not Available [facility] ([facility]) [address] [place], [address], 03/20/2024 10:13:28 03/19/20 24 03/20/2024 COMP. METAB OLIC PANEL (14) BUN/creatini ne ratio 33 12-28 above high normal Not Available [facility] ([facility]) [address], [place], [address], 03/20/2024 10:13:28 03/19/20 24 03/20/2024 COMP. METAB OLIC PANEL (14) sodium 141 mmol/ L 134-14 4 Not Available [facility] ([facility]) [address], [place], [address], 03/20/2024 10:13:28 03/19/20 24 03/20/2024 COMP. METAB OLIC PANEL (14) potassium 4.9 mmol/ L 3.5-5. 2 Not Available [facility] ([facility]) [address] [place], [address], 03/20/2024 10:13:28 03/19/20 24 03/20/2024 COMP. METAB OLIC PANEL (14) chloride 104 mmol/ L 96-106 Not Available [facility] ([facility]) [address], [place], [address], 03/20/2024 10:13:28 03/19/20 24 03/20/2024 COMP. METAB OLIC PANEL (14) carbon dioxide, total 25 mmol/ L 20-29 Not Available [facility] ([facility]) [address] [facility] [place], [address], 03/20/2024 10:13:28 03/19/20 24 03/20/2024 COMP. METAB OLIC PANEL (14) calcium 10.0 mg/dL 8.7-10 .3 Not Available [facility] ([facility]) [address] [facility] [place], [address], 03/20/2024 10:13:28 03/19/20 24 03/20/2024 COMP. METAB OLIC PANEL (14) protein, total 6.3 g/dL 6.0-8. 5 Not Available [facility] ([place] [facility]) [address] [facility] [place], [address], 03/20/2024 10:13:28 03/19/20 24 03/20/2024 COMP. METAB OLIC PANEL (14) albumin 4.3 g/dL 3.7-4. 7 Not Available [facility] ([facility]) [address] [facility], [place], [address], 03/20/2024 10:13:28 03/19/20 24 03/20/2024 COMP. METAB OLIC PANEL (14) globulin, total 2.0 g/dL 1.5-4. 5 Not Available [facility] ([facility]) [address] [facility], [place], [address], 03/20/2024 10:13:28 03/19/20 24 03/20/2024 COMP. METAB OLIC PANEL (14) bilirubin, total 0.4 mg/dL 0.0-1. 2 Not Available [facility] ([facility]) [address] [facility], [place], [address], 03/20/2024 10:13:28 03/19/20 24 03/20/2024 COMP. METAB OLIC PANEL (14) alkaline phosphatase 59 IU/L 44-121 Not Available [facility]) [address] [facility], [place], [address], 03/20/2024 10:13:28 03/19/20 24 03/20/2024 COMP. METAB OLIC PANEL (14) AST (SGOT) 18 IU/L 0-40 Not Available [facility] ([facility]) [address] [facility], [place], [address], 03/20/2024 10:13:28 03/19/20 24 03/20/2024 COMP. METAB OLIC PANEL (14) ALT (SGPT) 13 IU/L 0-32 Not Available [facility] ([facility]) [address] [facility], [place], [address], 03/20/2024 10:13:28 03/19/20 24 03/20/2024 HEMOG LOBIN A1C hemoglobin A1C 6.1 % 4.8-5. 6 above high normal Predi abete s: 5.7 - 6.4 Diabe kiesha: >6.4 Glyce brandt contr ol for adult s with diabe kiesha: <7.0 Not Available [facility] ([facility]) [address] [facility], [place], [address], 03/20/2024 10:13:29 03/19/20 24 03/20/2024 CBC WITH DIFFE RENTI AL/PL ATELE T WBC 6.0 x10e3 /uL 3.4-10 .8 Not Available [facility] ([facility]) [address] [place], [address], 03/20/2024 10:13:30 03/19/20 24 03/20/2024 CBC WITH DIFFE RENTI AL/PL ATELE T RBC 3.69 x10e6 /uL 3.77-5 .28 below low normal Not Available [facility] ([facility]) [address] [facility], [place], [address], 03/20/2024 10:13:30 03/19/20 24 03/20/2024 CBC WITH DIFFE RENTI AL/PL ATELE T hemoglobin 12.0 g/dL 11.1-1 5.9 Not Available [facility] ([facility]) [address] [place], [address], 03/20/2024 10:13:30 03/19/20 24 03/20/2024 CBC WITH DIFFE RENTI AL/PL ATELE T hematocrit 36.8 % 34.0-4 6.6 Not Available [facility] ([facility]) [address] [place], [address], 03/20/2024 10:13:30 03/19/20 24 03/20/2024 CBC WITH DIFFE RENTI AL/PL ATELE T MCV 100 fL 79-97 above high normal Not Available [facility] ([facility]) [address] [facility], [place], [address], 03/20/2024 10:13:30 03/19/20 24 03/20/2024 CBC WITH DIFFE RENTI AL/PL ATELE T MCH 32.5 pg 26.6-3 3.0 Not Available [facility] ([facility]) [address] [facility], [place], [address], 03/20/2024 10:13:30 03/19/20 24 03/20/2024 CBC WITH DIFFE RENTI AL/PL ATELE T MCHC 32.6 g/dL 31.5-3 5.7 Not Available [facility] ([facility]) [address] [facility], [place], [address], 03/20/2024 10:13:30 03/19/20 24 03/20/2024 CBC WITH DIFFE RENTI AL/PL ATELE T RDW 12.4 % 11.7-1 5.4 Not Available [facility] ([facility]) [address] [facility], [place], [address], 03/20/2024 10:13:30 03/19/20 24 03/20/2024 CBC WITH DIFFE RENTI AL/PL ATELE T platelets 251 x10e3 /uL 150-45 0 Not Available [facility] ([facility]) [address] [facility], [place], [address], 03/20/2024 10:13:30 03/19/20 24 03/20/2024 CBC WITH DIFFE RENTI AL/PL ATELE T neutrophils 68 % notest ab. Not Available [facility] ([facility]) [address] [facility], [place], [address], 03/20/2024 10:13:30 03/19/20 24 03/20/2024 CBC WITH DIFFE RENTI AL/PL ATELE T lymphs 18 % notest ab. Not Available [facility] ([facility]) [address] [facility], [place], [address], 03/20/2024 10:13:30 03/19/20 24 03/20/2024 CBC WITH DIFFE RENTI AL/PL ATELE T monocytes 9 % notest ab. Not Available [facility] ([facility]) [address] [facility], [place], [address], 03/20/2024 10:13:30 03/19/20 24 03/20/2024 CBC WITH DIFFE RENTI AL/PL ATELE T eos 4 % notest ab. Not Available [facility] ([facility]) [address] [facility], [place], [address], 03/20/2024 10:13:30 03/19/20 24 03/20/2024 CBC WITH DIFFE RENTI AL/PL ATELE T basos 1 % notest ab. Not Available [facility] ([facility]) [address] [facility], [place], [address], 03/20/2024 10:13:30 03/19/20 24 03/20/2024 CBC WITH DIFFE RENTI AL/PL ATELE T neutrophils (absolute) 4.1 x10e3 /uL 1.4-7. 0 Not Available [facility] ([facility]) [address] [place], [address], 03/20/2024 10:13:30 03/19/20 24 03/20/2024 CBC WITH DIFFE RENTI AL/PL ATELE T lymphs (absolute) 1.1 x10e3 /uL 0.7-3. 1 Not Available [facility] ([facility]) [address] [place], [address], 03/20/2024 10:13:30 03/19/20 24 03/20/2024 CBC WITH DIFFE RENTI AL/PL ATELE T monocytes(ab solute) 0.5 x10e3 /uL 0.1-0. 9 Not Available [facility] ([facility]) [address] [place], [address], 03/20/2024 10:13:30 03/19/20 24 03/20/2024 CBC WITH DIFFE RENTI AL/PL ATELE T eos (absolute) 0.2 x10e3 /uL 0.0-0. 4 Not Available [facility] ([facility]) [address] [place], [address], 03/20/2024 10:13:30 03/19/20 24 03/20/2024 CBC WITH DIFFE RENTI AL/PL ATELE T baso (absolute) 0.0 x10e3 /uL 0.0-0. 2 Not Available [facility] ([facility]) [address] [facility], [place], [address], 03/20/2024 10:13:30 03/19/20 24 03/20/2024 CBC WITH DIFFE RENTI AL/PL ATELE T immature granulocytes 0 % notest ab. Not Available [facility] ([facility]) [address] [place], [address], 03/20/2024 10:13:30 03/19/20 24 03/20/2024 CBC WITH DIFFE RENTI AL/PL ATELE T immature grans (abs) 0.0 x10e3 /uL 0.0-0. 1 Not Available [facility] ([facility]) [address] [place], [address], 03/20/2024 10:13:30 03/19/20 24 03/20/2024 PTH, INTAC T PTH, intact 24 pg/mL 15-65 Not Available [facility] ([facility]) [address] [place], [address], 03/20/2024 10:13:31 03/19/20 24 03/20/2024 VITAM IN [...] Medic ine). 2009. Dieta ry refer ence zeyad es for calci um and D. Keerthi johnson [place]: [facility] . 2. Maria Ines martinez [place], Gerry bishop [place], [place] off-F errar i [place], et al. Evalu ation , treat ment, and preve ntion of vitam in D defic iency : an Endoc rine Socie ty clini malik pract ice guide line. JCEM. 2010; 96(7) :1911 -30. Not Available [facility] ([facility]) [address] [place], [address], 03/20/2024 10:13:33 07/18/19 25 07/18/2024 COMP. METAB OLIC PANEL (14) glucose 108 mg/dL 70-99 above high normal Not Available [facility] ([facility]) [address] [place], [address], 07/18/2024 09:47:39 07/18/19 25 07/18/2024 COMP. METAB OLIC PANEL (14) BUN 21 mg/dL 8-27 Not Available [facility] ([facility]) [address] [place], [address], 07/18/2024 09:47:39 07/18/19 25 07/18/2024 COMP. METAB OLIC PANEL (14) creatinine 0.70 mg/dL 0.57-1 .00 Not Available [facility] ([facility]) [address] [place], [address], 07/18/2024 09:47:39 07/18/19 25 07/18/2024 COMP. METAB OLIC PANEL (14) eGFR 85 mL/mi n/1.7 3 >59 Not Available [facility] ([facility]) [address] [place], [address], 07/18/2024 09:47:39 07/18/19 25 07/18/2024 COMP. METAB OLIC PANEL (14) BUN/creatini ne ratio 30 12-28 above high normal Not Available [facility] ([facility]) [address] [facility], [place], [address], 07/18/2024 09:47:39 07/18/19 25 07/18/2024 COMP. METAB OLIC PANEL (14) sodium 141 mmol/ L 134-14 4 Not Available [facility] ([facility]) [address] [facility], [place], [address], 07/18/2024 09:47:39 07/18/19 25 07/18/2024 COMP. METAB OLIC PANEL (14) potassium 4.2 mmol/ L 3.5-5. 2 Not Available [facility] ([facility]) [address] [place], [address], 07/18/2024 09:47:39 07/18/19 25 07/18/2024 COMP. METAB OLIC PANEL (14) chloride 103 mmol/ L 96-106 Not Available [facility] ([facility]) [address] [place], [address], 07/18/2024 09:47:39 07/18/19 25 07/18/2024 COMP. METAB OLIC PANEL (14) carbon dioxide, total 22 mmol/ L 20-29 Not Available [facility] ([facility]) [address] [place], [address], 07/18/2024 09:47:39 07/18/19 25 07/18/2024 COMP. METAB OLIC PANEL (14) calcium 9.5 mg/dL 8.7-10 .3 Not Available [facility] ([facility]) [address] [facility], [place], [address], 07/18/2024 09:47:39 07/18/19 25 07/18/2024 COMP. METAB OLIC PANEL (14) protein, total 6.4 g/dL 6.0-8. 5 Not Available [facility] ([facility]) [address] [facility] [place], [address], 07/18/2024 09:47:39 07/18/19 25 07/18/2024 COMP. METAB OLIC PANEL (14) albumin 4.1 g/dL 3.7-4. 7 Not Available [facility] ([facility]) [address] [facility], [place], [address], 07/18/2024 09:47:39 07/18/19 25 07/18/2024 COMP. METAB OLIC PANEL (14) globulin, total 2.3 g/dL 1.5-4. 5 Not Available [facility] ([facility]) [address] [facility] [place], [address], 07/18/2024 09:47:39 07/18/19 25 07/18/2024 COMP. METAB OLIC PANEL (14) bilirubin, total 0.3 mg/dL 0.0-1. 2 Not Available [facility] ([facility]) [address] [facility], [place], [address], 07/18/2024 09:47:39 07/18/19 25 07/18/2024 COMP. METAB OLIC PANEL (14) alkaline phosphatase 70 IU/L 44-121 Not Available [facility]) [address] [facility] [place] [place], [address], 07/18/2024 09:47:39 07/18/19 25 07/18/2024 COMP. METAB OLIC PANEL (14) AST (SGOT) 14 IU/L 0-40 Not Available [facility] ([facility]) [address] [facility], [place], [address], 07/18/2024 09:47:39 07/18/1907/18/2024 COMP. METAB OLIC PANEL (14) ALT (SGPT) 8 IU/L 0-32 Not Available [facility] ([facility]) [address] [facility], [place], [address], 07/18/2024 09:47:39 07/18/19 25 07/18/2024 CBC WITH DIFFE RENTI AL/PL ATELE T WBC 6.2 x10e3 /uL 3.4-10 .8 Not Available [facility] ([facility]) [address] [place], [address], 07/18/2024 09:47:40 07/18/19 25 07/18/2024 CBC WITH DIFFE RENTI AL/PL ATELE T RBC 3.91 x10e6 /uL 3.77-5 .28 Not Available [facility] ([facility]) [address] [place], [address], 07/18/2024 09:47:40 07/18/19 25 07/18/2024 CBC WITH DIFFE RENTI AL/PL ATELE T hemoglobin 11.2 g/dL 11.1-1 5.9 Not Available [facility] ([facility]) [address] [place], [address], 07/18/2024 09:47:40 07/18/1907/18/2024 CBC WITH DIFFE RENTI AL/PL ATELE T hematocrit 34.9 % 34.0-4 6.6 Not Available [facility] ([facility]) [address] [place], [address], 07/18/2024 09:47:40 07/18/19 25 07/18/2024 CBC WITH DIFFE RENTI AL/PL ATELE T MCV 89 fL 79-97 Not Available [facility] ([facility]) [address] [facility] [place], [address], 07/18/2024 09:47:40 07/18/19 25 07/18/2024 CBC WITH DIFFE RENTI AL/PL ATELE T MCH 28.6 pg 26.6-3 3.0 Not Available [facility] ([facility]) [address] [facility], [place], [address], 07/18/2024 09:47:40 07/18/19 25 07/18/2024 CBC WITH DIFFE RENTI AL/PL ATELE T MCHC 32.1 g/dL 31.5-3 5.7 Not Available [facility] ([facility]) [address] [facility], [place], [address], 07/18/2024 09:47:40 07/18/19 25 07/18/2024 CBC WITH DIFFE RENTI AL/PL ATELE T RDW 13.9 % 11.7-1 5.4 Not Available [facility] ([facility]) [address] [facility], [place], [address], 07/18/2024 09:47:40 07/18/1907/18/2024 CBC WITH DIFFE RENTI AL/PL ATELE T platelets 245 x10e3 /uL 150-45 0 Not Available [facility] ([facility]) [address] [facility], [place], [address], 07/18/2024 09:47:40 07/18/1907/18/2024 CBC WITH DIFFE RENTI AL/PL ATELE T neutrophils 76 % notest ab. Not Available [facility] ([facility]) [address] [facility], [place], [address], 07/18/2024 09:47:40 07/18/19 25 07/18/2024 CBC WITH DIFFE RENTI AL/PL ATELE T lymphs 13 % notest ab. Not Available [facility] ([facility]) [address] [place], [address], 07/18/2024 09:47:40 07/18/19 25 07/18/2024 CBC WITH DIFFE RENTI AL/PL ATELE T monocytes 8 % notest ab. Not Available [facility] ([facility]) [address] [facility], [place], [address], 07/18/2024 09:47:40 07/18/1907/18/2024 CBC WITH DIFFE RENTI AL/PL ATELE T eos 2 % notest ab. Not Available [facility] ([facility]) [address] [facility], [place], [address], 07/18/2024 09:47:40 07/18/19 25 07/18/2024 CBC WITH DIFFE RENTI AL/PL ATELE T basos 1 % notest ab. Not Available [facility] ([facility]) [address] [place], [address], 07/18/2024 09:47:40 07/18/19 25 07/18/2024 CBC WITH DIFFE RENTI AL/PL ATELE T neutrophils (absolute) 4.7 x10e3 /uL 1.4-7. 0 Not Available [facility] ([facility]) [address] [facility], [place], [address], 07/18/2024 09:47:40 07/18/1907/18/2024 CBC WITH DIFFE RENTI AL/PL ATELE T lymphs (absolute) 0.8 x10e3 /uL 0.7-3. 1 Not Available [facility] ([facility]) [address] [place], [address], 07/18/2024 09:47:40 07/18/19 25 07/18/2024 CBC WITH DIFFE RENTI AL/PL ATELE T monocytes(ab solute) 0.5 x10e3 /uL 0.1-0. 9 Not Available [facility] ([facility]) [address] [place], [address], 07/18/2024 09:47:40 07/18/19 25 07/18/2024 CBC WITH DIFFE RENTI AL/PL ATELE T eos (absolute) 0.1 x10e3 /uL 0.0-0. 4 Not Available [facility] ([facility]) [address] [facility], [place], [address], 07/18/2024 09:47:40 07/18/19 25 07/18/2024 CBC WITH DIFFE RENTI AL/PL ATELE T baso (absolute) 0.0 x10e3 /uL 0.0-0. 2 Not Available [facility] ([facility]) [address] [facility], [place], [address], 07/18/2024 09:47:40 07/18/19 25 07/18/2024 CBC WITH DIFFE RENTI AL/PL ATELE T immature granulocytes 0 % notest ab. Not Available [facility] ([facility]) [address] [facility], [place], [address], 07/18/2024 09:47:40 07/18/19 25 07/18/2024 CBC WITH DIFFE RENTI AL/PL ATELE T immature grans (abs) 0.0 x10e3 /uL 0.0-0. 1 Not Available [facility] ([facility]) [address] [facility], [place], [address], 07/18/2024 09:47:40 04/23/19 25 04/23/2024 CT, brain , w/o contr ast No observ ation record ed. [address], [place], [address], 07/06/2024 18:41:11 04/23/19 25 04/23/2024 XR, hand, 3 or more view No observ ation record ed. [facility] [address], [place], [address], 04/24/2024 09:20:02 01/14/20 25 04/23/2024 CT, cervi malik spine , w/o contr ast No observ ation record ed. [address], [place], [address], 07/06/2024 18:41:18 04/23/19 25 04/23/2024 XR, wrist + hand No observ ation record ed. [address], [place], [address], 04/24/2024 09:18:37 04/23/19 25 04/23/2024 CT, chest + abdom en + pelvi s, w/ contr ast No observ ation record ed. [address], [place], [address], 07/06/2024 18:41:09 07/26/19 25 07/25/2024 MRI, lumba r spine , w/o contr ast No observ ation record ed. [address], [place], [address], 07/26/2024 16:02:16 07/26/19 25 07/25/2024 MRI, lumba r spine , w/o contr ast No observ ation record ed. [address], [place], [address], 07/26/2024 16:02:17 08/30/19 25 08/28/2024 XR, lumba r spine No observ ation record ed. [facility] [address], [place], [address], 08/30/2024 09:03:35 08/30/19 25 08/28/2024 XR, lumba r spine No observ ation record ed. [facility] [address], [place], [address], 08/30/2024 09:03:47 Result Notes None recorded. Problems Name Problem SNOMED Code Status Onset Date Resolution Date Notes Provider Name and Address Organization Details Recorded Time Type 2 diabetes mellitus 16471338 Active 2023 Danya Dorman [place], [place] [facility] 4 12:11:54 Compression fracture of lumbar spine 769973046 Active 2023 Griselda Palafox MD Attn: Lorena ivan,[address] [facility], [place], [address], [place] [facility] 4 22:33:25 Osteoporosis 73272901 Active 2023 Griselda Palafox MD Attn: Lorena ivan,[address] [facility], [place], [address], [place] [facility] 4 22:33:28 Hyperlipidemia 39470395 Active 2023 Griselda Palafox MD Attn: Lorena ivan,[address] [facility], [place], [address], [place] [facility] 4 22:33:29 Gastroesophage al reflux disease without esophagitis 589229588 Active 2023 Griselda Palafox MD Attn: Lorena ivan,[address] [facility], [place], [address], [place] [facility] 4 22:33:32 Essential hypertension 67769630 Active 2023 Danya Dorman [place] [facility] 12:02:39 Problem Notes None recorded. Procedures Surgical History Date Name Laterality Status Provider Name and Address Organization Details Recorded Time Eye Surgery completed Emily [place] [facility] 07/27/2023 11:35:41 Cholecystectomy completed [place] [facility] 07/27/2023 11:35:47 hysterectomy completed [place] [facility] 07/27/2023 11:35:52 Tonsillectomy completed [place] [facility] 07/27/2023 11:36:07 Imaging Results None recorded. Procedure Notes None recorded. Medical Equipment None Reported. Allergies Allergen ID Allergen Name Allergen Category Reaction Reaction Severity Criticality Documentation Date Start Date Code Code System Note Provider Name and Address Organization Details Recorded Time 522017 Substance with sulfonami de structure and antibacte rial mechanism of action (substanc e) medicatio n rash Not available high 07/27/20232011 87796 8003 SNOMED Rash HEATHER Nash, [facility] 5 11:18:08 637611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
--- OUTSIDE RECORDS SUMMARY | 2024-09-11 10:32 | XMS_ITS | Referral Summary ---
Author Organization [facility] [address] [facility] [address] [place] [address] Care Team Providers Care Radiology Manager Name Role Phone Justino Palafox MD Primary Care Provider [phone] Dmitriy Fung MD Unavailable [phone] Encounters Date Type Department Care Team Description 07/11/2024 11:00 AM CDT Clinical Support [facility] Diabetes and Endocrinology [address] [place] [address] Age-related osteoporosis without current pathological fracture (Primary Dx) 06/24/2024 Telephone [facility] [id number] [place] [phone] Riley Salvador MD Med Management ([facility]) [...] 6 months 1 mL 1 5 Active Active Problems Problem Noted Date Diagnosed Date Acute hemorrhoid 04/13/2024 GI bleed 04/12/2024 Paroxysmal atrial fibrillation 04/12/2024 Acute blood loss anemia 04/12/2024 Age-related osteoporosis wit hout current pathological fracture 03/04/2024 Assessment & Plan (03/04/2024 12:59 PM NEONATAL INTENSIVE CARE NURSE): Chronic , slow improving H/o L5 compression [...] Tobacco: Never Tobacco Cessation:Counseling Given: Not Answered [facility] Utilities Answer Date Recorded In the past [...] often do you attend chur ch or jehovah's witness services? More than 4 times per year 04/12/2024 Do you belong to any clubs o r organizations such as voodoo groups, unions, fraternal or athletic groups, or [...] any time in the past 12 [facility], were you homeless or living in a retirement (including now)? No 04/12/2024 Personal Safety Answer Date Recorded Have you ever been in or are you currently in a harmful physical or emotional relationship or is someone making you feel afraid or unsafe? Denies 04/11/2024 Comments Unknown Sex and Gender Information Value Date Recorded Sex Assigned at Not on file Legal Sex Female 2:59 AM NEONATAL INTENSIVE CARE NURSE Gender Identity Not on file Sexual Orientation Not on file Last Filed Vital Signs Vital Sign Reading Time Taken Comments Blood Pressure 139/61 04/13/2024 10:06 AM NEONATAL INTENSIVE CARE NURSE Pulse 79 04/13/2024 10:06 AM NEONATAL INTENSIVE CARE NURSE Temperature 36.4 C (97.6 F) 04/13/2024 10:06 AM NEONATAL INTENSIVE CARE NURSE Respiratory Rate 18 04/13/2024 10:06 AM NEONATAL INTENSIVE CARE NURSE Oxygen Saturation 99% 04/13/2024 10:06 AM NEONATAL INTENSIVE CARE NURSE Inhaled Oxygen Concentration - - Weight 89.6 kg (197 lb 8.5 oz) 04/11/2024 9:19 P M NEONATAL INTENSIVE CARE NURSE Height 154.9 cm (5' 1) 03/04/2024 9:20 AM NEONATAL INTENSIVE CARE NURSE Body Mass Index 37.32 03/04/2024 9:20 AM NEONATAL INTENSIVE CARE NURSE Plan of Treatment Not on file Procedures Procedure Name Priority Date/Time Associated Diagnosis Comments EGFR STAT 04/12/2024 4:56 PM NEONATAL INTENSIVE CARE NURSE from Last 3 Months or Most Recently Relevant to Health Maintenance Results * eGFR (04/12/2024 4:56 PM NEONATAL INTENSIVE CARE NURSE) eGFR 85 >=60 mL/min/1. 73 m2 Comment: [...] last reviewed 2021. Blood 04/12/2024 4:56 PM NEONATAL INTENSIVE CARE NURSE 04/12/2024 4:56 PM NEONATAL INTENSIVE CARE NURSE us Юлия Luna MD LAB BLOOD ORDERABLES Final Re sult [facility] [address] [place] [address] from Last 3 Months or Most Recently Relevant to Health Maintenance Insurance [employer] MEDICARE [facility] MEDICARE Address: [facility] [address] [place] [address] [facility] MEDICARE [employer] MEDIC[facility] Address: [address] [address] [place] [address] [facility] MEDICARE [facility] MEDIC[facility] Address: [address] [address] [place] [address] Advance Directives For more information, please contact: [phone] * Full Code (Latest Code Status on File) Date Activated Date Inactivated Comments 04/11/2024 9:30 PM 04/13/2024 3:31 PM Care Teams Radiology Manager Relationship Specialty Start Date End Date Justino Palafox MD [address] [place] [id number] PCP - General Internal Medicine 03/04/24 Dmitriy Fung MD [address] [place] [id number] Consulting Physician Colon and Rectal Surgery 04/13/24
--- OUTSIDE RECORDS SUMMARY | 2024-09-11 10:32 | XMS_ITS | Data Portability ---
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 Building Services Supervisor variances may occur. Despite proofreading, typographical errors may occur. Occasional wrong-word or 'scnsg-r-jttv' substitutions may have occurred due to the inherent limitations of voice recording. Read the chart carefully and recognize, using context, where substitutions have occurred. Not available 08/14/2023 14:29:40 11/16/2023 11/16/2023 This note is dictated and transcribed by [employer]. Building Services Supervisor variances may occur. Despite proofreading, typographical errors may occur. Occasional wrong-word or 'tnowg-h-dwwj' substitutions may have occurred due to the inherent limitations of voice recording. Read the chart carefully and recognize, using context, where substitutions have occurred. Not available 11/16/2023 15:04:40 03/25/2024 03/25/2024 This note is dictated and transcribed by [employer]. Building Services Supervisor variances may occur. Despite proofreading, typographical errors may occur. Occasional wrong-word or 'jwxgw-p-mwvu' substitutions may have occurred due to the inherent limitations of voice recording. Read the chart carefully and recognize, using context, where substitutions have occurred. Not available 03/25/2024 11:53:56 06/20/2024 06/20/2024 This note is dictated and transcribed by [employer]. Building Services Supervisor variances may occur. Despite proofreading, typographical errors may occur. Occasional wrong-word or 'dlyvg-h-dvok' substitutions may have occurred due to the inherent limitations of voice recording. Read the chart carefully and recognize, using context, where substitutions have occurred. Not available 06/20/2024 12:06:37 07/18/2024 07/18/2024 This note is dictated and transcribed by [employer]. Building Services Supervisor variances may occur. Despite proofreading, typographical errors may occur. Occasional wrong-word or 'kinqy-d-talb' substitutions may have occurred due to the inherent limitations of voice recording. Read the chart carefully and recognize, using context, where substitutions have occurred. Not available 07/18/2024 15:14:10 Plan of Treatment Reminders Order Date Submit Date Provider Last Modified By Organization Details Last Modified Time Details Appointments Establish ed Patient 15 2024 11:30A M Carlo Wells DPM Not available Not available Not available Lab None recorded. Referral None recorded. Procedures None recorded. Surgeries None recorded. Imaging None recorded. Medication Orders None recorded. Patient TargetsNo targets recorded. Patient Instructions Encounter Date Encounter Id Patient Instructions Last Modified By Organization Details Last Modified Time 08/14/2023 [id number] diabetes foot health: care instructions Not available 08/14/2023 14:30:28 Reason for Referral None Reported. Results Created Date Observation Date Name Description Value Unit Range Abnormal Flag Note LastModifiedBy Organization Detail LastModifiedTime 07/31/19 24 07/31/2023 CBC/C OMPLE TE BLD COUNT W/DIF F white blood cells 5.1 x10'3 /uL 4.2-10 .8 Not Available [facility] (Lab) [address] [place], [address], 07/31/2023 13:42:00 07/31/19 24 07/31/2023 CBC/C OMPLE TE BLD COUNT W/DIF F red blood cells 3.53 x10'6 /uL 3.80-5 .20 low Not Available [facility] (Lab) [address] [place], [address], 07/31/2023 13:42:00 07/31/19 24 07/31/2023 CBC/C OMPLE TE BLD COUNT W/DIF F hemoglobin 10.3 g/dL 12.0-1 5.6 low Not Available [facility] (Lab) [address] [place], [address], 07/31/2023 13:42:00 07/31/19 24 07/31/2023 CBC/C OMPLE TE BLD COUNT W/DIF F hematocrit 32.6 % 35.7-4 5.7 low Not Available [facility] (Lab) [address] [place], [address], 07/31/2023 13:42:00 07/31/19 24 07/31/2023 CBC/C OMPLE TE BLD COUNT W/DIF F mean red cell volume 92.4 fL 82.0-9 9.0 Not Available [facility] (Lab) [address] [place], [address], 07/31/2023 13:42:00 07/31/19 24 07/31/2023 CBC/C OMPLE TE BLD COUNT W/DIF F mean red cell hemoglobin 29.2 pg 27.0-3 3.0 Not Available [facility] (Lab) [address] [place], [address], 07/31/2023 13:42:00 07/31/19 24 07/31/2023 CBC/C OMPLE TE BLD COUNT W/DIF F mean RBC HGB concentratio n 31.6 g/dL 31.0-3 6.0 Not Available [facility] (Lab) [address] [place], [address], 07/31/2023 13:42:00 07/31/19 24 07/31/2023 CBC/C OMPLE TE BLD COUNT W/DIF F red cell distribution width 16.7 % 11.8-1 5.5 high Not Available [facility] (Lab) [address] [place], [address], 07/31/2023 13:42:00 07/31/19 24 07/31/2023 CBC/C OMPLE TE BLD COUNT W/DIF F platelets 209 x10'3 /uL 150-40 0 Not Available [facility] (Lab) [address] [place], [address], 07/31/2023 13:42:00 07/31/19 24 07/31/2023 CBC/C OMPLE TE BLD COUNT W/DIF F mean platelet volume 9.8 fL 9.0-12 .4 Not Available [facility] (Lab) [address] [place], [address], 07/31/2023 13:42:00 07/31/19 24 07/31/2023 CBC/C OMPLE TE BLD COUNT W/DIF F neutrophils 67.6 % 39.0-7 2.0 Not Available [facility] (Lab) [address] [place], [address], 07/31/2023 13:42:00 07/31/19 24 07/31/2023 CBC/C OMPLE TE BLD COUNT W/DIF F lymphocytes 19.1 % 16.0-4 7.0 Not Available [facility] (Lab) [address] [place], [address], 07/31/2023 13:42:00 07/31/19 24 07/31/2023 CBC/C OMPLE TE BLD COUNT W/DIF F monocytes 8.6 % 5.0-12 .0 Not Available [facility] (Lab) [address] [place], [address], 07/31/2023 13:42:00 07/31/19 24 07/31/2023 CBC/C OMPLE TE BLD COUNT W/DIF F eosinophils 3.5 % 1.0-7. 0 Not Available [facility] (Lab) [address] [place], [address], 07/31/2023 13:42:00 07/31/19 24 07/31/2023 CBC/C OMPLE TE BLD COUNT W/DIF F basophils 0.8 % 0.0-2. 0 Not Available [facility] (Lab) [address] [place], [address], 07/31/2023 13:42:00 07/31/19 24 07/31/2023 CBC/C OMPLE TE BLD COUNT W/DIF F immature granulocytes 0.4 % 0.00-0 .50 Not Available [facility] (Lab) [address] [place], [address], 07/31/2023 13:42:00 07/31/19 24 07/31/2023 CBC/C OMPLE TE BLD COUNT W/DIF F neutrophils, absolute count 3.48 x10'3 /uL 1.5-8. 0 Not Available [facility] (Lab) [address] [place], [address], 07/31/2023 13:42:00 07/31/19 24 07/31/2023 CBC/C OMPLE TE BLD COUNT W/DIF F lymphocytes, absolute count 0.98 x10'3 /uL 1.07-3 .43 low Not Available [facility] (Lab) [address] [place], [address], 07/31/2023 13:42:00 07/31/19 24 07/31/2023 CBC/C OMPLE TE BLD COUNT W/DIF F monocytes, absolute count 0.44 x10'3 /uL 0.29-0 .99 Not Available [facility] (Lab) [address] [place], [address], 07/31/2023 13:42:00 07/31/19 24 07/31/2023 CBC/C OMPLE TE BLD COUNT W/DIF F eosinophils, absolute count 0.18 x10'3 /uL 0.02-0 .53 Not Available [facility] (Lab) [address] [place], [address], 07/31/2023 13:42:00 07/31/19 24 07/31/2023 CBC/C OMPLE TE BLD COUNT W/DIF F basophils, absolute count 0.04 x10'3 /uL 0.01-0 .08 Not Available [facility] (Lab) [address] [place], [address], 07/31/2023 13:42:00 07/31/19 24 07/31/2023 CBC/C OMPLE TE BLD COUNT W/DIF F immature granulocytes ,absolute 0.02 x10'3 /uL 0.00-0 .05 Not Available [facility] (Lab) [address] [place], [address], 07/31/2023 13:42:00 07/31/19 24 07/31/2023 CBC/C OMPLE TE BLD COUNT W/DIF F nucleated red blood cells 0.0 % -0 Not Available [facility] (Lab) [address] [place], [address], 07/31/2023 13:42:00 07/31/19 24 07/31/2023 CBC/C OMPLE TE BLD COUNT W/DIF F NRBC# 0.00 x10'3 /uL Not Available [facility] (Lab) [address] [place], [address], 07/31/2023 13:42:00 07/31/19 24 07/31/2023 HEMOG LOBIN A1C HA1C 5.6 % 4.0-6. 0 Diabe kiesha Scree misa Crite checo: <5.7% Consi stent with absen ce of diabe kiesha 5.7-6 .4% Consi stent with incre ased risk for diabe kiesha (pred iabet es) >OR=6 .5% Consi stent with diabe kiesha REFER ENCE: Diabe kiesha Care 2016, 39(Stafford ppl.1 ):s13 -s22 Not Available [facility] (Lab) [address] [place], [address], 07/31/2023 14:35:40 07/31/19 24 07/31/2023 LIPID PANEL cholesterol 132 mg/dL 140-19 9 low NIH JAROD NSUS RECOM MENDA TION FOR PENNY STERO L: ADULT CHILD LOW RISK: <200 <170 BORDE RLINE : <200- 239 ----- HIGH RISK: >240 >200 Not Available [facility] (Lab) [address] [place], [address], 07/31/2023 19:00:18 07/31/19 24 07/31/2023 LIPID PANEL triglyceride s 165 mg/dL 0-150 high NIH JAROD NSUS REPOR T RECOM MENDA TION FOR TRIGL YCERI KVNG: ADULT CHILD LOW RISK: <150 ----- BODER LINE: 150-1 99 ----- HIGH RISK: >200 ----- Not Available [facility] (Lab) [address] [place], [address], 07/31/2023 19:00:18 07/31/19 24 07/31/2023 LIPID PANEL HDL cholesterol 45 mg/dL 40- Not Available [facility] (Lab) [address] [place], [address], 07/31/2023 19:00:18 07/31/19 24 07/31/2023 LIPID PANEL [...] WILL NOT BE REPOR JOSEE. Not Available [facility] (Lab) [address] [place], [address], 07/31/2023 19:00:18 07/31/19 24 07/31/2023 COMPR EHENS ALLISON METAB OLIC PANEL sodium 138 mmol/ L 137-14 5 Not Available [facility] (Lab) [address] [place], [address], 07/31/2023 19:00:28 07/31/19 24 07/31/2023 COMPR EHENS ALLISON METAB OLIC PANEL potassium 4.3 mmol/ L 3.5-5. 1 Not Available [facility] (Lab) [address] [place], [address], 07/31/2023 19:00:28 07/31/19 24 07/31/2023 COMPR EHENS ALLISON METAB OLIC PANEL chloride 104 mmol/ L 98-107 Not Available [facility] (Lab) [address] [place], [address], 07/31/2023 19:00:28 07/31/19 24 07/31/2023 COMPR EHENS ALLISON METAB OLIC PANEL carbon dioxide 29 mmol/ L 22-30 Not Available [facility] (Lab) [address] [place], [address], 07/31/2023 19:00:28 07/31/19 24 07/31/2023 COMPR EHENS ALLISON METAB OLIC PANEL anion gap 9.3 mmol/ L 14-22 low Not Available [facility] (Lab) [address] [place], [address], 07/31/2023 19:00:28 07/31/19 24 07/31/2023 COMPR EHENS ALLISON METAB OLIC PANEL glucose 96 mg/dL 70-99 Not Available [facility] (Lab) [address] [place], [address], 07/31/2023 19:00:28 07/31/19 24 07/31/2023 COMPR EHENS ALLISON METAB OLIC PANEL BUN 33 mg/dL 8-19 high Not Available [facility] (Lab) [address] [place], [address], 07/31/2023 19:00:28 07/31/19 24 07/31/2023 COMPR EHENS ALLISON METAB OLIC PANEL creatinine 0.91 mg/dL 0.66-1 .25 Not Available [facility] (Lab) [address] [place], [address], 07/31/2023 19:00:28 07/31/19 24 07/31/2023 COMPR EHENS ALLISON METAB OLIC PANEL GFR 59 Refer ence Range : [place] ge GFR Healt hy Adult : >60 [...] or ethni c subgr oups, such as Hisin nics. Outsi de the valid ated catrina [...] calcu lator is avail able on the [facility] websi te: https ://chadd callahan.real toney/pr rigobertoess ional s/kdo qi/gf r_cal culat or Not Available [facility] (Lab) [address] [place], [address], 07/31/2023 19:00:28 07/31/19 24 07/31/2023 COMPR EHENS ALLISON METAB OLIC PANEL alkaline phosphatase 43 U/L 38-[address] [facility] (Lab) [address] [place], [address], 07/31/2023 19:00:28 07/31/19 24 07/31/2023 COMPR EHENS ALLISON METAB OLIC PANEL alanine aminotransfe rase 14 U/L 0-35 Not Available [facility] (Lab) [address] [facility] [place], [address], 07/31/2023 19:00:28 07/31/19 24 07/31/2023 COMPR EHENS ALLISON METAB OLIC PANEL aspartate aminotransfe rase 24 U/L 15-37 Not Available [facility] (Lab) [address] [facility] [place], [address], 07/31/2023 19:00:28 07/31/19 24 07/31/2023 COMPR EHENS ALLISON METAB OLIC PANEL bilirubin, total 0.40 mg/dL 0.20-1 .30 Not Available [facility] (Lab) [address] [place], [address], 07/31/2023 19:00:28 07/31/19 24 07/31/2023 COMPR EHENS ALLISON METAB OLIC PANEL calcium 9.4 mg/dL 8.4-10 .2 Not Available [facility] (Lab) [address] [place], [address], 07/31/2023 19:00:28 07/31/19 24 07/31/2023 COMPR EHENS ALLISON METAB OLIC PANEL total protein 5.9 g/dL 6.3-8. 2 low Not Available [facility] (Lab) [address] [place], [address], 07/31/2023 19:00:28 07/31/19 24 07/31/2023 COMPR EHENS ALLISON METAB OLIC PANEL albumin 4.0 g/dL 3.0-4. 4 Not Available [facility] (Lab) [address] [place], [address], 07/31/2023 19:00:28 07/31/19 24 07/31/2023 COMPR EHENS ALLISON METAB OLIC PANEL globulin 1.9 g/dL 2.6-4. 2 low Not Available [facility] (Lab) [address] [place], [address], 07/31/2023 19:00:28 07/31/19 24 07/31/2023 COMPR EHENS ALLISON METAB OLIC PANEL A/G ratio 2.1 ratio 1.0-2. 0 high Not Available [facility] (Lab) [address] [place], [address], 07/31/2023 19:00:28 11/29/19 24 11/29/2023 CBC/C OMPLE TE BLD COUNT W/DIF F white blood cells 4.2 x10'3 /uL 4.2-10 .8 Not Available [facility] (Lab) [address] [place], [address], 11/29/2023 14:01:20 11/29/19 24 11/29/2023 CBC/C OMPLE TE BLD COUNT W/DIF F red blood cells 3.69 x10'6 /uL 3.80-5 .20 low Not Available [facility] (Lab) [address] [place], [address], 11/29/2023 14:01:20 11/29/19 24 11/29/2023 CBC/C OMPLE TE BLD COUNT W/DIF F hemoglobin 12.3 g/dL 12.0-1 5.6 Not Available [facility] (Lab) [address] [place], [address], 11/29/2023 14:01:20 11/29/19 24 11/29/2023 CBC/C OMPLE TE BLD COUNT W/DIF F hematocrit 37.1 % 35.7-4 5.7 Not Available [facility] (Lab) [address] [place], [address], 11/29/2023 14:01:20 11/29/19 24 11/29/2023 CBC/C OMPLE TE BLD COUNT W/DIF F mean red cell volume 100.5 fL 82.0-9 9.0 high Not Available [facility] (Lab) [address] [place], [address], 11/29/2023 14:01:20 11/29/19 24 11/29/2023 CBC/C OMPLE TE BLD COUNT W/DIF F mean red cell hemoglobin 33.3 pg 27.0-3 3.0 high Not Available [facility] (Lab) [address] [place], [address], 11/29/2023 14:01:20 11/29/19 24 11/29/2023 CBC/C OMPLE TE BLD COUNT W/DIF F mean RBC HGB concentratio n 33.2 g/dL 31.0-3 6.0 Not Available [facility] (Lab) [address] [place], [address], 11/29/2023 14:01:20 11/29/19 24 11/29/2023 CBC/C OMPLE TE BLD COUNT W/DIF F red cell distribution width 14.4 % 11.8-1 5.5 Not Available [facility] (Lab) [address] [place], [address], 11/29/2023 14:01:20 11/29/19 24 11/29/2023 CBC/C OMPLE TE BLD COUNT W/DIF F platelets 183 x10'3 /uL 150-40 0 Not Available [facility] (Lab) [address] [place], [address], 11/29/2023 14:01:20 11/29/1901 1211/29/2023 CBC/C OMPLE TE BLD COUNT W/DIF F mean platelet volume 9.7 fL 9.0-12 .4 Not Available [facility] (Lab) [address] [place], [address], 11/29/2023 14:01:11/29/19 24 11/29/2023 CBC/C OMPLE TE BLD COUNT W/DIF F neutrophils 65.0 % 39.0-7 2.0 Not Available [facility] (Lab) [address] [place], [address], 11/29/2023 14:01:11/29/1911/29/2023 CBC/C OMPLE TE BLD COUNT W/DIF F lymphocytes 21.1 % 16.0-4 7.0 Not Available [facility] (Lab) [address] [place], [address], 11/29/2023 14:01:11/29/19 24 11/29/2023 CBC/C OMPLE TE BLD COUNT W/DIF F monocytes 9.2 % 5.0-12 .0 Not Available [facility] (Lab) [address] [place], [address], 11/29/2023 14:01:11/29/19 24 11/29/2023 CBC/C OMPLE TE BLD COUNT W/DIF F eosinophils 3.8 % 1.0-7. 0 Not Available [facility] (Lab) [address] [place], [address], 11/29/2023 14:01:11/29/1911/29/2023 CBC/C OMPLE TE BLD COUNT W/DIF F basophils 0.7 % 0.0-2. 0 Not Available [facility] (Lab) [address] [place], [address], 11/29/2023 14:01:11/29/19 24 11/29/2023 CBC/C OMPLE TE BLD COUNT W/DIF F immature granulocytes 0.2 % 0.00-0 .50 Not Available [facility] (Lab) [address] [place], [address], 11/29/2023 14:01:20 11/29/19 24 11/29/2023 CBC/C OMPLE TE BLD COUNT W/DIF F neutrophils, absolute count 2.74 x10'3 /uL 1.5-8. 0 Not Available [facility] (Lab) [address] [place], [address], 11/29/2023 14:01:11/29/19 24 11/29/2023 CBC/C OMPLE TE BLD COUNT W/DIF F lymphocytes, absolute count 0.89 x10'3 /uL 1.07-3 .43 low Not Available [facility] (Lab) [address] [place], [address], 11/29/2023 14:01:20 11/29/19 24 11/29/2023 CBC/C OMPLE TE BLD COUNT W/DIF F monocytes, absolute count 0.39 x10'3 /uL 0.29-0 .99 Not Available [facility] (Lab) [address] [place], [address], 11/29/2023 14:01:20 11/29/19 24 11/29/2023 CBC/C OMPLE TE BLD COUNT W/DIF F eosinophils, absolute count 0.16 x10'3 /uL 0.02-0 .53 Not Available [facility] (Lab) [address] [place], [address], 11/29/2023 14:01:20 11/29/19 24 11/29/2023 CBC/C OMPLE TE BLD COUNT W/DIF F basophils, absolute count 0.03 x10'3 /uL 0.01-0 .08 Not Available [facility] (Lab) [address] [place], [address], 11/29/2023 14:01:20 11/29/19 24 11/29/2023 CBC/C OMPLE TE BLD COUNT W/DIF F immature granulocytes ,absolute 0.01 x10'3 /uL 0.00-0 .05 Not Available [facility] (Lab) [address] [place], [address], 11/29/2023 14:01:20 11/29/19 24 11/29/2023 CBC/C OMPLE TE BLD COUNT W/DIF F nucleated red blood cells 0.0 % -0 Not Available [facility] (Lab) [address] [place], [address], 11/29/2023 14:01:20 11/29/19 24 11/29/2023 CBC/C OMPLE TE BLD COUNT W/DIF F NRBC# 0.00 x10'3 /uL Not Available [facility] (Lab) [address] [place], [address], 11/29/2023 14:01:20 11/29/19 24 11/29/2023 HEMOG LOBIN A1C HA1C 5.6 % 4.0-6. 0 Diabe kiesha Scree misa Crite checo: <5.7% Consi stent with absen ce of diabe kiesha 5.7-6 .4% Consi stent with incre ased risk for diabe kiesha (pred iabet es) >OR=6 .5% Consi stent with diabe kiesha REFER ENCE: Diabe kiesha Care 2016, 39(Stafford ppl.1 ):s13 -s22 Not Available [facility] (Lab) [address] [place], [address], 11/29/2023 14:36:55 11/29/19 24 11/29/2023 LIPID PANEL cholesterol 145 mg/dL 140-19 9 NIH JAROD NSUS RECOM MENDA TION FOR PENNY STERO L: ADULT CHILD LOW RISK: <200 <170 BORDE RLINE : <200- 239 ----- HIGH RISK: >240 >200 Not Available [facility] (Lab) [address] [place], [address], 11/29/2023 17:10:35 11/29/19 24 11/29/2023 LIPID PANEL triglyceride s 181 mg/dL 0-150 high NIH JAROD NSUS REPOR T RECOM MENDA TION FOR TRIGL YCERI KVNG: ADULT CHILD LOW RISK: <150 ----- BODER LINE: 150-1 99 ----- HIGH RISK: >200 ----- Not Available [facility] (Lab) [address] [place], [address], 11/29/2023 17:10:35 11/29/19 24 11/29/2023 LIPID PANEL HDL cholesterol 46 mg/dL 40- Not Available [facility] (Lab) [address] [place], [address], 11/29/2023 17:10:35 11/29/19 24 11/29/2023 LIPID PANEL [...] WILL NOT BE REPOR JOSEE. Not Available [facility] (Lab) [address] [place], [address], 11/29/2023 17:10:35 11/29/19 24 11/29/2023 COMPR EHENS ALLISON METAB OLIC PANEL sodium 139 mmol/ L 137-14 5 Not Available [facility] (Lab) [address] [place], [address], 11/29/2023 17:10:39 11/29/19 24 11/29/2023 COMPR EHENS ALLISON METAB OLIC PANEL potassium 4.7 mmol/ L 3.5-5. 1 Not Available [facility] (Lab) [address] [place], [address], 11/29/2023 17:10:39 11/29/19 24 11/29/2023 COMPR EHENS ALLISON METAB OLIC PANEL chloride 106 mmol/ L 98-107 Not Available [facility] (Lab) [address] [place], [address], 11/29/2023 17:10:39 11/29/19 24 11/29/2023 COMPR EHENS ALLISON METAB OLIC PANEL carbon dioxide 32 mmol/ L 22-30 high Not Available [facility] (Lab) [address] [place], [address], 11/29/2023 17:10:39 11/29/19 24 11/29/2023 COMPR EHENS ALLISON METAB OLIC PANEL anion gap 5.7 mmol/ L 14-22 low Not Available [facility] (Lab) [address] [place], [address], 11/29/2023 17:10:39 11/29/19 24 11/29/2023 COMPR EHENS ALLISON METAB OLIC PANEL glucose 92 mg/dL 70-99 Not Available [facility] (Lab) [address] [place], [address], 11/29/2023 17:10:39 11/29/19 24 11/29/2023 COMPR EHENS ALLISON METAB OLIC PANEL BUN 27 mg/dL 8-19 high Not Available [facility] (Lab) [address] [place], [address], 11/29/2023 17:10:39 11/29/19 24 11/29/2023 COMPR EHENS ALLISON METAB OLIC PANEL creatinine 0.88 mg/dL 0.66-1 .25 Not Available [facility] (Lab) [address] [place], [address], 11/29/2023 17:10:39 11/29/19 24 11/29/2023 COMPR EHENS ALLISON METAB OLIC PANEL GFR >60 Refer ence Range : [place] ge GFR Healt hy Adult : >60 mL/mi n/1.7 3 m2 Chron ic Kidne y Disea se: 15-60 mL/mi n/1.7 3 m2 Kidne y Failu re: <15/m L/min /1.73 m2 www.n iddk. [facility].g ov The MDRD study equat ion has [...] calcu lator is avail able on the [facility] websi te: https ://chadd desouza.delano callahan.o rg/pr ofess ional s/kdo qi/gf r_cal culat or Not Available [facility] (Lab) [address] [place], [address], 11/29/2023 17:10:39 11/29/19 24 11/29/2023 COMPR EHENS ALLISON METAB OLIC PANEL alkaline phosphatase 44 U/L 38-[address] [facility] (Lab) [address] [place], [address], 11/29/2023 17:10:39 11/29/19 24 11/29/2023 COMPR EHENS ALLISON METAB OLIC PANEL alanine aminotransfe rase 17 U/L 0-35 Not Available [facility] (Lab) [address] [place], [address], 11/29/2023 17:10:39 11/29/19 24 11/29/2023 COMPR EHENS ALLISON METAB OLIC PANEL aspartate aminotransfe rase 26 U/L 15-37 Not Available [facility] (Lab) [address] [place], [address], 11/29/2023 17:10:39 11/29/19 24 11/29/2023 COMPR EHENS ALLISON METAB OLIC PANEL bilirubin, total 0.50 mg/dL 0.20-1 .30 Not Available [facility] (Lab) [address] [place], [address], 11/29/2023 17:10:39 11/29/19 24 11/29/2023 COMPR EHENS ALLISON METAB OLIC PANEL calcium 9.8 mg/dL 8.4-10 .2 Not Available [facility] (Lab) [address] [place], [address], 11/29/2023 17:10:39 11/29/19 24 11/29/2023 COMPR EHENS ALLISON METAB OLIC PANEL total protein 6.1 g/dL 6.3-8. 2 low Not Available [facility] (Lab) [address] [place], [address], 11/29/2023 17:10:39 11/29/19 24 11/29/2023 COMPR EHENS ALLISON METAB OLIC PANEL albumin 3.8 g/dL 3.0-4. 4 Not Available [facility] (Lab) [address] [place], [address], 11/29/2023 17:10:39 11/29/19 24 11/29/2023 COMPR EHENS ALLISON METAB OLIC PANEL globulin 2.3 g/dL 2.6-4. 2 low Not Available [facility] (Lab) [address] [place], [address], 11/29/2023 17:10:39 11/29/19 24 11/29/2023 COMPR EHENS ALLISON METAB OLIC PANEL A/G ratio 1.7 ratio 1.0-2. 0 Not Available [facility] (Lab) [address] [place], [address], 11/29/2023 17:10:39 Result Notes None recorded. 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 Not Available [facility] 4 04:30:00 Closed fracture of fifth lumbar vertebra [id number] Completed 202002/08/2021 Not Available [facility] 3 03:24:42 Chronic back pain 373934922 Active 2021 Not Available [facility] 4 04:30:01 Hyperchol esterolem ia 95996567 Active 2016 Not Available [facility] 4 04:30:01 Acute sinusitis 74952063 Active 2021 Not Available [facility] 4 04:30:01 Heartburn 49380679 Active 2016 Not Available [facility] 4 04:30:01 Dry skin 72395832 Active 2018 Not Available [facility] 4 04:30:01 Foot callus 433498777 Active 2018 Not Available [facility] 4 04:30:01 Gastroeso phageal reflux disease 614358192 Active Not Available [facility] 4 04:30:01 Dry skin dermatiti s 400347733 Active 2019 Not Available [facility] 4 04:30:01 Low back pain 563700715 Active 2021 Not Available [facility] 4 04:30:01 Numbness of hand 356911278 Active 2021 Not Available [facility] 4 04:30:01 Type 2 diabetes mellitus without complicat ion 656476354 Active Not Available [facility] 4 04:30:01 Elevated blood-pre ssure reading without diagnosis of hypertens ion 526662415 Completed Not Available [facility] 3 03:24:42 Compressi on fracture of lumbar spine 481507329 Active 2021 Not Available [facility] 4 04:30:01 Compressi on fracture 833609586 Active 2020 L5 Not Available [facility] 4 04:30:01 Well controlle d type 2 diabetes mellitus 860724315 Active 2021 Not Available [facility] 4 04:30:01 Atrial fibrillat ion 90178824 Active 2021 Not Available [facility] 4 04:30:01 Cough 28326864 Active 2021 Not Available [facility] 4 04:30:01 Hyperlipi demia 98970813 Active Not Available [facility] 4 04:30:01 Essential hypertens ion 84266854 Active Not Available [facility] 4 04:30:01 Osteoporo sis 95618755 Active 2021 Not Available [facility] 4 04:30:01 Abscess of vulva 70005925 Active Not Available [facility] 4 04:30:01 Rhinitis 77191807 Active 2019 Not Available [facility] 4 04:30:01 Diabetes mellitus 83216428 Active 2016 Not Available [facility] 4 04:30:01 Dystrophi a unguium 50328818 Active 2022 Not Available [facility] 4 04:30:01 Diabetic on oral treatment 723192746 Active 2024 Carlo Wells DPM [address], [place], [address] , [employer] 5 12:07:13 Pressure injury of toe of right foot stage I 83284744979 4106 Active 2024 Carlo Wells DPM [address], [place], [address] , [employer] 5 12:22:28 Pressure injury of toe of left foot stage I 30207152354 4109 Active 2024 Carlo Wells DPM [address], [place], [address] , [facility] 5 12:22:59 Foot pain 66042861 Active 2024 Carlo Wells DPM [address], [place], [address] , [facility] 5 12:23:16 Pain in right foot 05314527210 9107 Active 2024 Carlo Wells DPM [address], [place], [address] , [facility] 5 15:14:17 Problem Notes None recorded. Procedures Surgical History Date Name Laterality Status Provider Name and Address Organization Details Recorded Time 07/19/19 25 Callus Debridement, One completed Carlo Wells DPM [address], [place], [address], [employer] 07/18/2024 15:13:31 06/21/19 25 Nail Debridement completed Carlo Wells DPM [address], [place], [address], [employer] 06/20/2024 13:03:19 06/21/19 25 Callus Debridement, One completed Carlo Wells DPM [address], [place], [address], [facility] 06/20/2024 13:02:08 03/25/20 24 Nail Debridement completed Carlo Wells DPM [address], [place], [address], [facility] 03/25/2024 11:53:34 11/16/19 24 Nail Debridement completed Carlo Wells DPM [address], [place], [address], [facility] 11/16/2023 15:06:19 11/16/19 24 Callus Debridement 2-[address], [place], [address], [facility] 11/16/2023 15:06:11 08/14/19 24 Nail Debridement completed SIMONE [address], [place], [address], [facility] 08/14/2023 14:29:36 05/15/19 24 Nail Debridement completed Carlo Wells DPM [address], [place], [address], [facility] 05/15/2023 14:03:10 02/21/20 23 Nail Debridement completed Carlo Wells DPM [address], [place], [address], [facility] 02/20/2023 12:02:00 02/21/20 23 Callus Debridement, One completed Carlo Wells DPM [address], [place], [address], [facility] 02/20/2023 12:01:51 11/22/19 23 Nail Debridement completed Carlo Wells DPM [address], [place], [address], [facility] [employer] [facility] 11/21/2022 10:40:17 11/22/19 23 Callus Debridement 2-4 completed Carlo Wells DPM [address], [place], [address], [facility] [employer] [facility] 11/21/2022 10:40:10 08/23/19 23 Nail Debridement completed Carlo Wells DPM [address], [place], [address], [facility] [employer] [facility] 08/22/2022 11:11:43 08/23/19 23 Callus Debridement, One completed Carlo Wells DPM [address], [place], [address], [facility] [employer] [facility] 08/22/2022 11:11:48 11/19/19 17 Date of Last Colonoscopy completed Not Available [facility] 06/08/2022 03:17:41 11/19/19 17 Colonoscopy completed Not Available [facility] 06/08/2022 03:17:45 03/25/20 15 Colonoscopy completed Not Available [facility] 06/08/2022 03:17:45 03/10/20 10 Colonoscopy completed Not Available [facility] 06/08/2022 03:17:45 total replacement of hip completed Not Available [facility] 06/08/2022 03:17:45 Cholecystectomy completed Not Available [facility] 06/08/2022 03:17:45 Hysterectomy completed Not Available [facility] 06/08/2022 03:17:45 tonsilectomy/adeno ids completed Not Available [facility] 06/08/2022 03:17:45 Eye Surgery completed Not Available [facility] 06/08/2022 03:17:45 Imaging Results None recorded. [...] Not available Not available Not available 06/08/2022 32663 8003 SNOMED Not Available [facility] 03:36:18 6371 erythromy tee medicatio n Not available Not available Not available 06/08/2022 4053 RxNorm Other react ions and sever ities : 'Adve rse react ion to subst ance' . Not Available [facility] 3 03:36:18 Medications Name Sig Start Date [...] active Not Available Not Available Not Avai labroc simvastat in 20 mg tablet Take 1 [...] Not Available Not Available No t Available [place] 10 mg-325 mg tablet Take 1 tablet [...] [facility]: 0409-427 09-24 Not Available Not Available Not Available peg [...] Updated DateTime 5 154.94 cm 37.8 kg/m2 42162.4 7 g 65 /min 14 /min 98 % 98 % 117 mm[Hg] 54 mm[Hg] Mellisa Brian [employer] 5 12:12:52 Date Recorded Body height Body mass index (BMI) Body weight Heart rate Respiratory rate Oxygen saturation Oxygen saturation in Arterial blood by Pulse oximetry Systolic blood pressure Diastolic blood pressure Provider Name and Address Organization Details Last Updated DateTime 5 154.94 cm 37.8 kg/m2 06756.4 7 g 75 /min 14 /min 97 % 97 % 110 mm[Hg] 57 mm[Hg] Mellisa Torres [employer] 5 14:20:38 Date Recorded Body height Body mass index (BMI) Body weight Heart rate Respiratory rate Oxygen saturation Oxygen saturation in Arterial blood by Pulse oximetry Systolic blood pressure Diastolic blood pressure Provider Name and Address Organization Details Last Updated DateTime 4 154.94 cm 37.8 kg/m2 22786.4 7 g 67 /min 14 /min 98 % 98 % 128 mm[Hg] 67 mm[Hg] Mellisa Torres [employer] 4 12:12:33 Date Recorded Body height Body mass index (BMI) Body weight Heart rate Body temperature Respiratory rate Systolic blood pressure Diastolic blood pressure Provider Name and Address Organization Details Last Updated DateTime 4 154.94 cm 37.8 kg/m2 90792.4 7 g 72 /min 98.6 [degF] 14 /min 126 mm[Hg] 70 mm[Hg] Vicki Monk MA [facility] [employer] 4 12:38:09 Date Recorded Body height Body mass index (BMI) Body weight Heart rate Respiratory rate Oxygen saturation Oxygen saturation in Arterial blood by Pulse oximetry Systolic blood pressure Diastolic blood pressure Provider Name and Address Organization Details Last Updated DateTime 4 154.94 cm 37.8 kg/m2 86453.4 7 g 72 /min 14 /min 98 % 98 % 146 mm[Hg] 71 mm[Hg] Mellisa Torres [place] - [facility] 4 11:05:45 Social History Question Answer Notes LastModified by Organizat ion Details LastModified Time Tobacco Smoking Status Never Smoker Not Available [facility] 06/08/2022 03:01:32 Do You Have An Advance Directive? No MIGRATION.05499 64849 Information not available 06/08/2022 Are You Blind Or Do You Have Difficulty Seeing? Yes MIGRATION.71979 19854 Information not available 06/08/2022 What Is Your Level Of Caffeine Consumption? Moderate MIGRATION.74402 60131 Information not available 06/08/2022 How Much Tobacco Do You Chew? None MIGRATION.52281 28357 Information not available 06/08/2022 In The 14 Days Before Symptom Onset, Have You Had Close Contact With A Laboratory-confi rmed COVID-19 While That Case Was Ill? No MIGRATION.88934 06842 Information not available 06/08/2022 In The 14 Days Before Symptom Onset, Have You Had Close Contact With A Person Who Is Under Investigation For COVID-19 While That Person Was Ill? No MIGRATION.44031 29202 Information not available 06/08/2022 Are You Deaf Or Do You Have Serious Difficulty Hearing? No MIGRATION.28149 05777 Information not available 06/08/2022 What Type Of Diet Are You Following? REGULAR MIGRATION.15069 42230 Information not available 06/08/2022 Which Illicit Or Recreational Drugs Have You Used? None MIGRATION.62901 31272 Information not available 06/08/2022 What Is The Highest Grade Or Level Of School You Have Completed Or The Highest Degree You Have Received? [id number] MIGRATION.97569 65419 Information not available 06/08/2022 Have There Been Any Changes To Your Family Or Social Situation? No MIGRATION.43612 01715 Information not available 06/08/2022 What Is The Fluoride Status Of Your Home? Unknown MIGRATION.62308 08041 Information not available 06/08/2022 Are There Any Guns Present In Your Home? No MIGRATION.01506 83731 Information not available 06/08/2022 Do You Use Insect Repellent Routinely? No MIGRATION.33034 59774 Information not available 06/08/2022 Where Do You Live? [facility] MIGRATION.32370 93429 Information not available 06/08/2022 Do You Have A Medical Power Of Inside Contractor Sales? No MIGRATION.82843 19128 Information not available 06/08/2022 What Was The Date Of Your Most Recent Tobacco Screening? 05/02/2023 [email or web address] Information not available 05/02/2023 Do You Have Any Pets? No MIGRATION.86738 50097 Information not available 06/08/2022 What Is Your Relationship Status? MIGRATION.83861 64970 Information not available 06/08/2022 Do You Use Your Seat Belt Or Car Seat Routinely? Yes MIGRATION.42168 73897 Information not available 06/08/2022 Do You Have Smoke And Carbon Monoxide Detectors In Your Home? Yes MIGRATION.33460 69503 Information not available 06/08/2022 Are You Passively Exposed To Smoke? No MIGRATION.16585 33471 Information not available 06/08/2022 Are There Any Smokers In Your House? No MIGRATION.55752 24864 Information not available 06/08/2022 How Much Tobacco Do You Smoke? No MIGRATION.91215 64633 Information not available 06/08/2022 What Types Of Sporting Activities Do You Participate In? None MIGRATION.91349 92198 Information not available 06/08/2022 Do You Use Sunscreen Routinely? No MIGRATION.82505 33001 Information not available 06/08/2022 Has Tobacco Cessation Counseling Been Provided? No Not Needed-ne leela Smoked MIGRATION.70308 47970 Information not available 06/08/2022 How Many Years Have You Smoked Tobacco? 0 MIGRATION.60669 73801 Information not available 06/08/2022 Have You Recently Traveled Abroad? No MIGRATION.53315 41893 Information not available 06/08/2022 Do You Have Difficulty Walking Or Climbing Stairs? Yes MIGRATION.86801 47436 Information not available 06/08/2022 Do You Have Any Dietary Restrictions? No MIGRATION.17978 63967 Information not available 06/08/2022 Sex: Female Functional Status Question Answer Note LastModified by Organizat ion Details LastModified Time Do you use any illicit or recreational drugs? No MIGRATION.20411 64107 Information not available 06/08/2022 Do you or have you ever used any other forms of tobacco or nicotine? No MIGRATION.33771 47563 Information not available 06/08/2022 What is your level of alcohol consumption? None MIGRATION.18727 56398 Information not available 06/08/2022 Do you or have you ever used smokeless tobacco? Never used smokeless tobacco MIGRATION.31052 61566 Information not available 06/08/2022 Do you have transportation difficulties? No MIGRATION.14278 20016 Information not available 06/08/2022 Are you able to walk? YESASSIST uses cane MIGRATION.13416 89726 Information not available 06/08/2022 Do you have difficulty doing errands alone? No MIGRATION.21686 42412 Information not available 06/08/2022 Are you able to care for yourself? Yes MIGRATION.26914 86021 Information not available 06/08/2022 What is your occupation? retired MIGRATION.23643 57476 Information not available 06/08/2022 Do you have difficulty dressing or bathing? No MIGRATION.45284 21574 Information not available 06/08/2022 Do you or have you ever used e-cigarettes or vape? Never used electronic cigarettes MIGRATION.85475 24235 Information not available 06/08/2022 What is your exercise level? None MIGRATION.57199 14365 Information not available 06/08/2022 Mental Status Question Answer Note LastModified by Organizat ion Details LastModified Time Do you feel stressed (tense, restless, nervous, or anxious, or unable to sleep at night)? [id number] MIGRATION.32382655 26 Information not available 06/08/2022 Do you have difficulty concentrating, remembering or making decisions? No MIGRATION.34680176 26 Information not available 06/08/2022 Family History Relationship Description Onset Age of this Age Resolved Age Notes LastModified by Organization Details LastModified Time Mother Pulmonary embolism MIGRATION.735 [id number] Not available 06/08/2022 03:17:46 Father Diabetes mellitus MIGRATION.251 1302653 Not available 06/08/2022 03:17:46 Unspecified Relation Heart disease MIGRATION.404 3054789 Not available 06/08/2022 03:17:46 Medical History Condition [...] HAVE YOU BEEN HOSPITALIZED OR SEEN IN [facility] IN THE PAST YEAR ? Y [...] virus, trivalent, PF 03/21/2013 completed Not Available [facility] 2023 04:30:03 Influenza, high-dose, quadrivalent, PF 01/10/2019 completed Not Available [facility] 04:30:03 Influenza, high-dose, trivalent, PF 01/10/2018 completed Not Available [facility] 2023 04:30:03 Influenza, high-dose, trivalent, PF 02/24/2017 completed Not Available [facility] 2023 04:30:03 Influenza, high-dose, trivalent, PF 01/24/2016 completed Not Available [facility] 2023 04:30:03 Influenza, split virus, trivalent, PF 02/19/2014 completed Not Available [facility] 2023 04:30:03 Influenza, high-dose, quadrivalent, PF 02/10/2022 completed Not Available [facility] 04:30:03 Past Encounters Encounter ID Performer Location Encounter Start Date Encounter Closed Date Diagnosis/Indication Diagnosis SNOMED-CT Code Diagnosis ICD10 Code Diagnosis Note [id number] [facility] [place] [address] [place] [address] 07/16/2020 00:00:00 07/20/2020 08:49:57 [id number] [facility]_Histor ic[facility] S_[facility] [place] [address] [place] [address] 09/30/2020 00:00:00 10/02/2020 17:13:50 [id number] Griselda Palafox MD [facility] Internal Med [address] [place] [address] 10/22/2020 00:00:00 10/22/2020 22:38:57 [id number] Griselda Palafox MD [facility] Internal Med [facility] [address] [address] 12/15/2020 00:00:00 12/15/2020 21:34:41 [id number] Griselda Palafox MD [facility] Internal Med [place] [address] [place] [address] [place] [address] 01/07/2021 00:00:00 01/29/2021 22:18:10 [id number] Griselda Palafox MD [facility] Internal Med Mary azar [address] [place] [address] [place] [address] 01/28/2021 00:00:00 02/08/2021 21:45:54 [id number] [facility] [place] [address] [place] [address] 02/22/2021 00:00:00 02/22/2021 15:37:48 [id number] Griselda Palafox MD [facility] [address] , [place] [address] 03/09/2021 00:00:00 03/10/2021 23:47:17 [id number] Fernando Nguyen MD [facility] Ortho [place] [address] [place] [address] 03/17/2021 00:00:00 03/26/2021 14:01:46 [id number] Fernando Nguyen MD [facility] [place] [address] [place] [address] 03/26/2021 00:00:00 03/26/2021 14:00:16 [id number] Fernando Nguyen MD [facility] [place] [address] [place] [address] 04/07/2021 00:00:00 04/07/2021 10:57:26 [id number] Griselda Palafox MD [facility] [address] , [place] [address] 04/27/2021 00:00:00 05/01/2021 15:53:23 [id number] [facility] [place] [address] [place] [address] 05/06/2021 00:00:00 05/06/2021 13:26:01 [id number] Fernando Nguyen MD [facility] [place] [address] [place] [address] 05/19/2021 00:00:00 05/19/2021 14:56:10 [id number] Griselda Palafox MD [facility] Internal [facility] [place] [address] [place] [address] 05/27/2021 00:00:00 06/05/2021 14:13:59 [id number] Dian Negrete MD [facility] End[facility] [place] [address] [place] [address] 06/11/2021 00:00:00 06/11/2021 17:01:10 [id number] [facility] [place] [address] [place] [address] 07/12/2021 00:00:00 07/13/2021 11:26:48 [id number] Dian Negrete MD [facility] [place] [address] [place] [address] 08/13/2021 00:00:00 08/13/2021 12:06:32 [id number] Griselda Palafox MD [facility] Internal [facility] [place] [address] [place] [address] 08/26/2021 00:00:00 09/18/2021 17:54:48 [id number] [facility] [place] [address] [place] [address] 09/27/2021 00:00:00 09/28/2021 10:00:21 [id number] [facility] [place] [address] [place] [address] 11/16/2021 00:00:00 11/16/2021 14:08:05 [id number] Griselda Palafox MD [facility] [place] [address] [place] [address] 11/25/2021 00:00:00 12/19/2021 22:28:33 [id number] [facility] [place] [address] [place] [address] 12/06/2021 00:00:00 12/06/2021 16:25:58 [id number] Griselda Palafox MD [facility] Internal Med [place] [address] [facility] [place] [address] 02/10/2022 00:00:00 02/12/2022 14:39:50 [id number] [facility] ic[facility]way [facility] Podiat[facility] [place] [address] [place] [address] 02/21/2022 00:00:00 02/22/2022 10:47:52 [id number] Fernando Nguyen MD [facility] Orth[facility] [place] [address] [place] [address] 04/20/2022 00:00:00 04/20/2022 11:27:35 [id number] Carlo Wells DPM [facility] Podiat[facility] [place] [address] [place] [address] 05/23/2022 00:00:00 05/23/2022 10:57:45 [id number] Dian Negrete MD [facility] Endo [place] [address] [place] [address] 06/13/2022 10:36:17 06/13/2022 11:45:18 Well controlled type 2 diabetes mellitus 125813503 E11.9 a1c 6% from 2021- not completed this last time- fasting glucose 110 mg/dL- she is no longer on glyburide and has no further hypoglycem ia. Continue on metformin and actos for insulin sensisitiz ation. Postmenopa usal osteoporosis 550357734 M81.0 Continue on prolia as patient tolerating [...] she chooses to go outside of the [facility] to obtain labwork she was [...] in her case. She voiced understand ing. [id number] Griselda Palafox MD [facility] Internal Med [place] [address] [facility] [place] [address] 06/23/2022 10:38:02 06/23/2022 11:47:00 Renewal of prescription 350225965 Z76.0 Type 2 melyssa betes mellitus without complication 009707146 E11.9 Essential hypertension 93256306 I10 Atrial fibrillation 4943 6004 I48.91 Compressio n fracture of lumbar spine 409050401 M48.56XD Diabetes mellitus 497904 09 E11.40 L60.3 L60.0 Z74.1 [id number] Carlo Wells DPM [facility] Podiat[facility] [place] [address] [place] [address] 08/22/2022 10:45:40 08/22/2022 11:19:03 Type 2 diabetes mellitus without complication 940111239 E11.9 Patient educated on neuropathy , diabetes, diabetic diet, and daily foot exams. Patient is to check feet daily for new wounds, blisters, redness to prevent infection and ulceration s to the feet. Patient will return to clinic in 3 months for diabetic foot workup. Foot callus 819215709 L8 4 Sub 1st met head left footdebrid ed without incidentRe commend diabetic inserts Dystrophia unguium 93434 009 L60.3 Nails 1 through 10 were debrided with sharp mechanical debridemen t without incident. Nails were debrided and greater than 50% length and thickness where needed. Unable to cut own toenails 548724637 Z74.1 [id number] Griselda Palafox MD [facility] Internal Med [place] [address] [facility] [address] [facility] [place] [address] 10/18/2022 15:09:51 10/18/2022 15:58:25 Type 2 diabetes mellitus without complication 339173831 E11.9 Diabetes mellitus 037221 09 E11.40 L60.3 L60.0 Z74.1 Essential hypertension 74544289 I10 Gastroesop hageal reflux disease 198576699 K21.9 [id number] Dian Negrete MD [facility] [place] [place] [address] [place] [address] 11/15/2022 10:32:08 11/15/2022 18:50:48 Postmenopausal osteoporosis 089295297 M81.0 Patient tolerated prolia injection without pain or site reaction. Patient brought in prolia injection for her injection today. [id number] Carlo Wells DPM [facility] Podiat[facility] [place] [address] [place] [address] 11/21/2022 10:10:07 11/21/2022 10:44:12 Well controlled type 2 diabetes mellitus 110436188 E11.9 Patient educated on neuropathy , diabetes, diabetic diet, and daily foot exams. Patient is to check feet daily for new wounds, blisters, redness to prevent infection and ulceration s to the feet. Patient will return to clinic in 3 months for diabetic foot workup. Foot callus [id number] L8 4 Sub 1st met head left footdebrid ed without incidentRe commend diabetic inserts Dystrophia unguium 36178 009 L60.3 Nails 1 through 10 were debrided with sharp mechanical debridemen t without incident. Nails were debrided and greater than 50% length and thickness where needed. Porokeratosis 562276023 Q82.8 x2 left footdebrid ed without incidentus e pumice stone dailyrecom mend diabetic insertsfol low-up as needed [id number] Dian Negrete MD [facility] Endo Parmin[facility] [place] [address] [place] [address] 12/01/2022 15:44:52 12/01/2022 17:17:38 Well controlled type 2 diabetes mellitus 781900779 E11.9 a1c 6.3% stable- continue on actos and metformin as patient tolerating well and renal function in ideal range. She is no longer on glyburide and has no further hypoglycem ia. 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 Recommende d up to 150 minutes of walking /movement and small weights in chair for mobility weekly. Postmenopa usal osteoporosis 145483536 M81.0 Tolerated last prolia injection from 11/15 [...] answered and refills necessary at visit today. [id number] Carlo Wells DPM [facility] [place] [address] [place] [address] 02/20/2023 11:19:12 02/20/2023 12:09:25 Well controlled type 2 diabetes mellitus 124061760 E11.9 Patient educated on neuropathy , diabetes, diabetic diet, and daily foot exams. Patient is to check feet daily for new wounds, blisters, redness to prevent infection and ulceration s to the feet. Patient will return to clinic in 3 months for diabetic foot workup.A1c 6.3 11/09/2022 Foot callus 147720485 L8 4 Sub 1st met head left footdebrid ed without incidentco ntinue offloading to prevent woundRecom mend diabetic inserts Dystrophia unguium 21264 009 L60.3 Nails 1 through 10 were debrided with sharp mechanical debridemen t without incident. Nails were debrided and greater than 50% length and thickness where needed. [id number] Griselda Palafox MD [facility] Internal [facility] [address] [place] [address] [place] [address] 03/07/2023 15:08:50 03/07/2023 16:33:28 Type 2 diabetes mellitus without complication 702806581 E11.9 Essential hypertension 37902720 I10 Osteoporosis 31720519 M8 1.0 Atrial fibrillation 4943 6004 I48.91 Compressio n fracture of lumbar spine 156424259 M48.56XD [id number] Griselda Palafox MD [facility] [address] [facility] [place] [address] 05/02/2023 09:42:52 05/02/2023 12:16:03 Type 2 diabetes mellitus without complication 315948819 E11.9 Compression fracture 443 221666 T14.8XXD Diabetes mellitus 042575 09 E11.40 L60.3 L60.0 Z74.1 Essential hypertension 31737343 I10 [id number] Carlo Wells DPM [facility] [place] [address] [place] [address] 05/15/2023 12:02:29 05/23/2023 13:07:49 Dystrophia unguium 71642550 L60.3 Nails debrided Diabetes mellitus 411137 09 E11.40 L60.3 L60.0 Z74.1 check feet daily for wounds infectionC ontinue daily supportive shoe gear to prevent woundsAnd control diabetes per PCP recommenda tions [id number] Carlo Wells DPM [facility] [place] [address] [place] [address] 08/14/2023 11:57:03 08/14/2023 14:46:20 Type 2 diabetes mellitus without complication 007539206 E11.9 continue diabetic control per PCP recommenda tions Dystrophia unguium 35159 009 L60.3 Nails debrided Unable to cut own toenails 195845619 Z74.1 [id number] Carlo Wells DPM [facility] [place] [address] [place] [address] 11/16/2023 12:12:43 11/16/2023 16:27:34 Dystrophia unguium 60768812 L60.3 Nails debrided Foot callus 039247811 L8 4 Sub 1st met head left footdebrid ed without incidentco ntinue offloading to prevent woundRecom mend diabetic inserts Unable to cut own toenails 360807900 Z74.1 Porokeratosis 314588819 Q82.8 x2 left footdebrid ed without incidentus e pumice stone dailyrecom mend diabetic insertsfol low-up as needed Diabetes mellitus 776733 09 E11.40 L60.3 L60.0 Z74.1 check feet daily for wounds infectionC ontinue daily supportive shoe gear to prevent woundsAnd control diabetes per PCP recommenda tions [id number] Carlo Wells DPM [facility] [place] [address] [place] [address] 03/25/2024 10:54:09 2024 08:20:13 Type 2 diabetes mellitus without complication 650402571 E11.9 continue diabetic control per PCP recommenda tions Dystrophia unguium 45868 009 L60.3 Nails 1 through 10 were debrided with sharp mechanical debridemen t without incident. Nails were debrided and greater than 50% length and thickness where needed. [id number] Carlo Wells DPM [facility] [place] [address] [place] [address] 06/20/2024 11:52:40 06/25/2024 11:17:17 Diabetes mellitus 34188483 E11.40 L60.3 L60.0 Z74.1 check feet daily for wounds infectionC ontinue daily supportive shoe gear to prevent woundsAnd control diabetes per PCP recommenda tions Dystrophia unguium 31040 009 L60.3 Nails 1 through 10 were debrided with sharp mechanical debridemen t without incident. Nails were debrided and greater than 50% length and thickness where needed. Diabetic o n oral treatment 544479948 Z79.84 Foot pain 02896805 M79.6 72 secondary to above Pressure i njury of toe of left foot stage I 7166740344 37624 L89.891 Callus debrided without injuryreco mmend offloading discussed offloading options in supportive shoe gearfollow -up 2 weeks [id number] Carlo Wells DPM [facility] [place] [address] [facility] [address] [place] [address] 07/18/2024 14:14:09 08/08/2024 08:58:31 Foot callus 090224395 L84 Sub 1st met head left footdebrid ed without incidentco ntinue offloading to prevent woundRecom mend diabetic inserts Pain in right foot 17079 51342 54821 M79.671 as above Diabetes mellitus 860716 09 E11.40 L60.3 L60.0 Z74.1 check feet daily for wounds infectionC ontinue daily supportive shoe gear to prevent woundsAnd control diabetes per PCP recommenda tions Health Concerns Section Related Observation LastModified by Organization Detai ls LastModified Time None Recorded Concern Status LastModified by Organization Details LastModified Time None Recorded Advance Directives Directive N: Payers Encounter Date Sequence Insurance Name Policy Number Policy Hughes Covered Member ID Hughes Member ID Guarantor Name 08/14/2023 1 [facility] (MEDICARE REPLACEMENT/A DVANTAGE - PPO) [id number] Bren Bond [id number] Bren Marylu Varun 11/16/2023 1 [facility] (MEDICARE REPLACEMENT/A DVANTAGE - PPO) [id number] Bren Bond [id number] Bren Marylu Varun 03/25/2024 1 [facility] (MEDICARE REPLACEMENT/A DVANTAGE - PPO) [id number] Bren Bond [id number] Bren Marylu Varun 06/20/2024 1 [facility] (MEDICARE REPLACEMENT/A DVANTAGE - PPO) [id number] Bren Bond [id number] Bren Bond 07/18/2024 1 [facility] (MEDICARE REPLACEMENT/A DVANTAGE - PPO) [id number] Bren Bond [id number] Bren Bond Notes Date Note Type Note [...] A1c on 07/31/2023 5.6. Carlo Wells DPM [address], [place], [address], [employer] 08/14/2023 14:30:51 11/16/2023 text/html . Patient is [...] any other complaints. Carlo Wells DPM [address], [place], [address], [employer] 11/16/2023 15:07:06 03/25/2024 text/html . Patient is [...] any other complaints. Carlo Wells DPM [address], [place], [address], [employer] 03/25/2024 11:54:13 06/20/2024 text/html . Patient is [...] Wells DPM [address], [place], [address], [employer] 06/20/2024 13:03:49 07/18/2024 text/html . Patient is 84-year-old female diabetic shoe returns for diabetic foot care she states she has some mild discomfort to the Left foot secondary to callus she denies any open wounds or drainage. Patient denies any other complaints. Carlo Wells DPM [address], [place], [address], [employer] 08/06/2024 13:33:36 OBGyn Episode No OBEpisode recorded.
--- OUTSIDE RECORDS SUMMARY | 2024-09-11 10:32 | XMS_ITS | Clinical Summary ---
Author Organization [facility] [address] Address [address] [place] [address] Care Team Providers Care Toeing Stockings Name Role Phone Justino Palafox MD Primary Care Provider [phone] Dmitriy Fung MD Unavailable [phone] Allergies Active Allergy Reactions Criticality Noted Date [...] 03/04/2024 Assessment & Plan (03/04/2024 12:59 PM DIRECTOR ACCOUNT MANAGEMENT): Chronic , slow improving H/o L5 compression [...] Description 07/11/2024 11:00 AM CDT Clinical Support [facility] Diabetes and Endocrinology [address] [place] [address] Age-related osteoporosis without current pathological fracture (Primary Dx) 06/24/2024 [facility]phone [facility] [address] [address] Riley Salvador MD Med Management (Prolia) [...] Tobacco: Never Tobacco Cessation:Counseling Given: Not Answered [facility] Utilities Answer Date Recorded In the past 12 months has th e [employer], gas, oil, or water [employer] threatened to shut off services in your [...] 04/12/2024 How often do you attend chur or bahai services? More than 4 times per year 04/12/2024 Do you belong to any clubs o r organizations such as anabaptist groups, unions, fraternal or athletic groups, or [...] any time in the past 12 m [facility], were you homeless or living in a senior care (including now)? No 04/12/2024 Personal Safety Answer Date Recorded Have you ever been in or are you currently in a harmful physical or emotional relationship or is someone making you feel afraid or unsafe? Denies 04/11/2024 Comments Unknown Sex and Gender Information Value Date Recorded Sex Assigned at Not on file Legal Sex Female 2:59 AM DIRECTOR ACCOUNT MANAGEMENT Gender Identity Not on file Sexual Orientation Not on file Obstetrics History Last Filed Vital Signs Vital Sign Reading Time Taken Comments Blood Pressure 139/61 04/13/2024 10:06 AM DIRECTOR ACCOUNT MANAGEMENT Pulse 79 04/13/2024 10:06 AM DIRECTOR ACCOUNT MANAGEMENT Temperature 36.4 C (97.6 F) 04/13/2024 10:06 AM DIRECTOR ACCOUNT MANAGEMENT Respiratory Rate 18 04/13/2024 10:06 AM DIRECTOR ACCOUNT MANAGEMENT Oxygen Saturation 99% 04/13/2024 10:06 AM DIRECTOR ACCOUNT MANAGEMENT Inhaled Oxygen Concentration - - Weight 89.6 kg (197 lb 8.5 oz) 04/11/2024 9:19 P M DIRECTOR ACCOUNT MANAGEMENT Height 154.9 cm (5' 1) 03/04/2024 9:20 AM DIRECTOR ACCOUNT MANAGEMENT Body Mass Index 37.32 03/04/2024 9:20 AM DIRECTOR ACCOUNT MANAGEMENT Plan of Treatment Health Maintenance Due Date [...] Diagnosis Comments EGFR STAT 04/12/2024 4:56 PM DIRECTOR ACCOUNT MANAGEMENT from Last 3 Months or Most Recently Relevant to Health Maintenance Results * eGFR (04/12/2024 4:56 PM DIRECTOR ACCOUNT MANAGEMENT) eGFR 85 >=60 mL/min/1. 73 m2 Comment: [...] last reviewed 2021. Blood 04/12/2024 4:56 PM DIRECTOR ACCOUNT MANAGEMENT 04/12/2024 4:56 PM DIRECTOR ACCOUNT MANAGEMENT us Юлия Luna MD LAB BLOOD ORDERABLES Final Re sult [facility] [address] Department [place] [address] from Last 3 Months or Most Recently Relevant to Health Maintenance Insurance [facility] MEDICARE ADVANTAGE [facility] MEDICARE ADVANTAGE [place] [id number] [facility] MEDICARE ADVANTAGE Advance Directives For more information, please contact: [phone] * Full Code (Latest Code Status on File) Date Activated Date Inactivated Comments 04/11/2024 9:30 PM 04/13/2024 3:31 PM Care Teams Toeing Stockings Relationship Specialty Start Date End Date Justino Palafox MD [address] [place] [address] PCP - General Internal Medicine 03/04/24 Dmitriy Fung MD [address] [place] [address] Consulting Physician Colon and Rectal Surgery 04/13/24
[2024-09-11 10:38] VITALS: BP 140/82; PULSE 67; RESP 16; TEMP 37; O2SAT 97
[2024-09-11 11:51] LABS: Basophils Percent Auto 0.2 % (0.2-1.2); Eosinophils Absolute Auto 0.1 K/mm3 (0-0.3); Eosinophils Percent Auto 0.6 % (0-4.4); Hematocrit 34.2 % (37.0-47.0); Hemoglobin 10.8 g/dL (12.0-15.0); Immature Granulocyte Absolute 0.04 K/mm3 (0.00-0.031); Immature Granulocyte Percent A 0.4 % (0-0.5); Lymphocytes Absolute Auto 0.63 K/mm3 (0.9-3.2); Lymphocytes Percent Auto 6.8 % (18.3-44.2); Mean Corpuscular HGB Conc 31.6 g/dl (32-36); Mean Corpuscular Hemoglobin 28.8 pg (26-34); Mean Corpuscular Volume 91.2 fl (80-100); Mean Platelet Volume 8.8 fl (7.4-10.4); Monocytes Absolute Auto 0.8 K/mm3 (0.1-0.6); Monocytes Percent Auto 8.4 % (2.6-8.5); Neutrophils Absolute Auto 7.7 K/mm3 (1.3-6.7); Neutrophils Percent Auto 83.6 % (45.5-73.1); Platelet Count Result 185 k/mm3 (150-375); Red Blood Count 3.75 M/mm3 (4.2-5.4); Red Cell Distribution Width 17.2 % (11.5-14.5); White Blood Count 9.3 K/mm3 (4.5-10.0)
[2024-09-11 12:01] VITALS: BP 137/63; PULSE 80; RESP 20; O2SAT 99
[2024-09-11 12:06] LABS: Alanine Aminotransferase 17 U/L (6-35); Albumin Level 4.1 g/dL (3.5-5.1); Alkaline Phosphatase 51 U/L (38-126); Anion Gap 9 mmol/L (4-12); Aspartate Amino Transferase 29 U/L (14-36); Bilirubin,Total 0.9 mg/dL (0.2-1.3); Blood Urea Nitrogen 35 mg/dL (7-17); Carbon Dioxide 25 mmol/L (22-30); Chloride 103 mmol/L (98-107); Estimated CRCL calculation 44 ml/min; Estimated Glomerular Filt Rate > 60; Glucose 111 mg/dL (65-110); Potassium 4.3 mmol/L (3.4-5.0); Sodium 137 mmol/L (137-145); Total Protein 6.4 g/dL (6.3-8.2)
--- OUTSIDE RECORDS SUMMARY | 2024-09-11 12:10 | XMS_ITS | Referral Summary ---
Author Organization [facility] [address] [facility] [address] Address [address] [place] [address] Care Team Providers Care Contracts Law Professor Name Role Phone Justino Palafox MD Primary Care Provider [phone] Dmitriy Fung MD Unavailable [phone] Encounters Date Type Department Care Team Description 07/11/2024 11:00 AM CDT Clinical Support [facility] Medical Group Diabetes and Endocrinology [address] [place] [address] Age-related osteoporosis without current pathological fracture (Primary Dx) 06/24/2024 Telephone [facility] Specialists of [facility] [id number] [place] [address] Riley Salvador MD Med Management (Prolia) [...] 03/04/2024 Assessment & Plan (03/04/2024 12:59 PM COMPUTER PROGRAMMER ANALYST): Chronic , slow improving H/o L5 compression [...] Tobacco: Never Tobacco Cessation:Counseling Given: Not Answered [facility] Utilities Answer Date Recorded In the [...] often do you attend chur ch or nondenominational services? More than 4 times per year 04/12/2024 Do you belong to any clubs o r organizations such as evangelical groups, unions, fraternal or athletic groups, or [...] any time in the past 12 m [facility], were you homeless or living [...] on file Legal Sex Female 2:59 AM COMPUTER PROGRAMMER ANALYST Gender Identity Not on file Sexual Orientation Not on file Last Filed Vital Signs Vital Sign Reading Time Taken Comments Blood Pressure 139/61 04/13/2024 10:06 AM COMPUTER PROGRAMMER ANALYST Pulse 79 04/13/2024 10:06 AM COMPUTER PROGRAMMER ANALYST Temperature 36.4 C (97.6 F) 04/13/2024 10:06 AM COMPUTER PROGRAMMER ANALYST Respiratory Rate 18 04/13/2024 10:06 AM COMPUTER PROGRAMMER ANALYST Oxygen Saturation 99% 04/13/2024 10:06 AM COMPUTER PROGRAMMER ANALYST Inhaled Oxygen Concentration - - Weight 89.6 kg (197 lb 8.5 oz) 04/11/2024 9:19 P M COMPUTER PROGRAMMER ANALYST Height 154.9 cm (5' 1) 03/04/2024 9:20 AM COMPUTER PROGRAMMER ANALYST Body Mass Index 37.32 03/04/2024 9:20 AM COMPUTER PROGRAMMER ANALYST Plan of Treatment Not on file Procedures Procedure Name Priority Date/Time Associated Diagnosis Comments EGFR STAT 04/12/2024 4:56 PM COMPUTER PROGRAMMER ANALYST from Last 3 Months or Most Recently Relevant to Health Maintenance Results * eGFR (04/12/2024 4:56 PM COMPUTER PROGRAMMER ANALYST) eGFR 85 >=60 mL/min/1. 73 m2 Comment: [...] last reviewed 2021. Blood 04/12/2024 4:56 PM COMPUTER PROGRAMMER ANALYST 04/12/2024 4:56 PM COMPUTER PROGRAMMER ANALYST us Юлия Luna MD LAB BLOOD ORDERABLES Final Re sult [facility] [address] Department [place] [address] from Last 3 Months or Most Recently Relevant to Health Maintenance Insurance [employer] MEDICARE ADVANTAGE [facility] Address: [facility] [address] [place] [address] [facility] MEDICARE ADVANTAGE [facility] Address: [address] [address] [place] [address] [facility] MEDICARE ADVANTAGE [facility] Address: [address] [address] [place] [address] Advance Directives For more information, please contact: [phone] * Full Code (Latest Code Status on File) Date Activated Date Inactivated Comments 04/11/2024 9:30 PM 04/13/2024 3:31 PM Care Teams Contracts Law Professor Relationship Specialty Start Date End Date Justino Palafox MD [address] [place] [address] PCP - General Internal Medicine 03/04/24 Dmitriy Fung MD [address] [place] [address] Consulting Physician Colon and Rectal Surgery 04/13/24
--- OUTSIDE RECORDS SUMMARY | 2024-09-11 12:10 | XMS_ITS | Clinical Summary ---
Author Organization [facility] [address] Address [address] [place] [address] Care Team Providers Care Handle Bar Assembler Name Role Phone Justino Palafox MD Primary Care Provider [phone] Dmitriy Fung MD Unavailable [phone] Allergies Active Allergy Reactions Criticality Noted Date [...] 03/04/2024 Assessment & Plan (03/04/2024 12:59 PM PROJECT ASSOCIATE): Chronic , slow improving H/o L5 compression [...] Description 07/11/2024 11:00 AM CDT Clinical Support [facility] Medical Group Diabetes and Endocrinology [address] [place] [address] Age-related osteoporosis without current pathological fracture (Primary Dx) 06/24/2024 [facility]phone [facility] [address] [address] Riley Salvador MD Med Management [...] Tobacco: Never Tobacco Cessation:Counseling Given: Not Answered [facility] Utilities Answer Date Recorded In the past 12 months has th e [employer], gas, oil, or water [employer] threatened to shut off services in your [...] How often do you attend chur or pentecostal services? More than 4 times per year 04/12/2024 Do you belong to any clubs o r organizations such as yazidism groups, unions, fraternal or athletic groups, or [...] any time in the past 12 m [facility], were you homeless or living in a fci (including now)? No 04/12/2024 Personal Safety Answer Date Recorded Have you ever been in or are you currently in a harmful physical or emotional relationship or is someone making you feel afraid or unsafe? Denies 04/11/2024 Comments Unknown Sex and Gender Information Value Date Recorded Sex Assigned at Not on file Legal Sex Female 2:59 AM PROJECT ASSOCIATE Gender Identity Not on file Sexual Orientation Not on file Obstetrics History Last Filed Vital Signs Vital Sign Reading Time Taken Comments Blood Pressure 139/61 04/13/2024 10:06 AM PROJECT ASSOCIATE Pulse 79 04/13/2024 10:06 AM PROJECT ASSOCIATE Temperature 36.4 C (97.6 F) 04/13/2024 10:06 AM PROJECT ASSOCIATE Respiratory Rate 18 04/13/2024 10:06 AM PROJECT ASSOCIATE Oxygen Saturation 99% 04/13/2024 10:06 AM PROJECT ASSOCIATE Inhaled Oxygen Concentration - - Weight 89.6 kg (197 lb 8.5 oz) 04/11/2024 9:19 P M PROJECT ASSOCIATE Height 154.9 cm (5' 1) 03/04/2024 9:20 AM PROJECT ASSOCIATE Body Mass Index 37.32 03/04/2024 9:20 AM PROJECT ASSOCIATE Plan of Treatment Health Maintenance Due Date [...] Diagnosis Comments EGFR STAT 04/12/2024 4:56 PM PROJECT ASSOCIATE from Last 3 Months or Most Recently Relevant to Health Maintenance Results * eGFR (04/12/2024 4:56 PM PROJECT ASSOCIATE) eGFR 85 >=60 mL/min/1. 73 m2 Comment: [...] last reviewed 2021. Blood 04/12/2024 4:56 PM PROJECT ASSOCIATE 04/12/2024 4:56 PM PROJECT ASSOCIATE us Юлия Luna MD LAB BLOOD ORDERABLES Final Re sult [facility] [address] Department [place] [address] from Last 3 Months or Most Recently Relevant to Health Maintenance Insurance [facility] MEDICARE ADVANTAGE [facility] Address: [address] [place], [place] [id number] [facility] MEDICARE ADVANTAGE [facility] Address: [address] [address] [place] [id number] [facility] MEDICARE ADVANTAGE [facility] Address: [address] [address] [place] [address] Advance Directives For more information, please contact: [phone] * Full Code (Latest Code Status on File) Date Activated Date Inactivated Comments 04/11/2024 9:30 PM 04/13/2024 3:31 PM Care Teams Handle Bar Assembler Relationship Specialty Start Date End Date Justino Palafox MD [address] [place] [address] PCP - General Internal Medicine 03/04/24 Dmitriy Fung MD [address] [place] [address] Consulting Physician Colon and Rectal Surgery 04/13/24
--- NOTE | 2024-09-11 12:13 | ED_ITS ---
HPI - General Adult General Chief complaint: Abdominal Pain Stated complaint: constipated, possible impaction Time Seen by Provider: 09/11/24 11:31 History of Present Illness HPI narrative: 84-year-old female presenting to the emergency department for evaluation for constipation. Patient states she has been increasing her stool softeners but over the last few days she has had decreased bowel movements. Patient states she did try to disimpact herself yesterday with no success. Patient does describe rectal pressure. Related Data Home Medications ?Medication ?Instructions ?Recorded ?Confirmed ?Last Taken ?Type fluticasone propionate 50 2 spray intranasal DAILY 08/06/19 11/30/20 Unknown History mcg/actuation nasal spray,suspension (Flonase Allergy Relief) glyburide 2.5 mg tablet 2.5 mg PO DAILY 08/06/19 11/30/20 Unknown History metformin 500 mg tablet 500 mg PO BID 08/06/19 11/30/20 Unknown History omeprazole 20 mg-sodium 1 cap PO HS 08/06/19 11/30/20 Unknown History bicarbonate 1.1 gram capsule simvastatin 5 mg tablet 5 mg PO DAILY 08/06/19 11/30/20 Unknown History brimonidine 0.1 % eye drops 1 drp RIGHT EYE Q12H 11/30/20 04/11/24 04/11/24 06:30 History (Alphagan P) latanoprost 0.005 % eye drops 1 drp EACH EYE HS 11/30/20 04/11/24 04/10/24 History peg 400-propylene glycol 0.4 %-0.3 1 drp EACH EYE Q12H 11/30/20 11/30/20 11/29/20 History % eye drops (Systane (propylene glycol)) pioglitazone 30 mg tablet 30 mg PO HS 11/30/20 11/30/20 Unknown History timolol maleate 0.5 % eye drops 1 drp EACH EYE DAILY 11/30/20 04/11/24 04/11/24 06:30 History gabapentin 100 mg capsule 100 mg PO TID 12/03/20 12/03/20 Unknown History Allergies Allergy/AdvReac Type Severity Reaction Status Date / Time azithromycin Allergy Abdominal Verified 04/11/24 07:22 Pain Sulfa (Sulfonamide Allergy break out Verified 04/11/24 07:22 Antibiotics) Review of Systems 2 Review of Systems: All systems reviewed & are unremarkable except as noted in HPI and below PMFSH Past Medical History Medical History Shingles (04/2020) Glaucoma Arthritis Gastroesophageal reflux disease Hypertension Type 2 diabetes mellitus Surgical History Surgical History History of hysterectomy History of right hip replacement History of cholecystectomy History of appendectomy Family History Family History Other Diabetes mellitus Hypertension Social History Social History Social History: Surrogate decision maker: Julian Bond, . Code status: Full code. Smoking status: Never smoker Alcohol intake: never Substance use: never Substance use type: does not use Additional living arrangements comments: The patient lives in [place] with her . Additional occupation/education comments: Retired. Spiritual care concerns: No Exam 2 Narrative: APPEARANCE: Well appearing, no pain, no distress, well-nourished. HEAD: normocephalic, atraumatic. EYES: PERRLA/EOMI, conjunctivae clear. NOSE: Normal no drainage EARS:TMS clear with good light reflex. THROAT: Pharynx clear, no exudate. NECK: Supple. No adenopathy, no masses. RESPIRATORY: Airway patent, respirations nonlabored. Clear to auscultation bilaterally, no rales, rhonchi, wheezing. CARDIOVASCULAR: Regular rate and rhythm without murmurs rubs or gallops. ABDOMINAL: Soft, nontender, nondistended, normal bowel sounds MUSCULOSKELETAL: Moves all extremities. Strength/ROM intact, No edema, No calf tenderness. NEURO: Alert. Cranial nerves II through XII intact. Good gait. Good coordination SKIN: Warm, dry. Normal Color Rectal exam: Palpable stool ball within the rectal vault unable to digitally disimpact. Course Vital Signs Vital signs: Vital Signs Temperature 98.6 F 09/11/24 10:38 Pulse Rate 67 09/11/24 10:38 Respiratory Rate 16 09/11/24 10:38 Blood Pressure 140/82 09/11/24 10:38 Pulse Oximetry 97 09/11/24 10:38 Temperature 98.6 F 09/11/24 10:38 Pulse Rate 80 09/11/24 12:01 Respiratory Rate 20 09/11/24 12:01 Blood Pressure 137/63 09/11/24 12:01 Pulse Oximetry 99 09/11/24 12:01 Procedures Rectal Disimpaction Rectal Disimpaction #1: Rectal Disimpaction Date: 09/11/24 Rectal Disimpaction Time: 12:14 Time out performed rectal disimpaction: Yes Indication: fecal impaction Procedural Sedation: No Sedation/Analgesia: none Technique: manual disimpaction with gloved finger Result: unable to disimpact Patient Tolerated Procedure: well and no complications Complications: none Medical Decision Making MDM Narrative Medical decision making narrative: 84-year-old female presents emergency department for evaluation for constipation. Patient is currently afebrile with no leukocytosis hemoglobin 10.8. Patient has no acute abnormalities on her CMP patient had no abdominal tenderness to palpation. Unable to digitally disimpact. Patient did have significant results with the soapsuds enema. CT scan did show evidence a stool ball but she did pass this. Patient states she does feel improved. Differential Diagnosis Differential Diagnosis: Colitis, diverticulitis, constipation, fecal impaction Vital Signs Vital Signs: Vital Signs Temperature 98.6 F 09/11/24 10:38 Pulse Rate 67 09/11/24 10:38 Respiratory Rate 16 09/11/24 10:38 Blood Pressure 140/82 09/11/24 10:38 Pulse Oximetry 97 09/11/24 10:38 Temperature 98.6 F 09/11/24 10:38 Pulse Rate 80 09/11/24 12:01 Respiratory Rate 20 09/11/24 12:01 Blood Pressure 137/63 09/11/24 12:01 Pulse Oximetry 99 09/11/24 12:01 Lab Data Lab results reviewed: Yes I reviewed the patient's lab results. 09/11/24 11:46 09/11/24 11:46 Labs: Lab Results 09/11/24 Range/Units 11:46 WBC 9.3 (4.5-10.0) K/mm3 RBC 3.75 L (4.2-5.4) M/mm3 Hgb 10.8 L (12.0-15.0) g/dL Hct 34.2 L (37.0-47.0) % MCV 91.2 (80-100) fl MCH 28.8 (26-34) pg MCHC 31.6 L (32-36) g/dl RDW 17.2 H (11.5-14.5) % Plt Count 185 (150-375) k/mm3 MPV 8.8 (7.4-10.4) fl Immature Gran % (Auto) 0.4 (0-0.5) % Neut % (Auto) 83.6 H (45.5-73.1) % Lymph % (Auto) 6.8 L (18.3-44.2) % [place] % (Auto) 8.4 (2.6-8.5) % Eos % (Auto) 0.6 (0-4.4) % Baso % (Auto) 0.2 (0.2-1.2) % Lymph # (Auto) 0.63 L (0.9-3.2) K/mm3 [place] # (Auto) 0.8 H (0.1-0.6) K/mm3 Eos # (Auto) 0.1 (0-0.3) K/mm3 Baso # (Auto) 0.0 (0.0-0.1) K/mm3 Abs Immat Gran (auto) 0.04 H (0.00-0.031) K/mm3 Absolute Neuts (auto) 7.7 H (1.3-6.7) K/mm3 Absolute Nucleated RBC 0.000 (0.0-0.012) K/mm3 Nucleated RBC % 0.0 (0.0-0.2) % Sodium 137 (137-145) mmol/L Potassium 4.3 (3.4-5.0) mmol/L Chloride 103 (98-107) mmol/L Carbon Dioxide 25 (22-30) mmol/L Anion Gap 9 (4-12) mmol/L BUN 35 H D (7-17) mg/dL Creatinine 0.80 (0.7-1.0) mg/dL Estim Creat Clear Calc 44 ml/min Estimated GFR > 60 (59 - ) Glucose 111 H (65-110) mg/dL Calcium 9.0 (8.4-10.2) mg/dL Total Bilirubin 0.9 (0.2-1.3) mg/dL AST 29 (14-36) U/L ALT 17 (6-35) U/L Alkaline Phosphatase 51 (38-126) U/L Total Protein 6.4 (6.3-8.2) g/dL Albumin 4.1 (3.5-5.1) g/dL Imaging Data Radiologist's impression: Impressions Abdomen/Pelvis CT 09/11/24 14:12 IMPRESSION: 1. Large ball of stool at rectum suggestive of constipation with fecal impaction. 2. Chronic dilation the common bile duct and minimal central intrahepatic biliary ductal dilation likely related to prior cholecystectomy with no evident obstructing stone or mass. Correlate with liver function tests surgically concern for biliary obstruction and if indicated this could be further evaluated with MRCP. 3. Diverticulosis. 4. Small sliding-type hiatal hernia. 5. Subacute L4 and chronic L5 compression fractures unchanged since lumbar spine MR from a month and a half prior. Discharge Plan Discharge Clinical Impression: Constipation Patient Disposition: Home Condition: Stable Instructions: Antibiotic Form, Constipation (DC) Additional Instructions: Increase your water intake and your MiraLax intake. Follow a high-fiber diet. Have close follow-up with your primary care physician. Worsening symptoms then please call or return to the emergency department. Patient Language: Nigerien Prescriptions: No Action metformin 500 mg tablet 500 mg PO BID glyburide 2.5 mg tablet 2.5 mg PO DAILY simvastatin 5 mg tablet 5 mg PO DAILY omeprazole-sodium bicarbonate 20-1.1 mg-gram capsule 1 cap PO HS fluticasone propionate [Flonase Allergy Relief] 50 mcg/actuation spray,suspension 2 spray NASAL DAILY Rx Instructions: administer into each nostril latanoprost 0.005 % drops 1 drp EACH EYE HS timolol maleate 0.5 % drops 1 drp EACH EYE DAILY pioglitazone 30 mg tablet 30 mg PO HS Systane (propylene glycol) 0.4-0.3 % Drops 1 drp EACH EYE Q12H brimonidine [Alphagan P] 0.1 % drops 1 drp RIGHT EYE Q12H Patient Comments: both eyes gabapentin 100 mg capsule 100 mg PO TID albuterol sulfate [Proventil HFA] 90 mcg/actuation Hfa Aerosol Inhaler 2 puff inhalation QIDRT PRN (Reason: Shortness Of Breath) Qty: 8.5 0RF lisinopril 20 mg Tablet 20 mg PO QAM Qty: 30 0RF Eliquis 5 mg tablet 5 mg PO BID Qty: 60 0RF tramadol [Ultram] 50 mg tablet 25 mg PO Q6-8H Qty: 5 0RF Follow-up/Referrals: Javy,MD Justino [Primary Care Provider] -
== END 2024-09-11 15:11 | disposition home or self-care (01) ==
PROVIDERS: Emergency Medicine; Emergency Provider Emergency Medicine; PCP Internal Medicine
DX: K59.00 Constipation, unspecified (principal); I10 Essential (primary) hypertension; E11.39 Type 2 diabetes mellitus with other diabetic ophthalmic complication; H42 Glaucoma in diseases classified elsewhere; K21.9 Gastro-esophageal reflux disease without esophagitis; M19.90 Unspecified osteoarthritis, unspecified site; Z90.710 Acquired absence of both cervix and uterus; Z96.641 Presence of right artificial hip joint; Z90.49 Acquired absence of other specified parts of digestive tract; Z79.84 Long term (current) use of oral hypoglycemic drugs; Z79.899 Other long term (current) drug therapy; Z79.01 Long term (current) use of anticoagulants; K57.90 Diverticulosis of intestine, part unspecified, without perforation or abscess without bleeding; K44.9 Diaphragmatic hernia without obstruction or gangrene
CPT/HCPCS: 36415; 74177; 80053; 85025; 99284; Q9967